=== PATIENT | male | born 1965 | race African-American/Black ===

== ENCOUNTER 2016-02-25 15:33 | Inpatient (IN) | payer OTHER ==
[2016-02-25 15:53] VITALS: BMI 28.0
--- NOTE | 2016-02-25 16:55 | HP ---
CIWA Score - CIWA Score Nausea/Vomitin Muscle Tremors: 3 Anxiety: 3 Agitation: 3 Paroxysmal Sweats: 1-Minimal Palms Moist Orientation: 0-Oriented Tacttile Disturbances: 2-Mild Itch/Numbness/Burn Auditory Disturbances: 2-Mild Harshness/Frighten Visual Disturbances: 2-Mild Sensitivity Headache: 2-Mild CIWA-Ar Total Score: 21 Admission ROS BHS - HPI Chief Complaint: I NEED HELP TO STOP DRINKING AND DRUG COCAINE Allergies/Adverse Reactions: Allergies Allergy/AdvReac Type Severity Reaction Status Date / Time pork derived (porcine) Allergy Mild Rash Verified 01/09/16 17:30 [Pork derived (porcine)] No Known Drug Allergies Allergy Unknown Verified 01/09/16 17:30 History of Present Illness: THIS 50 YEARS OLD MALE WITH ALCOHOL AND COCAINE DEPENDENCE,WITHDRAWAL SYMPTOM, LAST DETOX 01/02 [facility] BIPOLAR DISORDER NICOTINE DEPENDENCE HTN LONGEST SOBRIETY 1 YEAR SEEN IN [facility] Exam Limitations: No Limitations - Ebola screening Have you traveled outside of the country in the last 21 days: No (N) Have you had contact with anyone from an Ebola affected area: No Have you been sick,other than usual withdrawal symptoms: No Do you have a fever: No - Review of Systems Constitutional: Loss of Appetite, Malaise, Night Sweats, Changes in sleep, Weakness EENT: reports: Tearing, Nose Congestion Respiratory: reports: No Symptoms reported Cardiac: reports: No Symptoms Reported GI: reports: Diarrhea, Vomiting, Indigestion, Abdominal cramping : reports: No Symptoms Reported Musculoskeletal: reports: Back Pain, Muscle Pain Integumentary: reports: Dryness Neuro: reports: Headache, Tremors Endocrine: reports: No Symptoms Reported Hematology: reports: No Symptoms Reported Psychiatric: reports: other (BIPOLAR DISORDER) Patient History - Patient Medical History Hx Anemia: No Hx Asthma: No Hx Chronic Obstructive Pulmonary Disease (COPD): No Hx Cancer: No Hx Cardiac Disorders: No Hx Congestive Heart Failure: No Hx Hypertension: Yes (NON COMPLIANCE) Hx Hypercholesterolemia: No Hx Pacemaker: No HX Cerebrovascular Accident: No Hx Seizures: No Hx Dementia: No Hx Diabetes: No Hx Gastrointestinal Disorders: No Hx Liver Disease: No Hx Genitourinary Disorders: No Hx Sexually Transmitted Disorders: No Hx Renal Disease (ESRD): No Hx Thyroid Disease: No Hx Human Immunodeficiency Virus (HIV): No (negative 08/02 LAST) Hx Hepatitis C: No Hx Depression: No Hx Suicide Attempt: Yes (20 years ago) Hx Bipolar Disorder: Yes Hx Schizophrenia: No Other Medical History: NO SUICIDAL,NO HOMMICIDAL - Patient Surgical History Past Surgical History: No Hx Neurologic Surgery: No Hx Cataract Extraction: No Hx Cardiac Surgery: No Hx Lung Surgery: No Hx Breast Surgery: No Hx Breast Biopsy: No Hx Abdominal Surgery: No Hx Appendectomy: No Hx Cholecystectomy: No Hx Genitourinary Surgery: No Hx Section: No Hx Orthopedic Surgery: No Anesthesia Reaction: No - PPD History Documented Results: Negative w/o proof Date: 07/24/14 Results: 0 mm PPD to be Administered?: Yes - Smoking Cessation Smoking history: Current every day smoker Have you smoked in the past 12 months: Yes Aproximately how many cigarettes per day: 10 Cigars Per Day: 0 Hx Chewing Tobacco Use: No Initiated information on smoking cessation: Yes 'Breaking Loose' booklet given: 02/25/16 - Substance & Tx. History Hx Alcohol Use: Yes Hx Substance Use: Yes Substance Use Type: Alcohol, Cocaine Hx Substance Use Treatment: Yes ([facility] 08/02) - Substances Abused Alcohol Route: Oral Frequency: Daily (1PINT OF VODKA) Amount used: 1 PINT OF VODKA/6 PACKS OF 12 OZS OF BEER Age of first use: 17 Date of Last Use: 02/24/16 Cocaine Route: Smoking Frequency: 1-3 times last 30 days Amount used: 200$ Age of first use: 17 Date of Last Use: 03/01/16 Family Disease History - Family Disease History Family History: Denies Admission Physical Exam [facility] - Vital Signs Vital Signs: Vital Signs - 24 hr 02/25/16 15:51 Temperature 96.1 F L Pulse Rate 58 L Respiratory 20 Rate Blood Pressure 135/98 - Physical General Appearance: Yes: Moderate Distress, Irritable, Sweating, Anxious HEENTM: Yes: Within Normal Limits, Nasal Congestion Respiratory: Yes: Lungs Clear Neck: Yes: Within Normal Limits Breast: Yes: Within Normal Limits Cardiology: Yes: Within Normal Limits, Regular Rhythm, Regular Rate, S1, S2 Abdominal: Yes: Within Normal Limits, Normal Bowel Sounds, Non Tender, Flat, Soft Genitourinary: Yes: Within Normal Limits Musculoskeletal: Yes: Back pain, Muscle Pain Extremities: Yes: Tremors Neurological: Yes: hand packager II-XII NML intact, Fully Oriented, Alert, Motor Strength 5/5 Integumentary: Yes: Dry Lymphatic: Yes: Within Normal Limits - Diagnostic (1) Alcohol dependence with uncomplicated withdrawal Current Visit: No Status: Chronic (2) Bipolar disorder Current Visit: No Status: Chronic Qualifiers: Current episode severity: unspecified Comment: . (3) Cocaine dependence Current Visit: No Status: Chronic Qualifiers: Substance use status: uncomplicated Qualified Code(s): F14.20 - Cocaine dependence, uncomplicated Comment: . (4) Hypertension Current Visit: No Status: Chronic Qualifiers: Hypertension type: essential hypertension Qualified Code(s): I10 - Essential (primary) hypertension Comment: . Cleared for Admission S - Detox or Rehab [facility] Level of Care: Medically Managed Detox Regimen/Protocol: Librium [facility] Breath Alcohol Content Breath Alcohol Content: 0 Urine Drug Screen - Results Drug Screen Negative: No Urine Drug Screen Results: BECKI-Cocaine
[2016-02-25] MEDS ORDERED: MENTHOL/PHENOL 1 EACH UD MM PRN (17:36)
[2016-02-25] MEDS ORDERED: chlordiazePOXIDE HCL 25 MG CAPSULE PO ONE (17:36)
[2016-02-25] MEDS ORDERED: MAG HYDROX/AL HYDROX/SIMETH 30 ML UNIT-DOSE CUP PO PRN (17:36)
[2016-02-25] MEDS ORDERED: hydrOXYzine PAMOATE 50 MG CAPSULE (FP) PO PRN (17:36)
[2016-02-25] MEDS ORDERED: guaiFENesin/D-METHORPHAN HB 10 ML UNIT-DOSE CUPS PO PRN (17:36)
[2016-02-25] MEDS ORDERED: diphenhydrAMINE HCL 50 MG CAPSULE PO PRN (17:36)
[2016-02-25] MEDS ORDERED: chlordiazePOXIDE HCL 25 MG CAPSULE PO PRN (17:36)
[2016-02-25] MEDS ORDERED: P-EPHED 60MG/TRIPROLIDI 2.5MG TABLET PO PRN (17:36)
[2016-02-25] MEDS ORDERED: MAGNESIUM HYDROX 2400MG/30ML ORAL SUSPENSION 30 ML CUP PO PRN (17:36)
[2016-02-25] MEDS ORDERED: MAGNESIUM CITRATE 300 ML BOTTLE PO PRN (17:36)
[2016-02-25] MEDS ORDERED: ACETAMINOPHEN 325 MG TABLET (FP) PO PRN (17:36)
[2016-02-25] MEDS ORDERED: IBUPROFEN 400 MG TABLET (FP) PO PRN (17:36)
[2016-02-25] MEDS ORDERED: LOPERAMIDE HCL 2 MG CAPSULE PO PRN (17:36)
[2016-02-25] MEDS ORDERED: NICOTINE POLACRILEX 2 MG GUM BC PRN (17:36)
[2016-02-25] MEDS: THIAMINE HCL 100 MG TABLET (FP) PO SCH (22:43)
[2016-02-25] MEDS: chlordiazePOXIDE HCL 25 MG CAPSULE PO SCH (22:43)
[2016-02-26] MEDS: chlordiazePOXIDE HCL 25 MG CAPSULE PO SCH ×4 (05:25→22:30)
--- NOTE | 2016-02-26 07:53 | CONSULT ---
[facility] Psychiatric Consult - Data Date of interview: 02/26/16 Admission source: [facility] Identifying data: This is 50 years old male with psychiatric hospitalization history iontoxicated with: Alcohol, Cocaine and Nicotine Substance Abuse History: - Smoking Cessation. Smoking history: Current every day smoker. Have you smoked in the past 12 months: Yes. Aproximately how many cigarettes per day: 10. Cigars Per Day: 0. Hx Chewing Tobacco Use: No. Initiated information on smoking cessation: Yes. 'Breaking Loose' booklet given : 02/25/16. - Substance & Tx. History. Hx Alcohol Use: Yes. Hx Substance Use : Yes. Substance Use Type: Alcohol, Cocaine. Hx Substance Use Treatment: Yes ( [facility] 08/02). - Substances Abused. Alcohol. Route: Oral. Frequency : Daily (1PINT OF VODKA). Amount used: 1 PINT OF VODKA/6 PACKS OF 12 OZS OF BEER. Age of first use: 17. Date of Last Use: 02/24/16. Cocaine. Route: Smoking. Frequency: 1-3 times last 30 days. Amount used: 200$. Age of first use: 17. Date of Last Use: 03/01/16 Medical History: UTI Hisotyr, HTN Psychiatric History: Patiyolit reports history of Bipolar disordsr with most recent psychiatric admission on 2015 at [facility], reports currentllllllllllly taking :". Seroquel 300mg po qhs Physical/Sexual Abuse/Trauma History: Denies Additional Comment: Seroquel 300mg po qhs Mental Status Exam - Mental Status Exam Alert and Oriented to: Person Cognitive Function: Fair Patient Appearance: Unkempt Affect: Flat Patient Behavior: Sedated Speech Pattern: Delayed Voice Loudness: Mildly Soft/Quiet Thought Process: Goal Oriented Thought Disorder: Being Controlled Hallucinations: Denies Suicidal Ideation: Denies Homicidal Ideation: Denies Insight/Judgement: Fair Sleep: Difficulty falling asleep Appetite: Weight gain Muscle strength/Tone: Mild Hypotonicity Gait/Station: Shuffling Additional Comments: Seroquel 300mg po qhs Psychiatric Findings - Problem List ([place] 1, 2,3) (1) Bipolar I, most recent episode mixed, severe with psychotic behavior Current Visit: No Status: Acute (2) Cannabis abuse Current Visit: No Status: Acute Comment: . (3) Drug-induced mood disorder Current Visit: No Status: Acute (4) Alcohol dependence Current Visit: No Status: Chronic Qualifiers: Substance use status: uncomplicated Qualified Code(s): F10.20 - Alcohol dependence, uncomplicated Comment: . (5) Alcohol dependence with uncomplicated withdrawal Current Visit: No Status: Chronic (6) Bipolar disorder Current Visit: No Status: Chronic Qualifiers: Current episode severity: unspecified Comment: . (7) Cocaine dependence Current Visit: No Status: Chronic Qualifiers: Substance use status: uncomplicated Qualified Code(s): F14.20 - Cocaine dependence, uncomplicated Comment: . (8) Nicotine dependence Current Visit: No Status: Chronic Qualifiers: Nicotine product type: cigarettes Comment: . - Initial Treatment Plan Initial Treatment Plan: Seroquel 300mg po qhs
[2016-02-26 10:03] LABS: MCHC 34.5 g/dl (32.0-35.9); MEAN CELL VOLUME 95.7 fl (80-96); MEAN PLT VOLUME 8.8 fl (7.5-11.1); PLATELET COUNT 193 K/MM3 (134-434); RDW 12.7 % (11.9-15.9); WHITE BLOOD COUNT 5.2 K/mm3 (4.0-10.0)
[2016-02-26 10:22] LABS: ALBUMIN 3.6 g/dl (3.4-5.0); ALK PHOS 61 U/L (45-117); ANION GAP 6 (8-16); BILIRUBIN,TOTAL 0.4 mg/dL (0.2-1.0); CALCIUM 8.8 mg/dL (8.5-10.1); CO2 31 mmol/L (21-32); CREATININE 1.2 mg/dL (0.7-1.3); GLUCOSE,RANDOM 78 mg/dL (74-106); SGOT/AST 24 U/L (15-37); SGPT/ALT 26 U/L (12-78); TOT PROT 6.4 g/dl (6.4-8.2)
[2016-02-26] MEDS: PRENATAL VITAMINS W/ FOLIC ACID TABLET (FP) PO SCH (10:33)
--- NOTE | 2016-02-26 11:37 | PN ---
S CIWA - CIWA Score Nausea/Vomitin Muscle Tremors: 2 Anxiety: 2 Agitation: 2 Paroxysmal Sweats: 3 Orientation: 0-Oriented Tacttile Disturbances: 1-Very Mild Itch/Numbness Auditory Disturbances: 0-None Visual Disturbances: 0-None Headache: 0-None Present CIWA-Ar Total Score: 12 S Progress Note (SOAP) Subjective: interrupted sleep, sweats Objective: 02/26/16 11:36 Vital Signs Temperature 97.0 F L 02/26/16 10:17 Pulse Rate 57 L 02/26/16 10:17 Respiratory Rate 18 02/26/16 10:17 Blood Pressure 122/66 02/26/16 10:17 O2 Sat by Pulse Oximetry (%) Laboratory Tests 02/26/16 02/26/16 02/26/16 06:30 06:30 06:30 WBC 5.2 D RBC 4.15 Hgb 13.7 Hct 39.7 MCV 95.7 MCHC 34.5 RDW 12.7 Plt Count 193 MPV 8.8 Sodium 140 Potassium 4.2 Chloride 103 Carbon Dioxide 31 Anion Gap 6 L BUN 15 Creatinine 1.2 Creat Clearance w eGFR > 60 Random Glucose 78 Calcium 8.8 Total Bilirubin 0.4 AST 24 ALT 26 Alkaline Phosphatase 61 Total Protein 6.4 Albumin 3.6 RPR Titer Nonreactive pt aox3 in nad ambulating 02/26/16 11:37 Assessment: 02/26/16 11:36 withdrawl sxs;s Plan: cont. detox increase fluids
[2016-02-26] MEDS: QUEtiapine FUMARATE 300 MG TABLET PO SCH (22:29)
[2016-02-26] MEDS: THIAMINE HCL 100 MG TABLET (FP) PO SCH (22:29)
[2016-02-27] MEDS: chlordiazePOXIDE HCL 25 MG CAPSULE PO SCH ×3 (06:49→17:35)
[2016-02-27] MEDS: PRENATAL VITAMINS W/ FOLIC ACID TABLET (FP) PO SCH (10:16)
--- NOTE | 2016-02-27 12:56 | PN ---
S CIWA - CIWA Score Nausea/Vomitin Muscle Tremors: 2 Anxiety: 2 Agitation: 2 Paroxysmal Sweats: 2 Orientation: 0-Oriented Tacttile Disturbances: 1-Very Mild Itch/Numbness Auditory Disturbances: 0-None Visual Disturbances: 0-None Headache: 0-None Present CIWA-Ar Total Score: 11 S Progress Note (SOAP) Subjective: interrupted sleep, but better Objective: 02/27/16 12:55 Vital Signs Temperature 97.3 F L 02/27/16 09:29 Pulse Rate 55 L 02/27/16 09:29 Respiratory Rate 18 02/27/16 09:29 Blood Pressure 135/91 02/27/16 09:29 O2 Sat by Pulse Oximetry (%) Laboratory Tests 02/26/16 02/26/16 02/26/16 06:30 06:30 06:30 WBC 5.2 D RBC 4.15 Hgb 13.7 Hct 39.7 MCV 95.7 MCHC 34.5 RDW 12.7 Plt Count 193 MPV 8.8 Sodium 140 Potassium 4.2 Chloride 103 Carbon Dioxide 31 Anion Gap 6 L BUN 15 Creatinine 1.2 Creat Clearance w eGFR > 60 Random Glucose 78 Calcium 8.8 Total Bilirubin 0.4 AST 24 ALT 26 Alkaline Phosphatase 61 Total Protein 6.4 Albumin 3.6 RPR Titer Nonreactive pt aox3 in nad ambulating Assessment: 02/27/16 12:55 withdrawl sx's Plan: cont. detox increase fluids
[2016-02-27] MEDS: chlordiazePOXIDE 5 MG CAPSULE PO SCH (23:03)
[2016-02-27] MEDS: QUEtiapine FUMARATE 300 MG TABLET PO SCH (23:03)
[2016-02-27] MEDS: THIAMINE HCL 100 MG TABLET (FP) PO SCH (23:04)
[2016-02-28] MEDS: chlordiazePOXIDE 5 MG CAPSULE PO SCH ×3 (05:22→17:55)
--- NOTE | 2016-02-28 10:19 | EKG ---
Test Reason : Blood Pressure : / mmHG Vent. Rate : 058 BPM Atrial Rate : 058 BPM P-R Int : 166 ms QRS Dur : 078 ms QT Int : 462 ms P-R-T Axes : 053 018 055 degrees QTc Int : 453 ms SINUS BRADYCARDIA MINIMAL VOLTAGE CRITERIA FOR LVH, MAY BE NORMAL VARIANT BORDERLINE ECG NO PREVIOUS ECGS AVAILABLE Confirmed by CYNTHIA ZALDIVAR MD ([id number]) on 02/28/2016 10:18:55 AM Referred By: Confirmed By:CYNTHIA ZALDIVAR MD
[2016-02-28] MEDS: PRENATAL VITAMINS W/ FOLIC ACID TABLET (FP) PO SCH (10:49)
--- NOTE | 2016-02-28 11:18 | PN ---
[facility] Progress Note (SOAP) Subjective: interrupted sleep Objective: 02/28/16 11:17 Vital Signs Temperature 97.3 F L 02/28/16 10:03 Pulse Rate 60 02/28/16 10:03 Respiratory Rate 18 02/28/16 10:03 Blood Pressure 138/83 02/28/16 10:03 O2 Sat by Pulse Oximetry (%) awake/alert ambulating no acute distress Assessment: 02/28/16 11:17 withdrawal sx Plan: continue detox d/c in am
[2016-02-28 14:18] LABS: URINE APPEARANCE CLEAR; URINE BILIRUBIN NEGATIVE (NEGATIVE); URINE BLOOD NEGATIVE (NEGATIVE); URINE COLOR LT. YELLOW; URINE GLUCOSE (UA) NEGATIVE (NEGATIVE); URINE KETONE NEGATIVE (NEGATIVE); URINE LEUK ESTERASE NEGATIVE (NEGATIVE); URINE NITRITE NEGATIVE (NEGATIVE); URINE PROTEIN NEGATIVE (NEGATIVE); URINE UROBILINOGEN 0.2 E.U/dl E.U./dl (0.2-1.0)
[2016-02-28] MEDS: QUEtiapine FUMARATE 300 MG TABLET PO SCH (22:42)
[2016-02-28] MEDS: THIAMINE HCL 100 MG TABLET (FP) PO SCH (22:42)
[2016-02-28] MEDS: chlordiazePOXIDE HCL 10 MG CAPSULE PO SCH (22:42)
[2016-02-29] MEDS: chlordiazePOXIDE HCL 10 MG CAPSULE PO SCH ×2 (05:00→11:23)
--- NOTE | 2016-02-29 08:18 | DS ---
[facility] Detox Discharge Summary Admission Date: 02/25/16 - History Present History: Alcohol Dependence - Physical Exam Results Vital Signs: Vital Signs Temperature 98.2 F 02/29/16 05:52 Pulse Rate 88 02/29/16 05:52 Respiratory Rate 18 02/29/16 05:52 Blood Pressure 115/69 02/29/16 05:52 O2 Sat by Pulse Oximetry (%) - Treatment Hospital Course: Detox Protocol Followed, Detoxed Safely, Responded well, Discharged Condition Good - Medication Discharge Medications: Ambulatory Orders Quetiapine Fumarate [Seroquel] 300 mg PO HS 02/25/16 Quetiapine Fumarate [Seroquel -] 300 mg PO HS #30 tab 02/26/16 - Diagnosis (1) Abdominal pain Current Visit: No Status: Acute Qualifiers: Abdominal location: generalized Qualified Code(s): R10.84 - Generalized abdominal pain (2) Alcohol dependence with uncomplicated withdrawal Current Visit: No Status: Chronic (3) Bipolar disorder Current Visit: No Status: Chronic Qualifiers: Current episode severity: unspecified (4) Cocaine dependence Current Visit: No Status: Chronic Qualifiers: Substance use status: uncomplicated Qualified Code(s): F14.20 - Cocaine dependence, uncomplicated (5) Hypertension Current Visit: No Status: Chronic Qualifiers: Hypertension type: essential hypertension Qualified Code(s): I10 - Essential (primary) hypertension (6) Nicotine dependence Current Visit: No Status: Chronic Qualifiers: Nicotine product type: cigarettes - AMA Did Patient Leave Against Medical Advice: No
[2016-02-29 10:30] VITALS: BP 123/75; PULSE 53; TEMP 97.3
[2016-02-29] MEDS: PRENATAL VITAMINS W/ FOLIC ACID TABLET (FP) PO SCH (11:23)
== END 2016-02-29 11:31 | disposition other institution (70) | DRG 774 ==
LOC: YASAS 15:33 → Y6N 17:31
PROVIDERS: ADMIT Internal Medicine; ATTEND Internal Medicine
PROC: HZ2ZZZZ Detoxification Services for Substance Abuse Treatment (ICD-10-PCS; principal; 2016-02-25)
DX: F10.230 Alcohol dependence with withdrawal, uncomplicated (principal); F14.20 Cocaine dependence, uncomplicated; F17.210 Nicotine dependence, cigarettes, uncomplicated; F19.24 Other psychoactive substance dependence with psychoactive substance-induced mood disorder; F31.64 Bipolar disorder, current episode mixed, severe, with psychotic features; R10.84 Generalized abdominal pain; I10 Essential (primary) hypertension; Z91.14 Patient's other noncompliance with medication regimen; Z91.5 Personal history of self-harm
CPT/HCPCS: 36415; 80053; 81003; 85027; 86593; 93005; 93010

== ENCOUNTER 2016-02-29 11:41 | Inpatient (IN) | payer OTHER ==
--- NOTE | 2016-02-29 13:59 | HP ---
Psychiatrist Admission - Data Date of interview: 02/29/16 Admission source: 6N Identifying data: This is one of the several 5N inpatient rehabilitation admission for this 50 year old single black male father of 3, residing in the care home and supported by [facility]. Medical History: History of HTN and UTI. Smokes cigarettes 10a day. Psychiatric History: PAtient reports carries a diagnosis of Biplar disorder, firs psychiaric hospitalization in 1991 at [facility] for 2 weeks to address suicidal thoughts and depressed mood, reports 7 or 8 subseuqnet hospitalizations with most recent 01/31 at [facility], had a depressed episode with racing thoughts. Non-compliant with medications, was on Risperdal, Haldol, most recently was on Seroquel 300 mg po hs, stopped 2 months ago, while in detox. seen by and retarted medications. Physical/Sexual Abuse/Trauma History: Patient denies history of sexual, physical and verbal abuse. Allergies/Adverse Reactions: Allergies Allergy/AdvReac Type Severity Reaction Status Date / Time pork derived (porcine) Allergy Mild Rash Verified 02/29/16 12:07 [Pork derived (porcine)] No Known Drug Allergies Allergy Unknown Verified 02/29/16 12:07 Date of last physical exam: 02/25/16 Concur with the findings of this exam: Yes - Substance Abuse/Tx History Hx Alcohol Use: Yes Substance Use Type: Alcohol (1 pint of vodka, 6 pcks of beer daily), Cocaine ($ 200 every other day.) Mental Status Exam - Mental Status Exam Alert and Oriented to: Time, Place, Person Cognitive Function: Grossly Intact Patient Appearance: Unkempt Mood: Sad Affect: Appropriate, Mood Congruent Patient Behavior: Appropriate, Cooperative Speech Pattern: Clear, Appropriate Voice Loudness: Normal Thought Process: Intact, Goal Oriented Thought Disorder: Not Present Hallucinations: Denies Suicidal Ideation: Denies Homicidal Ideation: Denies Insight/Judgement: Fair Sleep: Fair Appetite: Fair Muscle strength/Tone: Normal Gait/Station: Normal Psychiatric Findings - Problem List ([place] 1, 2,3) (1) Alcohol dependence Current Visit: No Status: Chronic Qualifiers: Substance use status: uncomplicated Qualified Code(s): F10.20 - Alcohol dependence, uncomplicated Comment: . (2) Cocaine dependence Current Visit: No Status: Chronic Qualifiers: Substance use status: uncomplicated Qualified Code(s): F14.20 - Cocaine dependence, uncomplicated Comment: . (3) Bipolar I disorder, most recent episode depressed Current Visit: Yes Status: Acute - Initial Treatment Plan Initial Treatment Plan: will continue Seroquel 300 mg po hs, monitor progress as needed.
[2016-02-29] MEDS ORDERED: MAGNESIUM CITRATE 300 ML BOTTLE PO PRN (14:06)
[2016-02-29] MEDS ORDERED: MENTHOL/PHENOL 1 EACH UD MM PRN (14:06)
[2016-02-29] MEDS ORDERED: MAGNESIUM HYDROX 2400MG/30ML ORAL SUSPENSION 30 ML CUP PO PRN (14:06)
[2016-02-29] MEDS ORDERED: ACETAMINOPHEN 325 MG TABLET (FP) PO PRN (14:06)
[2016-02-29] MEDS ORDERED: NICOTINE POLACRILEX 4 MG GUM BUC PRN (14:06)
[2016-02-29] MEDS ORDERED: MAG HYDROX/AL HYDROX/SIMETH 30 ML UNIT-DOSE CUP PO PRN (14:06)
[2016-02-29] MEDS ORDERED: guaiFENesin/D-METHORPHAN HB 10 ML UNIT-DOSE CUPS PO PRN (14:06)
[2016-02-29] MEDS ORDERED: P-EPHED 60MG/TRIPROLIDI 2.5MG TABLET PO PRN (14:06)
[2016-02-29] MEDS ORDERED: LOPERAMIDE HCL 2 MG CAPSULE PO PRN (14:06)
--- NOTE | 2016-02-29 16:18 | HP ---
[facility] Rehab Assess/Revision - Admission History Admitted to Rehab from: [facility] [address] [place] Date of Admission to Rehab: 02/29/16 - Findings Detox History & Physical reviewed: Yes Concur with findings: Yes Comments/Additional Findings: transferred from detox to rehab admission as per protocol
[2016-02-29] MEDS: QUEtiapine FUMARATE 300 MG TABLET PO SCH (21:39)
[2016-02-29] MEDS: THIAMINE HCL 100 MG TABLET (FP) PO SCH (21:39)
[2016-02-29] MEDS: diphenhydrAMINE HCL 50 MG CAPSULE PO PRN (21:40)
[2016-03-01] MEDS: PRENATAL VITAMINS W/ FOLIC ACID TABLET (FP) PO SCH (10:01)
[2016-03-01] MEDS: THIAMINE HCL 100 MG TABLET (FP) PO SCH (21:50)
[2016-03-01] MEDS: diphenhydrAMINE HCL 50 MG CAPSULE PO PRN (21:50)
[2016-03-01] MEDS: QUEtiapine FUMARATE 300 MG TABLET PO SCH (21:50)
[2016-03-02] MEDS: PRENATAL VITAMINS W/ FOLIC ACID TABLET (FP) PO SCH (10:00)
[2016-03-02] MEDS: THIAMINE HCL 100 MG TABLET (FP) PO SCH (21:29)
[2016-03-02] MEDS: diphenhydrAMINE HCL 50 MG CAPSULE PO PRN (21:29)
[2016-03-02] MEDS: QUEtiapine FUMARATE 300 MG TABLET PO SCH (21:29)
[2016-03-03] MEDS: PRENATAL VITAMINS W/ FOLIC ACID TABLET (FP) PO SCH (10:27)
[2016-03-03] MEDS: QUEtiapine FUMARATE 300 MG TABLET PO SCH (21:49)
[2016-03-03] MEDS: THIAMINE HCL 100 MG TABLET (FP) PO SCH (21:49)
[2016-03-03] MEDS: diphenhydrAMINE HCL 50 MG CAPSULE PO PRN (21:50)
[2016-03-04] MEDS: PRENATAL VITAMINS W/ FOLIC ACID TABLET (FP) PO SCH (10:20)
[2016-03-04] MEDS: diphenhydrAMINE HCL 50 MG CAPSULE PO PRN (22:02)
[2016-03-04] MEDS: QUEtiapine FUMARATE 300 MG TABLET PO SCH (22:02)
[2016-03-04] MEDS: THIAMINE HCL 100 MG TABLET (FP) PO SCH (22:02)
[2016-03-05] MEDS: PRENATAL VITAMINS W/ FOLIC ACID TABLET (FP) PO SCH (10:49)
[2016-03-05] MEDS: THIAMINE HCL 100 MG TABLET (FP) PO SCH (21:12)
[2016-03-05] MEDS: QUEtiapine FUMARATE 300 MG TABLET PO SCH (21:12)
[2016-03-05] MEDS: diphenhydrAMINE HCL 50 MG CAPSULE PO PRN (21:12)
[2016-03-06] MEDS: PRENATAL VITAMINS W/ FOLIC ACID TABLET (FP) PO SCH (10:28)
[2016-03-06] MEDS: QUEtiapine FUMARATE 300 MG TABLET PO SCH (22:07)
[2016-03-06] MEDS: THIAMINE HCL 100 MG TABLET (FP) PO SCH (22:07)
[2016-03-06] MEDS: diphenhydrAMINE HCL 50 MG CAPSULE PO PRN (22:08)
[2016-03-07] MEDS: PRENATAL VITAMINS W/ FOLIC ACID TABLET (FP) PO SCH (10:39)
[2016-03-07] MEDS: THIAMINE HCL 100 MG TABLET (FP) PO SCH (21:33)
[2016-03-07] MEDS: diphenhydrAMINE HCL 50 MG CAPSULE PO PRN (21:34)
[2016-03-07] MEDS: QUEtiapine FUMARATE 300 MG TABLET PO SCH (21:34)
[2016-03-08] MEDS: PRENATAL VITAMINS W/ FOLIC ACID TABLET (FP) PO SCH (09:51)
[2016-03-08] MEDS: diphenhydrAMINE HCL 50 MG CAPSULE PO PRN (21:28)
[2016-03-08] MEDS: QUEtiapine FUMARATE 300 MG TABLET PO SCH (21:28)
[2016-03-08] MEDS: THIAMINE HCL 100 MG TABLET (FP) PO SCH (21:28)
[2016-03-09] MEDS: PRENATAL VITAMINS W/ FOLIC ACID TABLET (FP) PO SCH (09:51)
[2016-03-09] MEDS: diphenhydrAMINE HCL 50 MG CAPSULE PO PRN (21:29)
[2016-03-09] MEDS: QUEtiapine FUMARATE 300 MG TABLET PO SCH (21:29)
[2016-03-09] MEDS: THIAMINE HCL 100 MG TABLET (FP) PO SCH (21:29)
[2016-03-10] MEDS: PRENATAL VITAMINS W/ FOLIC ACID TABLET (FP) PO SCH (09:37)
[2016-03-10] MEDS: THIAMINE HCL 100 MG TABLET (FP) PO SCH (21:20)
[2016-03-10] MEDS: diphenhydrAMINE HCL 50 MG CAPSULE PO PRN (21:20)
[2016-03-10] MEDS: QUEtiapine FUMARATE 300 MG TABLET PO SCH (21:20)
[2016-03-11] MEDS: PRENATAL VITAMINS W/ FOLIC ACID TABLET (FP) PO SCH (10:04)
[2016-03-11] MEDS: diphenhydrAMINE HCL 50 MG CAPSULE PO PRN (21:15)
[2016-03-11] MEDS: THIAMINE HCL 100 MG TABLET (FP) PO SCH (21:15)
[2016-03-11] MEDS: QUEtiapine FUMARATE 300 MG TABLET PO SCH (21:15)
[2016-03-12] MEDS: PRENATAL VITAMINS W/ FOLIC ACID TABLET (FP) PO SCH (10:04)
[2016-03-12] MEDS: THIAMINE HCL 100 MG TABLET (FP) PO SCH (21:14)
[2016-03-12] MEDS: diphenhydrAMINE HCL 50 MG CAPSULE PO PRN (21:14)
[2016-03-12] MEDS: QUEtiapine FUMARATE 300 MG TABLET PO SCH (21:14)
[2016-03-13] MEDS: PRENATAL VITAMINS W/ FOLIC ACID TABLET (FP) PO SCH (10:01)
[2016-03-13] MEDS: QUEtiapine FUMARATE 300 MG TABLET PO SCH (21:18)
[2016-03-13] MEDS: THIAMINE HCL 100 MG TABLET (FP) PO SCH (21:18)
[2016-03-13] MEDS: diphenhydrAMINE HCL 50 MG CAPSULE PO PRN (21:18)
[2016-03-14] MEDS: PRENATAL VITAMINS W/ FOLIC ACID TABLET (FP) PO SCH (09:57)
[2016-03-14] MEDS: THIAMINE HCL 100 MG TABLET (FP) PO SCH (21:08)
[2016-03-14] MEDS: diphenhydrAMINE HCL 50 MG CAPSULE PO PRN (21:08)
[2016-03-14] MEDS: QUEtiapine FUMARATE 300 MG TABLET PO SCH (21:08)
[2016-03-15] MEDS: PRENATAL VITAMINS W/ FOLIC ACID TABLET (FP) PO SCH (10:32)
[2016-03-15] MEDS: THIAMINE HCL 100 MG TABLET (FP) PO SCH (21:17)
[2016-03-15] MEDS: diphenhydrAMINE HCL 50 MG CAPSULE PO PRN (21:17)
[2016-03-15] MEDS: QUEtiapine FUMARATE 300 MG TABLET PO SCH (21:17)
[2016-03-15] MEDS: IBUPROFEN 400 MG TABLET (FP) PO PRN (21:18)
[2016-03-16 07:12] VITALS: BP 143/91; PULSE 58; TEMP 97.1
[2016-03-16] MEDS: PRENATAL VITAMINS W/ FOLIC ACID TABLET (FP) PO SCH (10:19)
[2016-03-16] MEDS: QUEtiapine FUMARATE 300 MG TABLET PO SCH (21:16)
[2016-03-16] MEDS: diphenhydrAMINE HCL 50 MG CAPSULE PO PRN (21:16)
[2016-03-16] MEDS: THIAMINE HCL 100 MG TABLET (FP) PO SCH (21:16)
[2016-03-17] MEDS: IBUPROFEN 400 MG TABLET (FP) PO PRN (02:22)
[2016-03-17] MEDS: diphenhydrAMINE HCL 50 MG CAPSULE PO PRN ×2 (02:23→21:20)
[2016-03-17] MEDS: PRENATAL VITAMINS W/ FOLIC ACID TABLET (FP) PO SCH (10:18)
[2016-03-17] MEDS: THIAMINE HCL 100 MG TABLET (FP) PO SCH (21:20)
[2016-03-17] MEDS: QUEtiapine FUMARATE 300 MG TABLET PO SCH (21:20)
[2016-03-18] MEDS: IBUPROFEN 400 MG TABLET (FP) PO PRN (00:19)
[2016-03-18] MEDS: PRENATAL VITAMINS W/ FOLIC ACID TABLET (FP) PO SCH (09:47)
--- NOTE | 2016-03-18 10:40 | PN ---
Psychiatric Progress Note Vital Signs: Vital Signs Period Temp Pulse Resp BP Sys/Manning Pulse Ox Last 24 Hr 18-18 Date of Session: 03/18/16 Chief Complaint:: discharge visist HPI: Patient has addressed alcohol, cocaine dependence comorbid Bipolar I disorder ROS: HTN and UTI medically managed. Current Medications: Active Medications Generic Name Dose Route Start Last Admin Trade Name Freq PRN Reason Stop Dose Admin Acetaminophen 650 mg 02/29/16 14:06 Tylenol - PO Q4H PRN FEVER OR PAIN Al Hydroxide/Mg Hydroxide 30 ml 02/29/16 14:06 Mylanta Oral Suspension - PO Q6H PRN DYSPEPSIA Diphenhydramine HCl 50 mg 02/29/16 14:06 03/17/16 21:20 Benadryl - PO 50 mg HSMR1 PRN Administration FOR ITCHING Eucalyptus/Menthol/Phenol/Sorbitol 1 each 02/29/16 14:06 Cepastat Lozenge - MM Q4H PRN SORE THROAT Guaifenesin 10 ml 02/29/16 14:06 Robitussin Dm - PO Q6H PRN COUGH Ibuprofen 400 mg 02/29/16 14:06 03/18/16 00:19 Motrin - PO 400 mg Q6H PRN Administration PAIN Loperamide HCl 4 mg 02/29/16 14:06 Imodium - PO Q6H PRN DIARRHEA Magnesium Hydroxide 30 ml 02/29/16 14:06 Milk Of Magnesia - PO DAILY PRN CONSTIPATION Nicotine Polacrilex 2 mg 02/29/16 14:06 Nicorette Gum - BUC Q2H PRN NICOTINE REPLACEMENT RX Multivit/Folic Acid/Iron 1 tab 03/01/16 10:00 03/17/16 10:18 Vitamins (Sjr) - PO 1 tab DAILY HARMONY Administration Pseudoephedrine/Triprolidine 1 combo 02/29/16 14:06 Actifed - PO TID PRN NASAL CONGESTION Quetiapine Fumarate 300 mg 02/29/16 22:00 03/17/16 21:20 Seroquel - PO 300 mg HS HARMONY Administration Thiamine HCl 100 mg 02/29/16 22:00 03/17/16 21:20 Vitamin B1 - PO 100 mg HS HARMONY Administration Current Side Effect: No Lab tests ordered: No Lab tests reviewed: Yes Provider note:: Patient has completed today his treatment and met his identified goal, will continue to address his issues at [facility] inpatient rehaiblitation treatment program. Patient focused on insights he gained in this treatment and verbalized his resolution to stay abstienent and adherent to every aspects of his aftercare plans.Seroquel well tolerated, patient reports he feels well, scrips provided for 30 days, patient is stable for discharge.. Total face to face time:: 35 Mental Status Exam - Mental Status Exam Alert and Oriented to: Time, Place, Person Cognitive Function: Good Patient Appearance: Well Groomed Mood: Hopeful Affect: Appropriate, Mood Congruent Patient Behavior: Appropriate, Cooperative Speech Pattern: Clear, Appropriate Voice Loudness: Normal Thought Process: Intact, Goal Oriented Thought Disorder: Not Present Hallucinations: Denies Suicidal Ideation: Denies Homicidal Ideation: Denies Insight/Judgement: Fair Sleep: Fair Appetite: Good Muscle strength/Tone: Normal Gait/Station: Normal Psychiatric Treatment Plan - Problem List (1) Alcohol dependence Current Visit: No Qualifiers: Substance use status: uncomplicated Qualified Code(s): F10.20 - Alcohol dependence, uncomplicated Comment: . (2) Cocaine dependence Current Visit: No Qualifiers: Substance use status: uncomplicated Qualified Code(s): F14.20 - Cocaine dependence, uncomplicated Comment: . (3) Bipolar I disorder, most recent episode depressed Current Visit: Yes
== END 2016-03-18 11:10 | disposition home or self-care (01) | DRG 772 ==
LOC: YASAS 11:41 → Y5N 11:43
PROVIDERS: ADMIT Psychiatry & Neurology Psychiatry; ATTEND Psychiatry & Neurology Psychiatry
PROC: HZ42ZZZ Group Counseling for Substance Abuse Treatment, Cognitive-Behavioral (ICD-10-PCS; principal; 2016-03-18)
DX: F10.20 Alcohol dependence, uncomplicated (principal); F14.20 Cocaine dependence, uncomplicated; F31.9 Bipolar disorder, unspecified

== ENCOUNTER 2016-06-20 10:46 | Inpatient (IN) | payer OTHER ==
[2016-06-20 11:47] VITALS: BMI 27.1
--- NOTE | 2016-06-20 13:57 | HP ---
CIWA Score - CIWA Score Nausea/Vomitin-No Nausea/No Vomiting Muscle Tremors: 3 Anxiety: 4-Mod. Anxious/Guarded Agitation: 3 Paroxysmal Sweats: 2 Orientation: 0-Oriented Tacttile Disturbances: 3-Moderate Itch/Numb/Burn Auditory Disturbances: 0-None Visual Disturbances: 0-None Headache: 0-None Present CIWA-Ar Total Score: 15 Admission ROS BHS - HPI Chief Complaint: DETOX TX FOR ALCOHOL DEPENDENCE Allergies/Adverse Reactions: Allergies Allergy/AdvReac Type Severity Reaction Status Date / Time pork derived (porcine) Allergy Mild Rash Verified 06/20/16 12:07 [Pork derived (porcine)] No Known Drug Allergies Allergy Unknown Verified 06/20/16 12:07 History of Present Illness: 50 Y/O AA/MALE WITH A HX OF ALCOHOL AND COCAINE DEPENDENCE SEEKING DETOX [place] Exam Limitations: No Limitations - Ebola screening Have you traveled outside of the country in the last 21 days: No Have you had contact with anyone from an Ebola affected area: No Have you been sick,other than usual withdrawal symptoms: No Do you have a fever: No - Review of Systems Constitutional: Chills, Loss of Appetite, Night Sweats, Changes in sleep EENT: reports: Nose Congestion, Dental Problems (MISSING TEETH) Respiratory: reports: No Symptoms reported Cardiac: reports: Lightheadedness GI: reports: Constipated, Diarrhea, Nausea, Poor Appetite, Poor Fluid Intake, Vomiting : reports: Frequency Musculoskeletal: reports: Back Pain, Joint Pain, Muscle Pain Integumentary: reports: No Symptoms Reported Neuro: reports: Headache, Tremors, Dizziness Endocrine: reports: No Symptoms Reported Hematology: reports: No Symptoms Reported Psychiatric: reports: Orientated x3, Anxious Other Systems: Reviewed and Negative Patient History - Patient Medical History Hx Anemia: No Hx Asthma: No Hx Chronic Obstructive Pulmonary Disease (COPD): No Hx Cancer: No Hx Cardiac Disorders: No Hx Congestive Heart Failure: No Hx Hypertension: Yes (NOT COMPLIANT) Hx Hypercholesterolemia: No Hx Pacemaker: No HX Cerebrovascular Accident: No Hx Seizures: No Hx Dementia: No Hx Diabetes: No Hx Gastrointestinal Disorders: No Hx Liver Disease: No Hx Genitourinary Disorders: No Hx Sexually Transmitted Disorders: No Hx Renal Disease (ESRD): No Hx Thyroid Disease: No Hx Human Immunodeficiency Virus (HIV): No (NEGATIVE HX) Hx Hepatitis C: No Hx Depression: Yes (NO CURRENT MEDS-"I SUPPOSED TO BE") Hx Suicide Attempt: Yes (Tried to cut himself in 1990) Hx Bipolar Disorder: Yes Hx Schizophrenia: No - Patient Surgical History Past Surgical History: No Hx Neurologic Surgery: No Hx Cataract Extraction: No Hx Cardiac Surgery: No Hx Lung Surgery: No Hx Breast Surgery: No Hx Breast Biopsy: No Hx Abdominal Surgery: No Hx Appendectomy: No Hx Cholecystectomy: No Hx Genitourinary Surgery: No Hx Section: No Hx Orthopedic Surgery: No Anesthesia Reaction: No - PPD History Previous Implant?: Yes Documented Results: Negative w/proof Implanted On Prior [facility] Admission?: Yes Date: 02/27/16 Results: 0 mm PPD to be Administered?: No - Reproductive History Patient is a Female of Child Bearing Age (11 -55 yrs old): No (MALE) - Smoking Cessation Smoking history: Current every day smoker Have you smoked in the past 12 months: Yes Aproximately how many cigarettes per day: 10 Cigars Per Day: 0 Hx Chewing Tobacco Use: No Initiated information on smoking cessation: Yes 'Breaking Loose' booklet given: 06/20/16 - Substance & Tx. History Hx Alcohol Use: Yes (VODKA) Hx Substance Use: Yes (CRACK) Substance Use Type: Alcohol, Cocaine Hx Substance Use Treatment: Yes ([facility]-DETOX) - Substances Abused Alcohol Route: Oral Frequency: Daily Amount used: 2 pints Age of first use: 17 Date of Last Use: 06/20/16 Crack Route: Smoking Frequency: Daily Amount used: $100 Age of first use: 17 Date of Last Use: 06/19/16 Family Disease History - Family Disease History Family History: Denies Admission Physical Exam [facility] - Vital Signs Vital Signs: Vital Signs - 24 hr 06/20/16 11:45 Temperature 97.4 F L Pulse Rate 53 L Respiratory 20 Rate Blood Pressure 132/87 - Physical General Appearance: Yes: Moderate Distress, Anxious HEENTM: Yes: EOMI, Normocephalic, SUE, Pharynx Normal, Nasal Congestion Respiratory: Yes: Chest Non-Tender, Lungs Clear, Normal Breath Sounds Neck: Yes: Supple, Trachea in good position Breast: Yes: Breast Exam Deferred Cardiology: Yes: Regular Rhythm, S1, S2, Bradycardia Abdominal: Yes: Normal Bowel Sounds, Non Tender, Soft Genitourinary: Yes: Other (N/C) Back: Yes: Within Normal Limits Musculoskeletal: Yes: full range of Motion, Gait Steady Extremities: Yes: Normal Range of Motion, Non-Tender Neurological: Yes: investment underwriter II-XII NML intact, Fully Oriented, Alert Integumentary: Yes: Dry, Warm Lymphatic: Yes: Within Normal Limits - Addiitonal Findings: EKG NOTED - Diagnostic (1) Cannabis abuse Current Visit: No Status: Inactive Comment: . (2) Alcohol dependence with uncomplicated withdrawal Current Visit: Yes Status: Acute (3) Hypertension Current Visit: Yes Status: Chronic Qualifiers: Qualified Code(s): I10 - Essential (primary) hypertension Comment: . (4) Nicotine dependence Current Visit: Yes Status: Acute Qualifiers: Qualified Code(s): F17.213 - Nicotine dependence, cigarettes, with withdrawal Comment: . (5) Cocaine dependence, uncomplicated Current Visit: Yes Status: Acute Cleared for Admission S - Detox or Rehab [facility] Level of Care: Medically Managed Detox Regimen/Protocol: Librium S Breath Alcohol Content Breath Alcohol Content: 0 Urine Drug Screen - Results Drug Screen Negative: No Urine Drug Screen Results: BECKI-Cocaine
[2016-06-20] MEDS ORDERED: ACETAMINOPHEN 325 MG TABLET (FP) PO PRN (14:08)
[2016-06-20] MEDS ORDERED: MAGNESIUM CITRATE 300 ML BOTTLE PO PRN (14:08)
[2016-06-20] MEDS ORDERED: diphenhydrAMINE HCL 50 MG CAPSULE PO PRN (14:08)
[2016-06-20] MEDS ORDERED: guaiFENesin/D-METHORPHAN HB 10 ML UNIT-DOSE CUPS PO PRN (14:08)
[2016-06-20] MEDS ORDERED: hydrOXYzine PAMOATE 25 MG CAPSULE (FP) PO PRN (14:08)
[2016-06-20] MEDS ORDERED: chlordiazePOXIDE HCL 25 MG CAPSULE PO PRN (14:08)
[2016-06-20] MEDS ORDERED: IBUPROFEN 400 MG TABLET (FP) PO PRN (14:08)
[2016-06-20] MEDS ORDERED: LOPERAMIDE HCL 2 MG CAPSULE PO PRN (14:08)
[2016-06-20] MEDS ORDERED: P-EPHED 60MG/TRIPROLIDI 2.5MG TABLET PO PRN (14:08)
[2016-06-20] MEDS ORDERED: MAG HYDROX/AL HYDROX/SIMETH 30 ML UNIT-DOSE CUP PO PRN (14:08)
[2016-06-20] MEDS ORDERED: NICOTINE POLACRILEX 2 MG GUM BUC PRN (14:08)
[2016-06-20] MEDS ORDERED: MAGNESIUM HYDROX 2400MG/30ML ORAL SUSPENSION 30 ML CUP PO PRN (14:08)
[2016-06-20] MEDS ORDERED: MENTHOL/PHENOL 1 EACH UD MM PRN (14:08)
[2016-06-20] MEDS ORDERED: chlordiazePOXIDE HCL 25 MG CAPSULE PO ONE (14:14)
--- NOTE | 2016-06-20 14:40 | CONSULT ---
[facility] Psychiatric Consult - Data Date of interview: 06/20/16 Admission source: [facility] Identifying data: This is 50 years old male with history of Bipolar Disorder intoxicated with: Cannabis, Crack, Alcohol and Nicotine Substance Abuse History: - Smoking Cessation. Smoking history: Current every day smoker. Have you smoked in the past 12 months: Yes. Aproximately how many cigarettes per day: 10. Cigars Per Day: 0. Hx Chewing Tobacco Use: No. Initiated information on smoking cessation: Yes. 'Breaking Loose' booklet given : 06/20/16. - Substance & Tx. History. Hx Alcohol Use: Yes (VODKA). Hx Substance Use: Yes (CRACK). Substance Use Type: Alcohol, Cocaine. Hx Substance Use Treatment: Yes ([facility] - Substances Abused. Alcohol. Route: Oral. Frequency: Daily. Amount used: 2 pints. Age of first use: 17. Date of Last Use: 06/20/16. Crack. Route: Smoking. Frequency: Daily. Amount used: $100. Age of first use: 17. Date of Last Use: 06/19/16 Medical History: HTN, Abdominal pain history Psychiatric History: Patient reports history of Bipolar Dicorder with only psychiatric admission on 8 months ago at [facility] for safety, reports currently taking Seroquel 300mg po qhs prior to admission Physical/Sexual Abuse/Trauma History: Denies Additional Comment: Seroquel 100mg po qhs Mental Status Exam - Mental Status Exam Alert and Oriented to: Person Cognitive Function: Fair Patient Appearance: Unkempt Mood: Suspicious, Anxious Affect: Constricted Patient Behavior: Cooperative Speech Pattern: Appropriate Voice Loudness: Normal Thought Process: Goal Oriented Thought Disorder: Being Controlled Hallucinations: Denies Suicidal Ideation: Denies Homicidal Ideation: Denies Insight/Judgement: Fair Sleep: Difficulty falling asleep Appetite: Fair Muscle strength/Tone: Normal Gait/Station: Normal Additional Comments: Seroquel 100mg po qhs Psychiatric Findings - Problem List ([place] 1, 2,3) (1) Alcohol dependence with uncomplicated withdrawal Current Visit: Yes Status: Acute (2) Cocaine dependence, uncomplicated Current Visit: Yes Status: Acute (3) Nicotine dependence Current Visit: Yes Status: Acute Qualifiers: Nicotine product type: cigarettes Substance use status: in withdrawal Qualified Code(s): F17.213 - Nicotine dependence, cigarettes, with withdrawal Comment: . (4) Bipolar I disorder, most recent episode depressed Current Visit: No Status: Acute (5) Bipolar I, most recent episode mixed, severe with psychotic behavior Current Visit: No Status: Acute - Initial Treatment Plan Initial Treatment Plan: Seroquel 100mg po qhs
[2016-06-20] MEDS: NICOTINE 14 MG/24 HOURS TOPICAL PATCH TD SCH (14:56)
[2016-06-20] MEDS: chlordiazePOXIDE HCL 25 MG CAPSULE PO SCH ×2 (17:16→22:15)
[2016-06-20 21:09] LABS: URINE APPEARANCE CLEAR; URINE BILIRUBIN NEGATIVE (NEGATIVE); URINE BLOOD NEGATIVE (NEGATIVE); URINE COLOR LTYELLOW; URINE GLUCOSE (UA) NEGATIVE (NEGATIVE); URINE KETONE NEGATIVE (NEGATIVE); URINE LEUK ESTERASE 2+ (NEGATIVE); URINE NITRITE NEGATIVE (NEGATIVE); URINE PROTEIN NEGATIVE (NEGATIVE); URINE UROBILINOGEN NEGATIVE E.U./dl (0.2-1.0)
[2016-06-20 21:16] LABS: URINE MUCUS RARE; URINE WBC 5 /hpf (3-5)
[2016-06-20] MEDS: THIAMINE HCL 100 MG TABLET (FP) PO SCH (22:14)
[2016-06-20] MEDS: QUEtiapine FUMARATE 100 MG TABLET (FP) PO SCH (22:15)
[2016-06-21] MEDS: chlordiazePOXIDE HCL 25 MG CAPSULE PO SCH ×4 (06:16→22:50)
[2016-06-21] MEDS: PRENATAL VITAMINS W/ FOLIC ACID TABLET (FP) PO SCH (10:14)
[2016-06-21] MEDS: NICOTINE 14 MG/24 HOURS TOPICAL PATCH TD SCH (10:15)
--- NOTE | 2016-06-21 11:45 | EKG ---
Test Reason : Blood Pressure : / mmHG Vent. Rate : 047 BPM Atrial Rate : 047 BPM P-R Int : 158 ms QRS Dur : 092 ms QT Int : 450 ms P-R-T Axes : 058 013 019 degrees QTc Int : 398 ms SINUS BRADYCARDIA MINIMAL VOLTAGE CRITERIA FOR LVH, MAY BE NORMAL VARIANT NONSPECIFIC ST AND T WAVE ABNORMALITY ABNORMAL ECG Confirmed by MART EDDY MD ([id number]) on 06/21/2016 11:45:33 AM Referred By: Confirmed By:MART EDDY MD
--- NOTE | 2016-06-21 12:55 | PN ---
S CIWA - CIWA Score Nausea/Vomitin-No Nausea/No Vomiting Muscle Tremors: 4-Moderate,w/Arms Extend Anxiety: 4-Mod. Anxious/Guarded Agitation: 3 Paroxysmal Sweats: 3 Orientation: 0-Oriented Tacttile Disturbances: 0-None Auditory Disturbances: 0-None Visual Disturbances: 0-None Headache: 0-None Present CIWA-Ar Total Score: 14 BHS Progress Note (SOAP) Subjective: Anxiety,tremors,sweating,interrupted sleep,restless. Objective: 06/21/16 12:54 Vital Signs - 8 hr 06/21/16 10:38 Temperature 97.0 F L Pulse Rate 76 Respiratory 18 Rate Blood Pressure 111/76 Laboratory Tests 06/20/16 15:00 Urine Color Ltyellow Urine Appearance Clear Urine pH 6.0 Urine Protein Negative Urine Glucose (UA) Negative Urine Ketones Negative Urine Blood Negative Urine Nitrite Negative Urine Bilirubin Negative Urine Urobilinogen Negative Ur Leukocyte Esterase 2+ H Urine RBC None Urine WBC 5 Ur Epithelial Cells Rare Urine Mucus Rare U/A noted Assessment: 06/21/16 12:54 Withdrawal sx. Plan: Continue detox
[2016-06-21] MEDS: THIAMINE HCL 100 MG TABLET (FP) PO SCH (22:50)
[2016-06-21] MEDS: QUEtiapine FUMARATE 100 MG TABLET (FP) PO SCH (22:50)
[2016-06-22] MEDS: chlordiazePOXIDE HCL 25 MG CAPSULE PO SCH ×2 (05:32→10:07)
[2016-06-22] MEDS: PRENATAL VITAMINS W/ FOLIC ACID TABLET (FP) PO SCH (10:07)
[2016-06-22] MEDS: NICOTINE 14 MG/24 HOURS TOPICAL PATCH TD SCH (10:07)
[2016-06-22] MEDS: chlordiazePOXIDE 5 MG CAPSULE PO SCH ×2 (17:05→22:12)
--- NOTE | 2016-06-22 17:28 | PN ---
[facility] CIWA - CIWA Score Nausea/Vomitin-No Nausea/No Vomiting Muscle Tremors: 4-Moderate,w/Arms Extend Anxiety: 3 Agitation: 1-Slight > Activity Paroxysmal Sweats: 3 Orientation: 0-Oriented Tacttile Disturbances: 0-None Auditory Disturbances: 2-Mild Harshness/Frighten Visual Disturbances: 2-Mild Sensitivity Headache: 0-None Present CIWA-Ar Total Score: 15 S Progress Note (SOAP) Subjective: Interrupted sleep, Tremors, Fatigue. Objective: PT. A & O X 3. PT. DENIES CHEST PAIN. 06/22/16 17:26 Vital Signs Temperature 96.4 F L 06/22/16 15:30 Pulse Rate 53 L 06/22/16 15:30 Respiratory Rate 18 06/22/16 15:30 Blood Pressure 133/83 06/22/16 15:30 O2 Sat by Pulse Oximetry (%) Laboratory Last Values Urine Color Ltyellow 06/20/16 15:00 Urine Appearance Clear 06/20/16 15:00 Urine pH 6.0 (5.0-8.0) 06/20/16 15:00 Ur Specific [place] 1.015 (1.005-1.025) 06/20/16 15:00 Urine Protein Negative (NEGATIVE) 06/20/16 15:00 Urine Glucose (UA) Negative (NEGATIVE) 06/20/16 15:00 Urine Ketones Negative (NEGATIVE) 06/20/16 15:00 Urine Blood Negative (NEGATIVE) 06/20/16 15:00 Urine Nitrite Negative (NEGATIVE) 06/20/16 15:00 Urine Bilirubin Negative (NEGATIVE) 06/20/16 15:00 Urine Urobilinogen Negative E.U./dl (0.2-1.0) 06/20/16 15:00 Ur Leukocyte Esterase 2+ (NEGATIVE) H 06/20/16 15:00 Urine RBC None /hpf (0-3) 06/20/16 15:00 Urine WBC 5 /hpf (3-5) 06/20/16 15:00 Ur Epithelial Cells Rare /hpf (FEW) 06/20/16 15:00 Urine Mucus Rare 06/20/16 15:00 LABS NOTED. OTHER LABS PENDING. 06/22/16 17:27 Assessment: 06/22/16 17:27 WITHDRAWAL SYMPTOMS. Plan: CONTINUE DETOX. ADVISED PATIENT TO FOLLOW-UP WITH ACCOUNT SERVICES SPECIALIST / REHAB MEDICAL PROVIDER AFTER DISCHARGE FROM DETOX FOR GENERAL MEDICAL ASSESSMENT AND FOR ABNORMAL ADMISSION LAB VALUES.
[2016-06-22] MEDS: THIAMINE HCL 100 MG TABLET (FP) PO SCH (22:12)
[2016-06-22] MEDS: QUEtiapine FUMARATE 100 MG TABLET (FP) PO SCH (22:12)
[2016-06-23] MEDS: chlordiazePOXIDE 5 MG CAPSULE PO SCH ×2 (05:25→11:27)
[2016-06-23] MEDS: PRENATAL VITAMINS W/ FOLIC ACID TABLET (FP) PO SCH (10:00)
[2016-06-23] MEDS: NICOTINE 14 MG/24 HOURS TOPICAL PATCH TD SCH (10:00)
--- NOTE | 2016-06-23 14:58 | PN ---
BHS Progress Note (SOAP) Subjective: Nausea, tremor, sweating, interrupted sleep, (benadryl ineffective) Objective: 06/23/16 14:57 Last Vital Signs Temp Pulse Resp BP Pulse Ox 97.6 F 77 16 113/78 06/23/16 09:31 06/23/16 09:31 06/23/16 09:31 06/23/16 09:31 Laboratory Tests 06/20/16 15:00 Urine Color Ltyellow Urine Appearance Clear Urine pH 6.0 Ur Specific [place] 1.015 Urine Protein Negative Urine Glucose (UA) Negative Urine Ketones Negative Urine Blood Negative Urine Nitrite Negative Urine Bilirubin Negative Urine Urobilinogen Negative Ur Leukocyte Esterase 2+ H Urine RBC None Urine WBC 5 Ur Epithelial Cells Rare Urine Mucus Rare Labs noted: admission Hematology/chemistry/serology: pending results as per chart Assessment: 06/23/16 14:58 Withdrawal symptoms Plan: Continue detox, follow up on admission blood work results
[2016-06-23] MEDS: chlordiazePOXIDE HCL 10 MG CAPSULE PO SCH ×2 (17:24→22:13)
[2016-06-23] MEDS ORDERED: ZOLPIDEM TARTRATE 5 MG TABLET PO PRN (22:00)
[2016-06-23] MEDS: THIAMINE HCL 100 MG TABLET (FP) PO SCH (22:11)
[2016-06-23] MEDS: QUEtiapine FUMARATE 100 MG TABLET (FP) PO SCH (22:11)
[2016-06-24] MEDS: chlordiazePOXIDE HCL 10 MG CAPSULE PO SCH (05:28)
[2016-06-24 06:35] VITALS: BP 130/87; PULSE 53; TEMP 96.3
--- NOTE | 2016-06-24 16:12 | DS ---
[facility] Detox Discharge Summary Admission Date: 06/20/16 Discharge Date: 06/24/16 - History Present History: Alcohol Dependence Pertinent Past History: Tinea pedis - Physical Exam Results Vital Signs: Vital Signs Temperature 96.3 F L 06/24/16 06:35 Pulse Rate 53 L 06/24/16 06:35 Respiratory Rate 18 06/24/16 06:35 Blood Pressure 130/87 06/24/16 06:35 O2 Sat by Pulse Oximetry (%) Pertinent Admission Physical Exam Findings: Withdrawal sx. Laboratory Last Values WBC Cancelled 06/21/16 06:00 Corrected WBC (auto) Cancelled 06/21/16 06:00 RBC Cancelled 06/21/16 06:00 Hgb Cancelled 06/21/16 06:00 Hct Cancelled 06/21/16 06:00 MCV Cancelled 06/21/16 06:00 MCHC Cancelled 06/21/16 06:00 RDW Cancelled 06/21/16 06:00 Plt Count Cancelled 06/21/16 06:00 MPV Cancelled 06/21/16 06:00 Differential Comment Cancelled 06/21/16 06:00 Platelet Estimate Cancelled 06/21/16 06:00 Platelet Comment Cancelled 06/21/16 06:00 Platelet Comment Cancelled 06/21/16 06:00 RBC Morphology Cancelled 06/21/16 06:00 Sodium Cancelled 06/21/16 06:00 Potassium Cancelled 06/21/16 06:00 Chloride Cancelled 06/21/16 06:00 Carbon Dioxide Cancelled 06/21/16 06:00 Anion Gap Cancelled 06/21/16 06:00 BUN Cancelled 06/21/16 06:00 Creatinine Cancelled 06/21/16 06:00 Creat Clearance w eGFR Cancelled 06/21/16 06:00 Random Glucose Cancelled 06/21/16 06:00 Calcium Cancelled 06/21/16 06:00 Total Bilirubin Cancelled 06/21/16 06:00 AST Cancelled 06/21/16 06:00 ALT Cancelled 06/21/16 06:00 Alkaline Phosphatase Cancelled 06/21/16 06:00 Total Protein Cancelled 06/21/16 06:00 Albumin Cancelled 06/21/16 06:00 Urine Color Ltyellow 06/20/16 15:00 Urine Appearance Clear 06/20/16 15:00 Urine pH 6.0 (5.0-8.0) 06/20/16 15:00 Ur Specific [place] 1.015 (1.005-1.025) 06/20/16 15:00 Urine Protein Negative (NEGATIVE) 06/20/16 15:00 Urine Glucose (UA) Negative (NEGATIVE) 06/20/16 15:00 Urine Ketones Negative (NEGATIVE) 06/20/16 15:00 Urine Blood Negative (NEGATIVE) 06/20/16 15:00 Urine Nitrite Negative (NEGATIVE) 06/20/16 15:00 Urine Bilirubin Negative (NEGATIVE) 06/20/16 15:00 Urine Urobilinogen Negative E.U./dl (0.2-1.0) 06/20/16 15:00 Ur Leukocyte Esterase 2+ (NEGATIVE) H 06/20/16 15:00 Urine RBC None /hpf (0-3) 06/20/16 15:00 Urine WBC 5 /hpf (3-5) 06/20/16 15:00 Ur Epithelial Cells Rare /hpf (FEW) 06/20/16 15:00 Urine Mucus Rare 06/20/16 15:00 RPR Titer Cancelled 06/21/16 06:00 labs noted - Treatment Hospital Course: Detox Protocol Followed, Detoxed Safely, Responded well, Discharged Condition Good, Rehab Referral Accepted Patient has Accepted a Rehab Referral to: [facility] - Medication Discharge Medications: Ambulatory Orders Quetiapine Fumarate [Seroquel -] 300 mg PO HS #30 tablet 03/15/16 Quetiapine Fumarate [Seroquel -] 25 mg PO HS #30 tab 06/20/16 - Diagnosis (1) Alcohol dependence with uncomplicated withdrawal Status: Acute (2) Bipolar I disorder, most recent episode depressed Status: Acute (3) Bipolar I, most recent episode mixed, severe with psychotic behavior Status: Acute (4) Cocaine dependence, uncomplicated Status: Acute (5) Drug-induced mood disorder Status: Acute (6) Nicotine dependence Status: Acute Qualifiers: Nicotine product type: cigarettes Substance use status: in withdrawal Qualified Code(s): F17.213 - Nicotine dependence, cigarettes, with withdrawal - AMA Did Patient Leave Against Medical Advice: No
== END 2016-06-24 10:05 | disposition home or self-care (01) | DRG 774 ==
LOC: YASAS 10:46 → Y3N 13:28
PROVIDERS: ADMIT Internal Medicine; ATTEND Internal Medicine
PROC: HZ2ZZZZ Detoxification Services for Substance Abuse Treatment (ICD-10-PCS; principal; 2016-06-24)
DX: F10.230 Alcohol dependence with withdrawal, uncomplicated (principal); F14.20 Cocaine dependence, uncomplicated; F12.20 Cannabis dependence, uncomplicated; F19.24 Other psychoactive substance dependence with psychoactive substance-induced mood disorder; F31.89 Other bipolar disorder; I10 Essential (primary) hypertension
CPT/HCPCS: 36415; 80053; 81003; 81015; 86593; 93005; 93010

== ENCOUNTER 2016-10-02 10:59 | Inpatient (IN) | payer OTHER ==
[2016-10-02 12:32] VITALS: BMI 29.5
--- NOTE | 2016-10-02 13:03 | HP ---
CIWA Score - CIWA Score Nausea/Vomitin Muscle Tremors: 3 Anxiety: 3 Agitation: 2 Paroxysmal Sweats: 1-Minimal Palms Moist Orientation: 0-Oriented Tacttile Disturbances: 2-Mild Itch/Numbness/Burn Auditory Disturbances: 2-Mild Harshness/Frighten Visual Disturbances: 2-Mild Sensitivity Headache: 2-Mild CIWA-Ar Total Score: 20 Admission ROS BHS - HPI Chief Complaint: i need help to stop drinking alcohol and cocaine Allergies/Adverse Reactions: Allergies Allergy/AdvReac Type Severity Reaction Status Date / Time pork derived (porcine) Allergy Mild Rash Verified 10/02/16 12:45 [Pork derived (porcine)] No Known Drug Allergies Allergy Unknown Verified 10/02/16 12:45 History of Present Illness: this 50 years old male with alcohol and cocaine dependence,seeking detox,last treatment [facility] in 08/03 nicotine dependence,htn,bipolar disorder multiple admissions in the past,last treatment 08/03 [facility] longest period of sobriety 1 year Exam Limitations: No Limitations - Ebola screening Have you traveled outside of the country in the last 21 days: No Have you had contact with anyone from an Ebola affected area: No Have you been sick,other than usual withdrawal symptoms: No Do you have a fever: No - Review of Systems Constitutional: Loss of Appetite, Malaise, Night Sweats, Changes in sleep, Weakness EENT: reports: Nose Congestion Respiratory: reports: No Symptoms reported Cardiac: reports: No Symptoms Reported GI: reports: Diarrhea, Nausea, Vomiting : reports: No Symptoms Reported Musculoskeletal: reports: Back Pain, Muscle Pain Integumentary: reports: Dryness Neuro: reports: Headache, Tremors Endocrine: reports: No Symptoms Reported Hematology: reports: No Symptoms Reported Psychiatric: reports: No Sypmtoms Reported, Judgement Intact, Mood/Affect Appropiate, Orientated x3, other (bipolar disorder) Patient History - Patient Medical History Hx Anemia: No Hx Asthma: No Hx Chronic Obstructive Pulmonary Disease (COPD): No Hx Cancer: No Hx Cardiac Disorders: No Hx Congestive Heart Failure: No Hx Hypertension: Yes (not on meds.) Hx Hypercholesterolemia: No Hx Pacemaker: No HX Cerebrovascular Accident: No Hx Seizures: No Hx Dementia: No Hx Diabetes: No Hx Gastrointestinal Disorders: No Hx Liver Disease: No Hx Genitourinary Disorders: No Hx Sexually Transmitted Disorders: No Hx Renal Disease (ESRD): No Hx Thyroid Disease: No Hx Human Immunodeficiency Virus (HIV): No (NEGATIVE HX last 2015) Hx Hepatitis C: No Hx Depression: Yes Hx Suicide Attempt: Yes (Pt tried to cut himself over 10 yrs ago.) Hx Bipolar Disorder: Yes Hx Schizophrenia: No Other Medical History: no suicidal,no homicidal - Patient Surgical History Past Surgical History: No Hx Neurologic Surgery: No Hx Cataract Extraction: No Hx Cardiac Surgery: No Hx Lung Surgery: No Hx Breast Surgery: No Hx Breast Biopsy: No Hx Abdominal Surgery: No Hx Appendectomy: No Hx Cholecystectomy: No Hx Genitourinary Surgery: No Hx Section: No Hx Orthopedic Surgery: No Anesthesia Reaction: No - PPD History Previous Implant?: Yes Documented Results: Negative w/proof Implanted On Prior [facility] Admission?: Yes Date: 02/27/16 Results: 0 mm PPD to be Administered?: No - Smoking Cessation Smoking history: Current every day smoker Have you smoked in the past 12 months: Yes Aproximately how many cigarettes per day: 10 Cigars Per Day: 0 Hx Chewing Tobacco Use: No Initiated information on smoking cessation: Yes 'Breaking Loose' booklet given: 10/02/16 - Substance & Tx. History Hx Alcohol Use: Yes Hx Substance Use: Yes Substance Use Type: Alcohol, Cocaine Hx Substance Use Treatment: Yes ([facility] in 08/03 last treatment) - Substances Abused Alcohol Route: Oral Frequency: Daily Amount used: 2 pints vodka Age of first use: 17 Date of Last Use: 10/01/16 Cocaine Route: Smoking Frequency: Daily Amount used: $50 Age of first use: 17 Date of Last Use: 10/01/16 Family Disease History - Family Disease History Family History: Denies Admission Physical Exam S - Vital Signs Vital Signs: Vital Signs - 24 hr 10/02/16 12:29 Temperature 96.2 F L Pulse Rate 59 L Respiratory 20 Rate Blood Pressure 150/99 - Physical General Appearance: Yes: Moderate Distress, Tremorous, Irritable, Sweating, Anxious HEENTM: Yes: Hearing grossly Normal, Normal ENT Inspection, SUE, Pharynx Normal Respiratory: Yes: Lungs Clear, Normal Breath Sounds, No Respiratory Distress Neck: Yes: Within Normal Limits, Supple, Trachea in good position Breast: Yes: Within Normal Limits Cardiology: Yes: Within Normal Limits, Regular Rhythm, Regular Rate, S1, S2 Abdominal: Yes: Within Normal Limits, Normal Bowel Sounds, Non Tender, Flat Genitourinary: Yes: Within Normal Limits Back: Yes: Muscle Spasm Musculoskeletal: Yes: Back pain, Muscle Pain Extremities: Yes: Within Normal Limits, Normal Range of Motion, Tremors Neurological: Yes: critical care rn II-XII NML intact, Fully Oriented, Alert, Motor Strength 5/5 Integumentary: Yes: Dry, Other (tinea pedis) Lymphatic: Yes: Within Normal Limits - Diagnostic (1) Alcohol dependence with uncomplicated withdrawal Status: Acute (2) Cocaine dependence, uncomplicated Status: Chronic (3) Nicotine dependence Status: Chronic Qualifiers: Nicotine product type: cigarettes Substance use status: in withdrawal Qualified Code(s): F17.213 - Nicotine dependence, cigarettes, with withdrawal Comment: . (4) Tinea pedis Status: Chronic Comment: . (5) Bipolar disorder Status: Chronic Qualifiers: Current episode severity: unspecified Comment: . (6) Hypertension Status: Chronic Qualifiers: Hypertension type: essential hypertension Qualified Code(s): I10 - Essential (primary) hypertension Comment: . Cleared for Admission [facility] - Detox or Rehab [facility] Level of Care: Medically Managed Detox Regimen/Protocol: Librium [facility] Breath Alcohol Content Breath Alcohol Content: 0 Urine Drug Screen - Results Drug Screen Negative: No Urine Drug Screen Results: BECKI-Cocaine, BZO-Benzodiazepines
[2016-10-02] MEDS ORDERED: IBUPROFEN 400 MG TABLET (FP) PO PRN (13:09)
[2016-10-02] MEDS ORDERED: guaiFENesin/D-METHORPHAN HB 10 ML UNIT-DOSE CUPS PO PRN (13:09)
[2016-10-02] MEDS ORDERED: NICOTINE POLACRILEX 2 MG GUM BC PRN (13:09)
[2016-10-02] MEDS ORDERED: LOPERAMIDE HCL 2 MG CAPSULE PO PRN (13:09)
[2016-10-02] MEDS ORDERED: MAG HYDROX/AL HYDROX/SIMETH 30 ML UNIT-DOSE CUP PO PRN (13:09)
[2016-10-02] MEDS ORDERED: P-EPHED 60MG/TRIPROLIDI 2.5MG TABLET PO PRN (13:09)
[2016-10-02] MEDS ORDERED: hydrOXYzine PAMOATE 50 MG CAPSULE (FP) PO PRN (13:09)
[2016-10-02] MEDS ORDERED: MAGNESIUM HYDROX 2400MG/30ML ORAL SUSPENSION 30 ML CUP PO PRN (13:09)
[2016-10-02] MEDS ORDERED: chlordiazePOXIDE HCL 25 MG CAPSULE PO PRN (13:09)
[2016-10-02] MEDS ORDERED: MENTHOL/PHENOL 1 EACH UD MM PRN (13:09)
[2016-10-02] MEDS ORDERED: ACETAMINOPHEN 325 MG TABLET (FP) PO PRN (13:09)
[2016-10-02] MEDS ORDERED: MAGNESIUM CITRATE 300 ML BOTTLE PO PRN (13:09)
[2016-10-02] MEDS ORDERED: chlordiazePOXIDE HCL 25 MG CAPSULE PO ONE (14:00)
[2016-10-02] MEDS: NICOTINE 21 MG/24 HOURS TOPICAL PATCH TD SCH (15:20)
--- NOTE | 2016-10-02 16:50 | EKG ---
Test Reason : Blood Pressure : / mmHG Vent. Rate : 068 BPM Atrial Rate : 068 BPM P-R Int : 156 ms QRS Dur : 088 ms QT Int : 440 ms P-R-T Axes : 063 -04 043 degrees QTc Int : 467 ms NORMAL SINUS RHYTHM MODERATE VOLTAGE CRITERIA FOR LVH, MAY BE NORMAL VARIANT BORDERLINE ECG WHEN COMPARED WITH ECG OF 20-JUN-2016 14:07, QT HAS LENGTHENED Confirmed by KATRIN SALDIVAR MD ([id number] on 10/02/2016 4:50:31 PM Referred By: Confirmed By:KATRIN SALDIVAR MD
--- NOTE | 2016-10-02 16:57 | CONSULT ---
[facility] Psychiatric Consult - Data Date of interview: 10/02/16 Admission source: [facility] Identifying data: This is one of multiple admissions to [facility] for this 50 y/ o AA male seeking detox treatment on for alcohol and cocaine (crack) dependence.Patient is single,a father of three,homeless,unemployed and supported on SSI benefits. Substance Abuse History: Fully discussed with patient in this session.Mr Marrero affirms that this [facility] report is an accurate account of his addictions. Smoking Cessation. Smoking history: Current every day smoker. Have you smoked in the past 12 months: Yes. Aproximately how many cigarettes per day: 10. Cigars Per Day: 0. Hx Chewing Tobacco Use: No. Initiated information on smoking cessation : Yes. 'Breaking Loose' booklet given: 10/02/16. - Substance & Tx. History. Hx Alcohol Use: Yes. Hx Substance Use: Yes. Substance Use Type: Alcohol, Cocaine. Hx Substance Use Treatment: Yes (aci in 08/03 last treatment). - Substances Abused. Alcohol. Route: Oral. Frequency: Daily. Amount used: 2 pints vodka. Age of first use: 17. Date of Last Use: 10/01/16. Cocaine. Route: Smoking. Frequency: Daily. Amount used: $50. Age of first use: 17. Date of Last Use: 10/01/16 Medical History: Hypertension. Psychiatric History: Onset of psychiatric disturbances is reported to be around 1990 - 1991.Diagnosed with Bipolar Disorder.Mr Marrero presents with a history of multiple psychiatric hospitalizations.Known to [facility] and [facility].Medicated over the years with various drugs including haloperidol and seroquel.Patient admits to chronic non-adherence to psychiatric aftercare.He reports severe side effects (oversedation,syncopal episodes) on 300 mg of seroquel but positive results (mood stabilization,adequate sleep,control of hallucinations) at lesser doses (-150 mg/hs).No OPD care providers at this time.Mr Marrero gets exposure to seroquel only in the context of psychiatric hospitalizations.Admits to a remote history of suicide attempt (more than 10 years ago) via self-mutilation. Physical/Sexual Abuse/Trauma History: Patient denies. Additional Comment: Urine Drug Screen Results: BECKI-Cocaine, BZO- Benzodiazepines.Noted. Mental Status Exam - Mental Status Exam Alert and Oriented to: Time, Place, Person Cognitive Function: Good Patient Appearance: Well Groomed Mood: Withdrawn, Anxious, Apprehensive Affect: Mood Congruent Patient Behavior: Fatigued, Appropriate, Cooperative Speech Pattern: Clear Voice Loudness: Normal Thought Process: Intact, Goal Oriented Thought Disorder: Not Present Hallucinations: Denies Suicidal Ideation: Denies Homicidal Ideation: Denies Insight/Judgement: Poor Sleep: Poorly, Difficulty falling asleep Appetite: Good Muscle strength/Tone: Normal Gait/Station: Normal Psychiatric Findings - Problem List ([place] 1, 2,3) (1) Alcohol dependence with uncomplicated withdrawal Current Visit: Yes Status: Acute (2) Cocaine dependence, uncomplicated Current Visit: Yes Status: Acute (3) Nicotine dependence Current Visit: Yes Status: Acute Qualifiers: Nicotine product type: cigarettes Substance use status: in withdrawal Qualified Code(s): F17.213 - Nicotine dependence, cigarettes, with withdrawal Comment: . (4) Drug-induced mood disorder Current Visit: Yes Status: Acute (5) Bipolar disorder Current Visit: Yes Status: Chronic Qualifiers: Current episode severity: unspecified Comment: . (6) Tinea pedis Current Visit: Yes Status: Chronic Comment: . (7) Hypertension Current Visit: Yes Status: Chronic Qualifiers: Hypertension type: essential hypertension Qualified Code(s): I10 - Essential (primary) hypertension Comment: . (8) Insomnia Current Visit: Yes Status: Acute - Initial Treatment Plan Initial Treatment Plan: Psychoeducation.Detoxification.Seroquel 50 mg po hs.Side effects/benefits discussed with patient.Made aware of potential for oversedation/falls,abnormal involuntary movements,metabolic syndrome and cardiovascular adverse events.Mr Marrero gave his consent (verbal) to this keno writer / runner for the implementation of this plan of care.Observation.
[2016-10-02] MEDS: chlordiazePOXIDE HCL 25 MG CAPSULE PO SCH ×2 (17:22→22:45)
[2016-10-02] MEDS ORDERED: QUEtiapine FUMARATE 50 MG TABLET PO SCH (22:00)
[2016-10-02] MEDS: diphenhydrAMINE HCL 50 MG CAPSULE PO PRN (22:45)
[2016-10-02] MEDS: THIAMINE HCL 100 MG TABLET (FP) PO SCH (22:45)
[2016-10-02] MEDS: QUEtiapine FUMARATE 50 MG TABLET PO SCH (22:46)
[2016-10-02 23:37] LABS: URINE APPEARANCE CLEAR; URINE BILIRUBIN NEGATIVE (NEGATIVE); URINE BLOOD NEGATIVE (NEGATIVE); URINE COLOR YELLOW; URINE GLUCOSE (UA) NEGATIVE (NEGATIVE); URINE KETONE NEGATIVE (NEGATIVE); URINE NITRITE NEGATIVE (NEGATIVE); URINE PROTEIN TRACE (NEGATIVE); URINE UROBILINOGEN 0.2 mg/dL (0.2-1.0)
[2016-10-02 23:55] LABS: URINE LEUK ESTERASE TRACE (NEGATIVE)
[2016-10-03 01:23] LABS: URINE BACTERIA MODERATE /hpf (NONE SEEN); URINE MUCUS RARE; URINE RBC 3 /hpf (0-3); URINE WBC 18 /hpf (3-5)
[2016-10-03] MEDS: chlordiazePOXIDE HCL 25 MG CAPSULE PO SCH ×4 (05:51→22:55)
[2016-10-03 10:06] LABS: MCH 32.9 pg (25.7-33.7); MCHC 35.2 g/dl (32.0-35.9); MEAN CELL VOLUME 93.4 fl (80-96); MEAN PLT VOLUME 9.6 fl (7.5-11.1); PLATELET COUNT 246 K/MM3 (134-434); RDW 13.6 % (11.9-15.9); WHITE BLOOD COUNT 4.9 K/mm3 (4.0-10.0)
[2016-10-03 10:13] LABS: HIV 1 & 2 AB NEGATIVE; HIV 1 AGp24 NEGATIVE
[2016-10-03 10:46] LABS: ALBUMIN 4.4 g/dl (3.4-5.0); ALK PHOS 89 U/L (45-117); ANION GAP 10 (8-16); BILIRUBIN,TOTAL 0.7 mg/dL (0.2-1.0); CALCIUM 9.9 mg/dL (8.5-10.1); CO2 27 mmol/L (21-32); CREATININE 1.4 mg/dL (0.7-1.3); GLUCOSE,RANDOM 94 mg/dL (74-106); SGOT/AST 31 U/L (15-37); SGPT/ALT 22 U/L (12-78)
[2016-10-03] MEDS: NICOTINE 21 MG/24 HOURS TOPICAL PATCH TD SCH (11:13)
[2016-10-03] MEDS: PRENATAL VITAMINS W/ FOLIC ACID TABLET (FP) PO SCH (11:13)
--- NOTE | 2016-10-03 12:31 | PN ---
[facility] CIWA - CIWA Score Nausea/Vomitin-No Nausea/No Vomiting Muscle Tremors: 4-Moderate,w/Arms Extend Anxiety: 4-Mod. Anxious/Guarded Agitation: 4-Moderately Restless Paroxysmal Sweats: 1-Minimal Palms Moist Orientation: 0-Oriented Tacttile Disturbances: 3-Moderate Itch/Numb/Burn Auditory Disturbances: 0-None Visual Disturbances: 0-None Headache: 0-None Present CIWA-Ar Total Score: 16 S Progress Note (SOAP) Subjective: ANXIETY, SWEATS, TREMORS,IRRITABILITY, INTERMITTENT SLEEP. Objective: 10/03/16 12:28 Vital Signs Temperature 96.7 F L 10/03/16 09:59 Pulse Rate 57 L 10/03/16 09:59 Respiratory Rate 18 10/03/16 06:38 Blood Pressure 142/96 10/03/16 09:59 O2 Sat by Pulse Oximetry (%) Laboratory Last Values WBC 4.9 K/mm3 (4.0-10.0) 10/03/16 06:00 RBC 4.49 M/mm3 (4.00-5.60) 10/03/16 06:00 Hgb 14.8 GM/dL (11.7-16.9) 10/03/16 06:00 Hct 42.0 % (35.4-49) 10/03/16 06:00 MCV 93.4 fl (80-96) 10/03/16 06:00 MCH 32.9 pg (25.7-33.7) 10/03/16 06:00 MCHC 35.2 g/dl (32.0-35.9) 10/03/16 06:00 RDW 13.6 % (11.9-15.9) 10/03/16 06:00 Plt Count 246 K/MM3 (134-434) D 10/03/16 06:00 MPV 9.6 fl (7.5-11.1) 10/03/16 06:00 Sodium 140 mmol/L (136-145) 10/03/16 06:00 Potassium 4.1 mmol/L (3.5-5.1) 10/03/16 06:00 Chloride 103 mmol/L (98-107) 10/03/16 06:00 Carbon Dioxide 27 mmol/L (21-32) 10/03/16 06:00 Anion Gap 10 (8-16) 10/03/16 06:00 BUN 18 mg/dL (7-18) 10/03/16 06:00 Creatinine 1.4 mg/dL (0.7-1.3) H 10/03/16 06:00 Creat Clearance w eGFR 53.86 (>60) 10/03/16 06:00 Random Glucose 94 mg/dL (74-106) D 10/03/16 06:00 Calcium 9.9 mg/dL (8.5-10.1) 10/03/16 06:00 Total Bilirubin 0.7 mg/dL (0.2-1.0) D 10/03/16 06:00 AST 31 U/L (15-37) D 10/03/16 06:00 ALT 22 U/L (12-78) 10/03/16 06:00 Alkaline Phosphatase 89 U/L (45-117) D 10/03/16 06:00 Total Protein 8.0 g/dl (6.4-8.2) D 10/03/16 06:00 Albumin 4.4 g/dl (3.4-5.0) D 10/03/16 06:00 Urine Color Yellow 10/02/16 20:56 Urine Appearance Clear 10/02/16 20:56 Urine pH 6.0 (5.0-8.0) 10/02/16 20:56 Ur Specific [place] 1.010 (1.005-1.025) 10/02/16 20:56 Urine Protein Trace (NEGATIVE) H 10/02/16 20:56 Urine Glucose (UA) Negative (NEGATIVE) 10/02/16 20:56 Urine Ketones Negative (NEGATIVE) 10/02/16 20:56 Urine Blood Negative (NEGATIVE) 10/02/16 20:56 Urine Nitrite Negative (NEGATIVE) 10/02/16 20:56 Urine Bilirubin Negative (NEGATIVE) 10/02/16 20:56 Urine Urobilinogen 0.2 mg/dL (0.2-1.0) 10/02/16 20:56 Ur Leukocyte Esterase Trace (NEGATIVE) 10/02/16 20:56 Urine RBC 3 /hpf (0-3) 10/02/16 20:56 Urine WBC 18 /hpf (3-5) 10/02/16 20:56 Ur Epithelial Cells Moderate /hpf (FEW) 10/02/16 20:56 Urine Bacteria Moderate /hpf (NONE SEEN) 10/02/16 20:56 Urine Mucus Rare 10/02/16 20:56 RPR Titer Nonreactive (NONREACTIVE) 10/03/16 06:00 HIV 1&2 Antibody Screen Negative 10/02/16 14:00 HIV P24 Antigen Negative 10/02/16 14:00 LABS/UA NOTED Assessment: 10/03/16 12:29 WITHDRAWAL SX Plan: CONTINUE DETOX REPEAT UA/UC TODAY R/O UTI
[2016-10-03] MEDS: BACITRACIN 0.9 GM PACKET TP SCH ×2 (14:24→22:55)
[2016-10-03 17:30] LABS: PH,URINE 5.5 (5.0-8.0); URINE APPEARANCE CLEAR; URINE BILIRUBIN NEGATIVE (NEGATIVE); URINE BLOOD NEGATIVE (NEGATIVE); URINE COLOR YELLOW; URINE GLUCOSE (UA) NEGATIVE (NEGATIVE); URINE KETONE TRACE (NEGATIVE); URINE LEUK ESTERASE NEGATIVE (NEGATIVE); URINE NITRITE NEGATIVE (NEGATIVE); URINE PROTEIN NEGATIVE (NEGATIVE); URINE UROBILINOGEN 0.2 mg/dL (0.2-1.0)
[2016-10-03] MEDS: THIAMINE HCL 100 MG TABLET (FP) PO SCH (22:55)
[2016-10-03] MEDS: QUEtiapine FUMARATE 50 MG TABLET PO SCH (22:55)
[2016-10-04] MEDS: chlordiazePOXIDE HCL 25 MG CAPSULE PO SCH ×2 (06:07→11:17)
[2016-10-04] MEDS: PRENATAL VITAMINS W/ FOLIC ACID TABLET (FP) PO SCH (11:17)
[2016-10-04] MEDS: BACITRACIN 0.9 GM PACKET TP SCH ×2 (11:17→22:16)
[2016-10-04] MEDS: NICOTINE 21 MG/24 HOURS TOPICAL PATCH TD SCH (11:18)
--- NOTE | 2016-10-04 12:39 | PN ---
[facility] CIWA - CIWA Score Nausea/Vomitin-No Nausea/No Vomiting Muscle Tremors: 3 Anxiety: 4-Mod. Anxious/Guarded Agitation: 3 Paroxysmal Sweats: 1-Minimal Palms Moist Orientation: 0-Oriented Tacttile Disturbances: 2-Mild Itch/Numbness/Burn Auditory Disturbances: 0-None Visual Disturbances: 0-None Headache: 0-None Present CIWA-Ar Total Score: 13 [facility] Progress Note (SOAP) Subjective: ANXIETY,SWEATS,SLIGHT TREMORS,FATIGUE. Objective: 10/04/16 12:38 Vital Signs Temperature 97.3 F L 10/04/16 09:42 Pulse Rate 18 L 10/04/16 09:42 Respiratory Rate 57 H 10/04/16 09:42 Blood Pressure 136/83 10/04/16 09:42 O2 Sat by Pulse Oximetry (%) Laboratory Last Values WBC 4.9 K/mm3 (4.0-10.0) 10/03/16 06:00 RBC 4.49 M/mm3 (4.00-5.60) 10/03/16 06:00 Hgb 14.8 GM/dL (11.7-16.9) 10/03/16 06:00 Hct 42.0 % (35.4-49) 10/03/16 06:00 MCV 93.4 fl (80-96) 10/03/16 06:00 MCH 32.9 pg (25.7-33.7) 10/03/16 06:00 MCHC 35.2 g/dl (32.0-35.9) 10/03/16 06:00 RDW 13.6 % (11.9-15.9) 10/03/16 06:00 Plt Count 246 K/MM3 (134-434) D 10/03/16 06:00 MPV 9.6 fl (7.5-11.1) 10/03/16 06:00 Sodium 140 mmol/L (136-145) 10/03/16 06:00 Potassium 4.1 mmol/L (3.5-5.1) 10/03/16 06:00 Chloride 103 mmol/L (98-107) 10/03/16 06:00 Carbon Dioxide 27 mmol/L (21-32) 10/03/16 06:00 Anion Gap 10 (8-16) 10/03/16 06:00 BUN 18 mg/dL (7-18) 10/03/16 06:00 Creatinine 1.4 mg/dL (0.7-1.3) H 10/03/16 06:00 Creat Clearance w eGFR 53.86 (>60) 10/03/16 06:00 Random Glucose 94 mg/dL (74-106) D 10/03/16 06:00 Calcium 9.9 mg/dL (8.5-10.1) 10/03/16 06:00 Total Bilirubin 0.7 mg/dL (0.2-1.0) D 10/03/16 06:00 AST 31 U/L (15-37) D 10/03/16 06:00 ALT 22 U/L (12-78) 10/03/16 06:00 Alkaline Phosphatase 89 U/L (45-117) D 10/03/16 06:00 Total Protein 8.0 g/dl (6.4-8.2) D 10/03/16 06:00 Albumin 4.4 g/dl (3.4-5.0) D 10/03/16 06:00 Urine Color Yellow 10/03/16 14:15 Urine Appearance Clear 10/03/16 14:15 Urine pH 5.5 (5.0-8.0) 10/03/16 14:15 Ur Specific [place] 1.025 (1.005-1.025) 10/03/16 14:15 Urine Protein Negative (NEGATIVE) 10/03/16 14:15 Urine Glucose (UA) Negative (NEGATIVE) 10/03/16 14:15 Urine Ketones Trace (NEGATIVE) H 10/03/16 14:15 Urine Blood Negative (NEGATIVE) 10/03/16 14:15 Urine Nitrite Negative (NEGATIVE) 10/03/16 14:15 Urine Bilirubin Negative (NEGATIVE) 10/03/16 14:15 Urine Urobilinogen 0.2 mg/dL (0.2-1.0) 10/03/16 14:15 Ur Leukocyte Esterase Negative (NEGATIVE) 10/03/16 14:15 Urine RBC 3 /hpf (0-3) 10/02/16 20:56 Urine WBC 18 /hpf (3-5) 10/02/16 20:56 Ur Epithelial Cells Moderate /hpf (FEW) 10/02/16 20:56 Urine Bacteria Moderate /hpf (NONE SEEN) 10/02/16 20:56 Urine Mucus Rare 10/02/16 20:56 RPR Titer Nonreactive (NONREACTIVE) 10/03/16 06:00 HIV 1&2 Antibody Screen Negative 10/02/16 14:00 HIV P24 Antigen Negative 10/02/16 14:00 Assessment: 10/04/16 12:39 WITHDRAWAL SX Plan: CONTINUE DETOX
[2016-10-04] MEDS: chlordiazePOXIDE 5 MG CAPSULE PO SCH ×2 (18:59→22:16)
[2016-10-04] MEDS: diphenhydrAMINE HCL 50 MG CAPSULE PO PRN (22:14)
[2016-10-04] MEDS: THIAMINE HCL 100 MG TABLET (FP) PO SCH (22:15)
[2016-10-04] MEDS: QUEtiapine FUMARATE 50 MG TABLET PO SCH (22:16)
[2016-10-05] MEDS: chlordiazePOXIDE 5 MG CAPSULE PO SCH ×2 (08:07→11:11)
[2016-10-05] MEDS: BACITRACIN 0.9 GM PACKET TP SCH ×2 (11:11→22:51)
[2016-10-05] MEDS: NICOTINE 21 MG/24 HOURS TOPICAL PATCH TD SCH (11:11)
[2016-10-05] MEDS: PRENATAL VITAMINS W/ FOLIC ACID TABLET (FP) PO SCH (11:11)
[2016-10-05] MEDS ORDERED: cloNIDine HCL 0.1 MG TABLET PO ONE (14:27)
--- NOTE | 2016-10-05 14:31 | PN ---
[facility] Progress Note (SOAP) Subjective: Fatigue, Anxious. Objective: PT. A & O X 3. NO ACUTE DISTRESS. 10/05/16 14:29 Vital Signs Temperature 97.5 F L 10/05/16 14:20 Pulse Rate 68 10/05/16 14:20 Respiratory Rate 18 10/05/16 14:20 Blood Pressure 122/96 10/05/16 14:20 O2 Sat by Pulse Oximetry (%) Laboratory Tests 10/02/16 10/02/16 10/03/16 14:00 20:56 06:00 WBC 4.9 RBC 4.49 Hgb 14.8 Hct 42.0 MCV 93.4 MCH 32.9 MCHC 35.2 RDW 13.6 Plt Count 246 D MPV 9.6 Sodium Potassium Chloride Carbon Dioxide Anion Gap BUN Creatinine Creat Clearance w eGFR Random Glucose Calcium Total Bilirubin AST ALT Alkaline Phosphatase Total Protein Albumin Urine Color Yellow Urine Appearance Clear Urine pH 6.0 Ur Specific [place] 1.010 Urine Protein Trace H Urine Glucose (UA) Negative Urine Ketones Negative Urine Blood Negative Urine Nitrite Negative Urine Bilirubin Negative Urine Urobilinogen 0.2 Ur Leukocyte Esterase Trace Urine RBC 3 Urine WBC 18 Ur Epithelial Cells Moderate Urine Bacteria Moderate Urine Mucus Rare RPR Titer HIV 1&2 Antibody Screen Negative HIV P24 Antigen Negative 10/03/16 10/03/16 10/03/16 06:00 06:00 14:15 WBC RBC Hgb Hct MCV MCH MCHC RDW Plt Count MPV Sodium 140 Potassium 4.1 Chloride 103 Carbon Dioxide 27 Anion Gap 10 BUN 18 Creatinine 1.4 H Creat Clearance w eGFR 53.86 Random Glucose 94 D Calcium 9.9 Total Bilirubin 0.7 D AST 31 D ALT 22 Alkaline Phosphatase 89 D Total Protein 8.0 D Albumin 4.4 D Urine Color Yellow Urine Appearance Clear Urine pH 5.5 Ur Specific [place] 1.025 Urine Protein Negative Urine Glucose (UA) Negative Urine Ketones Trace H Urine Blood Negative Urine Nitrite Negative Urine Bilirubin Negative Urine Urobilinogen 0.2 Ur Leukocyte Esterase Negative Urine RBC Urine WBC Ur Epithelial Cells Urine Bacteria Urine Mucus RPR Titer Nonreactive HIV 1&2 Antibody Screen HIV P24 Antigen LABS NOTED. 10/05/16 14:30 Assessment: 10/05/16 14:29 WITHDRAWAL SYMPTOMS. Plan: CONTINUE DETOX. URINE C & S DONE 10/03/2016 REPORTED TO BE CONTAMINATED BY LAB WILL REPEAT. RESULTS OF REPEAT UA NOTED.
[2016-10-05] MEDS: chlordiazePOXIDE HCL 10 MG CAPSULE PO SCH (18:07)
[2016-10-05] MEDS: QUEtiapine FUMARATE 50 MG TABLET PO SCH (22:51)
[2016-10-05] MEDS: THIAMINE HCL 100 MG TABLET (FP) PO SCH (22:52)
[2016-10-06] MEDS: chlordiazePOXIDE HCL 10 MG CAPSULE PO SCH ×3 (00:18→11:20)
[2016-10-06 10:05] VITALS: BP 150/91; PULSE 52; TEMP 97
[2016-10-06] MEDS: BACITRACIN 0.9 GM PACKET TP SCH (10:41)
[2016-10-06] MEDS: PRENATAL VITAMINS W/ FOLIC ACID TABLET (FP) PO SCH (10:41)
[2016-10-06] MEDS: NICOTINE 21 MG/24 HOURS TOPICAL PATCH TD SCH (10:42)
--- NOTE | 2016-10-06 13:54 | DS ---
[facility] Detox Discharge Summary Admission Date: 10/02/16 Discharge Date: 10/06/16 - History Present History: Alcohol Dependence, Cocaine Dependence Pertinent Past History: HTN - Physical Exam Results Vital Signs: Vital Signs Temperature 97.0 F L 10/06/16 10:04 Pulse Rate 52 L 10/06/16 10:04 Respiratory Rate 20 10/06/16 10:04 Blood Pressure 150/91 10/06/16 10:04 O2 Sat by Pulse Oximetry (%) Pertinent Admission Physical Exam Findings: Withdrawal symptoms Laboratory Tests 10/02/16 10/02/16 10/03/16 14:00 20:56 06:00 WBC 4.9 RBC 4.49 Hgb 14.8 Hct 42.0 MCV 93.4 MCH 32.9 MCHC 35.2 RDW 13.6 Plt Count 246 D MPV 9.6 Sodium Potassium Chloride Carbon Dioxide Anion Gap BUN Creatinine Creat Clearance w eGFR Random Glucose Calcium Total Bilirubin AST ALT Alkaline Phosphatase Total Protein Albumin Urine Color Yellow Urine Appearance Clear Urine pH 6.0 Ur Specific [place] 1.010 Urine Protein Trace H Urine Glucose (UA) Negative Urine Ketones Negative Urine Blood Negative Urine Nitrite Negative Urine Bilirubin Negative Urine Urobilinogen 0.2 Ur Leukocyte Esterase Trace Urine RBC 3 Urine WBC 18 Ur Epithelial Cells Moderate Urine Bacteria Moderate Urine Mucus Rare RPR Titer HIV 1&2 Antibody Screen Negative HIV P24 Antigen Negative 10/03/16 10/03/16 10/03/16 06:00 06:00 14:15 WBC RBC Hgb Hct MCV MCH MCHC RDW Plt Count MPV Sodium 140 Potassium 4.1 Chloride 103 Carbon Dioxide 27 Anion Gap 10 BUN 18 Creatinine 1.4 H Creat Clearance w eGFR 53.86 Random Glucose 94 D Calcium 9.9 Total Bilirubin 0.7 D AST 31 D ALT 22 Alkaline Phosphatase 89 D Total Protein 8.0 D Albumin 4.4 D Urine Color Yellow Urine Appearance Clear Urine pH 5.5 Ur Specific [place] 1.025 Urine Protein Negative Urine Glucose (UA) Negative Urine Ketones Trace H Urine Blood Negative Urine Nitrite Negative Urine Bilirubin Negative Urine Urobilinogen 0.2 Ur Leukocyte Esterase Negative Urine RBC Urine WBC Ur Epithelial Cells Urine Bacteria Urine Mucus RPR Titer Nonreactive HIV 1&2 Antibody Screen HIV P24 Antigen Labs noted: prerenal azotemia noted: encouraged to drink lots of water, monitor - Treatment Hospital Course: Detox Protocol Followed, Detoxed Safely, Responded well, Discharged Condition Good, Rehab Referral Accepted - Medication Discharge Medications: Ambulatory Orders Quetiapine Fumarate [Seroquel -] 200 mg PO HS 10/02/16 Quetiapine Fumarate [Seroquel] 100 mg PO HS #30 tablet 10/05/16 - Diagnosis (1) Alcohol dependence with uncomplicated withdrawal Status: Acute (2) Cocaine dependence, uncomplicated Status: Chronic (3) Nicotine dependence Status: Chronic Qualifiers: Nicotine product type: cigarettes Substance use status: in withdrawal Qualified Code(s): F17.213 - Nicotine dependence, cigarettes, with withdrawal (4) Bipolar disorder Status: Chronic Qualifiers: Current episode severity: unspecified (5) Hypertension Status: Chronic Qualifiers: Hypertension type: essential hypertension Qualified Code(s): I10 - Essential (primary) hypertension (6) Depression Status: Chronic - AMA Did Patient Leave Against Medical Advice: No
== END 2016-10-06 11:37 | disposition other institution (70) | DRG 774 ==
LOC: YASAS 10:59 → Y3N 13:00
PROVIDERS: ADMIT Internal Medicine; ATTEND Internal Medicine
PROC: HZ2ZZZZ Detoxification Services for Substance Abuse Treatment (ICD-10-PCS; principal; 2016-10-02)
DX: F10.230 Alcohol dependence with withdrawal, uncomplicated (principal); F14.20 Cocaine dependence, uncomplicated; F17.213 Nicotine dependence, cigarettes, with withdrawal; F31.9 Bipolar disorder, unspecified; F19.24 Other psychoactive substance dependence with psychoactive substance-induced mood disorder; I10 Essential (primary) hypertension; B35.3 Tinea pedis; G47.00 Insomnia, unspecified; Z91.018 Allergy to other foods; Z91.5 Personal history of self-harm
CPT/HCPCS: 36415; 80053; 81003; 81015; 85027; 86593; 87086; 87389; 93005; 93010

== ENCOUNTER 2016-10-06 12:04 | Inpatient (IN) | payer OTHER ==
--- NOTE | 2016-10-06 16:15 | HP ---
[facility] Rehab Assess/Revision - Admission History Admitted to Rehab from: [facility] Date of Admission to Rehab: 10/06/16 - Vital signs Vital Signs: Vital Signs Period Temp Pulse Resp BP Sys/[place] Pulse Ox Last 24 Hr 97.8 F 59 143/93 - Findings Detox History & Physical reviewed: Yes Concur with findings: Yes Comments/Additional Findings: for rehab as protocol
[2016-10-06] MEDS ORDERED: MAGNESIUM HYDROX 2400MG/30ML ORAL SUSPENSION 30 ML CUP PO PRN (16:16)
[2016-10-06] MEDS ORDERED: P-EPHED 60MG/TRIPROLIDI 2.5MG TABLET PO PRN (16:16)
[2016-10-06] MEDS ORDERED: guaiFENesin/D-METHORPHAN HB 10 ML UNIT-DOSE CUPS PO PRN (16:16)
[2016-10-06] MEDS ORDERED: MENTHOL/PHENOL 1 EACH UD MM PRN (16:16)
[2016-10-06] MEDS ORDERED: NICOTINE POLACRILEX 2 MG GUM BUC PRN (16:16)
[2016-10-06] MEDS ORDERED: LOPERAMIDE HCL 2 MG CAPSULE PO PRN (16:16)
[2016-10-06] MEDS ORDERED: ACETAMINOPHEN 325 MG TABLET (FP) PO PRN (16:16)
[2016-10-06] MEDS ORDERED: MAG HYDROX/AL HYDROX/SIMETH 30 ML UNIT-DOSE CUP PO PRN (16:16)
[2016-10-06] MEDS ORDERED: hydrOXYzine PAMOATE 50 MG CAPSULE (FP) PO PRN (16:16)
[2016-10-06] MEDS ORDERED: MAGNESIUM CITRATE 300 ML BOTTLE PO PRN (16:16)
[2016-10-06] MEDS: QUEtiapine FUMARATE 100 MG TABLET (FP) PO SCH (21:41)
[2016-10-06] MEDS: THIAMINE HCL 100 MG TABLET (FP) PO SCH (21:41)
--- NOTE | 2016-10-07 09:46 | HP ---
Psychiatrist Admission - Data Date of interview: 10/07/16 Admission source: [address] [place] [address] Identifying data: This is of the multiple admissions to inpatient rehabilitation for this 50 years old AA male single father of 3 (kids reside with thier mother).Patient resides alone,supported by [facility]. Medical History: Significant for HTN. Psychiatric History: First contacrt with psychiatrist was in 1990 when he was admitted to [facility] after cutting his wrist.Patient was dx with Bipolar disorder.Reports more than10 psychiatric hospitalizations.Most recent admission was about 2 months ago to [facility] due to severe depression ,drug abuse.No psychiatric follow up since that admission.Patient restarted Seroquel 50 mg po hs while in detox prescribed by .He is willing to continue same medications. Physical/Sexual Abuse/Trauma History: denies Vital Signs: Vital Signs - 24 hr 10/06/16 10/07/16 10/07/16 12:49 00:30 06:00 Temperature 97.8 F 98.3 F Pulse Rate 59 L 52 L Respiratory 18 18 Rate Blood Pressure 143/93 128/87 Allergies/Adverse Reactions: Allergies Allergy/AdvReac Type Severity Reaction Status Date / Time pork derived (porcine) Allergy Mild Rash Verified 10/02/16 12:45 [Pork derived (porcine)] No Known Drug Allergies Allergy Unknown Verified 10/02/16 12:45 Date of last physical exam: 10/02/16 Concur with the findings of this exam: Yes - Substance Abuse/Tx History Hx Alcohol Use: Yes (drinking since 17 yo,hard liquors-vodka quatr daily) Hx Substance Use: Yes (cocaine since 17 yo,$100 daily) Substance Use Type: Alcohol, Cocaine Hx Substance Use 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) - Admission Criteria Previous failed treatment: Yes Poor recovery environment: Yes Comorbidities: Yes Lacks judgement: Yes Mental Status Exam - Mental Status Exam Alert and Oriented to: Time, Place, Person Cognitive Function: Grossly Intact Patient Appearance: Unkempt Mood: Euthymic Affect: Mood Congruent Patient Behavior: Cooperative Speech Pattern: Clear Voice Loudness: Normal Thought Process: Goal Oriented Thought Disorder: Being Controlled Hallucinations: Denies Suicidal Ideation: Denies Homicidal Ideation: Denies Insight/Judgement: Fair Sleep: Fair Appetite: Good Muscle strength/Tone: Normal Gait/Station: Normal Psychiatric Findings - Problem List ([place] 1, 2,3) (1) Bipolar I disorder, most recent episode depressed Current Visit: Yes Status: Chronic (2) UTI (urinary tract infection) Current Visit: Yes Status: Chronic Qualifiers: Urinary tract infection type: site unspecified Hematuria presence: without hematuria Qualified Code(s): N39.0 - Urinary tract infection, site not specified; R31.9 - Hematuria, unspecified (3) Cocaine dependence, uncomplicated Current Visit: Yes Status: Chronic (4) Hypertension Current Visit: Yes Status: Chronic Qualifiers: Hypertension type: essential hypertension Qualified Code(s): I10 - Essential (primary) hypertension Comment: . (5) Alcohol dependence Current Visit: Yes Status: Chronic - Initial Treatment Plan Initial Treatment Plan: Will continue monitor progress.
[2016-10-07] MEDS: PRENATAL VITAMINS W/ FOLIC ACID TABLET (FP) PO SCH (09:53)
[2016-10-07] MEDS: NICOTINE 21 MG/24 HOURS TOPICAL PATCH TD SCH (09:54)
[2016-10-07] MEDS: QUEtiapine FUMARATE 100 MG TABLET (FP) PO SCH (21:52)
[2016-10-07] MEDS: THIAMINE HCL 100 MG TABLET (FP) PO SCH (21:53)
[2016-10-08] MEDS: PRENATAL VITAMINS W/ FOLIC ACID TABLET (FP) PO SCH (09:35)
[2016-10-08] MEDS: NICOTINE 21 MG/24 HOURS TOPICAL PATCH TD SCH (09:36)
[2016-10-08] MEDS: THIAMINE HCL 100 MG TABLET (FP) PO SCH (22:01)
[2016-10-08] MEDS: QUEtiapine FUMARATE 100 MG TABLET (FP) PO SCH (22:01)
[2016-10-09] MEDS: NICOTINE 21 MG/24 HOURS TOPICAL PATCH TD SCH (09:41)
[2016-10-09] MEDS: PRENATAL VITAMINS W/ FOLIC ACID TABLET (FP) PO SCH (09:41)
[2016-10-09] MEDS: QUEtiapine FUMARATE 100 MG TABLET (FP) PO SCH ×2 (21:23→21:52)
[2016-10-09] MEDS: THIAMINE HCL 100 MG TABLET (FP) PO SCH ×2 (21:23→21:53)
[2016-10-10] MEDS: NICOTINE 21 MG/24 HOURS TOPICAL PATCH TD SCH (09:46)
[2016-10-10] MEDS: PRENATAL VITAMINS W/ FOLIC ACID TABLET (FP) PO SCH (09:46)
[2016-10-10] MEDS: QUEtiapine FUMARATE 100 MG TABLET (FP) PO SCH (21:50)
[2016-10-10] MEDS: THIAMINE HCL 100 MG TABLET (FP) PO SCH (21:50)
[2016-10-11] MEDS: PRENATAL VITAMINS W/ FOLIC ACID TABLET (FP) PO SCH (09:43)
[2016-10-11] MEDS: NICOTINE 21 MG/24 HOURS TOPICAL PATCH TD SCH (09:43)
[2016-10-11] MEDS: THIAMINE HCL 100 MG TABLET (FP) PO SCH (21:57)
[2016-10-11] MEDS: QUEtiapine FUMARATE 100 MG TABLET (FP) PO SCH (21:57)
[2016-10-12] MEDS: NICOTINE 21 MG/24 HOURS TOPICAL PATCH TD SCH (09:25)
[2016-10-12] MEDS: PRENATAL VITAMINS W/ FOLIC ACID TABLET (FP) PO SCH (09:25)
[2016-10-12] MEDS: QUEtiapine FUMARATE 100 MG TABLET (FP) PO SCH (21:36)
[2016-10-12] MEDS: THIAMINE HCL 100 MG TABLET (FP) PO SCH (21:36)
[2016-10-13] MEDS: PRENATAL VITAMINS W/ FOLIC ACID TABLET (FP) PO SCH (09:29)
[2016-10-13] MEDS: NICOTINE 21 MG/24 HOURS TOPICAL PATCH TD SCH (09:29)
[2016-10-13] MEDS: THIAMINE HCL 100 MG TABLET (FP) PO SCH (21:46)
[2016-10-13] MEDS: QUEtiapine FUMARATE 100 MG TABLET (FP) PO SCH (21:46)
[2016-10-13] MEDS: diphenhydrAMINE HCL 50 MG CAPSULE PO PRN (21:46)
[2016-10-14] MEDS: NICOTINE 21 MG/24 HOURS TOPICAL PATCH TD SCH (09:47)
[2016-10-14] MEDS: PRENATAL VITAMINS W/ FOLIC ACID TABLET (FP) PO SCH (09:47)
[2016-10-14] MEDS: HYDROCHLOROTHIAZIDE 25 MG TABLET (FP) PO SCH (17:02)
[2016-10-14] MEDS: QUEtiapine FUMARATE 100 MG TABLET (FP) PO SCH (21:37)
[2016-10-14] MEDS: diphenhydrAMINE HCL 50 MG CAPSULE PO PRN (21:37)
[2016-10-14] MEDS: THIAMINE HCL 100 MG TABLET (FP) PO SCH (21:37)
[2016-10-15] MEDS: HYDROCHLOROTHIAZIDE 25 MG TABLET (FP) PO SCH (09:49)
[2016-10-15] MEDS: PRENATAL VITAMINS W/ FOLIC ACID TABLET (FP) PO SCH (09:49)
[2016-10-15] MEDS: NICOTINE 21 MG/24 HOURS TOPICAL PATCH TD SCH (09:50)
[2016-10-15] MEDS: diphenhydrAMINE HCL 50 MG CAPSULE PO PRN (21:43)
[2016-10-15] MEDS: QUEtiapine FUMARATE 100 MG TABLET (FP) PO SCH (21:43)
[2016-10-15] MEDS: THIAMINE HCL 100 MG TABLET (FP) PO SCH (21:43)
[2016-10-16] MEDS ORDERED: HYDROCHLOROTHIAZIDE 25 MG TABLET (FP) PO ONE (07:30)
[2016-10-16] MEDS: PRENATAL VITAMINS W/ FOLIC ACID TABLET (FP) PO SCH (09:47)
[2016-10-16] MEDS: NICOTINE 21 MG/24 HOURS TOPICAL PATCH TD SCH (09:47)
[2016-10-16] MEDS: IBUPROFEN 400 MG TABLET (FP) PO PRN (13:36)
[2016-10-16] MEDS: THIAMINE HCL 100 MG TABLET (FP) PO SCH (21:25)
[2016-10-16] MEDS: QUEtiapine FUMARATE 100 MG TABLET (FP) PO SCH (21:25)
[2016-10-16] MEDS: diphenhydrAMINE HCL 50 MG CAPSULE PO PRN (21:25)
[2016-10-17] MEDS: IBUPROFEN 400 MG TABLET (FP) PO PRN ×3 (06:39→21:58)
[2016-10-17] MEDS: HYDROCHLOROTHIAZIDE 25 MG TABLET (FP) PO SCH (06:39)
[2016-10-17] MEDS: PRENATAL VITAMINS W/ FOLIC ACID TABLET (FP) PO SCH (09:53)
[2016-10-17] MEDS: NICOTINE 21 MG/24 HOURS TOPICAL PATCH TD SCH (09:54)
--- NOTE | 2016-10-17 14:16 | PN ---
Psychiatric Progress Note Vital Signs: Vital Signs Period Temp Pulse Resp BP Sys/[place] Pulse Ox Last 24 Hr 98.1 F 64 18-18 150/88 Date of Session: 10/17/16 Chief Complaint:: discharge visit HPI: Patient addressing alcohol, cocaine dependence comorbid Bipolar disorder. ROS: HTN medically managed. Current Medications: Active Medications Generic Name Dose Route Start Last Admin Trade Name Freq PRN Reason Stop Dose Admin Acetaminophen 650 mg 10/06/16 16:16 Tylenol - PO Q4H PRN FEVER OR PAIN Al Hydroxide/Mg Hydroxide 30 ml 10/06/16 16:16 Mylanta Oral Suspension - PO Q6H PRN DYSPEPSIA Diphenhydramine HCl 50 mg 10/06/16 16:16 10/16/16 21:25 Benadryl - PO 50 mg HSMR1 PRN Administration FOR ITCHING Eucalyptus/Menthol/Phenol/Sorbitol 1 each 10/06/16 16:16 Cepastat Lozenge - MM Q4H PRN SORE THROAT Guaifenesin 10 ml 10/06/16 16:16 Robitussin Dm - PO Q6H PRN COUGH Hydrochlorothiazide 25 mg 10/17/16 06:00 10/17/16 06:39 Hctz - PO 25 mg DAILY@0600 HARMONY Administration Hydroxyzine Pamoate 50 mg 10/06/16 16:16 Vistaril - PO Q4H PRN AGITATION Ibuprofen 400 mg 10/06/16 16:16 10/17/16 12:56 Motrin - PO 400 mg Q6H PRN Administration PAIN Loperamide HCl 4 mg 10/06/16 16:16 Imodium - PO Q6H PRN DIARRHEA Magnesium Hydroxide 30 ml 10/06/16 16:16 Milk Of Magnesia - PO DAILY PRN CONSTIPATION Nicotine 21 mg 10/07/16 10:00 10/17/16 09:54 Nicoderm Patch - TD 21 mg DAILY HARMONY Administration Nicotine Polacrilex 2 mg 10/06/16 16:16 Nicorette Gum - BUC Q2H PRN NICOTINE REPLACEMENT RX Multivit/Folic Acid/Iron 1 tab 10/07/16 10:00 10/17/16 09:53 Vitamins (Sjr) - PO 1 tab DAILY HARMONY Administration Pseudoephedrine/Triprolidine 1 combo 10/06/16 16:16 Actifed - PO TID PRN NASAL CONGESTION Quetiapine Fumarate 100 mg 10/06/16 22:00 10/16/16 21:25 Seroquel - PO 100 mg HS HARMONY Administration Thiamine HCl 100 mg 10/06/16 22:00 10/16/16 21:25 Vitamin B1 - PO 100 mg HS HARMONY Administration Current Side Effect: No Lab tests ordered: No Lab tests reviewed: Yes Provider note:: Patient will complete his treatment and meet his goals on , will continue to address his issues at [facility]. Patient reports finding Seroquel 100 mg po hs helps to cope with mood instability and insomnia( scripts provideded for 30 days ). Patient identifies areas of difficulties and behaviors which contributes to relapses. Focused on coping skills, support system he can utilze to maintain recovery . Supportive therapy privided, , patient is stable for discharge tomorrow. Total face to face time:: 30 Mental Status Exam - Mental Status Exam Alert and Oriented to: Time, Place, Person Cognitive Function: Good Patient Appearance: Well Groomed Mood: Hopeful Affect: Appropriate, Mood Congruent, Normal Range Patient Behavior: Appropriate, Cooperative Speech Pattern: Clear, Appropriate Thought Process: Intact Hallucinations: Denies Suicidal Ideation: Denies Homicidal Ideation: Denies Insight/Judgement: Fair Sleep: Fair Appetite: Fair Muscle strength/Tone: Normal Gait/Station: Normal Psychiatric Treatment Plan - Problem List (1) Alcohol dependence Current Visit: Yes (2) Cocaine dependence, uncomplicated Current Visit: Yes (3) Bipolar disorder Current Visit: No Qualifiers: Current episode severity: unspecified Comment: . (4) Nicotine dependence Current Visit: No Qualifiers: Nicotine product type: cigarettes Substance use status: in withdrawal Qualified Code(s): F17.213 - Nicotine dependence, cigarettes, with withdrawal Comment: .
[2016-10-17] MEDS: diphenhydrAMINE HCL 50 MG CAPSULE PO PRN (21:56)
[2016-10-17] MEDS: THIAMINE HCL 100 MG TABLET (FP) PO SCH (21:56)
[2016-10-17] MEDS: QUEtiapine FUMARATE 100 MG TABLET (FP) PO SCH (21:56)
[2016-10-18] MEDS: HYDROCHLOROTHIAZIDE 25 MG TABLET (FP) PO SCH (06:43)
[2016-10-18 07:00] VITALS: BP 157/100; PULSE 57; TEMP 98.7
[2016-10-18] MEDS: PRENATAL VITAMINS W/ FOLIC ACID TABLET (FP) PO SCH (09:37)
[2016-10-18] MEDS: IBUPROFEN 400 MG TABLET (FP) PO PRN (09:38)
[2016-10-18] MEDS: NICOTINE 21 MG/24 HOURS TOPICAL PATCH TD SCH (10:12)
== END 2016-10-18 09:50 | disposition home or self-care (01) | DRG 772 ==
LOC: YASAS 12:04 → Y3W 12:06
PROVIDERS: ADMIT Psychiatry & Neurology Psychiatry; ATTEND Psychiatry & Neurology Psychiatry
PROC: HZ42ZZZ Group Counseling for Substance Abuse Treatment, Cognitive-Behavioral (ICD-10-PCS; principal; 2016-10-18)
DX: F10.20 Alcohol dependence, uncomplicated (principal); F14.20 Cocaine dependence, uncomplicated; F31.9 Bipolar disorder, unspecified; N39.0 Urinary tract infection, site not specified

== ENCOUNTER 2017-05-07 09:58 | Inpatient (IN) | payer OTHER ==
[2017-05-07 11:25] VITALS: BMI 29.5
--- NOTE | 2017-05-07 13:41 | HP ---
CIWA Score - CIWA Score Nausea/Vomitin Muscle Tremors: 3 Anxiety: 3 Agitation: 3 Paroxysmal Sweats: 2 Orientation: 0-Oriented Tacttile Disturbances: 2-Mild Itch/Numbness/Burn Auditory Disturbances: 2-Mild Harshness/Frighten Visual Disturbances: 1-Very Mild Sensitivity Headache: 2-Mild CIWA-Ar Total Score: 21 Admission ROS BHS - HPI Chief Complaint: i need help to stop drinking alcohol,and cocaine Allergies/Adverse Reactions: Allergies Allergy/AdvReac Type Severity Reaction Status Date / Time pork derived (porcine) Allergy Mild Rash Verified 05/07/17 12:52 [Pork derived (porcine)] No Known Drug Allergies Allergy Unknown Verified 05/07/17 12:52 History of Present Illness: THIS 51 YEARS OLD MALE WITH ALCOHOL AND COCAINE DEPENDENCE,SEEKING DETOX, WITHDRAWAL SYMPTOM,LAST DETOX [facility] 10/02/16 TO 10/06/16 THEN REHAB HTN NON COMPLIANCE BIPOLAR DISORDER NICOTINE DEPENDENCE LONGEST PERIOD OF SOBRIETY 1 YEAR Exam Limitations: No Limitations - Ebola screening Have you traveled outside of the country in the last 21 days: No Have you had contact with anyone from an Ebola affected area: No Have you been sick,other than usual withdrawal symptoms: No Do you have a fever: No - Review of Systems Constitutional: Loss of Appetite, Malaise, Night Sweats, Changes in sleep, Weakness, Unintentional Wgt. Loss EENT: reports: Nose Congestion Respiratory: reports: No Symptoms reported Cardiac: reports: No Symptoms Reported GI: reports: Diarrhea, Nausea, Vomiting, Abdominal cramping : reports: No Symptoms Reported Musculoskeletal: reports: Back Pain, Muscle Pain Integumentary: reports: Dryness Neuro: reports: Headache, Tremors Endocrine: reports: No Symptoms Reported Hematology: reports: No Symptoms Reported Psychiatric: reports: No Sypmtoms Reported, Judgement Intact, Mood/Affect Appropiate, Orientated x3, other (BIPOLAR DISORDER) Patient History - Patient Medical History Hx Anemia: No Hx Asthma: No Hx Chronic Obstructive Pulmonary Disease (COPD): No Hx Cancer: No Hx Cardiac Disorders: No Hx Congestive Heart Failure: No Hx Hypertension: Yes (not meds) Hx Hypercholesterolemia: No Hx Pacemaker: No HX Cerebrovascular Accident: No Hx Seizures: No Hx Dementia: No Hx Diabetes: No Hx Gastrointestinal Disorders: No Hx Liver Disease: No Hx Genitourinary Disorders: No Hx Sexually Transmitted Disorders: No Hx Renal Disease (ESRD): No Hx Thyroid Disease: No Hx Human Immunodeficiency Virus (HIV): No (NEGATIVE HX last 2015) Hx Hepatitis C: No Hx Depression: Yes Hx Suicide Attempt: No Hx Bipolar Disorder: Yes Hx Schizophrenia: No Other Medical History: NO SUICICDAL,NO HOMICIDAL - Patient Surgical History Past Surgical History: No Hx Neurologic Surgery: No Hx Cataract Extraction: No Hx Cardiac Surgery: No Hx Lung Surgery: No Hx Breast Surgery: No Hx Breast Biopsy: No Hx Abdominal Surgery: No Hx Appendectomy: No Hx Cholecystectomy: No Hx Genitourinary Surgery: No Hx Section: No Hx Orthopedic Surgery: No Anesthesia Reaction: No - PPD History Previous Implant?: Yes Documented Results: Negative w/o proof Implanted On Prior [facility] Admission?: Yes Date: 02/27/16 Results: 0 mm PPD to be Administered?: Yes - Smoking Cessation Smoking history: Current every day smoker Have you smoked in the past 12 months: Yes Aproximately how many cigarettes per day: 10 Cigars Per Day: 0 Hx Chewing Tobacco Use: No Initiated information on smoking cessation: Yes 'Breaking Loose' booklet given: 05/07/17 - Substance & Tx. History Hx Alcohol Use: Yes Hx Substance Use: Yes Substance Use Type: Alcohol, Cocaine Hx Substance Use Treatment: Yes ([facility] 10/02/16 TO 10/06/16) - Substances Abused Alcohol Route: Oral Frequency: Daily Amount used: 5 6pk beer, 2 pints of liqour Age of first use: 17 Date of Last Use: 05/07/17 Crack Route: Smoking Frequency: Daily Amount used: $50 Age of first use: 17 Date of Last Use: 05/06/17 Family Disease History - Family Disease History Family Disease History: Diabetes: Grandparent (ALCOHOL,) Admission Physical Exam S - Vital Signs Vital Signs: Vital Signs - 24 hr 05/07/17 11:22 Temperature 97.4 F L Pulse Rate 57 L Respiratory 20 Rate Blood Pressure 146/82 - Physical General Appearance: Yes: Moderate Distress, Tremorous, Irritable, Sweating, Anxious HEENTM: Yes: Normocephalic, SUE, Pharynx Normal Respiratory: Yes: Lungs Clear, Normal Breath Sounds, No Respiratory Distress Neck: Yes: Within Normal Limits, Supple, Trachea in good position Breast: Yes: Within Normal Limits Cardiology: Yes: Within Normal Limits, Regular Rhythm, Regular Rate, S1, S2 Abdominal: Yes: Within Normal Limits, Normal Bowel Sounds, Non Tender, Flat, Soft Genitourinary: Yes: Within Normal Limits Back: Yes: Muscle Spasm Extremities: Yes: Within Normal Limits, Normal Range of Motion, Tremors Neurological: Yes: stator plate washer II-XII NML intact, Fully Oriented, Alert, Motor Strength 5/5 Integumentary: Yes: Dry Lymphatic: Yes: Within Normal Limits - Diagnostic (1) Alcohol dependence with uncomplicated withdrawal Current Visit: Yes Status: Acute (2) Cocaine dependence, uncomplicated Current Visit: Yes Status: Acute (3) Hypertension Current Visit: No Status: Chronic Qualifiers: Hypertension type: essential hypertension Qualified Code(s): I10 - Essential (primary) hypertension Comment: . (4) Nicotine dependence Current Visit: Yes Status: Acute Qualifiers: Nicotine product type: cigarettes Substance use status: in withdrawal Qualified Code(s): F17.213 - Nicotine dependence, cigarettes, with withdrawal Comment: . (5) Weight loss Current Visit: Yes Status: Acute (6) Bipolar disorder Current Visit: No Status: Chronic Qualifiers: Current episode severity: unspecified Comment: . Cleared for Admission S - Detox or Rehab [facility] Level of Care: Medically Managed Detox Regimen/Protocol: Librium S Breath Alcohol Content Breath Alcohol Content: 0 Urine Drug Screen - Results Drug Screen Negative: No Urine Drug Screen Results: BECKI-Cocaine
[2017-05-07] MEDS ORDERED: MAGNESIUM HYDROX 2400MG/30ML ORAL SUSPENSION 30 ML CUP PO PRN (13:49)
[2017-05-07] MEDS ORDERED: P-EPHED 60MG/TRIPROLIDI 2.5MG TABLET PO PRN (13:49)
[2017-05-07] MEDS ORDERED: MAGNESIUM CITRATE 300 ML BOTTLE PO PRN (13:49)
[2017-05-07] MEDS ORDERED: IBUPROFEN 400 MG TABLET (FP) PO PRN (13:49)
[2017-05-07] MEDS ORDERED: chlordiazePOXIDE HCL 25 MG CAPSULE PO PRN (13:49)
[2017-05-07] MEDS ORDERED: MENTHOL/PHENOL 1 EACH UD MM PRN (13:49)
[2017-05-07] MEDS ORDERED: MAG HYDROX/AL HYDROX/SIMETH 30 ML UNIT-DOSE CUP PO PRN (13:49)
[2017-05-07] MEDS ORDERED: NICOTINE POLACRILEX 2 MG GUM BUC PRN (13:49)
[2017-05-07] MEDS ORDERED: LOPERAMIDE HCL 2 MG CAPSULE PO PRN (13:49)
[2017-05-07] MEDS ORDERED: ACETAMINOPHEN 325 MG TABLET (FP) PO PRN (13:49)
[2017-05-07] MEDS ORDERED: guaiFENesin/D-METHORPHAN HB 10 ML UNIT-DOSE CUPS PO PRN (13:49)
[2017-05-07] MEDS ORDERED: hydrOXYzine PAMOATE 50 MG CAPSULE (FP) PO PRN (13:49)
[2017-05-07] MEDS ORDERED: chlordiazePOXIDE HCL 25 MG CAPSULE PO ONE (14:45)
[2017-05-07] MEDS: HYDROCHLOROTHIAZIDE 25 MG TABLET (FP) PO SCH (15:18)
--- NOTE | 2017-05-07 15:19 | CONSULT ---
[facility] Psychiatric Consult - Data Date of interview: 05/07/17 Admission source: [facility] Identifying data: Readmission to [facility] for this 51 y/o AA male seeking detox treatment on for alcohol and cocaine (crack) dependence.Patient is single,a father of one (variable number of dependent at each encounter), homeless,unemployed and supported on SSI benefits. Substance Abuse History: Discussed with patient.Mr Marrero endorses a 30+ history of alcohol and crack dependence (consumes 1-2 pints of Jennifer daily + one 6-pack of beer and spends up to 50 dollars a day on crack). More details in current [facility] report : Smoking history: Current every day smoker. Have you smoked in the past 12 months: Yes. Aproximately how many cigarettes per day: 10. Cigars Per Day: 0. Hx Chewing Tobacco Use: No. Initiated information on smoking cessation: Yes. 'Breaking Loose' booklet given: 05/07/17. - Substance & Tx. History. Hx Alcohol Use: Yes. Hx Substance Use: Yes. Substance Use Type : Alcohol, Cocaine. Hx Substance Use Treatment: Yes ([facility] 10/02/16 TO 10/06/16) . - Substances Abused. Alcohol. Route: Oral. Frequency: Daily. Amount used: 5 6pk beer, 2 pints of liqour. Age of first use: 17. Date of Last Use: 05/07/17. Crack. Route: Smoking. Frequency: Daily. Amount used: $50. Age of first use: 17. Date of Last Use: 05/06/17 Medical History: Hypertension. Psychiatric History: Onset of psychiatric disturbances ([id number]).Diagnosed with Bipolar Disorder.Mr Marrero presents with a history of multiple psychiatric hospitalizations ([facility] and [facility]).Last hospitalized 20 years ago.Chronically non- adherent to psychiatric OPD care.Used to be prescribed risperdal,abilify,haldol and seroquel.Patient admits to a remote history of suicide attempt (more than 10 years ago) via self-mutilation (wrist-cutting) Physical/Sexual Abuse/Trauma History: Patient denies. Additional Comment: Urine Drug Screen Results: BECKI-Cocaine.Noted. Mental Status Exam - Mental Status Exam Alert and Oriented to: Time, Place, Person Cognitive Function: Good Patient Appearance: Well Groomed Mood: Withdrawn, Hopeful Affect: Appropriate, Normal Range Patient Behavior: Fatigued, Appropriate, Cooperative Speech Pattern: Clear, Appropriate Voice Loudness: Normal Thought Process: Goal Oriented Thought Disorder: Not Present Hallucinations: Denies Suicidal Ideation: Denies Homicidal Ideation: Denies Insight/Judgement: Poor Sleep: Poorly, Difficulty falling asleep Appetite: Good Muscle strength/Tone: Normal Gait/Station: Normal Psychiatric Findings - Problem List ([place] 1, 2,3) (1) Alcohol dependence with uncomplicated withdrawal Current Visit: Yes Status: Acute (2) Cocaine dependence, uncomplicated Current Visit: No Status: Chronic (3) Nicotine dependence Current Visit: Yes Status: Acute Qualifiers: Nicotine product type: cigarettes Substance use status: in withdrawal Qualified Code(s): F17.213 - Nicotine dependence, cigarettes, with withdrawal Comment: . (4) Substance induced mood disorder Current Visit: Yes Status: Acute (5) Insomnia Current Visit: Yes Status: Acute - Initial Treatment Plan Initial Treatment Plan: Psychoeducation.Sleep hygiene.Detoxification in progress.Seroquel 50 mg po hs.Ordered at patient's request.Side effects/ benefits discussed with patient.Mr Marrero is in agreement with this careplan.Observation.
[2017-05-07] MEDS: NICOTINE 21 MG/24 HOURS TOPICAL PATCH TD SCH (15:22)
[2017-05-07] MEDS: chlordiazePOXIDE HCL 25 MG CAPSULE PO SCH ×2 (18:09→22:09)
[2017-05-07 21:18] LABS: URINE APPEARANCE SLCLOUDY; URINE BILIRUBIN NEGATIVE (NEGATIVE); URINE BLOOD NEGATIVE (NEGATIVE); URINE COLOR YELLOW; URINE GLUCOSE (UA) NEGATIVE (NEGATIVE); URINE KETONE NEGATIVE (NEGATIVE); URINE NITRITE POSITIVE (NEGATIVE); URINE PROTEIN NEGATIVE (NEGATIVE); URINE UROBILINOGEN NEGATIVE mg/dL (0.2-1.0)
[2017-05-07 21:19] LABS: URINE LEUK ESTERASE 1+ (NEGATIVE)
[2017-05-07 21:50] LABS: EPI CELLS RARE /HPF (FEW); URINE BACTERIA RARE /hpf (NONE SEEN); URINE MUCUS RARE
[2017-05-07] MEDS: MELATONIN 5 MG TABLETS PO SCH (22:09)
[2017-05-07] MEDS: THIAMINE HCL 100 MG TABLET (FP) PO SCH (22:09)
[2017-05-08] MEDS: chlordiazePOXIDE HCL 25 MG CAPSULE PO SCH ×4 (05:04→22:06)
--- NOTE | 2017-05-08 08:22 | EKG ---
Test Reason : Blood Pressure : / mmHG Vent. Rate : 051 BPM Atrial Rate : 051 BPM P-R Int : 138 ms QRS Dur : 098 ms QT Int : 462 ms P-R-T Axes : 061 004 031 degrees QTc Int : 425 ms SINUS BRADYCARDIA MODERATE VOLTAGE CRITERIA FOR LVH, MAY BE NORMAL VARIANT BORDERLINE ECG WHEN COMPARED WITH ECG OF 02-OCT-2016 13:57, NO SIGNIFICANT CHANGE WAS FOUND Confirmed by ZEN CHURCH, CYNTHIA ([id number]) on 05/08/2017 8:22:05 AM Referred By: Confirmed By:CYNTHIA ZALDIVAR MD
[2017-05-08 10:09] LABS: HEMATOCRIT 38.9 % (35.4-49); HEMOGLOBIN 13.5 GM/dL (11.7-16.9); MCH 33.3 pg (25.7-33.7); MCHC 34.6 g/dl (32.0-35.9); MEAN CELL VOLUME 96.2 fl (80-96); MEAN PLT VOLUME 9.1 fl (7.5-11.1); PLATELET COUNT 315 K/MM3 (134-434); RBC 4.04 M/mm3 (4.00-5.60); WHITE BLOOD COUNT 3.7 K/mm3 (4.0-10.0)
[2017-05-08 10:31] LABS: CHLORIDE 107 mmol/L (98-107); POTASSIUM 4.1 mmol/L (3.5-5.1); SODIUM 143 mmol/L (136-145)
--- NOTE | 2017-05-08 10:36 | PN ---
[facility] CIWA - CIWA Score Nausea/Vomitin-No Nausea/No Vomiting Muscle Tremors: 4-Moderate,w/Arms Extend Anxiety: 4-Mod. Anxious/Guarded Agitation: 4-Moderately Restless Paroxysmal Sweats: 1-Minimal Palms Moist Orientation: 0-Oriented Tacttile Disturbances: 0-None Auditory Disturbances: 0-None Visual Disturbances: 0-None Headache: 0-None Present CIWA-Ar Total Score: 13 S Progress Note (SOAP) Subjective: ANXIETY,IRRITABILITY,FATIGUE. OOB AMBULATING WITH STEADY GAIT BUT SLIGHTLY SLUGGISH. Objective: 05/08/17 10:35 Vital Signs Temperature 97.7 F 05/08/17 06:22 Pulse Rate 42 L 05/08/17 06:22 Respiratory Rate 18 05/08/17 06:38 Blood Pressure 128/82 05/08/17 06:22 O2 Sat by Pulse Oximetry (%) Laboratory Last Values WBC 3.7 K/mm3 (4.0-10.0) L 05/08/17 06:20 RBC 4.04 M/mm3 (4.00-5.60) 05/08/17 06:20 Hgb 13.5 GM/dL (11.7-16.9) 05/08/17 06:20 Hct 38.9 % (35.4-49) 05/08/17 06:20 MCV 96.2 fl (80-96) H 05/08/17 06:20 MCH 33.3 pg (25.7-33.7) 05/08/17 06:20 MCHC 34.6 g/dl (32.0-35.9) 05/08/17 06:20 RDW 13.0 % (11.9-15.9) 05/08/17 06:20 Plt Count 315 K/MM3 (134-434) D 05/08/17 06:20 MPV 9.1 fl (7.5-11.1) 05/08/17 06:20 Urine Color Yellow 05/07/17 20:00 Urine Appearance Slcloudy 05/07/17 20:00 Urine pH 7.0 (5.0-8.0) D 05/07/17 20:00 Ur Specific [place] 1.021 (1.001-1.035) 05/07/17 20:00 Urine Protein Negative (NEGATIVE) 05/07/17 20:00 Urine Glucose (UA) Negative (NEGATIVE) 05/07/17 20:00 Urine Ketones Negative (NEGATIVE) 05/07/17 20:00 Urine Blood Negative (NEGATIVE) 05/07/17 20:00 Urine Nitrite Positive (NEGATIVE) 05/07/17 20:00 Urine Bilirubin Negative (NEGATIVE) 05/07/17 20:00 Urine Urobilinogen Negative mg/dL (0.2-1.0) 05/07/17 20:00 Ur Leukocyte Esterase 1+ (NEGATIVE) H 05/07/17 20:00 Urine WBC (Auto) 14 /hpf (3-5) 05/07/17 20:00 Urine RBC (Auto) 4 /hpf (0-3) 05/07/17 20:00 Ur Epithelial Cells Rare /HPF (FEW) 05/07/17 20:00 Urine Bacteria Rare /hpf (NONE SEEN) 05/07/17 20:00 Urine Mucus Rare 05/07/17 20:00 LABS NOTED. Assessment: 05/08/17 10:35 WITHDRAWAL SX Plan: CONTINUE DETOX REPEAT ua
[2017-05-08 10:45] LABS: ALBUMIN 3.7 g/dl (3.4-5.0); ALK PHOS 72 U/L (45-117); ANION GAP 9 (8-16); BILIRUBIN,TOTAL 0.6 mg/dL (0.2-1.0); BLOOD UREA NITROGEN 20 mg/dL (7-18); CALCIUM 8.8 mg/dL (8.5-10.1); CO2 27 mmol/L (21-32); CREATININE 1.2 mg/dL (0.7-1.3); GLUCOSE,RANDOM 89 mg/dL (74-106); SGOT/AST 62 U/L (15-37); SGPT/ALT 65 U/L (12-78); TOT PROT 6.9 g/dl (6.4-8.2)
[2017-05-08] MEDS: PRENATAL VITAMINS W/ FOLIC ACID TABLET (FP) PO SCH (12:01)
[2017-05-08] MEDS: HYDROCHLOROTHIAZIDE 25 MG TABLET (FP) PO SCH (12:01)
[2017-05-08] MEDS: NICOTINE 21 MG/24 HOURS TOPICAL PATCH TD SCH (12:02)
[2017-05-08] MEDS ORDERED: COLLOIDAL OATMEAL 1 BAR EACH TP PRN (12:25)
[2017-05-08] MEDS: THIAMINE HCL 100 MG TABLET (FP) PO SCH (22:06)
[2017-05-08] MEDS: MELATONIN 5 MG TABLETS PO SCH (22:06)
[2017-05-09] MEDS: chlordiazePOXIDE HCL 25 MG CAPSULE PO SCH ×2 (05:05→10:29)
[2017-05-09] MEDS: PRENATAL VITAMINS W/ FOLIC ACID TABLET (FP) PO SCH (10:29)
[2017-05-09] MEDS: HYDROCHLOROTHIAZIDE 25 MG TABLET (FP) PO SCH (10:29)
[2017-05-09] MEDS: NICOTINE 21 MG/24 HOURS TOPICAL PATCH TD SCH (10:29)
--- NOTE | 2017-05-09 10:59 | PN ---
[facility] CIWA - CIWA Score Nausea/Vomitin-No Nausea/No Vomiting Muscle Tremors: 3 Anxiety: 4-Mod. Anxious/Guarded Agitation: 3 Paroxysmal Sweats: 1-Minimal Palms Moist Orientation: 0-Oriented Tacttile Disturbances: 3-Moderate Itch/Numb/Burn Auditory Disturbances: 0-None Visual Disturbances: 0-None Headache: 0-None Present CIWA-Ar Total Score: 14 S Progress Note (SOAP) Subjective: ANXIETY,FATIGUE, IRRITABILITY,INTERMITTENT SLEEP. Objective: 05/09/17 11:02 Vital Signs Temperature 98.1 F 05/09/17 06:17 Pulse Rate 45 L 05/09/17 06:17 Respiratory Rate 18 05/09/17 06:17 Blood Pressure 111/72 05/09/17 06:17 O2 Sat by Pulse Oximetry (%) Laboratory Last Values WBC 3.7 K/mm3 (4.0-10.0) L 05/08/17 06:20 RBC 4.04 M/mm3 (4.00-5.60) 05/08/17 06:20 Hgb 13.5 GM/dL (11.7-16.9) 05/08/17 06:20 Hct 38.9 % (35.4-49) 05/08/17 06:20 MCV 96.2 fl (80-96) H 05/08/17 06:20 MCH 33.3 pg (25.7-33.7) 05/08/17 06:20 MCHC 34.6 g/dl (32.0-35.9) 05/08/17 06:20 RDW 13.0 % (11.9-15.9) 05/08/17 06:20 Plt Count 315 K/MM3 (134-434) D 05/08/17 06:20 MPV 9.1 fl (7.5-11.1) 05/08/17 06:20 Sodium 143 mmol/L (136-145) 05/08/17 06:20 Potassium 4.1 mmol/L (3.5-5.1) 05/08/17 06:20 Chloride 107 mmol/L (98-107) 05/08/17 06:20 Carbon Dioxide 27 mmol/L (21-32) 05/08/17 06:20 Anion Gap 9 (8-16) 05/08/17 06:20 BUN 20 mg/dL (7-18) H 05/08/17 06:20 Creatinine 1.2 mg/dL (0.7-1.3) 05/08/17 06:20 Creat Clearance w eGFR > 60 (>60) 05/08/17 06:20 Random Glucose 89 mg/dL (74-106) 05/08/17 06:20 Calcium 8.8 mg/dL (8.5-10.1) 05/08/17 06:20 Total Bilirubin 0.6 mg/dL (0.2-1.0) 05/08/17 06:20 AST 62 U/L (15-37) H D 05/08/17 06:20 ALT 65 U/L (12-78) D 05/08/17 06:20 Alkaline Phosphatase 72 U/L (45-117) 05/08/17 06:20 Total Protein 6.9 g/dl (6.4-8.2) 05/08/17 06:20 Albumin 3.7 g/dl (3.4-5.0) 05/08/17 06:20 Urine Color Yellow 05/07/17 20:00 Urine Appearance Slcloudy 05/07/17 20:00 Urine pH 7.0 (5.0-8.0) D 05/07/17 20:00 Ur Specific [place] 1.021 (1.001-1.035) 05/07/17 20:00 Urine Protein Negative (NEGATIVE) 05/07/17 20:00 Urine Glucose (UA) Negative (NEGATIVE) 05/07/17 20:00 Urine Ketones Negative (NEGATIVE) 05/07/17 20:00 Urine Blood Negative (NEGATIVE) 05/07/17 20:00 Urine Nitrite Positive (NEGATIVE) 05/07/17 20:00 Urine Bilirubin Negative (NEGATIVE) 05/07/17 20:00 Urine Urobilinogen Negative mg/dL (0.2-1.0) 05/07/17 20:00 Ur Leukocyte Esterase 1+ (NEGATIVE) H 05/07/17 20:00 Urine WBC (Auto) 14 /hpf (3-5) 05/07/17 20:00 Urine RBC (Auto) 4 /hpf (0-3) 05/07/17 20:00 Ur Epithelial Cells Rare /HPF (FEW) 05/07/17 20:00 Urine Bacteria Rare /hpf (NONE SEEN) 05/07/17 20:00 Urine Mucus Rare 05/07/17 20:00 RPR Titer Nonreactive (NONREACTIVE) 05/08/17 06:20 HIV 1&2 Antibody Screen Negative 05/08/17 06:20 HIV P24 Antigen Negative 05/08/17 06:20 UA NOTED REPEAT UA RESULT PENDING Assessment: 05/09/17 11:02 WITHDRAWAL SX R/O UTI Plan: CONTINUE DETOX UC TODAY R/O UTI
[2017-05-09] MEDS: chlordiazePOXIDE 5 MG CAPSULE PO SCH ×2 (17:48→22:51)
[2017-05-09] MEDS: MELATONIN 5 MG TABLETS PO SCH (22:51)
[2017-05-09] MEDS: THIAMINE HCL 100 MG TABLET (FP) PO SCH (22:52)
[2017-05-10] MEDS: chlordiazePOXIDE 5 MG CAPSULE PO SCH (05:48)
[2017-05-10 09:18] VITALS: BP 124/72; PULSE 45; TEMP 96.9
--- NOTE | 2017-05-10 14:42 | DS ---
[facility] Detox Discharge Summary Admission Date: 05/07/17 Discharge Date: 05/10/17 - History Present History: Alcohol Dependence Additional Comments: PATIENT DOES NOT WISH TO STAY TO COMPLETE DETOX REGIMEN. RISKS OF LEAVING DETOX UNIT AGAINST MEDICAL ADVICE AND PRIOR TO COMPLETION OF DETOX REGIMEN EXPLAINED TO PATIENT. PATIENT ADVISED TO GO IMMEDIATELY TO NEAREST ER SHOULD ANY INTOLERABLE DETOX SYMPTOMS DEVELOP AT ANY TIME. PATIENT LEFT DETOX UNIT IN STABLE MEDICAL CONDITION. Pertinent Past History: HTN, Depression, Bipolar Disorder, Nicotine Dependence, Insomnia. - Physical Exam Results Vital Signs: Vital Signs Temperature 96.9 F L 05/10/17 09:17 Pulse Rate 45 L 05/10/17 09:17 Respiratory Rate 18 05/10/17 09:17 Blood Pressure 124/72 05/10/17 09:17 O2 Sat by Pulse Oximetry (%) Pertinent Admission Physical Exam Findings: WITHDRAWAL SYMPTOMS. Laboratory Tests 05/07/17 05/08/17 05/08/17 20:00 06:20 06:20 WBC 3.7 L RBC 4.04 Hgb 13.5 Hct 38.9 MCV 96.2 H MCH 33.3 MCHC 34.6 RDW 13.0 Plt Count 315 D MPV 9.1 Sodium Potassium Chloride Carbon Dioxide Anion Gap BUN Creatinine Creat Clearance w eGFR Random Glucose Calcium Total Bilirubin AST ALT Alkaline Phosphatase Total Protein Albumin Urine Color Yellow Urine Appearance Slcloudy Urine pH 7.[address] [place] 1.021 Urine Protein Negative Urine Glucose (UA) Negative Urine Ketones Negative Urine Blood Negative Urine Nitrite Positive Urine Bilirubin Negative Urine Urobilinogen Negative Ur Leukocyte Esterase 1+ H Urine WBC (Auto) 14 Urine RBC (Auto) 4 Ur Epithelial Cells Rare Urine Bacteria Rare Urine Mucus Rare RPR Titer HIV 1&2 Antibody Screen Negative HIV P24 Antigen Negative 05/08/17 05/08/17 06:20 06:20 WBC RBC Hgb Hct MCV MCH MCHC RDW Plt Count MPV Sodium 143 Potassium 4.1 Chloride 107 Carbon Dioxide 27 Anion Gap 9 BUN 20 H Creatinine 1.2 Creat Clearance w eGFR > 60 Random Glucose 89 Calcium 8.8 Total Bilirubin 0.6 AST 62 H D ALT 65 D Alkaline Phosphatase 72 Total Protein 6.9 Albumin 3.7 Urine Color Urine Appearance Urine pH Ur Specific [address] [place] Urine Protein Urine Glucose (UA) Urine Ketones Urine Blood Urine Nitrite Urine Bilirubin Urine Urobilinogen Ur Leukocyte Esterase Urine WBC (Auto) Urine RBC (Auto) Ur Epithelial Cells Urine Bacteria Urine Mucus RPR Titer Nonreactive HIV 1&2 Antibody Screen HIV P24 Antigen LABS NOTED. - Treatment Hospital Course: Detoxed Safely - Medication Discharge Medications: Ambulatory Orders NK [No Known Home Medication] 05/07/17 - Diagnosis (1) Alcohol dependence with uncomplicated withdrawal Status: Acute (2) Cocaine dependence, uncomplicated Status: Acute (3) Insomnia Status: Acute Qualifiers: Insomnia type: unspecified Qualified Code(s): G47.00 - Insomnia, unspecified (4) Nicotine dependence Status: Acute Qualifiers: Nicotine product type: cigarettes Substance use status: in withdrawal Qualified Code(s): F17.213 - Nicotine dependence, cigarettes, with withdrawal (5) Substance induced mood disorder Status: Acute (6) Weight loss Status: Acute (7) Bipolar disorder Status: Chronic Qualifiers: Active/Remission status: remission status unspecified Qualified Code(s): F31.9 - Bipolar disorder, unspecified - AMA Did Patient Leave Against Medical Advice: Yes (PATIENT DID NOT WISH TO STAY TO COMPLETE DETOX REGIMEN.)
[2017-05-10] MEDS ORDERED: chlordiazePOXIDE HCL 10 MG CAPSULE PO SCH (17:00)
== END 2017-05-10 10:58 | disposition left against medical advice (07) | DRG 770 ==
LOC: YASAS 09:58 → Y3N 14:03
PROVIDERS: ADMIT Internal Medicine; ATTEND Internal Medicine
PROC: HZ2ZZZZ Detoxification Services for Substance Abuse Treatment (ICD-10-PCS; principal; 2017-05-07)
DX: F10.230 Alcohol dependence with withdrawal, uncomplicated (principal); F14.20 Cocaine dependence, uncomplicated; F17.210 Nicotine dependence, cigarettes, uncomplicated; F19.24 Other psychoactive substance dependence with psychoactive substance-induced mood disorder; F31.9 Bipolar disorder, unspecified; G47.00 Insomnia, unspecified; I10 Essential (primary) hypertension; R63.4 Abnormal weight loss; Z68.29 Body mass index [BMI] 29.0-29.9, adult
CPT/HCPCS: 36415; 80053; 81003; 81015; 85027; 86593; 87389; 93005; 93010

== ENCOUNTER 2018-01-21 13:47 | Inpatient (IN) | payer OTHER ==
[2018-01-21 15:15] VITALS: BMI 28.3
--- NOTE | 2018-01-21 16:52 | HP ---
CIWA Score Nausea/Vomitin-Mild Nausea/No Vomiting Muscle Tremors: 2 Anxiety: 5 Agitation: 4-Moderately Restless Paroxysmal Sweats: No Perspiration Orientation: 0-Oriented Tacttile Disturbances: 0-None Auditory Disturbances: 0-None Visual Disturbances: 0-None Headache: 0-None Present CIWA-Ar Total Score: 12 - Admission Criteria [facility]ASAS Guidelines: Admission for Medically Managed Detox: Requires at least one of the followin. CIWA greater than 12 2. Seizures within the past 24 hours 3. Delirium tremens within the past 24 hours 4. Hallucinations within the past 24 hours 5. Acute intervention needed for co occurring medical disorder 6. Acute intervention needed for co occurring psychiatric disorder 7. Severe withdrawal that cannot be handled at a lower level of care (continued vomiting, continued diarrhea, abnormal vital signs) requiring intravenous medication and/or fluids 8. Admission ROS [facility] - [facility] Chief Complaint: ETOH WITHDRAWAL SX AND COCAINE DEPENDENCE Allergies/Adverse Reactions: Allergies Allergy/AdvReac Type Severity Reaction Status Date / Time pork derived (porcine) Allergy Mild Rash Verified 05/07/17 12:52 [Pork derived (porcine)] No Known Drug Allergies Allergy Unknown Verified 05/07/17 12:52 History of Present Illness: PATIENT PRESENTS FOR ETOH WITHDRAWAL SX AND COCAINE DEPENDENCE. PATIENT STARTED DRINKING AT AGE 17 AND DRINKS 2 PINTS OF LIQUOR AND 20 BEERS DAILY. LAST DRINK WAS THIS AFTERNOON. PATIENT ALSO SMOKES CRACK/COCAINE, 100 DOLL DAILY. LAST TIME USED WAS YESTERDAY. CRACK USE SINCE 17. DENIES HX OF SEIZURES, FALLS, BLACK OUTS. + BINGE DRINKING AND DRINKS UPON AWAKENING. PATIENT ADMITTED 04/2017 FOR DETOX HERE AT [facility] AND RELAPSE WITHIN ONE WEEK OF D/C. PATIENT PMH INCLUDES HTN (UNTREATED) AND BIPOLAR DISORDER. DENIES SI/HI AND SUICIDE ATTEMPTS. Exam Limitations: No Limitations - Ebola screening Have you traveled outside of the country in the last 21 days: No (N) Have you had contact with anyone from an Ebola affected area: No Have you been sick,other than usual withdrawal symptoms: No Do you have a fever: No - Review of Systems Constitutional: Chills, Night Sweats, Changes in sleep EENT: reports: No Symptoms Reported Respiratory: reports: No Symptoms reported Cardiac: reports: No Symptoms Reported GI: reports: Nausea, Poor Fluid Intake, Abdominal cramping : reports: No Symptoms Reported Musculoskeletal: reports: No Symptoms Reported Integumentary: reports: No Symptoms Reported Neuro: reports: Tremors Endocrine: reports: No Symptoms Reported Hematology: reports: No Symptoms Reported Psychiatric: reports: Orientated x3, Anxious, Depressed Patient History - Patient Medical History Hx Anemia: No Hx Asthma: No Hx Chronic Obstructive Pulmonary Disease (COPD): No Hx Cancer: No Hx Cardiac Disorders: No Hx Congestive Heart Failure: No Hx Hypertension: Yes (not meds) Hx Hypercholesterolemia: No Hx Pacemaker: No HX Cerebrovascular Accident: No Hx Seizures: No Hx Dementia: No Hx Diabetes: No Hx Gastrointestinal Disorders: No Hx Liver Disease: No Hx Genitourinary Disorders: No Hx Sexually Transmitted Disorders: No Hx Renal Disease (ESRD): No Hx Thyroid Disease: No Hx Human Immunodeficiency Virus (HIV): No (NEGATIVE HX last 2015) Hx Hepatitis C: No Hx Depression: Yes Hx Suicide Attempt: No Hx Bipolar Disorder: Yes Hx Schizophrenia: No - Patient Surgical History Past Surgical History: No Hx Neurologic Surgery: No Hx Cataract Extraction: No Hx Cardiac Surgery: No Hx Lung Surgery: No Hx Breast Surgery: No Hx Breast Biopsy: No Hx Abdominal Surgery: No Hx Appendectomy: No Hx Cholecystectomy: No Hx Genitourinary Surgery: No Hx Orthopedic Surgery: No Anesthesia Reaction: No - PPD History Previous Implant?: Yes Documented Results: Negative w/proof Date: 05/09/17 Results: 0 mm PPD to be Administered?: No - Smoking Cessation Smoking history: Current every day smoker Have you smoked in the past 12 months: Yes Aproximately how many cigarettes per day: 10 Cigars Per Day: 0 Hx Chewing Tobacco Use: No Initiated information on smoking cessation: Yes 'Breaking Loose' booklet given: 01/21/18 - Substance & Tx. History Hx Alcohol Use: Yes Hx Substance Use: Yes Substance Use Type: Alcohol, Cocaine Hx Substance Use Treatment: Yes - Substances Abused Alcohol Route: Oral Frequency: Daily Amount used: 2 PINTS, 20 BEERS Age of first use: 17 Date of Last Use: 01/21/18 Cocaine Route: Smoking Frequency: Daily Amount used: 100 DOLLARS DAILY Age of first use: 17 Date of Last Use: 01/20/18 Family Disease History - Family Disease History Family Disease History: Diabetes: Grandparent (ALCOHOL,) Admission Physical Exam [facility] - Vital Signs Vital Signs: Vital Signs - 24 hr 01/21/18 15:13 Temperature 97.4 F L Pulse Rate 63 Respiratory 18 Rate Blood Pressure 152/85 - Physical General Appearance: Yes: No Apparent Distress, Appropriately Dressed, Tremorous , Anxious HEENTM: Yes: EOMI, Hearing grossly Normal, Normal ENT Inspection, Normal Voice, SUE, Pharynx Normal Respiratory: Yes: Chest Non-Tender, Lungs Clear, Normal Breath Sounds, No Respiratory Distress, No Accessory Muscle Use Neck: Yes: No masses,lesions,Nodules, Supple Breast: Yes: Breast Exam Deferred Cardiology: Yes: Regular Rhythm, Regular Rate, S1, S2 Abdominal: Yes: Normal Bowel Sounds, Non Tender, Soft Genitourinary: Yes: Within Normal Limits Back: Yes: Normal Inspection Musculoskeletal: Yes: full range of Motion, Gait Steady Extremities: Yes: Normal Inspection, Normal Range of Motion, Non-Tender, Tremors Neurological: Yes: 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 (4) Bipolar disorder Current Visit: Yes Status: Chronic Qualifiers: Active/Remission status: remission status unspecified Qualified Code(s): F31.9 - Bipolar disorder, unspecified Comment: . Cleared for Admission [facility] - Detox or Rehab [facility] Level of Care: Medically Managed Detox Regimen/Protocol: Librium [facility] Breath Alcohol Content Breath Alcohol Content: 0 Vital Signs - Vital Signs Vital Signs Refused: No Temperature: 97.4 F Temperature Source: Oral Pulse Rate: 63 Respiratory Rate: 18 Blood Pressure: 152/85 BP Location: Left Arm Blood Pressure Position: Sitting - Height Height: 5 ft 9 in - Weight Weight: 192 lb Weight Measurement Method: Standing Scale Body Mass Index (BMI): 28.3 - Bowel Function Bowel Movement: Yes Urine Drug Screen - Results Drug Screen Negative: No Urine Drug Screen Results: BECKI-Cocaine
[2018-01-21] MEDS ORDERED: MENTHOL/PHENOL 1 EACH UD MM PRN (17:04)
[2018-01-21] MEDS ORDERED: IBUPROFEN 400 MG TABLET (FP) PO PRN (17:04)
[2018-01-21] MEDS ORDERED: MAGNESIUM CITRATE 300 ML BOTTLE PO PRN (17:04)
[2018-01-21] MEDS ORDERED: guaiFENesin/D-METHORPHAN HB 10 ML UNIT-DOSE CUPS PO PRN (17:04)
[2018-01-21] MEDS ORDERED: ACETAMINOPHEN 325 MG TABLET (FP) PO PRN (17:04)
[2018-01-21] MEDS ORDERED: LOPERAMIDE HCL 2 MG CAPSULE PO PRN (17:04)
[2018-01-21] MEDS ORDERED: P-EPHED 60MG/TRIPROLIDI 2.5MG TABLET PO PRN (17:04)
[2018-01-21] MEDS ORDERED: MAGNESIUM HYDROX 2400MG/30ML ORAL SUSPENSION 30 ML CUP PO PRN (17:04)
[2018-01-21] MEDS ORDERED: hydrOXYzine PAMOATE 50 MG CAPSULE (FP) PO PRN (17:04)
[2018-01-21] MEDS ORDERED: NICOTINE POLACRILEX 2 MG GUM BC PRN (17:04)
[2018-01-21] MEDS ORDERED: MAG HYDROX/AL HYDROX/SIMETH 30 ML UNIT-DOSE CUP PO PRN (17:04)
[2018-01-21] MEDS ORDERED: chlordiazePOXIDE HCL 25 MG CAPSULE PO PRN (17:06)
[2018-01-21] MEDS ORDERED: MELATONIN 5 MG TABLETS PO PRN (22:00)
[2018-01-21] MEDS: THIAMINE HCL 100 MG TABLET (FP) PO SCH (22:26)
[2018-01-21] MEDS: chlordiazePOXIDE HCL 25 MG CAPSULE PO SCH (22:26)
[2018-01-22 00:03] LABS: URINE APPEARANCE CLOUDY; URINE BILIRUBIN NEGATIVE (<2.0 mg/dL); URINE COLOR YELLOW; URINE GLUCOSE (UA) NEGATIVE (NEGATIVE); URINE KETONE NEGATIVE (NEGATIVE); URINE LEUK ESTERASE TRACE (NEGATIVE); URINE NITRITE NEGATIVE (NEGATIVE); URINE PROTEIN NEGATIVE (NEGATIVE); URINE UROBILINOGEN NEGATIVE mg/dL (0.2-1.0)
[2018-01-22 00:08] LABS: EPI CELLS MODERATE /HPF (FEW); URINE MUCUS RARE
[2018-01-22] MEDS: chlordiazePOXIDE HCL 25 MG CAPSULE PO SCH ×4 (05:42→22:01)
--- NOTE | 2018-01-22 07:39 | CONSULT ---
[facility] Psychiatric Consult - Data Date of interview: 01/22/18 Admission source: [facility] Identifying data: This is a 52 years old male, single father of three, unemployed, living with friend, on SSI support, with psychiatric hospitalization history, Bipoolar Disorder history, with history of Alcohol, Nicotine dependence, reporting withdrawal symptoms and seeking detox. Substance Abuse History: Smoking Cessation. Smoking history: Current every day smoker. Have you smoked in the past 12 months: Yes. Aproximately how many cigarettes per day: 10. Cigars Per Day: 0. Hx Chewing Tobacco Use: No. Initiated information on smoking cessation: Yes. 'Breaking Loose' booklet given : 01/21/18. - Substance & Tx. History. Hx Alcohol Use: Yes. Hx Substance Use : Yes. Substance Use Type: Alcohol, Cocaine. Hx Substance Use Treatment: Yes. - Substances Abused. Alcohol. Route: Oral. Frequency: Daily. Amount used: 2 PINTS, 20 BEERS. Age of first use: 17. Date of Last Use: 01/21/18. * * Cocaine. Route: Smoking. Frequency: Daily. Amount used: 100 DOLLARS DAILY. Age of first use: 17. Date of Last Use: 01/20/18 Medical History: HTN, Weight loss history, UTI history Psychiatric History: Patient reports to [facility]esh Bipolar Disorder, reports only psychiatric admissiojn on [facility] at [facility] agter suicdal attempt- cutting his left upper forearmes, stitches applyed,m denies suicidal, lashaun, icidal history sine then, reports taking prior to admission: 'Seroquel 100mg po qhs Physical/Sexual Abuse/Trauma History: Denies Additional Comment: Seroquel 100mg po qhs Mental Status Exam - Mental Status Exam Alert and Oriented to: Place, Person Cognitive Function: Fair Patient Appearance: Unkempt Mood: Sad Affect: Flat Patient Behavior: Sedated Speech Pattern: Delayed Voice Loudness: Mildly Soft/Quiet Thought Process: Circumstantial, Goal Oriented Thought Disorder: Being Controlled Hallucinations: Denies Suicidal Ideation: Denies Homicidal Ideation: Denies Insight/Judgement: Fair Sleep: Difficulty falling asleep Appetite: Weight loss Muscle strength/Tone: Mild Hypotonicity Gait/Station: Shuffling Additional Comments: 'Seroquel 100mg po qhs Psychiatric Findings - Problem List ([place] 1, 2,3) (1) Alcohol dependence with uncomplicated withdrawal Current Visit: Yes Status: Acute (2) Bipolar disorder Current Visit: Yes Status: Chronic Qualifiers: Active/Remission status: remission status unspecified Qualified Code(s): F31.9 - Bipolar disorder, unspecified Comment: . (3) Cocaine dependence, uncomplicated Current Visit: Yes Status: Chronic (4) Nicotine dependence Current Visit: Yes Status: Chronic Qualifiers: Nicotine product type: cigarettes Substance use status: in withdrawal Qualified Code(s): F17.213 - Nicotine dependence, cigarettes, with withdrawal Comment: . (5) Bipolar I, most recent episode mixed, severe with psychotic behavior Current Visit: No Status: Acute (6) Substance induced mood disorder Current Visit: No Status: Acute (7) Weight loss Current Visit: No Status: Acute (8) Hypertension Current Visit: No Status: Chronic Qualifiers: Hypertension type: essential hypertension Qualified Code(s): I10 - Essential (primary) hypertension Comment: . (9) UTI (urinary tract infection) Current Visit: No Status: Chronic Qualifiers: Urinary tract infection type: site unspecified Hematuria presence: without hematuria Qualified Code(s): N39.0 - Urinary tract infection, site not specified - Initial Treatment Plan Initial Treatment Plan: Serouqle 100mg po qhs
[2018-01-22 10:08] LABS: HEMATOCRIT 39.1 % (35.4-49); HEMOGLOBIN 13.3 GM/dL (11.7-16.9); MCH 32.4 pg (25.7-33.7); MEAN CELL VOLUME 95.4 fl (80-96); MEAN PLT VOLUME 8.4 fl (7.5-11.1); PLATELET COUNT 214 K/MM3 (134-434); RDW 12.4 % (11.9-15.9); WHITE BLOOD COUNT 2.8 K/mm3 (4.0-10.0)
[2018-01-22] MEDS: PRENATAL VITAMINS W/ FOLIC ACID TABLET (FP) PO SCH (10:12)
[2018-01-22] MEDS: NICOTINE 21 MG/24 HOURS TOPICAL PATCH TD SCH (10:12)
--- NOTE | 2018-01-22 10:33 | PN ---
[facility] CIWA - CIWA Score Nausea/Vomitin-No Nausea/No Vomiting Muscle Tremors: 3 Anxiety: 3 Agitation: 3 Paroxysmal Sweats: 3 Orientation: 0-Oriented Tacttile Disturbances: 0-None Auditory Disturbances: 0-None Visual Disturbances: 0-None Headache: 0-None Present CIWA-Ar Total Score: 12 S Progress Note (SOAP) Subjective: agitation sweats interrupted sleep body aches irritable Objective: 01/22/18 10:32 Vital Signs Temperature 96.1 F L 01/22/18 09:02 Pulse Rate 65 01/22/18 09:02 Respiratory Rate 18 01/22/18 09:02 Blood Pressure 150/89 01/22/18 09:02 O2 Sat by Pulse Oximetry (%) Laboratory Tests 01/21/18 01/22/18 23:15 07:00 WBC 2.8 L RBC 4.10 Hgb 13.3 Hct 39.1 MCV 95.4 MCH 32.4 MCHC 34.0 RDW 12.4 Plt Count 214 D MPV 8.4 Urine Color Yellow Urine Appearance Cloudy Urine pH 6.0 Ur Specific [place] 1.024 Urine Protein Negative Urine Glucose (UA) Negative Urine Ketones Negative Urine Blood Negative Urine Nitrite Negative Urine Bilirubin Negative Urine Urobilinogen Negative Ur Leukocyte Esterase Trace Urine WBC (Auto) 8 Urine RBC (Auto) 7 Ur Epithelial Cells Moderate Urine Mucus Rare aaox3 ambulating no acute distress Assessment: 01/22/18 10:32 withdrawal sx Plan: continue detox increase fluids
[2018-01-22 11:13] LABS: ALBUMIN 3.2 g/dl (3.4-5.0); ALK PHOS 78 U/L (45-117); ANION GAP 6 MMOL/L (8-16); BILIRUBIN,TOTAL 0.3 mg/dL (0.2-1); BLOOD UREA NITROGEN 15 mg/dL (7-18); CALCIUM 8.1 mg/dL (8.5-10.1); CHLORIDE 103 mmol/L (98-107); CO2 30 mmol/L (21-32); GLUCOSE,RANDOM 89 mg/dL (74-106); POTASSIUM 3.6 mmol/L (3.5-5.1); SGOT/AST 80 U/L (15-37); SGPT/ALT 69 U/L (13-61); SODIUM 140 mmol/L (136-145); TOT PROT 6.5 g/dl (6.4-8.2)
[2018-01-22] MEDS: THIAMINE HCL 100 MG TABLET (FP) PO SCH (22:00)
[2018-01-22] MEDS: QUEtiapine FUMARATE 100 MG TABLET (FP) PO SCH (22:01)
[2018-01-23] MEDS: chlordiazePOXIDE HCL 25 MG CAPSULE PO SCH ×3 (05:34→18:05)
[2018-01-23] MEDS ORDERED: COLLOIDAL OATMEAL 1 BAR EACH TP PRN (10:31)
--- NOTE | 2018-01-23 10:38 | PN ---
[facility] CIWA - CIWA Score Nausea/Vomitin-No Nausea/No Vomiting Muscle Tremors: 3 Anxiety: 3 Agitation: 3 Paroxysmal Sweats: 3 Orientation: 0-Oriented Tacttile Disturbances: 0-None Auditory Disturbances: 0-None Visual Disturbances: 0-None Headache: 0-None Present CIWA-Ar Total Score: 12 BHS Progress Note (SOAP) Subjective: dry skin interrupted sleep sweat body aches Objective: 01/23/18 10:36 Vital Signs Temperature 97.7 F 01/23/18 06:00 Pulse Rate 49 L 01/23/18 07:00 Respiratory Rate 18 01/23/18 07:00 Blood Pressure 135/81 01/23/18 07:00 O2 Sat by Pulse Oximetry (%) Laboratory Tests 01/21/18 01/22/18 01/22/18 23:15 07:00 07:00 WBC 2.8 L RBC 4.10 Hgb 13.3 Hct 39.1 MCV 95.4 MCH 32.4 MCHC 34.0 RDW 12.4 Plt Count 214 D MPV 8.4 Sodium 140 Potassium 3.6 Chloride 103 Carbon Dioxide 30 Anion Gap 6 L BUN 15 Creatinine 1.0 Creat Clearance w eGFR > 60 Random Glucose 89 Calcium 8.1 L Total Bilirubin 0.3 AST 80 H ALT 69 H Alkaline Phosphatase 78 Total Protein 6.5 Albumin 3.2 L Urine Color Yellow Urine Appearance Cloudy Urine pH 6.0 Ur Specific [place] 1.024 Urine Protein Negative Urine Glucose (UA) Negative Urine Ketones Negative Urine Blood Negative Urine Nitrite Negative Urine Bilirubin Negative Urine Urobilinogen Negative Ur Leukocyte Esterase Trace Urine WBC (Auto) 8 Urine RBC (Auto) 7 Ur Epithelial Cells Moderate Urine Mucus Rare aaox3 ambulating no acute distress Assessment: 01/23/18 10:36 withdrawal sx Plan: continue detox increase fluids aveeno soap
[2018-01-23] MEDS: NICOTINE 21 MG/24 HOURS TOPICAL PATCH TD SCH (10:50)
[2018-01-23] MEDS: PRENATAL VITAMINS W/ FOLIC ACID TABLET (FP) PO SCH (10:50)
[2018-01-23] MEDS: QUEtiapine FUMARATE 100 MG TABLET (FP) PO SCH (22:29)
[2018-01-23] MEDS: chlordiazePOXIDE 5 MG CAPSULE PO SCH (22:30)
[2018-01-23] MEDS: THIAMINE HCL 100 MG TABLET (FP) PO SCH (22:30)
[2018-01-24] MEDS: chlordiazePOXIDE 5 MG CAPSULE PO SCH ×3 (05:38→17:58)
[2018-01-24] MEDS: NICOTINE 21 MG/24 HOURS TOPICAL PATCH TD SCH (10:08)
[2018-01-24] MEDS: PRENATAL VITAMINS W/ FOLIC ACID TABLET (FP) PO SCH (10:08)
--- NOTE | 2018-01-24 13:03 | PN ---
[facility] Progress Note (SOAP) Subjective: Interrupted sleep, otherwise doing well Objective: 01/24/18 13:02 Vital Signs 01/24/18 01/24/18 01/24/18 06:54 09:22 09:24 Temperature 97.3 F L 97.0 F L 97.0 F L Pulse Rate 64 68 68 Respiratory 18 18 18 Rate Blood Pressure 144/86 152/95 152/95 Laboratory Last Values WBC 2.8 K/mm3 (4.0-10.0) L 01/22/18 07:00 RBC 4.10 M/mm3 (4.00-5.60) 01/22/18 07:00 Hgb 13.3 GM/dL (11.7-16.9) 01/22/18 07:00 Hct 39.1 % (35.4-49) 01/22/18 07:00 MCV 95.4 fl (80-96) 01/22/18 07:00 MCH 32.4 pg (25.7-33.7) 01/22/18 07:00 MCHC 34.0 g/dl (32.0-35.9) 01/22/18 07:00 RDW 12.4 % (11.9-15.9) 01/22/18 07:00 Plt Count 214 K/MM3 (134-434) D 01/22/18 07:00 MPV 8.4 fl (7.5-11.1) 01/22/18 07:00 Sodium 140 mmol/L (136-145) 01/22/18 07:00 Potassium 3.6 mmol/L (3.5-5.1) 01/22/18 07:00 Chloride 103 mmol/L (98-107) 01/22/18 07:00 Carbon Dioxide 30 mmol/L (21-32) 01/22/18 07:00 Anion Gap 6 MMOL/L (8-16) L 01/22/18 07:00 BUN 15 mg/dL (7-18) 01/22/18 07:00 Creatinine 1.0 mg/dL (0.55-1.3) 01/22/18 07:00 Creat Clearance w eGFR > 60 (>60) 01/22/18 07:00 Random Glucose 89 mg/dL (74-106) 01/22/18 07:00 Calcium 8.1 mg/dL (8.5-10.1) L 01/22/18 07:00 Total Bilirubin 0.3 mg/dL (0.2-1) 01/22/18 07:00 AST 80 U/L (15-37) H 01/22/18 07:00 ALT 69 U/L (13-61) H 01/22/18 07:00 Alkaline Phosphatase 78 U/L (45-117) 01/22/18 07:00 Total Protein 6.5 g/dl (6.4-8.2) 01/22/18 07:00 Albumin 3.2 g/dl (3.4-5.0) L 01/22/18 07:00 Urine Color Yellow 01/21/18 23:15 Urine Appearance Cloudy 01/21/18 23:15 Urine pH 6.0 (5.0-8.0) 01/21/18 23:15 Ur Specific [place] 1.024 (1.010-1.035) 01/21/18 23:15 Urine Protein Negative (NEGATIVE) 01/21/18 23:15 Urine Glucose (UA) Negative (NEGATIVE) 01/21/18 23:15 Urine Ketones Negative (NEGATIVE) 01/21/18 23:15 Urine Blood Negative (NEGATIVE) 01/21/18 23:15 Urine Nitrite Negative (NEGATIVE) 01/21/18 23:15 Urine Bilirubin Negative (<2.0 mg/dL) 01/21/18 23:15 Urine Urobilinogen Negative mg/dL (0.2-1.0) 01/21/18 23:15 Ur Leukocyte Esterase Trace (NEGATIVE) 01/21/18 23:15 Urine WBC (Auto) 8 /hpf (3-5) 01/21/18 23:15 Urine RBC (Auto) 7 /hpf (0-3) 01/21/18 23:15 Ur Epithelial Cells Moderate /HPF (FEW) 01/21/18 23:15 Urine Mucus Rare 01/21/18 23:15 RPR Titer Nonreactive (NONREACTIVE) 01/22/18 07:00 Labs noted Assessment: 01/24/18 13:03 Withdrawal sx, improving Plan: Continue detox
[2018-01-24] MEDS: chlordiazePOXIDE HCL 10 MG CAPSULE PO SCH (22:56)
[2018-01-24] MEDS: THIAMINE HCL 100 MG TABLET (FP) PO SCH (22:57)
[2018-01-24] MEDS: QUEtiapine FUMARATE 100 MG TABLET (FP) PO SCH (22:57)
[2018-01-25] MEDS: chlordiazePOXIDE HCL 10 MG CAPSULE PO SCH (05:26)
[2018-01-25 06:55] VITALS: BP 132/89; PULSE 58; TEMP 97.5
--- NOTE | 2018-01-25 15:43 | DS ---
[facility] Detox Discharge Summary Admission Date: 01/21/18 Discharge Date: 01/25/18 - History Present History: Alcohol Dependence Additional Comments: 52 years old male admitted on 01/21/18 for alcohol withdrawal sx completed detox regiment tolerated well alert no acute distress aftercare [place] - Physical Exam Results Vital Signs: Vital Signs Temperature 97.5 F L 01/25/18 06:54 Pulse Rate 58 L 01/25/18 06:54 Respiratory Rate 20 01/25/18 06:54 Blood Pressure 132/89 01/25/18 06:54 O2 Sat by Pulse Oximetry (%) Pertinent Admission Physical Exam Findings: alcohol withdrawal sx Vital Signs Temperature 97.5 F L 01/25/18 06:54 Pulse Rate 58 L 01/25/18 06:54 Respiratory Rate 20 01/25/18 06:54 Blood Pressure 132/89 01/25/18 06:54 O2 Sat by Pulse Oximetry (%) Laboratory Last Values WBC 2.8 K/mm3 (4.0-10.0) L 01/22/18 07:00 RBC 4.10 M/mm3 (4.00-5.60) 01/22/18 07:00 Hgb 13.3 GM/dL (11.7-16.9) 01/22/18 07:00 Hct 39.1 % (35.4-49) 01/22/18 07:00 MCV 95.4 fl (80-96) 01/22/18 07:00 MCH 32.4 pg (25.7-33.7) 01/22/18 07:00 MCHC 34.0 g/dl (32.0-35.9) 01/22/18 07:00 RDW 12.4 % (11.9-15.9) 01/22/18 07:00 Plt Count 214 K/MM3 (134-434) D 01/22/18 07:00 MPV 8.4 fl (7.5-11.1) 01/22/18 07:00 Sodium 140 mmol/L (136-145) 01/22/18 07:00 Potassium 3.6 mmol/L (3.5-5.1) 01/22/18 07:00 Chloride 103 mmol/L (98-107) 01/22/18 07:00 Carbon Dioxide 30 mmol/L (21-32) 01/22/18 07:00 Anion Gap 6 MMOL/L (8-16) L 01/22/18 07:00 BUN 15 mg/dL (7-18) 01/22/18 07:00 Creatinine 1.0 mg/dL (0.55-1.3) 01/22/18 07:00 Creat Clearance w eGFR > 60 (>60) 01/22/18 07:00 Random Glucose 89 mg/dL (74-106) 01/22/18 07:00 Calcium 8.1 mg/dL (8.5-10.1) L 01/22/18 07:00 Total Bilirubin 0.3 mg/dL (0.2-1) 01/22/18 07:00 AST 80 U/L (15-37) H 01/22/18 07:00 ALT 69 U/L (13-61) H 01/22/18 07:00 Alkaline Phosphatase 78 U/L (45-117) 01/22/18 07:00 Total Protein 6.5 g/dl (6.4-8.2) 01/22/18 07:00 Albumin 3.2 g/dl (3.4-5.0) L 01/22/18 07:00 Urine Color Yellow 01/21/18 23:15 Urine Appearance Cloudy 01/21/18 23:15 Urine pH 6.0 (5.0-8.0) 01/21/18 23:15 Ur Specific [place] 1.024 (1.010-1.035) 01/21/18 23:15 Urine Protein Negative (NEGATIVE) 01/21/18 23:15 Urine Glucose (UA) Negative (NEGATIVE) 01/21/18 23:15 Urine Ketones Negative (NEGATIVE) 01/21/18 23:15 Urine Blood Negative (NEGATIVE) 01/21/18 23:15 Urine Nitrite Negative (NEGATIVE) 01/21/18 23:15 Urine Bilirubin Negative (<2.0 mg/dL) 01/21/18 23:15 Urine Urobilinogen Negative mg/dL (0.2-1.0) 01/21/18 23:15 Ur Leukocyte Esterase Trace (NEGATIVE) 01/21/18 23:15 Urine WBC (Auto) 8 /hpf (3-5) 01/21/18 23:15 Urine RBC (Auto) 7 /hpf (0-3) 01/21/18 23:15 Ur Epithelial Cells Moderate /HPF (FEW) 01/21/18 23:15 Urine Mucus Rare 01/21/18 23:15 RPR Titer Nonreactive (NONREACTIVE) 01/22/18 07:00 lab noted copy of lab report provided to the patient strong recommend the patient to follow up medical provider in the community for fluctuation of wbc utilizes emergency services if necessary - Treatment Hospital Course: Detox Protocol Followed, Detoxed Safely, Responded well, Discharged Condition Good, Rehab Referral Accepted Patient has Accepted a Rehab Referral to: [facility] - Medication Discharge Medications: Ambulatory Orders Quetiapine Fumarate [Seroquel] 100 mg PO HS #30 tablet 01/22/18 - Diagnosis (1) Alcohol dependence with uncomplicated withdrawal Status: Acute (2) Hypertension Status: Chronic Qualifiers: Hypertension type: essential hypertension Qualified Code(s): I10 - Essential (primary) hypertension (3) Nicotine dependence Status: Acute Qualifiers: Nicotine product type: cigarettes Substance use status: in withdrawal Qualified Code(s): F17.213 - Nicotine dependence, cigarettes, with withdrawal - AMA Did Patient Leave Against Medical Advice: No
== END 2018-01-25 09:10 | disposition home or self-care (01) | DRG 774 ==
LOC: YASAS 13:47 → Y6N 17:53
PROC: HZ2ZZZZ Detoxification Services for Substance Abuse Treatment (ICD-10-PCS; principal; 2018-01-21)
DX: F10.230 Alcohol dependence with withdrawal, uncomplicated (principal); F14.20 Cocaine dependence, uncomplicated; F17.213 Nicotine dependence, cigarettes, with withdrawal; F31.30 Bipolar disorder, current episode depressed, mild or moderate severity, unspecified; F31.64 Bipolar disorder, current episode mixed, severe, with psychotic features; F19.24 Other psychoactive substance dependence with psychoactive substance-induced mood disorder; F91.8 Other conduct disorders; I10 Essential (primary) hypertension; G47.00 Insomnia, unspecified; R10.84 Generalized abdominal pain; N39.0 Urinary tract infection, site not specified; R45.89 Other symptoms and signs involving emotional state
CPT/HCPCS: 36415; 80053; 81003; 81015; 85027; 86593

== ENCOUNTER 2018-06-12 12:44 | Inpatient (IN) | payer OTHER ==
[2018-06-12 15:31] VITALS: BMI 28.5
--- NOTE | 2018-06-12 17:52 | HP ---
CIWA Score Nausea/Vomitin-No Nausea/No Vomiting Muscle Tremors: 3 Anxiety: 3 Agitation: 0-Normal Activity Paroxysmal Sweats: 4-Forehead w/Sweat Beads Orientation: 0-Oriented Tacttile Disturbances: 0-None Auditory Disturbances: 0-None Visual Disturbances: 0-None Headache: 2-Mild CIWA-Ar Total Score: 12 - Admission Criteria OASAS Guidelines: Admission for Medically Managed Detox: Requires at least one of the followin. CIWA greater than 12 2. Seizures within the past 24 hours 3. Delirium tremens within the past 24 hours 4. Hallucinations within the past 24 hours 5. Acute intervention needed for co occurring medical disorder 6. Acute intervention needed for co occurring psychiatric disorder 7. Severe withdrawal that cannot be handled at a lower level of care (continued vomiting, continued diarrhea, abnormal vital signs) requiring intravenous medication and/or fluids 8. Admission ROS [facility] - [facility] Chief Complaint: I came here for alcohol detox Allergies/Adverse Reactions: Allergies Allergy/AdvReac Type Severity Reaction Status Date / Time pork derived (porcine) Allergy Mild Rash Verified 06/12/18 15:20 [Pork derived (porcine)] No Known Drug Allergies Allergy Unknown Verified 06/12/18 15:20 History of Present Illness: A 52year old male with history of HTN, alcohol and cocaine dependence who came in today requesting for alcohol withdrawal detox. Pt's last detox was 01/21/18. Exam Limitations: No Limitations - Ebola screening Have you traveled outside of the country in the last 21 days: No Have you had contact with anyone from an Ebola affected area: No Do you have a fever: No - Review of Systems Constitutional: Night Sweats EENT: reports: No Symptoms Reported Respiratory: reports: No Symptoms reported Cardiac: reports: No Symptoms Reported GI: reports: Poor Fluid Intake : reports: No Symptoms Reported Musculoskeletal: reports: No Symptoms Reported Integumentary: reports: Dryness Neuro: reports: Headache Endocrine: reports: Unexplained Weight Gain Hematology: reports: No Symptoms Reported Psychiatric: reports: Orientated x3, other (history of bipolar) Patient History - Patient Medical History Hx Anemia: No Hx Asthma: No Hx Chronic Obstructive Pulmonary Disease (COPD): No Hx Cancer: No Hx Cardiac Disorders: No Hx Congestive Heart Failure: No Hx Hypertension: Yes (not meds) Hx Hypercholesterolemia: No Hx Pacemaker: No HX Cerebrovascular Accident: No Hx Seizures: No Hx Dementia: No Hx Diabetes: No Hx Gastrointestinal Disorders: No Hx Liver Disease: No Hx Genitourinary Disorders: No Hx Sexually Transmitted Disorders: No Hx Renal Disease (ESRD): No Hx Thyroid Disease: No Hx Human Immunodeficiency Virus (HIV): No (NEGATIVE HX last 2015) Hx Hepatitis C: No Hx Depression: Yes Hx Suicide Attempt: No Hx Bipolar Disorder: Yes Hx Schizophrenia: No - Patient Surgical History Past Surgical History: No Hx Neurologic Surgery: No Hx Cataract Extraction: No Hx Cardiac Surgery: No Hx Lung Surgery: No Hx Breast Surgery: No Hx Breast Biopsy: No Hx Abdominal Surgery: No Hx Appendectomy: No Hx Cholecystectomy: No Hx Genitourinary Surgery: No Hx Section: No Hx Orthopedic Surgery: No Anesthesia Reaction: No - PPD History Documented Results: Negative w/o proof (pt states he had a negative ppd about 3months ago but can't recall the date.) - Smoking Cessation Smoking history: Current every day smoker Have you smoked in the past 12 months: Yes Aproximately how many cigarettes per day: 10 Cigars Per Day: 0 Hx Chewing Tobacco Use: No Initiated information on smoking cessation: Yes 'Breaking Loose' booklet given: 06/12/18 - Substances abused Alcohol Substance route: Oral Frequency: Daily Amount used: 1 pint Age of first use: 17 Date of last use: 06/12/18 Cocaine Substance route: Smoking Frequency: Daily Amount used: 100 dollars Age of first use: 17 Date of last use: 06/11/18 Family Disease History - Family Disease History Family Disease History: Diabetes: Grandparent (ALCOHOL,) Admission Physical Exam S - Vital Signs Vital Signs: Vital Signs - 24 hr 06/12/18 06/12/18 15:20 15:41 Temperature 97.3 F L 97.3 F L Pulse Rate 51 L 51 L Respiratory 16 16 Rate Blood Pressure 157/85 157/85 - Physical General Appearance: Yes: Within Normal Limits, No Apparent Distress HEENTM: Yes: EOMI, Normal ENT Inspection, Normocephalic, SUE Respiratory: Yes: Chest Non-Tender, Lungs Clear, Normal Breath Sounds, No Respiratory Distress Neck: Yes: No masses,lesions,Nodules, Supple, Trachea in good position Breast: Yes: Within Normal Limits Cardiology: Yes: Regular Rhythm, Regular Rate, S1, S2 Abdominal: Yes: Normal Bowel Sounds, Non Tender, Soft Genitourinary: Yes: Within Normal Limits Back: Yes: Within Normal Limits Musculoskeletal: Yes: full range of Motion, Gait Steady Extremities: Yes: Normal Capillary Refill, Normal Range of Motion, Tremors Neurological: Yes: cubing machine tender II-XII NML intact, Fully Oriented, Alert, Motor Strength 5/5 Integumentary: Yes: Within Normal Limits Lymphatic: Yes: Within Normal Limits Cleared for Admission S - Detox or Rehab [facility] Level of Care: Medically Managed Detox Regimen/Protocol: Librium Claeared for Rehab Admission: No Breathalyzer - Breathalyzer Breathalyzer: 0 Urine Drug Screen - Test Device Lot number: [id number] Expiration date: 01/17/20 - Control Is test valid?: Yes - Results Drug screen NEGATIVE: No Urine drug screen results: BECKI-Cocaine Inpatient Rehab Admission - Rehab Decision to Admit Inpatient rehab admission?: No
[2018-06-12] MEDS ORDERED: chlordiazePOXIDE HCL 10 MG CAPSULE PO PRN (18:04)
[2018-06-12] MEDS ORDERED: MELATONIN 5 MG TABLETS PO PRN (18:14)
[2018-06-12] MEDS ORDERED: MAG HYDROX/AL HYDROX/SIMETH 30 ML UNIT-DOSE CUP PO PRN (18:14)
[2018-06-12] MEDS ORDERED: ACETAMINOPHEN 325 MG TABLET (FP) PO PRN (18:14)
[2018-06-12] MEDS ORDERED: MAGNESIUM CITRATE 300 ML BOTTLE PO PRN (18:14)
[2018-06-12] MEDS ORDERED: BISMUTH SUBSALICYLATE 524 MG/30 ML UD PO PRN (18:14)
[2018-06-12] MEDS ORDERED: METHOCARBAMOL 500 MG TABLET PO PRN (18:14)
[2018-06-12] MEDS ORDERED: hydrOXYzine PAMOATE 25 MG CAPSULE (FP) PO PRN (18:14)
[2018-06-12] MEDS ORDERED: MENTHOL/PHENOL 1 EACH UD MM PRN (18:14)
[2018-06-12] MEDS ORDERED: NICOTINE POLACRILEX 2 MG GUM BUC PRN (18:14)
[2018-06-12] MEDS ORDERED: ONDANSETRON *ODT* 4 MG TABLET SL PRN (18:14)
[2018-06-12] MEDS ORDERED: MAGNESIUM HYDROX 2400MG/30ML ORAL SUSPENSION 30 ML CUP PO PRN (18:14)
[2018-06-12] MEDS ORDERED: chlordiazePOXIDE HCL 25 MG CAPSULE PO ONE (18:45)
[2018-06-12] MEDS ORDERED: cloNIDine HCL 0.1 MG TABLET PO ONE (19:45)
--- NOTE | 2018-06-12 19:51 | PN ---
[facility] Progress Note Note: S:I was informed by RN that pt's bp is elevated. Pt denies any chest pain, headache, n/v, or sob. O:s1 s2 wnl, no JVD Vital Signs 06/12/18 06/12/18 06/12/18 15:20 15:41 19:37 Temperature 97.3 F L 97.3 F L 98.0 F Pulse Rate 51 L 51 L 47 L Respiratory 16 16 18 Rate Blood Pressure 157/85 157/85 161/89 vital signs noted. A: elevated bp P: clonidine 0.1mg po once.
[2018-06-12] MEDS: THIAMINE HCL 100 MG TABLET (FP) PO SCH (21:13)
[2018-06-12] MEDS: chlordiazePOXIDE HCL 25 MG CAPSULE PO SCH (22:08)
[2018-06-13] MEDS: chlordiazePOXIDE HCL 25 MG CAPSULE PO SCH ×2 (06:13→14:46)
[2018-06-13] MEDS: PRENATAL VITAMINS W/ FOLIC ACID TABLET (FP) PO SCH (10:14)
[2018-06-13] MEDS: NICOTINE 14 MG/24 HOURS TOPICAL PATCH TD SCH (10:15)
[2018-06-13 10:29] LABS: HEMATOCRIT 39.4 % (35.4-49); MCH 34.3 pg (25.7-33.7); MCHC 35.6 g/dl (32.0-35.9); MEAN CELL VOLUME 96.1 fl (80-96); MEAN PLT VOLUME 8.9 fl (7.5-11.1); PLATELET COUNT 269 K/MM3 (134-434); RDW 12.8 % (11.9-15.9)
[2018-06-13 11:03] LABS: ALBUMIN 3.6 g/dl (3.4-5.0); ALK PHOS 78 U/L (45-117); ANION GAP 5 MMOL/L (8-16); BILIRUBIN,TOTAL 0.4 mg/dL (0.2-1); BLOOD UREA NITROGEN 14 mg/dL (7-18); CALCIUM 9.1 mg/dL (8.5-10.1); CHLORIDE 102 mmol/L (98-107); CO2 30 mmol/L (21-32); CREATININE 1.1 mg/dL (0.55-1.3); GLUCOSE,RANDOM 73 mg/dL (74-106); POTASSIUM 4.2 mmol/L (3.5-5.1); SGOT/AST 32 U/L (15-37); SGPT/ALT 28 U/L (13-61); SODIUM 137 mmol/L (136-145); TOT PROT 7.2 g/dl (6.4-8.2)
--- NOTE | 2018-06-13 15:17 | CONSULT ---
[facility] Psychiatric Consult - Data Date of interview: 06/13/18 Admission source: [facility] Identifying data: Another admission to [facility] for this 52 y/o AA male self- referred for detoxification treatment (alcohol, cocaine). Examined at [address] [place] [address]. Patient is single, a father of three (variable number of dependent at each encounter), homeless, unemployed and supported on SSI benefits. Substance Abuse History: Confirmed by the patient in this interview. Details in current [facility] report : Smoking history: Current every day smoker. Have you smoked in the past 12 months: Yes. Aproximately how many cigarettes per day: 10. Cigars Per Day: 0. Hx Chewing Tobacco Use: No. Initiated information on smoking cessation: Yes. 'Breaking Loose' booklet given: 06/12/18. - Substances abused. Alcohol. Substance route: Oral. Frequency: Daily. Amount used: 1 pint. Age of first use: 17. Date of last use: 06/12/18. Cocaine. Substance route: Smoking. Frequency: Daily. Amount used: 100 dollars. Age of first use: 17. Date of last use: 06/11/18 Medical History: Hypertension. Psychiatric History: Patient reports that he started experiencing psychiatric disturbances in 1990. Diagnosed with Bipolar Disorder. Mr Elida endorses a history of multiple psychiatric hospitalizations ([facility], [facility], [facility], [facility], [facility]). Last hospitalized 20 years ago. Patient is chronically non-adherent to psychiatric OPD care. Had prior trials of risperdal, abilify, haldol and seroquel. Distant history of suicide attempts (more than 10 years ago) via self- mutilation and hanging (during incarceration). Physical/Sexual Abuse/Trauma History: Patient denies. Additional Comment: Urine drug screen results: BECKI-Cocaine. Noted. Mental Status Exam - Mental Status Exam Alert and Oriented to: Time, Place, Person Cognitive Function: Good Patient Appearance: Well Groomed (missing teeth) Mood: Hopeful, Euthymic Affect: Appropriate, Normal Range Patient Behavior: Appropriate, Cooperative Speech Pattern: Clear, Appropriate Voice Loudness: Normal Thought Process: Goal Oriented Thought Disorder: Not Present Hallucinations: Denies Suicidal Ideation: Denies Homicidal Ideation: Denies Insight/Judgement: Poor Sleep: Poorly, Difficulty falling asleep Appetite: Good Muscle strength/Tone: Normal Gait/Station: Normal Psychiatric Findings - Problem List (Collins 1, 2,3) (1) Alcohol dependence with uncomplicated withdrawal Current Visit: Yes Status: Acute (2) Nicotine dependence Current Visit: Yes Status: Chronic Qualifiers: Nicotine product type: cigarettes Substance use status: in withdrawal Qualified Code(s): F17.213 - Nicotine dependence, cigarettes, with withdrawal Comment: . (3) Cocaine dependence, uncomplicated Current Visit: Yes Status: Chronic (4) History of bipolar disorder Current Visit: Yes Status: Chronic (5) Insomnia Current Visit: Yes Status: Chronic Qualifiers: Insomnia type: unspecified Qualified Code(s): G47.00 - Insomnia, unspecified (6) Non-compliance Current Visit: Yes Status: Chronic - Initial Treatment Plan Initial Treatment Plan: Psychoeducation. Sleep hygiene. Support. AA meetings. Groups. Seroquel 100 mg po hs (patient's request). Side effects/benefits are discussed with patient. Mr Marrero agrees to this plan of care. Consent (verbal) granted to MD. Mensah.
--- NOTE | 2018-06-13 15:20 | EKG ---
Test Reason : Blood Pressure : / mmHG Vent. Rate : 045 BPM Atrial Rate : 045 BPM P-R Int : 150 ms QRS Dur : 088 ms QT Int : 498 ms P-R-T Axes : 051 000 033 degrees QTc Int : 430 ms SINUS BRADYCARDIA VOLTAGE CRITERIA FOR LEFT VENTRICULAR HYPERTROPHY ABNORMAL ECG WHEN COMPARED WITH ECG OF 07-MAY-2017 14:07, NO SIGNIFICANT CHANGE WAS FOUND Confirmed by SUNITA HAWK MD ([id number]) on 06/13/2018 3:20:01 PM Referred By: Confirmed By:SUNITA HAWK MD
--- NOTE | 2018-06-13 17:33 | PN ---
S CIWA - CIWA Score Nausea/Vomitin-No Nausea/No Vomiting Muscle Tremors: 4-Moderate,w/Arms Extend Anxiety: 2 Agitation: 0-Normal Activity Paroxysmal Sweats: 3 Orientation: 0-Oriented Tacttile Disturbances: 0-None Auditory Disturbances: 0-None Visual Disturbances: 2-Mild Sensitivity Headache: 3-Moderate CIWA-Ar Total Score: 14 [facility] Progress Note (SOAP) Subjective: Tremors, Sweating, H/A. Objective: PATIENT A & O X 3. IN NO ACUTE DISTRESS. 06/13/18 17:32 Vital Signs Temperature 97.4 F L 06/13/18 14:17 Pulse Rate 70 06/13/18 14:17 Respiratory Rate 18 06/13/18 14:17 Blood Pressure 124/79 06/13/18 14:17 O2 Sat by Pulse Oximetry (%) Laboratory Tests 06/13/18 06/13/18 06/13/18 05:30 05:30 05:30 WBC 4.0 RBC 4.10 Hgb 14.0 Hct 39.4 MCV 96.1 H MCH 34.3 H MCHC 35.6 RDW 12.8 Plt Count 269 D MPV 8.9 Sodium 137 Potassium 4.2 Chloride 102 Carbon Dioxide 30 Anion Gap 5 L BUN 14 Creatinine 1.1 Creat Clearance w eGFR 70.57 Random Glucose 73 L Calcium 9.1 Total Bilirubin 0.4 AST 32 ALT 28 Alkaline Phosphatase 78 Total Protein 7.2 Albumin 3.6 RPR Titer Nonreactive LABS NOTED. Assessment: 06/13/18 17:32 WITHDRAWAL SYMPTOMS. Plan: CONTINUE DETOX.
[2018-06-13] MEDS: chlordiazePOXIDE 5 MG CAPSULE PO SCH (22:02)
[2018-06-13] MEDS: QUEtiapine FUMARATE 100 MG TABLET (FP) PO SCH (22:02)
[2018-06-13] MEDS: THIAMINE HCL 100 MG TABLET (FP) PO SCH (22:02)
[2018-06-14] MEDS ORDERED: chlordiazePOXIDE HCL 10 MG CAPSULE PO PRN (05:00)
[2018-06-14] MEDS: chlordiazePOXIDE 5 MG CAPSULE PO SCH ×2 (06:03→15:28)
[2018-06-14] MEDS: PRENATAL VITAMINS W/ FOLIC ACID TABLET (FP) PO SCH (10:51)
[2018-06-14] MEDS: IBUPROFEN 400 MG TABLET (FP) PO PRN (10:51)
[2018-06-14] MEDS: NICOTINE 14 MG/24 HOURS TOPICAL PATCH TD SCH (10:53)
[2018-06-14] MEDS ORDERED: COLLOIDAL OATMEAL 1 BAR EACH TP PRN (16:05)
--- NOTE | 2018-06-14 16:39 | PN ---
S CIWA - CIWA Score Nausea/Vomitin-Mild Nausea/No Vomiting Muscle Tremors: 3 Anxiety: 2 Agitation: 2 Paroxysmal Sweats: 1-Minimal Palms Moist Orientation: 0-Oriented Tacttile Disturbances: 0-None Auditory Disturbances: 0-None Visual Disturbances: 0-None Headache: 0-None Present CIWA-Ar Total Score: 9 [facility] Progress Note (SOAP) Subjective: feeling better showered and tolerate food and fluid well Objective: 06/14/18 16:38 Vital Signs Temperature 100.4 F H 06/14/18 14:39 Pulse Rate 80 06/14/18 14:39 Respiratory Rate 18 06/14/18 14:39 Blood Pressure 103/63 06/14/18 14:39 O2 Sat by Pulse Oximetry (%) Laboratory Last Values WBC 4.0 K/mm3 (4.0-10.0) 06/13/18 05:30 RBC 4.10 M/mm3 (4.00-5.60) 06/13/18 05:30 Hgb 14.0 GM/dL (11.7-16.9) 06/13/18 05:30 Hct 39.4 % (35.4-49) 06/13/18 05:30 MCV 96.1 fl (80-96) H 06/13/18 05:30 MCH 34.3 pg (25.7-33.7) H 06/13/18 05:30 MCHC 35.6 g/dl (32.0-35.9) 06/13/18 05:30 RDW 12.8 % (11.9-15.9) 06/13/18 05:30 Plt Count 269 K/MM3 (134-434) D 06/13/18 05:30 MPV 8.9 fl (7.5-11.1) 06/13/18 05:30 Sodium 137 mmol/L (136-145) 06/13/18 05:30 Potassium 4.2 mmol/L (3.5-5.1) 06/13/18 05:30 Chloride 102 mmol/L (98-107) 06/13/18 05:30 Carbon Dioxide 30 mmol/L (21-32) 06/13/18 05:30 Anion Gap 5 MMOL/L (8-16) L 06/13/18 05:30 BUN 14 mg/dL (7-18) 06/13/18 05:30 Creatinine 1.1 mg/dL (0.55-1.3) 06/13/18 05:30 Creat Clearance w eGFR 70.57 (>60) 06/13/18 05:30 Random Glucose 73 mg/dL (74-106) L 06/13/18 05:30 Calcium 9.1 mg/dL (8.5-10.1) 06/13/18 05:30 Total Bilirubin 0.4 mg/dL (0.2-1) 06/13/18 05:30 AST 32 U/L (15-37) 06/13/18 05:30 ALT 28 U/L (13-61) 06/13/18 05:30 Alkaline Phosphatase 78 U/L (45-117) 06/13/18 05:30 Total Protein 7.2 g/dl (6.4-8.2) 06/13/18 05:30 Albumin 3.6 g/dl (3.4-5.0) 06/13/18 05:30 RPR Titer Nonreactive (NONREACTIVE) 06/13/18 05:30 lab noted Assessment: 06/14/18 16:38 withdrawal sx Plan: continue detox
[2018-06-14] MEDS: MINERAL OIL/PETROLAT/WATER TOPICAL CREAM 113 GM JAR TP SCH (19:46)
[2018-06-14] MEDS: THIAMINE HCL 100 MG TABLET (FP) PO SCH (22:47)
[2018-06-14] MEDS: QUEtiapine FUMARATE 100 MG TABLET (FP) PO SCH (22:47)
[2018-06-14] MEDS: chlordiazePOXIDE HCL 10 MG CAPSULE PO SCH (22:48)
[2018-06-15] MEDS: IBUPROFEN 400 MG TABLET (FP) PO PRN (04:57)
[2018-06-15] MEDS: chlordiazePOXIDE HCL 10 MG CAPSULE PO SCH ×3 (06:09→22:17)
[2018-06-15] MEDS: PRENATAL VITAMINS W/ FOLIC ACID TABLET (FP) PO SCH (10:12)
[2018-06-15] MEDS: NICOTINE 14 MG/24 HOURS TOPICAL PATCH TD SCH (10:13)
[2018-06-15] MEDS: MINERAL OIL/PETROLAT/WATER TOPICAL CREAM 113 GM JAR TP SCH (10:13)
--- NOTE | 2018-06-15 12:50 | PN ---
[facility] CIWA - CIWA Score Nausea/Vomitin-Mild Nausea/No Vomiting Muscle Tremors: 1-None Visible, but [place] Anxiety: 1-Mildly Anxious Agitation: 1-Slight > Activity Paroxysmal Sweats: No Perspiration Orientation: 0-Oriented Tacttile Disturbances: 0-None Auditory Disturbances: 0-None Visual Disturbances: 0-None Headache: 1-Very Mild CIWA-Ar Total Score: 5 S Progress Note (SOAP) Subjective: feeling better add dietary admission tolerate food and fluid well Objective: 06/15/18 12:53 Vital Signs Temperature 97.5 F L 06/15/18 09:09 Pulse Rate 60 06/15/18 09:09 Respiratory Rate 18 06/15/18 09:09 Blood Pressure 121/76 06/15/18 09:09 O2 Sat by Pulse Oximetry (%) Laboratory Last Values WBC 4.0 K/mm3 (4.0-10.0) 06/13/18 05:30 RBC 4.10 M/mm3 (4.00-5.60) 06/13/18 05:30 Hgb 14.0 GM/dL (11.7-16.9) 06/13/18 05:30 Hct 39.4 % (35.4-49) 06/13/18 05:30 MCV 96.1 fl (80-96) H 06/13/18 05:30 MCH 34.3 pg (25.7-33.7) H 06/13/18 05:30 MCHC 35.6 g/dl (32.0-35.9) 06/13/18 05:30 RDW 12.8 % (11.9-15.9) 06/13/18 05:30 Plt Count 269 K/MM3 (134-434) D 06/13/18 05:30 MPV 8.9 fl (7.5-11.1) 06/13/18 05:30 Sodium 137 mmol/L (136-145) 06/13/18 05:30 Potassium 4.2 mmol/L (3.5-5.1) 06/13/18 05:30 Chloride 102 mmol/L (98-107) 06/13/18 05:30 Carbon Dioxide 30 mmol/L (21-32) 06/13/18 05:30 Anion Gap 5 MMOL/L (8-16) L 06/13/18 05:30 BUN 14 mg/dL (7-18) 06/13/18 05:30 Creatinine 1.1 mg/dL (0.55-1.3) 06/13/18 05:30 Creat Clearance w eGFR 70.57 (>60) 06/13/18 05:30 Random Glucose 73 mg/dL (74-106) L 06/13/18 05:30 Calcium 9.1 mg/dL (8.5-10.1) 06/13/18 05:30 Total Bilirubin 0.4 mg/dL (0.2-1) 06/13/18 05:30 AST 32 U/L (15-37) 06/13/18 05:30 ALT 28 U/L (13-61) 06/13/18 05:30 Alkaline Phosphatase 78 U/L (45-117) 06/13/18 05:30 Total Protein 7.2 g/dl (6.4-8.2) 06/13/18 05:30 Albumin 3.6 g/dl (3.4-5.0) 06/13/18 05:30 RPR Titer Nonreactive (NONREACTIVE) 06/13/18 05:30 lab noted Assessment: 06/15/18 12:54 alcohol withdrawal sx Plan: continue detox
[2018-06-15] MEDS: ACETAMINOPHEN 325 MG TABLET (FP) PO PRN ×2 (14:10→22:17)
[2018-06-15] MEDS: QUEtiapine FUMARATE 100 MG TABLET (FP) PO SCH (22:16)
[2018-06-15] MEDS: THIAMINE HCL 100 MG TABLET (FP) PO SCH (22:17)
[2018-06-16 06:18] VITALS: BP 125/75; PULSE 59; TEMP 97
--- NOTE | 2018-06-16 15:10 | DS ---
[facility] Detox Discharge Summary Admission Date: 06/12/18 Discharge Date: 06/16/18 - History Present History: Alcohol Dependence Additional Comments: 52 years old male admitted on 06/12/18 for alcohol withdrawal stabilization completed detox regimen [facility] Pertinent Past History: bring in medication list and lab report to aftercare appointment - Physical Exam Results Vital Signs: Vital Signs Temperature 97 F L 06/16/18 06:18 Pulse Rate 59 L 06/16/18 06:18 Respiratory Rate 18 06/16/18 06:30 Blood Pressure 125/75 06/16/18 06:18 O2 Sat by Pulse Oximetry (%) Pertinent Admission Physical Exam Findings: alcohol withdrawal sx Laboratory Last Values WBC 4.0 K/mm3 (4.0-10.0) 06/13/18 05:30 RBC 4.10 M/mm3 (4.00-5.60) 06/13/18 05:30 Hgb 14.0 GM/dL (11.7-16.9) 06/13/18 05:30 Hct 39.4 % (35.4-49) 06/13/18 05:30 MCV 96.1 fl (80-96) H 06/13/18 05:30 MCH 34.3 pg (25.7-33.7) H 06/13/18 05:30 MCHC 35.6 g/dl (32.0-35.9) 06/13/18 05:30 RDW 12.8 % (11.9-15.9) 06/13/18 05:30 Plt Count 269 K/MM3 (134-434) D 06/13/18 05:30 MPV 8.9 fl (7.5-11.1) 06/13/18 05:30 Sodium 137 mmol/L (136-145) 06/13/18 05:30 Potassium 4.2 mmol/L (3.5-5.1) 06/13/18 05:30 Chloride 102 mmol/L (98-107) 06/13/18 05:30 Carbon Dioxide 30 mmol/L (21-32) 06/13/18 05:30 Anion Gap 5 MMOL/L (8-16) L 06/13/18 05:30 BUN 14 mg/dL (7-18) 06/13/18 05:30 Creatinine 1.1 mg/dL (0.55-1.3) 06/13/18 05:30 Creat Clearance w eGFR 70.57 (>60) 06/13/18 05:30 Random Glucose 73 mg/dL (74-106) L 06/13/18 05:30 Calcium 9.1 mg/dL (8.5-10.1) 06/13/18 05:30 Total Bilirubin 0.4 mg/dL (0.2-1) 06/13/18 05:30 AST 32 U/L (15-37) 06/13/18 05:30 ALT 28 U/L (13-61) 06/13/18 05:30 Alkaline Phosphatase 78 U/L (45-117) 06/13/18 05:30 Total Protein 7.2 g/dl (6.4-8.2) 06/13/18 05:30 Albumin 3.6 g/dl (3.4-5.0) 06/13/18 05:30 RPR Titer Nonreactive (NONREACTIVE) 06/13/18 05:30 lab noted - Treatment Hospital Course: Detox Protocol Followed, Detoxed Safely, Responded well, Discharged Condition Good, Rehab Referral Accepted Patient has Accepted a Re[facility] Referral [facility]: [facility] - Medication Discharge Medications: Ambulatory Orders Quetiapine Fumarate [Seroquel] 100 mg PO HS #30 tablet 06/12/18 Quetiapine Fumarate [Seroquel] 100 mg PO HS #30 tablet 06/16/18 - Diagnosis (1) Alcohol dependence with uncomplicated withdrawal Status: Acute (2) Substance induced mood disorder Status: Suspected (3) Hypertension Status: Chronic Qualifiers: Hypertension type: essential hypertension Qualified Code(s): I10 - Essential (primary) hypertension (4) Nicotine dependence Status: Acute Qualifiers: Nicotine product type: cigarettes Substance use status: in withdrawal Qualified Code(s): F17.213 - Nicotine dependence, cigarettes, with withdrawal - AMA Did Patient Leave Against Medical Advice: No
== END 2018-06-16 09:30 | disposition home or self-care (01) | DRG 774 ==
LOC: YASAS 12:44 → Y3N 18:27
PROVIDERS: ADMIT Surgery; ATTEND Surgery
PROC: HZ2ZZZZ Detoxification Services for Substance Abuse Treatment (ICD-10-PCS; principal; 2018-06-12)
DX: F10.230 Alcohol dependence with withdrawal, uncomplicated (principal); F14.20 Cocaine dependence, uncomplicated; F17.213 Nicotine dependence, cigarettes, with withdrawal; F31.9 Bipolar disorder, unspecified; F19.24 Other psychoactive substance dependence with psychoactive substance-induced mood disorder; G47.00 Insomnia, unspecified; I10 Essential (primary) hypertension; Z91.018 Allergy to other foods; Z91.19 Patient's noncompliance with other medical treatment and regimen
CPT/HCPCS: 36415; 80053; 85027; 86593; 93005; 93010; J0735

== ENCOUNTER 2018-07-31 08:18 | Inpatient (IN) | payer OTHER ==
[2018-07-31 09:44] VITALS: BMI 29.0
--- NOTE | 2018-07-31 10:24 | HP ---
CIWA Score Nausea/Vomitin Muscle Tremors: 2 Anxiety: 3 Agitation: 3 Paroxysmal Sweats: 1-Minimal Palms Moist Orientation: 0-Oriented Tacttile Disturbances: 1-Very Mild Itch/Numbness Auditory Disturbances: 1-Very Mild Visual Disturbances: 0-None Headache: 2-Mild CIWA-Ar Total Score: 15 - Admission Criteria OASAS Guidelines: Admission for Medically Managed Detox: Requires at least one of the followin. CIWA greater than 12 2. Seizures within the past 24 hours 3. Delirium tremens within the past 24 hours 4. Hallucinations within the past 24 hours 5. Acute intervention needed for co occurring medical disorder 6. Acute intervention needed for co occurring psychiatric disorder 7. Severe withdrawal that cannot be handled at a lower level of care (continued vomiting, continued diarrhea, abnormal vital signs) requiring intravenous medication and/or fluids 8. Admission ROS BHS - HPI Chief Complaint: i need help to stop drinking alcohol and cocaine Allergies/Adverse Reactions: Allergies Allergy/AdvReac Type Severity Reaction Status Date / Time pork derived (porcine) Allergy Mild Rash Verified 07/31/18 09:26 [Pork derived (porcine)] No Known Drug Allergies Allergy Unknown Verified 07/31/18 09:26 History of Present Illness: this 52 years old male with alcohol and cocaine dependence seeking detox, withdrawal symptom, multiple admissions in detox but keep relapsing last detox [facility] 06/12/18 to 06/16/18 history of hypertension nicotine dependence 1/2 pack,do not want nicotine replacement longest sobriety 1 year bipolar disorder plan for rehab after detox Exam Limitations: No Limitations - Ebola screening Have you traveled outside of the country in the last 21 days: No (N) Have you had contact with anyone from an Ebola affected area: No Do you have a fever: No - Review of Systems Constitutional: Loss of Appetite, Malaise, Night Sweats, Changes in sleep, Weakness EENT: reports: Tearing, Nose Congestion Respiratory: reports: No Symptoms reported Cardiac: reports: No Symptoms Reported GI: reports: Nausea, Poor Appetite, Vomiting : reports: No Symptoms Reported Integumentary: reports: Dryness Neuro: reports: Headache, Tremors Endocrine: reports: No Symptoms Reported Hematology: reports: No Symptoms Reported Psychiatric: reports: No Sypmtoms Reported, Judgement Intact, Mood/Affect Appropiate, Orientated x3, other (bipolar disorder) Other Systems: Reviewed and Negative Patient History - Patient Medical History Hx Anemia: No Hx Asthma: No Hx Chronic Obstructive Pulmonary Disease (COPD): No Hx Cancer: No Hx Cardiac Disorders: No Hx Congestive Heart Failure: No Hx Hypertension: Yes (non compliance) Hx Hypercholesterolemia: No Hx Pacemaker: No HX Cerebrovascular Accident: No Hx Seizures: No Hx Dementia: No Hx Diabetes: No Hx Gastrointestinal Disorders: No Hx Liver Disease: No Hx Genitourinary Disorders: No Hx Sexually Transmitted Disorders: No Hx Renal Disease (ESRD): No Hx Thyroid Disease: No Hx Human Immunodeficiency Virus (HIV): No (NEGATIVE HX last 2018) Hx Hepatitis C: No Hx Depression: Yes Hx Suicide Attempt: No Hx Bipolar Disorder: Yes Hx Schizophrenia: No Other Medical History: no suicidal,no homicidal - Patient Surgical History Past Surgical History: No Hx Neurologic Surgery: No Hx Cataract Extraction: No Hx Cardiac Surgery: No Hx Lung Surgery: No Hx Breast Surgery: No Hx Breast Biopsy: No Hx Abdominal Surgery: No Hx Appendectomy: No Hx Cholecystectomy: No Hx Genitourinary Surgery: No Hx Section: No Hx Orthopedic Surgery: No Anesthesia Reaction: No - PPD History Previous Implant?: Yes Documented Results: Negative w/proof Implanted On Prior R Admission?: Yes Date: 06/14/18 Results: 0 mm PPD to be Administered?: No - Smoking Cessation Smoking history: Current every day smoker Have you smoked in the past 12 months: Yes Aproximately how many cigarettes per day: 10 Cigars Per Day: 0 Hx Chewing Tobacco Use: No Initiated information on smoking cessation: Yes 'Breaking Loose' booklet given: 07/31/18 - Substance & Tx. History Hx Alcohol Use: Yes Hx Substance Use: Yes Substance Use Type: Alcohol, Cocaine Hx Substance Use Treatment: Yes ([facility] 06/12/18 to 06/16/18) - Substances abused Alcohol Substance route: Oral Frequency: Daily Amount used: 2pints of liquor tonio coelho/6 packs of 24 ozs of beer Age of first use: 17 Date of last use: 07/30/18 Cocaine Substance route: Inhalation Frequency: Daily Amount used: 100 dollars Age of first use: 17 Date of last use: 07/30/18 Family Disease History - Family Disease History Family History: Denies Family Disease History: Diabetes: Grandparent (ALCOHOL,) Admission Physical Exam BHS - Vital Signs Vital Signs: Vital Signs - 24 hr 07/31/18 07/31/18 09:30 10:01 Temperature 98.0 F Pulse Rate 56 L 56 L Respiratory 20 20 Rate Blood Pressure 128/69 128/69 - Physical General Appearance: Yes: Moderate Distress, Tremorous, Irritable, Sweating, Anxious HEENTM: Yes: Normocephalic, SUE, Pharynx Normal Respiratory: Yes: Lungs Clear, Normal Breath Sounds, No Respiratory Distress Neck: Yes: Within Normal Limits, Supple, Trachea in good position Breast: Yes: Within Normal Limits Cardiology: Yes: Bradycardia Abdominal: Yes: Within Normal Limits, Normal Bowel Sounds, Non Tender, Flat Genitourinary: Yes: Within Normal Limits Back: Yes: Muscle Spasm Musculoskeletal: Yes: Within Normal Limits, full range of Motion, Back pain, Muscle Pain Extremities: Yes: Within Normal Limits, Normal Range of Motion, Tremors Neurological: Yes: banana handler II-XII NML intact, Fully Oriented, Alert, Motor Strength 5/5 Integumentary: Yes: Dry Lymphatic: Yes: Within Normal Limits - Diagnostic (1) Alcohol dependence with uncomplicated withdrawal Current Visit: No Status: Acute (2) Nicotine dependence Current Visit: No Status: Acute Qualifiers: Nicotine product type: cigarettes Substance use status: in withdrawal Qualified Code(s): F17.213 - Nicotine dependence, cigarettes, with withdrawal Comment: . (3) Bipolar disorder Current Visit: No Status: Chronic Qualifiers: Active/Remission status: remission status unspecified Qualified Code(s): F31.9 - Bipolar disorder, unspecified Comment: . (4) Cocaine dependence, uncomplicated Current Visit: No Status: Chronic (5) Insomnia Current Visit: No Status: Chronic Qualifiers: Insomnia type: unspecified Qualified Code(s): G47.00 - Insomnia, unspecified (6) Dehydration Current Visit: Yes Status: Acute Cleared for Admission S - Detox or Rehab [facility] Level of Care: Medically Managed Detox Regimen/Protocol: Librium Breathalyzer - Breathalyzer Breathalyzer: 0 Urine Drug Screen - Test Device Lot number: [id number] Expiration date: 04/16/20 - Control Is test valid?: Yes - Results Drug screen NEGATIVE: No Urine drug screen results: [facility]-Cocaine Inpatient Rehab Admission - Rehab Decision to Admit Inpatient rehab admission?: No
[2018-07-31] MEDS ORDERED: chlordiazePOXIDE HCL 25 MG CAPSULE PO PRN (10:32)
[2018-07-31] MEDS ORDERED: BISMUTH SUBSALICYLATE 262 MG/15 ML BTL PO PRN (10:33)
[2018-07-31] MEDS ORDERED: ACETAMINOPHEN 325 MG TABLET (FP) PO PRN ×2 (10:33)
[2018-07-31] MEDS ORDERED: MAG HYDROX/AL HYDROX/SIMETH 30 ML UNIT-DOSE CUP PO PRN (10:33)
[2018-07-31] MEDS ORDERED: IBUPROFEN 400 MG TABLET (FP) PO PRN (10:33)
[2018-07-31] MEDS ORDERED: MAGNESIUM CITRATE 300 ML BOTTLE PO PRN (10:33)
[2018-07-31] MEDS ORDERED: MAGNESIUM HYDROX 2400MG/30ML ORAL SUSPENSION 30 ML CUP PO PRN (10:33)
[2018-07-31] MEDS ORDERED: MELATONIN 5 MG TABLETS PO PRN (10:33)
[2018-07-31] MEDS ORDERED: hydrOXYzine PAMOATE 25 MG CAPSULE (FP) PO PRN (10:33)
[2018-07-31] MEDS ORDERED: METHOCARBAMOL 500 MG TABLET PO PRN (10:33)
[2018-07-31] MEDS ORDERED: MENTHOL/PHENOL 1 EACH UD MM PRN (10:33)
[2018-07-31] MEDS: chlordiazePOXIDE HCL 25 MG CAPSULE PO SCH ×3 (11:23→22:24)
[2018-07-31] MEDS: VITAMINS A AND D TOPICAL OINTMENT 60 GM TUBE TP SCH ×3 (12:19→23:13)
[2018-07-31] MEDS: COLLOIDAL OATMEAL 1 BAR EACH TP PRN (12:20)
[2018-07-31 15:22] LABS: HEMATOCRIT 38.3 % (35.4-49); HEMOGLOBIN 13.8 GM/dL (11.7-16.9); MCH 33.5 pg (25.7-33.7); MEAN CELL VOLUME 93.1 fl (80-96); PLATELET COUNT 288 K/MM3 (134-434); RBC 4.11 M/mm3 (4.00-5.60); RDW 13.5 % (11.9-15.9); WHITE BLOOD COUNT 4.1 K/mm3 (4.0-10.0)
[2018-07-31 15:37] LABS: ALBUMIN 4.2 g/dl (3.4-5.0); BILIRUBIN,TOTAL 0.5 mg/dL (0.2-1); BLOOD UREA NITROGEN 11.2 mg/dL (7-18); CALCIUM 9.6 mg/dL (8.5-10.1); CREATININE 1.1 mg/dL (0.55-1.3); POTASSIUM 4.3 mmol/L (3.5-5.1); TOT PROT 8.1 g/dl (6.4-8.2)
--- NOTE | 2018-07-31 18:22 | CONSULT ---
[facility] Psychiatric Consult - Data Date of interview: 07/31/18 Admission source: [facility] Identifying data: Patient is a 52 year old single male, father of two, unemployed, domiciled, and is supported by [facility]. This is one of multiple admissions for patient. Patient admitted to for alcohol and cocaine dependence. Substance Abuse History: - Smoking Cessation. Smoking history: Current every day smoker. Have you smoked in the past 12 months: Yes. Aproximately how many cigarettes per day: 10. Cigars Per Day: 0. Hx Chewing Tobacco Use: No. Initiated information on smoking cessation: Yes. 'Breaking Loose' booklet given : 07/31/18. - Substance & Tx. History. Hx Alcohol Use: Yes. Hx Substance Use : Yes. Substance Use Type: Alcohol, Cocaine. Hx Substance Use Treatment: Yes ( [facility] 06/12/18 to 06/16/18). - Substances abused. Alcohol. Substance route: Oral. Frequency: Daily. Amount used: 2pints of liquor laquita,tonio/6 packs of 24 ozs of beer. Age of first use: 17. Date of last use: 07/30/18. * * Cocaine. Substance route: Inhalation. Frequency: Daily. Amount used: 100 dollars. Age of first use: 17. Date of last use: 07/30/18 Medical History: hypertension Psychiatric History: Patient reports h/o multiple psychiatric hospitalizations most recently two months ago at [facility] for depression and suicidal ideation. He reports being prescribed seroquel 150mg. Mr. Marrero reports past psychiatric hospitalizations at [facility], [facility], and [facility]. Self reports diagnosis of bipolar disorder. He reports noncompliance to outpatient psychiatric treatment. Reports only taking medications when admitted to a hospital facility. Reports past trials of risperdal, abilify, haldol and seroquel. Mr. Marrero reports h/o suicide attempts by self mutilation by cutting (more than 5 years ago). At present, Mr. Marrero reports stable mood but is experiencing difficulty sleeping. Physical/Sexual Abuse/Trauma History: denies. Mental Status Exam - Mental Status Exam Alert and Oriented to: Time, Place, Person Cognitive Function: Good Patient Appearance: Well Groomed Mood: Euthymic Affect: Appropriate Patient Behavior: Cooperative Speech Pattern: Appropriate Voice Loudness: Normal Thought Process: Goal Oriented Thought Disorder: Not Present Hallucinations: Denies Suicidal Ideation: Denies Homicidal Ideation: Denies Insight/Judgement: Poor Sleep: Poorly Appetite: Fair Muscle strength/Tone: Normal Gait/Station: Normal Psychiatric Findings - Problem List ([place] 1, 2,3) (1) Substance-induced sleep disorder Current Visit: Yes Status: Acute (2) Alcohol dependence with uncomplicated withdrawal Current Visit: Yes Status: Acute (3) Nicotine dependence Current Visit: Yes Status: Chronic Qualifiers: Nicotine product type: cigarettes Substance use status: in withdrawal Qualified Code(s): F17.213 - Nicotine dependence, cigarettes, with withdrawal Comment: . (4) Cocaine dependence, uncomplicated Current Visit: Yes Status: Chronic (5) History of bipolar disorder Current Visit: Yes Status: Chronic - Initial Treatment Plan Initial Treatment Plan: Psychoeducation provided. Detoxification in progress. Will order Seroquel 100mg HS. Benefits and side effects discussed. Verbal consent given.
[2018-07-31] MEDS: THIAMINE HCL 100 MG TABLET (FP) PO SCH (22:24)
[2018-07-31] MEDS: QUEtiapine FUMARATE 100 MG TABLET (FP) PO SCH (22:24)
[2018-08-01] MEDS: chlordiazePOXIDE HCL 25 MG CAPSULE PO SCH ×4 (05:36→22:25)
[2018-08-01] MEDS: VITAMINS A AND D TOPICAL OINTMENT 60 GM TUBE TP SCH ×4 (08:23→23:23)
[2018-08-01] MEDS: PRENATAL VITAMINS W/ FOLIC ACID TABLET (FP) PO SCH (11:18)
--- NOTE | 2018-08-01 12:07 | PN ---
S CIWA - CIWA Score Nausea/Vomitin-No Nausea/No Vomiting Muscle Tremors: 2 Anxiety: 2 Agitation: 2 Paroxysmal Sweats: 3 Orientation: 0-Oriented Tacttile Disturbances: 0-None Auditory Disturbances: 0-None Visual Disturbances: 0-None Headache: 2-Mild CIWA-Ar Total Score: 11 S Progress Note (SOAP) Subjective: c/o sweats, headache, anxiety, and shakes. Objective: 08/01/18 12:07 Vital Signs 08/01/18 08/01/18 08/01/18 06:18 06:30 09:36 Temperature 97.6 F 96.6 F L Pulse Rate 51 L 53 L Respiratory 18 18 18 Rate Blood Pressure 110/68 140/86 Lab Results WBC 4.1 K/mm3 (4.0-10.0) 07/31/18 10:55 RBC 4.11 M/mm3 (4.00-5.60) 07/31/18 10:55 Hgb 13.8 GM/dL (11.7-16.9) 07/31/18 10:55 Hct 38.3 % (35.4-49) 07/31/18 10:55 MCV 93.1 fl (80-96) 07/31/18 10:55 MCHC 36.0 g/dl (32.0-35.9) H 07/31/18 10:55 RDW 13.5 % (11.9-15.9) 07/31/18 10:55 Plt Count 288 K/MM3 (134-434) 07/31/18 10:55 Sodium 136 mmol/L (136-145) 07/31/18 10:55 Potassium 4.3 mmol/L (3.5-5.1) 07/31/18 10:55 Chloride 102 mmol/L (98-107) 07/31/18 10:55 Carbon Dioxide 32 mmol/L (21-32) 07/31/18 10:55 Anion Gap 3 MMOL/L (8-16) L 07/31/18 10:55 BUN 11.2 mg/dL (7-18) 07/31/18 10:55 Creatinine 1.1 mg/dL (0.55-1.3) 07/31/18 10:55 Random Glucose 86 mg/dL (74-106) 07/31/18 10:55 Calcium 9.6 mg/dL (8.5-10.1) 07/31/18 10:55 Labs noted. Assessment: 08/01/18 12:07 AOX3, in no acute distress Full ROM, ambulating in the unit. Withdrawal symptoms. Plan: continue detox.
[2018-08-01] MEDS: THIAMINE HCL 100 MG TABLET (FP) PO SCH (22:25)
[2018-08-01] MEDS: QUEtiapine FUMARATE 100 MG TABLET (FP) PO SCH (22:25)
[2018-08-02] MEDS: chlordiazePOXIDE HCL 25 MG CAPSULE PO SCH (05:08)
[2018-08-02] MEDS: VITAMINS A AND D TOPICAL OINTMENT 60 GM TUBE TP SCH ×3 (05:08→17:42)
[2018-08-02] MEDS: COLLOIDAL OATMEAL 1 BAR EACH TP PRN (10:50)
[2018-08-02] MEDS: PRENATAL VITAMINS W/ FOLIC ACID TABLET (FP) PO SCH (10:50)
[2018-08-02] MEDS: chlordiazePOXIDE HCL 10 MG CAPSULE PO SCH ×3 (10:51→23:05)
[2018-08-02] MEDS ORDERED: chlordiazePOXIDE HCL 10 MG CAPSULE PO PRN (11:00)
--- NOTE | 2018-08-02 12:34 | PN ---
S CIWA - CIWA Score Nausea/Vomitin-Mild Nausea/No Vomiting Muscle Tremors: 2 Anxiety: 2 Agitation: 2 Paroxysmal Sweats: 1-Minimal Palms Moist Orientation: 0-Oriented Tacttile Disturbances: 1-Very Mild Itch/Numbness Auditory Disturbances: 1-Very Mild Visual Disturbances: 0-None Headache: 1-Very Mild CIWA-Ar Total Score: 11 BHS Progress Note (SOAP) Subjective: CO SHAKINESS, POOR SLEEP, ANXIOUS Objective: 08/02/18 12:33 Laboratory Tests 07/31/18 07/31/18 07/31/18 10:55 10:55 10:55 WBC 4.1 RBC 4.11 Hgb 13.8 Hct 38.3 MCV 93.1 MCH 33.5 MCHC 36.0 H RDW 13.5 Plt Count 288 MPV 8.0 D Sodium 136 Potassium 4.3 Chloride 102 Carbon Dioxide 32 Anion Gap 3 L BUN 11.2 Creatinine 1.1 Est GFR (CKD-EPI)AfAm 89.61 Est GFR (CKD-EPI)NonAf 77.32 Random Glucose 86 Calcium 9.6 Total Bilirubin 0.5 AST 31 ALT 39 Alkaline Phosphatase 79 Total Protein 8.1 Albumin 4.2 RPR Titer Nonreactive Vital Signs - 24 hr 08/01/18 08/01/18 08/01/18 13:47 18:03 21:47 Temperature 96.5 F L 99.0 F 98.6 F Pulse Rate 53 L 54 L 59 L Respiratory 18 17 18 Rate Blood Pressure 128/78 111/68 130/85 08/02/18 08/02/18 08/02/18 00:30 03:30 06:30 Temperature Pulse Rate Respiratory 18 18 18 Rate Blood Pressure 08/02/18 08/02/18 06:42 09:33 Temperature 96.8 F L 97.1 F L Pulse Rate 51 L 48 L Respiratory 18 18 Rate Blood Pressure 108/66 132/89 ALERT AMBULATORY ORIENTED Assessment: ETOH DEP 08/02/18 12:34 IN WITHDRAWAL Plan: CONTINUE DETOX PROTOCOL
[2018-08-02 22:21] LABS: URINE APPEARANCE TURBID; URINE BILIRUBIN NEGATIVE (NEGATIVE); URINE COLOR YELLOW; URINE GLUCOSE (UA) NEGATIVE (NEGATIVE); URINE KETONE TRACE (NEGATIVE); URINE LEUK ESTERASE NEGATIVE (NEGATIVE); URINE NITRITE NEGATIVE (NEGATIVE); URINE PROTEIN NEGATIVE (NEGATIVE); URINE UROBILINOGEN 0.2 mg/dL (0.2-1.0)
[2018-08-02] MEDS: QUEtiapine FUMARATE 100 MG TABLET (FP) PO SCH (23:05)
[2018-08-02] MEDS: THIAMINE HCL 100 MG TABLET (FP) PO SCH (23:05)
[2018-08-03] MEDS: VITAMINS A AND D TOPICAL OINTMENT 60 GM TUBE TP SCH ×5 (00:25→23:12)
[2018-08-03] MEDS: chlordiazePOXIDE HCL 10 MG CAPSULE PO SCH ×3 (06:03→23:07)
[2018-08-03] MEDS: PRENATAL VITAMINS W/ FOLIC ACID TABLET (FP) PO SCH (10:12)
--- NOTE | 2018-08-03 16:17 | PN ---
[facility] CIWA - CIWA Score Nausea/Vomitin-No Nausea/No Vomiting Muscle Tremors: None Anxiety: 0-No Anxiety, at Ease Agitation: 2 Paroxysmal Sweats: No Perspiration Orientation: 0-Oriented Tacttile Disturbances: 0-None Auditory Disturbances: 0-None Visual Disturbances: 0-None Headache: 0-None Present CIWA-Ar Total Score: 2 BHS Progress Note (SOAP) Subjective: Patient denies current Withdrawal / Detox symptoms and reports that he feels well overall at this time. Objective: PATIENT A & O X 3, OBSERVED AMBULATING ON UNIT UNASSISTED. IN NO ACUTE DISTRESS. 08/03/18 16:17 Vital Signs Temperature 97.4 F L 08/03/18 13:22 Pulse Rate 81 08/03/18 13:22 Respiratory Rate 18 08/03/18 13:22 Blood Pressure 134/84 08/03/18 13:22 O2 Sat by Pulse Oximetry (%) Laboratory Tests 07/31/18 07/31/18 07/31/18 10:55 10:55 10:55 WBC 4.1 RBC 4.11 Hgb 13.8 Hct 38.3 MCV 93.1 MCH 33.5 MCHC 36.0 H RDW 13.5 Plt Count 288 MPV 8.0 D Sodium 136 Potassium 4.3 Chloride 102 Carbon Dioxide 32 Anion Gap 3 L BUN 11.2 Creatinine 1.1 Est GFR (CKD-EPI)AfAm 89.61 Est GFR (CKD-EPI)NonAf 77.32 Random Glucose 86 Calcium 9.6 Total Bilirubin 0.5 AST 31 ALT 39 Alkaline Phosphatase 79 Total Protein 8.1 Albumin 4.2 Urine Color Urine Appearance Urine pH Ur Specific [place] Urine Protein Urine Glucose (UA) Urine Ketones Urine Blood Urine Nitrite Urine Bilirubin Urine Urobilinogen Ur Leukocyte Esterase RPR Titer Nonreactive 08/02/18 16:00 WBC RBC Hgb Hct MCV MCH MCHC RDW Plt Count MPV Sodium Potassium Chloride Carbon Dioxide Anion Gap BUN Creatinine Est GFR (CKD-EPI)AfAm Est GFR (CKD-EPI)NonAf Random Glucose Calcium Total Bilirubin AST ALT Alkaline Phosphatase Total Protein Albumin Urine Color Yellow Urine Appearance Turbid Urine pH 6.0 Ur Specific [place] 1.026 Urine Protein Negative Urine Glucose (UA) Negative Urine Ketones Trace H Urine Blood Negative Urine Nitrite Negative Urine Bilirubin Negative Urine Urobilinogen 0.2 Ur Leukocyte Esterase Negative RPR Titer LABS NOTED. Assessment: 08/03/18 16:17 WITHDRAWAL SYMPTOMS. Plan: CONTINUE DETOX. PATIENT SCHEDULED FOR D/C TOMORROW AM.
[2018-08-03] MEDS: QUEtiapine FUMARATE 100 MG TABLET (FP) PO SCH (23:07)
[2018-08-03] MEDS: THIAMINE HCL 100 MG TABLET (FP) PO SCH (23:08)
[2018-08-04] MEDS: VITAMINS A AND D TOPICAL OINTMENT 60 GM TUBE TP SCH (05:35)
[2018-08-04 06:13] VITALS: BP 135/75; PULSE 4; TEMP 97.2
--- NOTE | 2018-08-04 15:35 | DS ---
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 THUS, PRE-DISCHARGE MEDICAL ASSESSMENT UNABLE TO BE DONE. PER DISCUSSION WITH PATIENT YESTERDAY, PATIENT NOTED THAT HE WOULD BE RETURNING HOME TO ATTEND TO PERSONAL MATTERS, THEN HE WOULD LOOK INTO OUTPATIENT SUBSTANCE USE SUPPORT GROUP PROGRAM ON HIS OWN. Pertinent Past History: HTN, Depression, Bipolar Disorder, Nicotine Dependence, Insomnia, Dehydration. - Physical Exam Results Vital Signs: Vital Signs Temperature 97.2 F L 08/04/18 06:13 Pulse Rate 4 L 08/04/18 06:13 Respiratory Rate 18 08/04/18 06:13 Blood Pressure 135/75 08/04/18 06:13 O2 Sat by Pulse Oximetry (%) Pertinent Admission Physical Exam Findings: WITHDRAWAL SYMPTOMS. Laboratory Tests 07/31/18 07/31/18 07/31/18 10:55 10:55 10:55 WBC 4.1 RBC 4.11 Hgb 13.8 Hct 38.3 MCV 93.1 MCH 33.5 MCHC 36.0 H RDW 13.5 Plt Count 288 MPV 8.0 D Sodium 136 Potassium 4.3 Chloride 102 Carbon Dioxide 32 Anion Gap 3 L BUN 11.2 Creatinine 1.1 Est GFR (CKD-EPI)AfAm 89.61 Est GFR (CKD-EPI)NonAf 77.32 Random Glucose 86 Calcium 9.6 Total Bilirubin 0.5 AST 31 ALT 39 Alkaline Phosphatase 79 Total Protein 8.1 Albumin 4.2 Urine Color Urine Appearance Urine pH Ur Specific [place] Urine Protein Urine Glucose (UA) Urine Ketones Urine Blood Urine Nitrite Urine Bilirubin Urine Urobilinogen Ur Leukocyte Esterase RPR Titer Nonreactive 08/02/18 16:00 WBC RBC Hgb Hct MCV MCH MCHC RDW Plt Count MPV Sodium Potassium Chloride Carbon Dioxide Anion Gap BUN Creatinine Est GFR (CKD-EPI)AfAm Est GFR (CKD-EPI)NonAf Random Glucose Calcium Total Bilirubin AST ALT Alkaline Phosphatase Total Protein Albumin Urine Color Yellow Urine Appearance Turbid Urine pH 6.0 Ur Specific [place] 1.026 Urine Protein Negative Urine Glucose (UA) Negative Urine Ketones Trace H Urine Blood Negative Urine Nitrite Negative Urine Bilirubin Negative Urine Urobilinogen 0.2 Ur Leukocyte Esterase Negative RPR Titer LABS NOTED. - Treatment Hospital Course: Detox Protocol Followed, Detoxed Safely, Responded well, Discharged Condition Good Patient has Accepted a Rehab Referral to: PT WILL PURSUE LOCAL 12-STEP/NA/AA OUTPATIENT SUPPORT PROGRAM ON HIS OWN. - Medication Discharge Medications: Ambulatory Orders Quetiapine Fumarate [Seroquel] 100 mg PO HS #30 tablet 06/12/18 Quetiapine Fumarate [Seroquel] 100 mg PO HS #30 tablet 06/16/18 - Diagnosis (1) Dehydration Status: Acute (2) Substance-induced sleep disorder Status: Acute (3) Cocaine dependence, uncomplicated Status: Chronic (4) History of bipolar disorder Status: Chronic (5) Insomnia Status: Chronic Qualifiers: Insomnia type: unspecified Qualified Code(s): G47.00 - Insomnia, unspecified (6) Nicotine dependence Status: Chronic Qualifiers: Nicotine product type: cigarettes Substance use status: in withdrawal Qualified Code(s): F17.213 - Nicotine dependence, cigarettes, with withdrawal - AMA Did Patient Leave Against Medical Advice: No
== END 2018-08-04 06:45 | disposition home or self-care (01) | DRG 774 ==
LOC: YASAS 08:18 → Y3N 10:33
PROVIDERS: ADMIT Surgery; ATTEND Surgery
PROC: HZ2ZZZZ Detoxification Services for Substance Abuse Treatment (ICD-10-PCS; principal; 2018-07-31)
DX: F10.230 Alcohol dependence with withdrawal, uncomplicated (principal); F14.20 Cocaine dependence, uncomplicated; F17.210 Nicotine dependence, cigarettes, uncomplicated; F19.282 Other psychoactive substance dependence with psychoactive substance-induced sleep disorder; F31.9 Bipolar disorder, unspecified; I10 Essential (primary) hypertension; E86.0 Dehydration; G47.00 Insomnia, unspecified
CPT/HCPCS: 36415; 80053; 81003; 85027; 86593

== ENCOUNTER 2018-09-21 13:44 | Inpatient (IN) | payer OTHER | END 2018-09-24 08:49 | disposition left against medical advice (07) | LOC: YASAS 13:44 → Y3N 17:23 ==

== ENCOUNTER 2018-12-19 12:41 | Inpatient (IN) | payer OTHER ==
[2018-12-19 14:59] VITALS: BMI 29.5
--- NOTE | 2018-12-19 15:54 | HP ---
"CIWA Score Nausea/Vomitin-No Nausea/No Vomiting (NKECHI: 0.013) Muscle Tremors: 6 (Tremors w/o arms extended) Anxiety: 1-Mildly Anxious Agitation: 2 Paroxysmal Sweats: 3 (Increased facial moisture) Orientation: 0-Oriented Tacttile Disturbances: 0-None Auditory Disturbances: 0-None Visual Disturbances: 0-None Headache: 0-None Present CIWA-Ar Total Score: 12 - Admission Criteria OASAS Guidelines: Admission for Medically Managed Detox: Requires at least one of the followin. CIWA greater than 12 2. Seizures within the past 24 hours 3. Delirium tremens within the past 24 hours 4. Hallucinations within the past 24 hours 5. Acute intervention needed for co occurring medical disorder 6. Acute intervention needed for co occurring psychiatric disorder 7. Severe withdrawal that cannot be handled at a lower level of care (continued vomiting, continued diarrhea, abnormal vital signs) requiring intravenous medication and/or fluids 8. Patient presents the following: Acute intervention needed for co-occurring med or psych disorder ([place]kechi: 0.013) Admission Criteria Met: Admission criteria met Admitting History and Physical - Smoking History Smoking history: Current every day smoker Have you smoked in the past 12 months: Yes Aproximately how many cigarettes per day: 10 - Alcohol/Substance Use Hx Alcohol Use: Yes Admission ROS S - HPI Chief Complaint: Here for detox. Allergies/Adverse Reactions: Allergies Allergy/AdvReac Type Severity Reaction Status Date / Time pork derived (porcine) Allergy Mild Rash Verified 12/19/18 14:26 [Pork derived (porcine)] History of Present Illness: 53 yo presents w/ alcohol withdrawal seeking detox. Last detox @ [facility]: 09/21-10/05: States relapsed as soon as left. Alcohol use began at age 17. States current use is pints liquor + beer daily. Cocaine use began at age 17. States current use $ 100 1 x month. Nicotine use began at age 17. States current is 1/2 PPD. Declines nicotine patch and gum. Denies seizures, blackouts, overdoses. PMHx: HTN (not on meds); Bradycardia. Non-compliant w/ seeing a PCP. EK06/12/18: Sinus Bradycardia w/ LVH. No significant changes from EKG on . MHHx: Bipolar. Depression in past. Denies thoughts of harming self or others. Non-compliant w/ MH Provider. States only prescribed Seroquel when hospitalized. Does not see a Psych in the community. SHx: Domiciled. Unemployed (SSI); Denies legal issues. Patient Name: Nic Marrero Date: 1965 Address: [address] [place] [address] Sex: Male Rx Written Rx Dispensed Drug Quantity Days Supply Prescriber Name 08/25/2018 08/25/2018 chlordiazepoxide 10 mg capsule 27 3 Kerline Sarmiento Patient Name: Nic Marrero Date: 1965 Address: [address] [place] [address] Sex: Male There are no results for the search terms that you entered. Rx Written Rx Dispensed Drug Quantity Days Supply Prescriber Name 03/17/2018 03/17/2018 chlordiazepoxide 10 mg capsule 36 3 Jeffy Wiseman MD Search Terms: Nic Marrero, 1965 Search Date: 12/19/2018 03:58:47 PM States Searched: [place], [place], [place], [place], [place], [place], [place], [place] The Drug Utilization Report below displays the controlled substance prescriptions, if any, that were dispensed in the indicated state(s). The information displayed on this report is compiled from requests submitted to other states' PMPs, and accurately reflects the information as returned by them. Blank hassan indicate data not provided by other state. This report was requested by: Tatianna Sarmiento | Reference #: [id number] Exam Limitations: No Limitations - Ebola screening Have you traveled outside of the country in the last 21 days: No (N) Have you had contact with anyone from an Ebola affected area: No Have you been sick,other than usual withdrawal symptoms: No Do you have a fever: No - Review of Systems Constitutional: Diaphoresis, Changes in sleep (Difficulty staying asleep.) EENT: reports: No Symptoms Reported Respiratory: reports: No Symptoms reported Cardiac: reports: Irregular Heart Rate (Slow heart rate) GI: reports: No Symptoms Reported : reports: No Symptoms Reported Musculoskeletal: reports: No Symptoms Reported Integumentary: reports: No Symptoms Reported Neuro: reports: No Symptoms reported Endocrine: reports: No Symptoms Reported Hematology: reports: No Symptoms Reported Psychiatric: reports: Mood/Affect Appropiate, Orientated x3 Patient History - Patient Medical History Hx Anemia: No Hx Asthma: No Hx Chronic Obstructive Pulmonary Disease (COPD): No Hx Cancer: No Hx Cardiac Disorders: No Hx Congestive Heart Failure: No Hx Hypertension: Yes (non compliance) Hx Hypercholesterolemia: No Hx Pacemaker: No HX Cerebrovascular Accident: No Hx Seizures: No Hx Dementia: No Hx Diabetes: No Hx Gastrointestinal Disorders: No Hx Liver Disease: No Hx Genitourinary Disorders: No Hx Sexually Transmitted Disorders: No Hx Renal Disease (ESRD): No Hx Thyroid Disease: No Hx Human Immunodeficiency Virus (HIV): No (NEGATIVE HX last 2018) Hx Hepatitis C: No Hx Depression: Yes Hx Suicide Attempt: No Hx Bipolar Disorder: Yes Hx Schizophrenia: No - Patient Surgical History Past Surgical History: No Hx Neurologic Surgery: No Hx Cataract Extraction: No Hx Cardiac Surgery: No Hx Lung Surgery: No Hx Breast Surgery: No Hx Breast Biopsy: No Hx Abdominal Surgery: No Hx Appendectomy: No Hx Cholecystectomy: No Hx Genitourinary Surgery: No Hx Section: No Hx Orthopedic Surgery: No Anesthesia Reaction: No - PPD History Previous Implant?: Yes Documented Results: Negative w/proof Implanted On Prior R Admission?: Yes Date: 06/14/18 Results: 0 mm PPD to be Administered?: No - Smoking Cessation Smoking history: Current every day smoker Have you smoked in the past 12 months: Yes Aproximately how many cigarettes per day: 10 Cigars Per Day: 0 Hx Chewing Tobacco Use: No Initiated information on smoking cessation: Yes 'Breaking Loose' booklet given: 12/19/18 - Substances abused Alcohol Substance route: Oral Frequency: Daily Amount used: 2 pints of vodka and (5) 40 oz beer Age of first use: 17 Date of last use: 12/19/18 Cocaine Substance route: Inhalation Frequency: 3-6 times per week Amount used: $100 Age of first use: 17 Date of last use: 12/17/18 Admission Physical Exam BHS - Vital Signs Vital Signs: Vital Signs - 24 hr 12/19/18 14:25 Temperature 97.9 F Pulse Rate 57 L Respiratory 18 Rate Blood Pressure 121/80 - Physical General Appearance: Yes: Nourished, Tremorous (Tremors w/o arms extended), Sweating (Increased facial moisture), Anxious HEENTM: Yes: Normocephalic, Normal Voice, SUE, Pharynx Normal Respiratory: Yes: Lungs Clear (Pulse Ox = 99 %), Normal Breath Sounds, No Respiratory Distress Neck: Yes: No masses,lesions,Nodules, Supple Breast: Yes: Breast Exam Deferred Cardiology: Yes: Regular Rhythm, S1, S2, Bradycardia Abdominal: Yes: Increased Bowel Sounds, Other (Mid-epigastric tenderness upon palpation. No guarding, No rebound.) Genitourinary: Yes: Within Normal Limits Back: Yes: Normal Inspection Musculoskeletal: Yes: full range of Motion, Gait Steady Extremities: Yes: Normal Capillary Refill, Tremors (Tremors w/o arms extended) Neurological: Yes: Fully Oriented, Alert, Motor Strength 5/5 Integumentary: Yes: Normal Color, Dry (very dry skin, except for facial moisture ), Warm, Diaphoresis (Increased facial moisture) Lymphatic: Yes: Within Normal Limits - Diagnostic (1) Abdominal pain Current Visit: No Status: Acute Qualifiers: Abdominal location: generalized Qualified Code(s): R10.84 - Generalized abdominal pain (2) Alcohol dependence with uncomplicated withdrawal Current Visit: No Status: Acute (3) Nicotine dependence Current Visit: No Status: Acute Qualifiers: Nicotine product type: cigarettes Substance use status: in withdrawal Qualified Code(s): F17.213 - Nicotine dependence, cigarettes, with withdrawal Comment: . (4) Bradycardia Current Visit: No Status: Chronic (5) Cocaine dependence, uncomplicated Current Visit: No Status: Chronic (6) Dry skin Current Visit: Yes Status: Acute (7) Hypertension Current Visit: No Status: Chronic Qualifiers: Hypertension type: essential hypertension Qualified Code(s): I10 - Essential (primary) hypertension Comment: . Breathalyzer - Breathalyzer Breathalyzer: 0.013 Urine Drug Screen - Test Device Lot number: [id number] Expiration date: 08/16/20 - Control Is test valid?: Yes - Results Drug screen NEGATIVE: No Urine drug screen results: [facility]-Cocaine Inpatient Rehab Admission - Rehab Decision to Admit Inpatient rehab admission?: No"
[2018-12-19] MEDS ORDERED: chlordiazePOXIDE HCL 10 MG CAPSULE PO PRN (17:17)
[2018-12-19] MEDS ORDERED: MELATONIN 5 MG TABLETS PO PRN (17:17)
[2018-12-19] MEDS ORDERED: MAGNESIUM HYDROX 2400MG/30ML ORAL SUSPENSION 30 ML CUP PO PRN (17:17)
[2018-12-19] MEDS ORDERED: ACETAMINOPHEN 325 MG TABLET (FP) PO PRN ×2 (17:17)
[2018-12-19] MEDS ORDERED: MENTHOL/PHENOL 1 EACH UD MM PRN (17:17)
[2018-12-19] MEDS ORDERED: IBUPROFEN 400 MG TABLET (FP) PO PRN (17:17)
[2018-12-19] MEDS ORDERED: BISMUTH SUBSALICYLATE 524 MG/30 ML UD PO PRN (17:17)
[2018-12-19] MEDS ORDERED: MAG HYDROX/AL HYDROX/SIMETH 30 ML UNIT-DOSE CUP PO PRN (17:17)
[2018-12-19] MEDS ORDERED: MAGNESIUM CITRATE 300 ML BOTTLE PO PRN (17:17)
[2018-12-19] MEDS ORDERED: COLLOIDAL OATMEAL 1 BAR EACH TP PRN (17:20)
[2018-12-19] MEDS: THIAMINE HCL 100 MG TABLET (FP) PO SCH (22:09)
[2018-12-19] MEDS: chlordiazePOXIDE HCL 25 MG CAPSULE PO SCH (22:09)
[2018-12-19] MEDS: PANTOPRAZOLE 20 MG TABLET (FP) PO SCH (22:09)
[2018-12-20] MEDS: chlordiazePOXIDE HCL 25 MG CAPSULE PO SCH ×3 (05:42→22:40)
[2018-12-20 09:27] LABS: HEMATOCRIT 38.4 % (35.4-49); HEMOGLOBIN 14.2 GM/dL (11.7-16.9); MCH 35.2 pg (25.7-33.7); MCHC 36.9 g/dl (32.0-35.9); MEAN CELL VOLUME 95.2 fl (80-96); MEAN PLT VOLUME 8.9 fl (7.5-11.1); PLATELET COUNT 211 K/MM3 (134-434); RBC 4.03 M/mm3 (4.00-5.60); RDW 12.7 % (11.9-15.9); WHITE BLOOD COUNT 3.8 K/mm3 (4.0-10.0)
[2018-12-20 09:54] LABS: ALBUMIN 3.7 g/dl (3.4-5.0); BILIRUBIN,TOTAL 1.2 mg/dL (0.2-1); BLOOD UREA NITROGEN 16.1 mg/dL (7-18); CALCIUM 8.6 mg/dL (8.5-10.1); CREATININE 1.2 mg/dL (0.55-1.3)
[2018-12-20] MEDS: amLODIPine BESYLATE 5 MG TABLET (FP) PO SCH (10:26)
[2018-12-20] MEDS: PANTOPRAZOLE 20 MG TABLET (FP) PO SCH ×2 (10:26→22:40)
[2018-12-20] MEDS: PRENATAL VITAMINS W/ FOLIC ACID TABLET (FP) PO SCH (10:26)
--- NOTE | 2018-12-20 11:16 | PN ---
[facility] CIWA - CIWA Score Nausea/Vomitin-Mild Nausea/No Vomiting Muscle Tremors: 4-Moderate,w/Arms Extend Anxiety: 4-Mod. Anxious/Guarded Agitation: 3 Paroxysmal Sweats: 2 Orientation: 0-Oriented Tacttile Disturbances: 0-None Auditory Disturbances: 0-None Visual Disturbances: 0-None Headache: 0-None Present CIWA-Ar Total Score: 14 S Progress Note (SOAP) Subjective: 53 years old male admitted on 12/19/18 for alcohol withdrawal sx management treated with librium detox regimen patient tolerated well ate breakfast ambulating on hallway social with peers and staff steady gait speech clearly Objective: 12/20/18 11:16 Vital Signs Temperature 96.0 F L 12/20/18 09:35 Pulse Rate 50 L 12/20/18 09:35 Respiratory Rate 18 12/20/18 09:35 Blood Pressure 119/73 12/20/18 09:35 O2 Sat by Pulse Oximetry (%) Laboratory Last Values WBC 3.8 K/mm3 (4.0-10.0) L 12/20/18 07:50 RBC 4.03 M/mm3 (4.00-5.60) 12/20/18 07:50 Hgb 14.2 GM/dL (11.7-16.9) 12/20/18 07:50 Hct 38.4 % (35.4-49) 12/20/18 07:50 MCV 95.2 fl (80-96) 12/20/18 07:50 MCH 35.2 pg (25.7-33.7) H 12/20/18 07:50 MCHC 36.9 g/dl (32.0-35.9) H 12/20/18 07:50 RDW 12.7 % (11.9-15.9) 12/20/18 07:50 Plt Count 211 K/MM3 (134-434) D 12/20/18 07:50 MPV 8.9 fl (7.5-11.1) 12/20/18 07:50 Sodium 138 mmol/L (136-145) 12/20/18 07:50 Potassium 4.0 mmol/L (3.5-5.1) 12/20/18 07:50 Chloride 102 mmol/L (98-107) 12/20/18 07:50 Carbon Dioxide 32 mmol/L (21-32) 12/20/18 07:50 Anion Gap 4 MMOL/L (8-16) L 12/20/18 07:50 BUN 16.1 mg/dL (7-18) 12/20/18 07:50 Creatinine 1.2 mg/dL (0.55-1.3) 12/20/18 07:50 Est GFR (CKD-EPI)AfAm 80.10 12/20/18 07:50 Est GFR (CKD-EPI)NonAf 69.11 12/20/18 07:50 Random Glucose 78 mg/dL (74-106) 12/20/18 07:50 Calcium 8.6 mg/dL (8.5-10.1) 12/20/18 07:50 Total Bilirubin 1.2 mg/dL (0.2-1) H 12/20/18 07:50 AST 44 U/L (15-37) H 12/20/18 07:50 ALT 45 U/L (13-61) 12/20/18 07:50 Alkaline Phosphatase 70 U/L (45-117) 12/20/18 07:50 Total Protein 7.0 g/dl (6.4-8.2) 12/20/18 07:50 Albumin 3.7 g/dl (3.4-5.0) 12/20/18 07:50 lab noted Assessment: 12/20/18 11:16 alcohol withdrawal sx Plan: continue librium detox regimen
--- NOTE | 2018-12-20 11:48 | CONSULT ---
[facility] Psychiatric Consult - Data Date of interview: 12/20/18 Admission source: Self-referred Identifying data: Mr Marrero is a 53 years old single Black male, father of 2 children, unemployed receiving SSI, domiciled seeking detox treatment for alcohol and cocaine Substance Abuse History: Reports history of alcohol and cocaine use. Refer to addiction counselor's summary for fourther information Medical History: Significant for hypertension. Smokes 10 cigarettes daily Psychiatric History: Patient is known for multiple previous admissions to this facility. Historical narrative remains consistent for the most part. He reports that his first psychiatric contact was in 1990 when he was admitted to [facility] for command auditory hallucinations and suicidal ideations to cut himself. He was diagnosed with Bipolar Disorder and started on psychotropic medications. Reports multiple subsequent psychiatric hospitalizations at various facilities including [facility], [facility], [facility], [facility], [facility], [facility] in [place], [place] and most recently a few days ago at [facility]. He said that he was discharged on Seroquel 200 mg/hs. He acknowledges noncompliance to outpatient psychiatric treatment. Reports only taking medications when admitted to a hospital facility. Reports past trials of Risperdal, Abilify, Haldol and Seroquel. Reports previous suicidal attempts by self mutilation by cutting and hanging while incarcerated. At present, denies experiencing psychotic, manic or depressive symptoms, S/H ideations. However, reports feeling anxious and sleeping poorly. Physical/Sexual Abuse/Trauma History: denies history of physical or sexual abuse as well as DV relationship. No service. Additional Comment: Reports history of multiple previous arrests including 5 felony convictions. Denies being on parole/probation at present Mental Status Exam - Mental Status Exam Alert and Oriented to: Time, Place, Person Cognitive Function: Fair Patient Appearance: Disheveled Mood: Anxious Affect: Appropriate Patient Behavior: Cooperative Speech Pattern: Clear Voice Loudness: Normal Thought Process: Intact, Goal Oriented Hallucinations: Denies Suicidal Ideation: Denies Homicidal Ideation: Denies Insight/Judgement: Poor Sleep: Poorly Appetite: Good Muscle strength/Tone: Normal Gait/Station: Normal Psychiatric Findings - Problem List ([place] 1, 2,3) (1) Bipolar I, most recent episode mixed, severe with psychotic behavior Current Visit: No Status: Chronic (2) Schizoaffective disorder Current Visit: Yes Status: Ruled-out (3) Substance-induced anxiety disorder Current Visit: Yes Status: Acute (4) Substance-induced sleep disorder Current Visit: Yes Status: Acute (5) Alcohol dependence with uncomplicated withdrawal Current Visit: No Status: Acute (6) Cocaine dependence, uncomplicated Current Visit: No Status: Acute (7) Nicotine dependence Current Visit: No Status: Chronic Qualifiers: Nicotine product type: cigarettes Substance use status: in withdrawal Qualified Code(s): F17.213 - Nicotine dependence, cigarettes, with withdrawal Comment: . (8) HTN (hypertension) Current Visit: Yes Status: Chronic - Initial Treatment Plan Initial Treatment Plan: 1) Continue Seroquel 200 mg po HS. 2) Continue inpatient detoxification
[2018-12-20] MEDS: THIAMINE HCL 100 MG TABLET (FP) PO SCH (22:40)
[2018-12-20] MEDS: QUEtiapine FUMARATE 200 MG TABLET PO SCH (22:40)
[2018-12-21] MEDS: chlordiazePOXIDE 5 MG CAPSULE PO SCH ×3 (07:08→22:29)
[2018-12-21] MEDS: PANTOPRAZOLE 20 MG TABLET (FP) PO SCH ×2 (10:31→22:29)
[2018-12-21] MEDS: PRENATAL VITAMINS W/ FOLIC ACID TABLET (FP) PO SCH (10:31)
[2018-12-21] MEDS: amLODIPine BESYLATE 5 MG TABLET (FP) PO SCH (10:31)
--- NOTE | 2018-12-21 12:53 | PN ---
[facility] CIWA - CIWA Score Nausea/Vomitin-Mild Nausea/No Vomiting Muscle Tremors: 2 Anxiety: 3 Agitation: 2 Paroxysmal Sweats: 2 Orientation: 0-Oriented Tacttile Disturbances: 0-None Auditory Disturbances: 0-None Visual Disturbances: 0-None Headache: 0-None Present CIWA-Ar Total Score: 10 S Progress Note (SOAP) Subjective: 53 years old male admitted on 12/19/18 for alcohol withdrawal sx management treated with librium detox regimen patient tolerated well ate breakfast resting on bed comfortably Objective: 12/21/18 12:53 Vital Signs Temperature 96.1 F L 12/21/18 09:15 Pulse Rate 53 L 12/21/18 09:15 Respiratory Rate 18 12/21/18 09:15 Blood Pressure 95/59 L 12/21/18 09:15 O2 Sat by Pulse Oximetry (%) Laboratory Last Values WBC 3.8 K/mm3 (4.0-10.0) L 12/20/18 07:50 RBC 4.03 M/mm3 (4.00-5.60) 12/20/18 07:50 Hgb 14.2 GM/dL (11.7-16.9) 12/20/18 07:50 Hct 38.4 % (35.4-49) 12/20/18 07:50 MCV 95.2 fl (80-96) 12/20/18 07:50 MCH 35.2 pg (25.7-33.7) H 12/20/18 07:50 MCHC 36.9 g/dl (32.0-35.9) H 12/20/18 07:50 RDW 12.7 % (11.9-15.9) 12/20/18 07:50 Plt Count 211 K/MM3 (134-434) D 12/20/18 07:50 MPV 8.9 fl (7.5-11.1) 12/20/18 07:50 Sodium 138 mmol/L (136-145) 12/20/18 07:50 Potassium 4.0 mmol/L (3.5-5.1) 12/20/18 07:50 Chloride 102 mmol/L (98-107) 12/20/18 07:50 Carbon Dioxide 32 mmol/L (21-32) 12/20/18 07:50 Anion Gap 4 MMOL/L (8-16) L 12/20/18 07:50 BUN 16.1 mg/dL (7-18) 12/20/18 07:50 Creatinine 1.2 mg/dL (0.55-1.3) 12/20/18 07:50 Est GFR (CKD-EPI)AfAm 80.10 12/20/18 07:50 Est GFR (CKD-EPI)NonAf 69.11 12/20/18 07:50 Random Glucose 78 mg/dL (74-106) 12/20/18 07:50 Calcium 8.6 mg/dL (8.5-10.1) 12/20/18 07:50 Total Bilirubin 1.2 mg/dL (0.2-1) H 12/20/18 07:50 AST 44 U/L (15-37) H 12/20/18 07:50 ALT 45 U/L (13-61) 12/20/18 07:50 Alkaline Phosphatase 70 U/L (45-117) 12/20/18 07:50 Total Protein 7.0 g/dl (6.4-8.2) 12/20/18 07:50 Albumin 3.7 g/dl (3.4-5.0) 12/20/18 07:50 lab noted Assessment: 12/21/18 12:53 alcohol withdrawal sx Plan: continue librium detox regimen
[2018-12-21] MEDS: THIAMINE HCL 100 MG TABLET (FP) PO SCH (22:29)
[2018-12-21] MEDS: QUEtiapine FUMARATE 200 MG TABLET PO SCH (22:29)
[2018-12-22] MEDS ORDERED: chlordiazePOXIDE HCL 10 MG CAPSULE PO PRN
[2018-12-22] MEDS: chlordiazePOXIDE HCL 10 MG CAPSULE PO SCH ×3 (05:30→22:06)
[2018-12-22] MEDS: PRENATAL VITAMINS W/ FOLIC ACID TABLET (FP) PO SCH (10:07)
[2018-12-22] MEDS: amLODIPine BESYLATE 5 MG TABLET (FP) PO SCH (10:07)
[2018-12-22] MEDS: PANTOPRAZOLE 20 MG TABLET (FP) PO SCH ×2 (10:07→22:05)
--- NOTE | 2018-12-22 10:53 | PN ---
[facility] CIWA - CIWA Score Nausea/Vomitin-No Nausea/No Vomiting Muscle Tremors: 2 Anxiety: 2 Agitation: 0-Normal Activity Paroxysmal Sweats: 1-Minimal Palms Moist Orientation: 0-Oriented Tacttile Disturbances: 0-None Auditory Disturbances: 0-None Visual Disturbances: 0-None Headache: 0-None Present CIWA-Ar Total Score: 5 S Progress Note (SOAP) Subjective: 53 years old male admitted on for alcohol withdrawal sx management treated with librium detox regimen patient tolerated well ate breakfast less tremor mild anxiety Objective: 12/22/18 10:51 Vital Signs Temperature 98.3 F 12/22/18 09:22 Pulse Rate 58 L 12/22/18 09:22 Respiratory Rate 20 12/22/18 09:22 Blood Pressure 112/67 12/22/18 09:22 O2 Sat by Pulse Oximetry (%) Laboratory Last Values WBC 3.8 K/mm3 (4.0-10.0) L 12/20/18 07:50 RBC 4.03 M/mm3 (4.00-5.60) 12/20/18 07:50 Hgb 14.2 GM/dL (11.7-16.9) 12/20/18 07:50 Hct 38.4 % (35.4-49) 12/20/18 07:50 MCV 95.2 fl (80-96) 12/20/18 07:50 MCH 35.2 pg (25.7-33.7) H 12/20/18 07:50 MCHC 36.9 g/dl (32.0-35.9) H 12/20/18 07:50 RDW 12.7 % (11.9-15.9) 12/20/18 07:50 Plt Count 211 K/MM3 (134-434) D 12/20/18 07:50 MPV 8.9 fl (7.5-11.1) 12/20/18 07:50 Sodium 138 mmol/L (136-145) 12/20/18 07:50 Potassium 4.0 mmol/L (3.5-5.1) 12/20/18 07:50 Chloride 102 mmol/L (98-107) 12/20/18 07:50 Carbon Dioxide 32 mmol/L (21-32) 12/20/18 07:50 Anion Gap 4 MMOL/L (8-16) L 12/20/18 07:50 BUN 16.1 mg/dL (7-18) 12/20/18 07:50 Creatinine 1.2 mg/dL (0.55-1.3) 12/20/18 07:50 Est GFR (CKD-EPI)AfAm 80.10 12/20/18 07:50 Est GFR (CKD-EPI)NonAf 69.11 12/20/18 07:50 Random Glucose 78 mg/dL (74-106) 12/20/18 07:50 Calcium 8.6 mg/dL (8.5-10.1) 12/20/18 07:50 Total Bilirubin 1.2 mg/dL (0.2-1) H 12/20/18 07:50 AST 44 U/L (15-37) H 12/20/18 07:50 ALT 45 U/L (13-61) 12/20/18 07:50 Alkaline Phosphatase 70 U/L (45-117) 12/20/18 07:50 Total Protein 7.0 g/dl (6.4-8.2) 12/20/18 07:50 Albumin 3.7 g/dl (3.4-5.0) 12/20/18 07:50 lab noted Assessment: 12/22/18 10:51 alcohol withdrawal sx Plan: continue librium detox regimen
[2018-12-22] MEDS: QUEtiapine FUMARATE 200 MG TABLET PO SCH (22:05)
[2018-12-22] MEDS: THIAMINE HCL 100 MG TABLET (FP) PO SCH (22:05)
[2018-12-23] MEDS ORDERED: chlordiazePOXIDE HCL 10 MG CAPSULE PO ONE (05:00)
[2018-12-23 06:07] VITALS: BP 121/74; PULSE 46; TEMP 97
[2018-12-23] MEDS: amLODIPine BESYLATE 5 MG TABLET (FP) PO SCH (12:28)
[2018-12-23] MEDS: PANTOPRAZOLE 20 MG TABLET (FP) PO SCH (12:29)
[2018-12-23] MEDS: PRENATAL VITAMINS W/ FOLIC ACID TABLET (FP) PO SCH (12:29)
--- NOTE | 2018-12-23 13:13 | DS ---
[facility] Detox Discharge Summary Admission Date: 12/19/18 Discharge Date: 12/23/18 - History Present History: Alcohol Dependence Additional Comments: 53 years old male admitted on 12/19/18 for alcohol withdrawal sx management treated with librium detox regimen patient is alert oriented x 3 respiratory clear lung bilaterally on auscultation skin warm dry - Physical Exam Results Vital Signs: Vital Signs Temperature 97 F L 12/23/18 06:06 Pulse Rate 46 L 12/23/18 06:06 Respiratory Rate 18 12/23/18 06:06 Blood Pressure 121/74 12/23/18 06:06 O2 Sat by Pulse Oximetry (%) Pertinent Admission Physical Exam Findings: alcohol withdrawal ws Laboratory Last Values WBC 3.8 K/mm3 (4.0-10.0) L 12/20/18 07:50 RBC 4.03 M/mm3 (4.00-5.60) 12/20/18 07:50 Hgb 14.2 GM/dL (11.7-16.9) 12/20/18 07:50 Hct 38.4 % (35.4-49) 12/20/18 07:50 MCV 95.2 fl (80-96) 12/20/18 07:50 MCH 35.2 pg (25.7-33.7) H 12/20/18 07:50 MCHC 36.9 g/dl (32.0-35.9) H 12/20/18 07:50 RDW 12.7 % (11.9-15.9) 12/20/18 07:50 Plt Count 211 K/MM3 (134-434) D 12/20/18 07:50 MPV 8.9 fl (7.5-11.1) 12/20/18 07:50 Sodium 138 mmol/L (136-145) 12/20/18 07:50 Potassium 4.0 mmol/L (3.5-5.1) 12/20/18 07:50 Chloride 102 mmol/L (98-107) 12/20/18 07:50 Carbon Dioxide 32 mmol/L (21-32) 12/20/18 07:50 Anion Gap 4 MMOL/L (8-16) L 12/20/18 07:50 BUN 16.1 mg/dL (7-18) 12/20/18 07:50 Creatinine 1.2 mg/dL (0.55-1.3) 12/20/18 07:50 Est GFR (CKD-EPI)AfAm 80.10 12/20/18 07:50 Est GFR (CKD-EPI)NonAf 69.11 12/20/18 07:50 Random Glucose 78 mg/dL (74-106) 12/20/18 07:50 Calcium 8.6 mg/dL (8.5-10.1) 12/20/18 07:50 Total Bilirubin 1.2 mg/dL (0.2-1) H 12/20/18 07:50 AST 44 U/L (15-37) H 12/20/18 07:50 ALT 45 U/L (13-61) 12/20/18 07:50 Alkaline Phosphatase 70 U/L (45-117) 12/20/18 07:50 Total Protein 7.0 g/dl (6.4-8.2) 12/20/18 07:50 Albumin 3.7 g/dl (3.4-5.0) 12/20/18 07:50 lab noted - Treatment Hospital Course: Detox Protocol Followed, Detoxed Safely, Responded well, Discharged Condition Good, Rehab Referral Accepted Patient has Accepted a Rehab Referral to: [facility] - Medication Discharge Medications: Ambulatory Orders Amlodipine Besylate 5 mg PO DAILY 12/19/18 Quetiapine Fumarate [Seroquel -] 200 mg PO HS 12/19/18 - Diagnosis (1) Alcohol dependence with uncomplicated withdrawal Status: Acute (2) HTN (hypertension) Status: Chronic Qualifiers: Hypertension type: essential hypertension Qualified Code(s): I10 - Essential (primary) hypertension (3) Nicotine dependence Status: Acute Qualifiers: Nicotine product type: cigarettes Substance use status: in withdrawal Qualified Code(s): F17.213 - Nicotine dependence, cigarettes, with withdrawal (4) Substance induced mood disorder Status: Suspected - AMA Did Patient Leave Against Medical Advice: No CIWA Score - CIWA Score Nausea/Vomitin-No Nausea/No Vomiting Muscle Tremors: 1-None Visible, but [place] Anxiety: 1-Mildly Anxious Agitation: 0-Normal Activity Paroxysmal Sweats: No Perspiration Orientation: 0-Oriented Tacttile Disturbances: 0-None Auditory Disturbances: 0-None Visual Disturbances: 0-None Headache: 0-None Present CIWA-Ar Total Score: 2
== END 2018-12-23 11:32 | disposition other institution (70) | DRG 774 ==
LOC: YASAS 12:41 → Y3N 17:33
PROVIDERS: ADMIT Allergy & Immunology; ATTEND Allergy & Immunology
PROC: HZ2ZZZZ Detoxification Services for Substance Abuse Treatment (ICD-10-PCS; principal; 2018-12-19)
DX: F10.230 Alcohol dependence with withdrawal, uncomplicated (principal); F14.20 Cocaine dependence, uncomplicated; F17.213 Nicotine dependence, cigarettes, with withdrawal; F19.24 Other psychoactive substance dependence with psychoactive substance-induced mood disorder; F19.280 Other psychoactive substance dependence with psychoactive substance-induced anxiety disorder; F19.282 Other psychoactive substance dependence with psychoactive substance-induced sleep disorder; F25.9 Schizoaffective disorder, unspecified; F31.30 Bipolar disorder, current episode depressed, mild or moderate severity, unspecified; I10 Essential (primary) hypertension; L85.3 Xerosis cutis; R00.1 Bradycardia, unspecified; R10.84 Generalized abdominal pain; Z91.018 Allergy to other foods; Z91.14 Patient's other noncompliance with medication regimen
CPT/HCPCS: 36415; 80053; 85027

== ENCOUNTER 2019-02-28 11:58 | Inpatient (IN) | payer OTHER ==
[2019-02-28 12:33] VITALS: BMI 27.7
--- NOTE | 2019-02-28 13:55 | HP ---
CIWA Score Nausea/Vomitin Muscle Tremors: 2 Anxiety: 2 Agitation: 2 Paroxysmal Sweats: 2 Orientation: 0-Oriented Tacttile Disturbances: 1-Very Mild Itch/Numbness Auditory Disturbances: 1-Very Mild Visual Disturbances: 1-Very Mild Sensitivity Headache: 2-Mild CIWA-Ar Total Score: 15 - Admission Criteria OASAS Guidelines: Admission for Medically Managed Detox: Requires at least one of the followin. CIWA greater than 12 2. Seizures within the past 24 hours 3. Delirium tremens within the past 24 hours 4. Hallucinations within the past 24 hours 5. Acute intervention needed for co occurring medical disorder 6. Acute intervention needed for co occurring psychiatric disorder 7. Severe withdrawal that cannot be handled at a lower level of care (continued vomiting, continued diarrhea, abnormal vital signs) requiring intravenous medication and/or fluids 8. Patient presents the following: CIWA greater than 12 Admission Criteria Met: Admission criteria met Admitting History and Physical - Smoking History Smoking history: Current every day smoker Have you smoked in the past 12 months: Yes Aproximately how many cigarettes per day: 10 - Alcohol/Substance Use Hx Alcohol Use: Yes Admission ROS [facility] - [facility] Chief Complaint: " I need detox from alcohol" Allergies/Adverse Reactions: Allergies Allergy/AdvReac Type Severity Reaction Status Date / Time pork derived (porcine) Allergy Mild Rash Verified 02/28/19 12:28 [Pork derived (porcine)] No Known Drug Allergies Allergy Verified 02/01/19 10:08 History of Present Illness: Patient is a 53 year old man who presents seeking alcohol detox. Last detox @ [facility] was from 12/19 to 12/23/18. He denies seizures or blackouts related to alcohol intoxication. Patient was sent from [facility] where he was seen this morning after patient called 911 for pain associated with urination, he was diagnosed with UTI and given a dose of levaquin 500mg with instructions to take 6 more doses. Exam Limitations: No Limitations - Ebola screening Have you traveled outside of the country in the last 21 days: No (N) Have you had contact with anyone from an Ebola affected area: No Have you been sick,other than usual withdrawal symptoms: No Do you have a fever: No - Review of Systems Constitutional: Loss of Appetite EENT: reports: No Symptoms Reported Respiratory: reports: No Symptoms reported Cardiac: reports: Lightheadedness GI: reports: Nausea, Poor Appetite, Poor Fluid Intake, Vomiting, Abdominal cramping : reports: Dysuria Musculoskeletal: reports: Back Pain, Joint Pain, Muscle Pain Integumentary: reports: Sweating Neuro: reports: Headache, Numbness, Tremors Endocrine: reports: No Symptoms Reported Hematology: reports: No Symptoms Reported Psychiatric: reports: Orientated x3 Other Systems: Reviewed and Negative Patient History - Patient Medical History Hx Anemia: No Hx Asthma: No Hx Chronic Obstructive Pulmonary Disease (COPD): No Hx Cancer: No Hx Cardiac Disorders: No Hx Congestive Heart Failure: No Hx Hypertension: Yes (non compliance) Hx Hypercholesterolemia: No Hx Pacemaker: No HX Cerebrovascular Accident: No Hx Seizures: No Hx Dementia: No Hx Diabetes: No Hx Gastrointestinal Disorders: No Hx Liver Disease: No Hx Genitourinary Disorders: No Hx Sexually Transmitted Disorders: No Hx Renal Disease (ESRD): No Hx Thyroid Disease: No Hx Human Immunodeficiency Virus (HIV): No (NEGATIVE HX last 2018) Hx Hepatitis C: No Hx Depression: Yes Hx Suicide Attempt: No Hx Bipolar Disorder: Yes Hx Schizophrenia: No - Patient Surgical History Past Surgical History: No Hx Neurologic Surgery: No Hx Cataract Extraction: No Hx Cardiac Surgery: No Hx Lung Surgery: No Hx Breast Surgery: No Hx Breast Biopsy: No Hx Abdominal Surgery: No Hx Appendectomy: No Hx Cholecystectomy: No Hx Genitourinary Surgery: No Hx Section: No Hx Orthopedic Surgery: No Anesthesia Reaction: No - PPD History Previous Implant?: Yes Documented Results: Negative w/proof Implanted On Prior [facility] Admission?: Yes Date: 06/14/18 Results: 0 mm PPD to be Administered?: No - Smoking Cessation Smoking history: Current every day smoker Have you smoked in the past 12 months: Yes Aproximately how many cigarettes per day: 10 Cigars Per Day: 0 Hx Chewing Tobacco Use: No Initiated information on smoking cessation: Yes 'Breaking Loose' booklet given: 02/28/19 - Substances abused Alcohol Substance route: Oral Frequency: Daily Amount used: 2 pints of vodka and (15) 40 oz beer Age of first use: 17 Date of last use: 02/28/19 Cocaine Substance route: Inhalation Frequency: 3-6 times per week Amount used: $50 Age of first use: 17 Date of last use: 02/26/19 Admission Physical Exam BHS - Vital Signs Vital Signs: Vital Signs - 24 hr 02/28/19 12:30 Pulse Rate 58 L Respiratory 18 Rate Blood Pressure 134/90 - Physical General Appearance: Yes: No Apparent Distress HEENTM: Yes: Hearing grossly Normal, Normocephalic, Normal Voice, Other (poor dentition) Respiratory: Yes: Chest Non-Tender, Lungs Clear, Normal Breath Sounds, No Respiratory Distress, No Accessory Muscle Use Neck: Yes: No masses,lesions,Nodules, Supple Breast: Yes: Breast Exam Deferred Cardiology: Yes: Regular Rhythm, Regular Rate Abdominal: Yes: Normal Bowel Sounds, Non Tender, Soft Genitourinary: Yes: Burning, Frequency, [place] Musculoskeletal: Yes: full range of Motion, Back pain, Muscle Pain Extremities: Yes: Swelling (in the right foot), Other (callous to both feet) 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 (5) Bipolar I disorder, most recent episode depressed Current Visit: Yes Status: Chronic (6) HTN (hypertension) Current Visit: Yes Status: Chronic Qualifiers: Hypertension type: essential hypertension Qualified Code(s): I10 - Essential (primary) hypertension Cleared for Admission [facility] - Detox or Rehab [facility] Level of Care: Medically Managed Detox Regimen/Protocol: Librium Claeared for Rehab Admission: No Breathalyzer - Breathalyzer Breathalyzer: 0 Urine Drug Screen - Test Device Lot number: [id number] Expiration date: 09/16/20 - Control Is test valid?: Yes - Results Drug screen NEGATIVE: No Urine drug screen results: [facility] Inpatient Rehab Admission - Rehab Decision to Admit Inpatient rehab admission?: No
[2019-02-28] MEDS ORDERED: hydrOXYzine PAMOATE 25 MG CAPSULE (FP) PO PRN (14:04)
[2019-02-28] MEDS ORDERED: ACETAMINOPHEN 325 MG TABLET (FP) PO PRN ×2 (14:04)
[2019-02-28] MEDS ORDERED: QUEtiapine FUMARATE 100 MG TABLET (FP) PO PRN (14:04)
[2019-02-28] MEDS ORDERED: MAGNESIUM HYDROX 2400MG/30ML ORAL SUSPENSION 30 ML CUP PO PRN (14:04)
[2019-02-28] MEDS ORDERED: METHOCARBAMOL 500 MG TABLET PO PRN (14:04)
[2019-02-28] MEDS ORDERED: NICOTINE POLACRILEX 2 MG GUM BUC PRN (14:04)
[2019-02-28] MEDS ORDERED: MENTHOL/PHENOL 1 EACH UD MM PRN (14:04)
[2019-02-28] MEDS ORDERED: BISMUTH SUBSALICYLATE 524 MG/30 ML UD PO PRN (14:04)
[2019-02-28] MEDS ORDERED: chlordiazePOXIDE HCL 10 MG CAPSULE PO PRN (14:04)
[2019-02-28] MEDS ORDERED: MAGNESIUM CITRATE 300 ML BOTTLE PO PRN (14:04)
[2019-02-28] MEDS ORDERED: chlordiazePOXIDE HCL 25 MG CAPSULE PO ONE (14:04)
[2019-02-28] MEDS ORDERED: MAG HYDROX/AL HYDROX/SIMETH 30 ML UNIT-DOSE CUP PO PRN (14:04)
[2019-02-28] MEDS: NICOTINE 14 MG/24 HOURS TOPICAL PATCH TD SCH (14:57)
[2019-02-28] MEDS: chlordiazePOXIDE HCL 25 MG CAPSULE PO SCH (21:25)
[2019-02-28] MEDS: MELATONIN 5 MG TABLETS PO PRN (21:26)
[2019-02-28] MEDS: THIAMINE HCL 100 MG TABLET (FP) PO SCH (21:26)
[2019-02-28] MEDS: IBUPROFEN 400 MG TABLET (FP) PO PRN (21:27)
[2019-03-01] MEDS: chlordiazePOXIDE HCL 25 MG CAPSULE PO SCH ×3 (07:42→21:55)
[2019-03-01 09:50] LABS: HEMATOCRIT 39.4 % (35.4-49); HEMOGLOBIN 13.7 GM/dL (11.7-16.9); MCH 33.6 pg (25.7-33.7); MCHC 34.8 g/dl (32.0-35.9); MEAN CELL VOLUME 96.7 fl (80-96); MEAN PLT VOLUME 8.9 fl (7.5-11.1); PLATELET COUNT 150 K/MM3 (134-434); RBC 4.08 M/mm3 (4.00-5.60); RDW 13.2 % (11.9-15.9); WHITE BLOOD COUNT 2.9 K/mm3 (4.0-10.0)
[2019-03-01 10:12] LABS: ALBUMIN 3.5 g/dl (3.4-5.0); BILIRUBIN,TOTAL 0.9 mg/dL (0.2-1); BLOOD UREA NITROGEN 14.5 mg/dL (7-18); CALCIUM 8.6 mg/dL (8.5-10.1); CREATININE 1.4 mg/dL (0.55-1.3); POTASSIUM 3.8 mmol/L (3.5-5.1); TOT PROT 6.9 g/dl (6.4-8.2)
[2019-03-01] MEDS: IBUPROFEN 400 MG TABLET (FP) PO PRN (11:19)
[2019-03-01] MEDS: amLODIPine BESYLATE 10 MG TABLET (FP) PO SCH (11:19)
[2019-03-01] MEDS: PRENATAL VITAMINS W/ FOLIC ACID TABLET (FP) PO SCH (11:19)
[2019-03-01] MEDS: NICOTINE 14 MG/24 HOURS TOPICAL PATCH TD SCH (11:19)
[2019-03-01] MEDS ORDERED: FUROSEMIDE 40 MG TABLET (FP) PO ONE (12:46)
[2019-03-01] MEDS ORDERED: FUROSEMIDE 20 MG TABLET (FP) PO ONE (12:46)
--- NOTE | 2019-03-01 12:48 | PN ---
S CIWA - CIWA Score Nausea/Vomitin-No Nausea/No Vomiting Muscle Tremors: 3 Anxiety: 3 Agitation: 3 Paroxysmal Sweats: 3 Orientation: 0-Oriented Tacttile Disturbances: 0-None Auditory Disturbances: 0-None Visual Disturbances: 0-None Headache: 0-None Present CIWA-Ar Total Score: 12 BHS Progress Note (SOAP) Subjective: sweats shakes interrupted sleep blister to right heel d/t poor shoe wear Objective: 03/01/19 12:48 Vital Signs Temperature 98.1 F 03/01/19 11:31 Pulse Rate 52 L 03/01/19 11:31 Respiratory Rate 17 03/01/19 11:31 Blood Pressure 138/70 03/01/19 11:31 O2 Sat by Pulse Oximetry (%) Laboratory Tests 03/01/19 03/01/19 03/01/19 08:00 08:00 08:00 WBC 2.9 L RBC 4.08 Hgb 13.7 Hct 39.4 MCV 96.7 H MCH 33.6 MCHC 34.8 RDW 13.2 Plt Count 150 D MPV 8.9 Sodium 141 Potassium 3.8 Chloride 106 Carbon Dioxide 32 Anion Gap 4 L BUN 14.5 Creatinine 1.4 H Est GFR (CKD-EPI)AfAm 66.48 Est GFR (CKD-EPI)NonAf 57.36 Random Glucose 109 H Calcium 8.6 Total Bilirubin 0.9 AST 26 ALT 20 Alkaline Phosphatase 62 Total Protein 6.9 Albumin 3.5 RPR Titer Nonreactive labs noted aaox3 lying in bed no acute distress Assessment: 03/01/19 12:48 withdrawals blister to heel noted, no s/s of skin infection. encouraged to keep foot moist with ointment ordered, do not burst the blister. pt in agreement. Plan: continue detox tinactin cream ordered apply vitamin A&D oint to blister but do not pop it lasix 20mg x one encouraged keep legs elevated while in bed
--- NOTE | 2019-03-01 14:09 | CONSULT ---
[facility] Psychiatric Consult - Data Date of interview: 03/01/19 Admission source: Self-referred Identifying data: Mr Marrero is a 53 years old single Black male, father of 2 children, unemployed receiving SSI, domiciled seeking detox treatment for alcohol and cocaine Substance Abuse History: Reports history of alcohol and cocaine use. Refer to addiction counselor's summary for fourther information Medical History: Significant for hypertension. Smokes 10 cigarettes daily Psychiatric History: Patient is known for multiple previous admissions to this facility. His most recent admission was from 12/19/18 to 12/23/18. Historical narrative remains consistent for the most part. He reports that his first psychiatric contact was in 1990 when he was admitted to [facility] for command auditory hallucinations and suicidal ideations to cut himself. He was diagnosed with Bipolar Disorder and started on psychotropic medications. Reports multiple subsequent psychiatric hospitalizations at various facilities including [facility], [facility], [facility], [facility], [facility], [facility] in [place], [place] and most recently a few days ago at [facility]. He said that he was discharged on Seroquel 200 mg/hs. He acknowledges noncompliance to outpatient psychiatric treatment. During his most recent admission to this facility, he saw principal technical writer on 12/20/18 and he was continued on Seroquel 200 mg/hs. Told principal technical writer that he used his month supply after discharge till he ran out. Reports past trials of Risperdal, Abilify, Haldol and Seroquel. Reports previous suicidal attempts by self mutilation by cutting and hanging while incarcerated. At present, denies experiencing psychotic, manic or depressive symptoms, S/H ideations. However, reports sleeping poorly. Requests to be ordered Seroquel 100 mg/hs Physical/Sexual Abuse/Trauma History: denies history of physical or sexual abuse as well as DV relationship. No service. Additional Comment: Reports history of multiple previous arrests including 5 felony convictions. Denies being on parole/probation at present Mental Status Exam - Mental Status Exam Alert and Oriented to: Time, Place, Person Cognitive Function: Fair Patient Appearance: Disheveled Mood: Hopeful, Euthymic Patient Behavior: Cooperative Speech Pattern: Clear Voice Loudness: Normal Thought Process: Intact, Goal Oriented Thought Disorder: Not Present Hallucinations: Denies Suicidal Ideation: Denies Homicidal Ideation: Denies Insight/Judgement: Poor Sleep: Poorly Appetite: Good Muscle strength/Tone: Normal Gait/Station: Normal Psychiatric Findings - Problem List ([place] 1, 2,3) (1) Schizoaffective disorder Current Visit: No Status: Ruled-out (2) Bipolar I disorder, most recent episode depressed Current Visit: Yes Status: Ruled-out (3) Substance-induced sleep disorder Current Visit: Yes Status: Acute (4) Alcohol dependence with uncomplicated withdrawal Current Visit: Yes Status: Acute (5) Cocaine dependence, uncomplicated Current Visit: Yes Status: Acute (6) Nicotine dependence Current Visit: Yes Status: Chronic Qualifiers: Nicotine product type: cigarettes Substance use status: uncomplicated Qualified Code(s): F17.210 - Nicotine dependence, cigarettes, uncomplicated Comment: . (7) HTN (hypertension) Current Visit: Yes Status: Chronic Qualifiers: Hypertension type: essential hypertension Qualified Code(s): I10 - Essential (primary) hypertension - Initial Treatment Plan Initial Treatment Plan: 1) Start Seroquel 100 mg po HS. 2) Continue inpatient detoxification
[2019-03-01] MEDS: VITAMINS A AND D TOPICAL OINTMENT 60 GM TUBE TP SCH (18:23)
[2019-03-01] MEDS: THIAMINE HCL 100 MG TABLET (FP) PO SCH (21:55)
[2019-03-01] MEDS: QUEtiapine FUMARATE 100 MG TABLET (FP) PO SCH (21:55)
[2019-03-01] MEDS: TOLNAFTATE 1% CREAM 15 GM TUBE TP SCH (21:55)
[2019-03-02] MEDS: VITAMINS A AND D TOPICAL OINTMENT 60 GM TUBE TP SCH ×4 (00:23→20:39)
[2019-03-02] MEDS: chlordiazePOXIDE 5 MG CAPSULE PO SCH ×3 (06:41→22:14)
[2019-03-02] MEDS: NICOTINE 14 MG/24 HOURS TOPICAL PATCH TD SCH (10:32)
[2019-03-02] MEDS: PRENATAL VITAMINS W/ FOLIC ACID TABLET (FP) PO SCH (10:32)
[2019-03-02] MEDS: amLODIPine BESYLATE 10 MG TABLET (FP) PO SCH (10:32)
[2019-03-02] MEDS: TOLNAFTATE 1% CREAM 15 GM TUBE TP SCH ×2 (10:32→22:14)
--- NOTE | 2019-03-02 12:16 | PN ---
S CIWA - CIWA Score Nausea/Vomitin-No Nausea/No Vomiting Muscle Tremors: 3 Anxiety: 2 Agitation: 2 Paroxysmal Sweats: 2 Orientation: 0-Oriented Tacttile Disturbances: 0-None Auditory Disturbances: 0-None Visual Disturbances: 0-None Headache: 0-None Present CIWA-Ar Total Score: 9 BHS Progress Note (SOAP) Subjective: sweats body aches interrupted sleep agitation my feet getting better; less swelling Objective: 03/02/19 12:15 Vital Signs Temperature 98.2 F 03/02/19 05:00 Pulse Rate 60 03/02/19 05:00 Respiratory Rate 18 03/02/19 05:00 Blood Pressure 124/74 03/02/19 05:00 O2 Sat by Pulse Oximetry (%) Laboratory Tests 03/01/19 03/01/19 03/01/19 08:00 08:00 08:00 WBC 2.9 L RBC 4.08 Hgb 13.7 Hct 39.4 MCV 96.7 H MCH 33.6 MCHC 34.8 RDW 13.2 Plt Count 150 D MPV 8.9 Sodium 141 Potassium 3.8 Chloride 106 Carbon Dioxide 32 Anion Gap 4 L BUN 14.5 Creatinine 1.4 H Est GFR (CKD-EPI)AfAm 66.48 Est GFR (CKD-EPI)NonAf 57.36 Random Glucose 109 H Calcium 8.6 Total Bilirubin 0.9 AST 26 ALT 20 Alkaline Phosphatase 62 Total Protein 6.9 Albumin 3.5 RPR Titer Nonreactive aaox3 lying in bed no acute distress Assessment: 03/02/19 12:15 withdrawals Plan: continue detox increase fluids
[2019-03-02] MEDS: QUEtiapine FUMARATE 100 MG TABLET (FP) PO SCH (22:14)
[2019-03-02] MEDS: MELATONIN 5 MG TABLETS PO PRN (22:15)
[2019-03-02] MEDS: THIAMINE HCL 100 MG TABLET (FP) PO SCH (22:16)
[2019-03-03] MEDS ORDERED: chlordiazePOXIDE HCL 10 MG CAPSULE PO PRN
[2019-03-03] MEDS: VITAMINS A AND D TOPICAL OINTMENT 60 GM TUBE TP SCH ×3 (01:16→13:20)
[2019-03-03] MEDS: chlordiazePOXIDE HCL 10 MG CAPSULE PO SCH ×2 (07:59→13:18)
[2019-03-03] MEDS: NICOTINE 14 MG/24 HOURS TOPICAL PATCH TD SCH (10:35)
[2019-03-03] MEDS: TOLNAFTATE 1% CREAM 15 GM TUBE TP SCH (10:36)
[2019-03-03] MEDS: PRENATAL VITAMINS W/ FOLIC ACID TABLET (FP) PO SCH (10:36)
[2019-03-03] MEDS: amLODIPine BESYLATE 10 MG TABLET (FP) PO SCH (10:36)
--- NOTE | 2019-03-03 11:35 | PN ---
S CIWA - CIWA Score Nausea/Vomitin-No Nausea/No Vomiting Muscle Tremors: 2 Anxiety: 1-Mildly Anxious Agitation: 1-Slight > Activity Paroxysmal Sweats: No Perspiration Orientation: 0-Oriented Tacttile Disturbances: 0-None Auditory Disturbances: 0-None Visual Disturbances: 0-None Headache: 0-None Present CIWA-Ar Total Score: 4 BHS Progress Note (SOAP) Subjective: feeling better little anxiety Objective: 03/03/19 11:35 Vital Signs Temperature 97.9 F 03/03/19 06:00 Pulse Rate 60 03/03/19 06:00 Respiratory Rate 20 03/03/19 06:00 Blood Pressure 111/57 L 03/03/19 06:00 O2 Sat by Pulse Oximetry (%) aaox3 ambulating no acute distress Assessment: 03/03/19 11:35 mild withdrawals Plan: continue detox d/c in am
[2019-03-03 12:21] VITALS: BP 115/73; PULSE 55; TEMP 97.7
[2019-03-04] MEDS ORDERED: chlordiazePOXIDE HCL 10 MG CAPSULE PO ONE (05:00)
== END 2019-03-03 16:43 | disposition left against medical advice (07) | DRG 770 ==
LOC: YASAS 11:58 → Y6N 14:37
PROVIDERS: ADMIT Allergy & Immunology; ATTEND Allergy & Immunology
PROC: HZ2ZZZZ Detoxification Services for Substance Abuse Treatment (ICD-10-PCS; principal; 2019-02-28)
DX: F10.230 Alcohol dependence with withdrawal, uncomplicated (principal); F14.20 Cocaine dependence, uncomplicated; F17.210 Nicotine dependence, cigarettes, uncomplicated; F31.30 Bipolar disorder, current episode depressed, mild or moderate severity, unspecified; F19.282 Other psychoactive substance dependence with psychoactive substance-induced sleep disorder; N39.0 Urinary tract infection, site not specified; I10 Essential (primary) hypertension; Z91.018 Allergy to other foods
CPT/HCPCS: 36415; 80053; 85027; 86593

== ENCOUNTER 2020-10-19 15:11 | Inpatient (IN) | payer OTHER ==
[2020-10-19 17:38] VITALS: BMI 29.8
[2020-10-19] MEDS ORDERED: ACETAMINOPHEN 325 MG TABLET (FP) PO PRN ×2 (17:45)
[2020-10-19] MEDS ORDERED: NICOTINE 10 MG CARTRIDGE (INHALER) IH PRN (17:45)
[2020-10-19] MEDS ORDERED: MAG HYDROX/AL HYDROX/SIMETH 30 ML UNIT-DOSE CUP PO PRN (17:45)
[2020-10-19] MEDS ORDERED: IBUPROFEN 400 MG TABLET (FP) PO PRN (17:45)
[2020-10-19] MEDS ORDERED: BISMUTH SUBSALICYLATE 524 MG/30 ML PO PRN (17:45)
[2020-10-19] MEDS ORDERED: MAGNESIUM HYDROX 2400MG/30ML ORAL SUSPENSION 30 ML CUP PO PRN (17:45)
[2020-10-19] MEDS ORDERED: MAGNESIUM CITRATE 300 ML BOTTLE PO PRN (17:45)
[2020-10-19] MEDS ORDERED: ONDANSETRON *ODT* 4 MG TABLET SL PRN (17:45)
[2020-10-19] MEDS ORDERED: METHOCARBAMOL 500 MG TABLET PO PRN (17:45)
[2020-10-19] MEDS ORDERED: MENTHOL/PHENOL 1 EACH UD MM PRN (17:45)
[2020-10-19] MEDS ORDERED: diazePAM 5 MG TABLET PO PRN (17:45)
[2020-10-19] MEDS: THIAMINE HCL 100 MG TABLET (FP) PO SCH (23:16)
[2020-10-19] MEDS: MELATONIN 5 MG TABLETS PO SCH (23:16)
[2020-10-19] MEDS: hydrOXYzine PAMOATE 25 MG CAPSULE (FP) PO PRN (23:16)
[2020-10-19] MEDS: diazePAM 5 MG TABLET PO SCH (23:17)
[2020-10-20] MEDS: diazePAM 5 MG TABLET PO SCH ×4 (06:26→22:40)
[2020-10-20 10:22] LABS: CALCIUM 8.8 mg/dL (8.5-10.1)
[2020-10-20 10:23] LABS: ALBUMIN 3.4 g/dl (3.4-5.0); BLOOD UREA NITROGEN 12.2 mg/dL (7-18)
[2020-10-20 10:26] LABS: BILIRUBIN,TOTAL 0.4 mg/dL (0.2-1); CREATININE 1.1 mg/dL (0.55-1.3)
[2020-10-20 10:27] LABS: HEMATOCRIT 40.2 % (35.4-49); HEMOGLOBIN 14.4 GM/dL (11.7-16.9); MCH 34.1 pg (25.7-33.7); MCHC 35.9 g/dl (32.0-35.9); PLATELET COUNT 250 10^3/uL (134-434); RBC 4.23 M/mm3 (4.00-5.60); RDW 12.9 % (11.9-15.9); WHITE BLOOD COUNT 4.3 K/mm3 (4.0-10.0)
[2020-10-20 10:28] LABS: TOT PROT 6.9 g/dl (6.4-8.2)
[2020-10-20] MEDS: PRENATAL VITAMINS W/ FOLIC ACID TABLET (FP) PO SCH (10:36)
[2020-10-20] MEDS: amLODIPine BESYLATE 5 MG TABLET (FP) PO SCH (10:36)
[2020-10-20] MEDS: TOLNAFTATE 1% CREAM 15 GM TUBE TP SCH ×2 (10:37→22:41)
[2020-10-20] MEDS: VITAMINS A AND D TOPICAL OINTMENT 60 GM TUBE TP SCH ×2 (17:28→23:49)
[2020-10-20] MEDS: MELATONIN 5 MG TABLETS PO SCH (22:40)
[2020-10-20] MEDS: THIAMINE HCL 100 MG TABLET (FP) PO SCH (22:40)
[2020-10-21] MEDS: diazePAM 5 MG TABLET PO SCH ×2 (06:07→13:40)
[2020-10-21] MEDS: VITAMINS A AND D TOPICAL OINTMENT 60 GM TUBE TP SCH ×2 (06:08→12:41)
[2020-10-21] MEDS: PRENATAL VITAMINS W/ FOLIC ACID TABLET (FP) PO SCH (10:53)
[2020-10-21] MEDS: TOLNAFTATE 1% CREAM 15 GM TUBE TP SCH (10:53)
[2020-10-21] MEDS: amLODIPine BESYLATE 5 MG TABLET (FP) PO SCH (10:53)
[2020-10-21] MEDS ORDERED: cloNIDine HCL 0.1 MG TABLET PO PRN (17:58)
[2020-10-22] MEDS: MELATONIN 5 MG TABLETS PO SCH ×2 (00:16→23:35)
[2020-10-22] MEDS: VITAMINS A AND D TOPICAL OINTMENT 60 GM TUBE TP SCH ×6 (00:16→23:35)
[2020-10-22] MEDS: TOLNAFTATE 1% CREAM 15 GM TUBE TP SCH ×3 (00:17→23:35)
[2020-10-22] MEDS: THIAMINE HCL 100 MG TABLET (FP) PO SCH ×2 (00:17→23:35)
[2020-10-22] MEDS: diazePAM 5 MG TABLET PO SCH ×3 (00:17→18:16)
[2020-10-22] MEDS: hydrOXYzine PAMOATE 25 MG CAPSULE (FP) PO PRN (01:21)
[2020-10-22] MEDS: amLODIPine BESYLATE 10 MG TABLET (FP) PO SCH (11:31)
[2020-10-22] MEDS: PRENATAL VITAMINS W/ FOLIC ACID TABLET (FP) PO SCH (11:31)
[2020-10-22] MEDS ORDERED: AMMONIUM LACTATE 12% LOTION 225 GM BOTTLE TP PRN (20:06)
[2020-10-22] MEDS ORDERED: COLLOIDAL OATMEAL 1 BAR EACH TP PRN (20:06)
[2020-10-23] MEDS ORDERED: diazePAM 5 MG TABLET PO ONE (06:00)
[2020-10-23] MEDS: VITAMINS A AND D TOPICAL OINTMENT 60 GM TUBE TP SCH ×3 (06:06→17:48)
[2020-10-23] MEDS: amLODIPine BESYLATE 10 MG TABLET (FP) PO SCH (12:00)
[2020-10-23] MEDS: TOLNAFTATE 1% CREAM 15 GM TUBE TP SCH ×2 (12:00→23:05)
[2020-10-23] MEDS: PRENATAL VITAMINS W/ FOLIC ACID TABLET (FP) PO SCH (12:00)
[2020-10-23 13:02] VITALS: BP 143/86; PULSE 65; TEMP 97.1
[2020-10-23] MEDS: THIAMINE HCL 100 MG TABLET (FP) PO SCH (23:05)
[2020-10-23] MEDS: MELATONIN 5 MG TABLETS PO SCH (23:05)
[2020-10-24] MEDS: VITAMINS A AND D TOPICAL OINTMENT 60 GM TUBE TP SCH ×2 (01:08→06:57)
== END 2020-10-24 06:55 | disposition home or self-care (01) | DRG 774 ==
LOC: YASAS 15:11 → Y3N 21:53
PROVIDERS: ADMIT Allergy & Immunology; ATTEND Allergy & Immunology
PROC: HZ2ZZZZ Detoxification Services for Substance Abuse Treatment (ICD-10-PCS; principal; 2020-10-19)
DX: F10.230 Alcohol dependence with withdrawal, uncomplicated (principal); F14.20 Cocaine dependence, uncomplicated; F17.210 Nicotine dependence, cigarettes, uncomplicated; F19.280 Other psychoactive substance dependence with psychoactive substance-induced anxiety disorder; F19.282 Other psychoactive substance dependence with psychoactive substance-induced sleep disorder; F19.24 Other psychoactive substance dependence with psychoactive substance-induced mood disorder; F31.9 Bipolar disorder, unspecified; G47.00 Insomnia, unspecified; I10 Essential (primary) hypertension; L85.3 Xerosis cutis; R45.89 Other symptoms and signs involving emotional state
CPT/HCPCS: 36415; 80053; 85027; 86780; 93005; 93010; C9803; J0735; U0003; U0005

== ENCOUNTER 2020-12-19 13:28 | Inpatient (IN) | payer OTHER ==
[2020-12-19] MEDS ORDERED: ACETAMINOPHEN 325 MG TABLET (FP) PO PRN ×2 (13:47)
[2020-12-19] MEDS ORDERED: MAGNESIUM HYDROX 2400MG/30ML ORAL SUSPENSION 30 ML CUP PO PRN (13:47)
[2020-12-19] MEDS ORDERED: METHOCARBAMOL 500 MG TABLET PO PRN (13:47)
[2020-12-19] MEDS ORDERED: NICOTINE 10 MG CARTRIDGE (INHALER) IH PRN (13:47)
[2020-12-19] MEDS ORDERED: BISMUTH SUBSALICYLATE 262 MG/15 ML BTL PO PRN (13:47)
[2020-12-19] MEDS ORDERED: IBUPROFEN 400 MG TABLET (FP) PO PRN (13:47)
[2020-12-19] MEDS ORDERED: MENTHOL/PHENOL 1 EACH UD MM PRN (13:47)
[2020-12-19] MEDS ORDERED: MAG HYDROX/AL HYDROX/SIMETH 30 ML UNIT-DOSE CUP PO PRN (13:47)
[2020-12-19] MEDS ORDERED: ONDANSETRON *ODT* 4 MG TABLET SL PRN (13:47)
[2020-12-19] MEDS ORDERED: MAGNESIUM CITRATE 300 ML BOTTLE PO PRN (13:47)
[2020-12-19 13:58] VITALS: BMI 30.1
[2020-12-19 15:53] LABS: HEMATOCRIT 42.8 % (35.4-49); MCH 33.1 pg (25.7-33.7); MCHC 35.1 g/dl (32.0-35.9); MEAN CELL VOLUME 94.2 fl (80-96); MEAN PLT VOLUME 8.2 fl (7.5-11.1); PLATELET COUNT 272 10^3/uL (134-434); RBC 4.54 M/mm3 (4.00-5.60); RDW 12.9 % (11.9-15.9); WHITE BLOOD COUNT 4.7 K/mm3 (4.0-10.0)
[2020-12-19 15:54] LABS: CALCIUM 9.2 mg/dL (8.5-10.1)
[2020-12-19 15:55] LABS: ALBUMIN 3.5 g/dl (3.4-5.0); BLOOD UREA NITROGEN 13.7 mg/dL (7-18)
[2020-12-19 15:58] LABS: CREATININE 1.4 mg/dL (0.55-1.3)
[2020-12-19 15:59] LABS: BILIRUBIN,TOTAL 0.6 mg/dL (0.2-1)
[2020-12-19 16:00] LABS: TOT PROT 7.2 g/dl (6.4-8.2)
[2020-12-19] MEDS: NICOTINE 14 MG/24 HOURS TOPICAL PATCH TD SCH (16:07)
[2020-12-19] MEDS: hydrOXYzine PAMOATE 25 MG CAPSULE (FP) PO SCH ×3 (16:07→22:28)
[2020-12-19] MEDS: PRENATAL VITAMINS W/ FOLIC ACID TABLET (FP) PO SCH (16:07)
[2020-12-19] MEDS: THIAMINE HCL 100 MG TABLET (FP) PO SCH (22:28)
[2020-12-19] MEDS: MELATONIN 5 MG TABLETS PO SCH (22:28)
[2020-12-20] MEDS: hydrOXYzine PAMOATE 25 MG CAPSULE (FP) PO SCH ×5 (05:48→22:22)
[2020-12-20] MEDS: NICOTINE 14 MG/24 HOURS TOPICAL PATCH TD SCH (10:27)
[2020-12-20] MEDS: PRENATAL VITAMINS W/ FOLIC ACID TABLET (FP) PO SCH (10:27)
[2020-12-20] MEDS ORDERED: amLODIPine BESYLATE 10 MG TABLET (FP) PO SCH (16:00)
[2020-12-20] MEDS: MELATONIN 5 MG TABLETS PO SCH (22:22)
[2020-12-20] MEDS: THIAMINE HCL 100 MG TABLET (FP) PO SCH (22:22)
[2020-12-21] MEDS: hydrOXYzine PAMOATE 25 MG CAPSULE (FP) PO SCH (05:52)
[2020-12-21 06:16] VITALS: BP 145/79; PULSE 57; TEMP 97.8
== END 2020-12-21 09:03 | disposition home or self-care (01) | DRG 774 ==
LOC: YASAS 13:28 → Y6N 15:04 → UNDOADMIN 15:04 → Y6N 12-20 15:43 → UNDODISIN 12-21 09:03
PROVIDERS: ADMIT Allergy & Immunology; ATTEND Allergy & Immunology
PROC: HZ2ZZZZ Detoxification Services for Substance Abuse Treatment (ICD-10-PCS; principal; 2020-12-19)
DX: F10.230 Alcohol dependence with withdrawal, uncomplicated (principal); F14.20 Cocaine dependence, uncomplicated; F17.210 Nicotine dependence, cigarettes, uncomplicated; I10 Essential (primary) hypertension; Z86.59 Personal history of other mental and behavioral disorders
CPT/HCPCS: 36415; 80053; 85027; 86780; C9803; U0003; U0005

== ENCOUNTER 2021-02-02 14:46 | Inpatient (IN) | payer OTHER ==
[2021-02-02] MEDS ORDERED: MAGNESIUM HYDROX 2400MG/30ML ORAL SUSPENSION 30 ML CUP PO PRN (16:17)
[2021-02-02] MEDS ORDERED: ONDANSETRON *ODT* 4 MG TABLET SL PRN (16:17)
[2021-02-02] MEDS ORDERED: MAGNESIUM CITRATE 300 ML BOTTLE PO PRN (16:17)
[2021-02-02] MEDS ORDERED: IBUPROFEN 400 MG TABLET (FP) PO PRN (16:17)
[2021-02-02] MEDS ORDERED: MENTHOL/PHENOL 1 EACH UD MM PRN (16:17)
[2021-02-02] MEDS ORDERED: METHOCARBAMOL 500 MG TABLET PO PRN (16:17)
[2021-02-02] MEDS ORDERED: BISMUTH SUBSALICYLATE 524 MG/30 ML PO PRN (16:17)
[2021-02-02] MEDS ORDERED: MAG HYDROX/AL HYDROX/SIMETH 30 ML UNIT-DOSE CUP PO PRN (16:17)
[2021-02-02] MEDS ORDERED: NICOTINE 10 MG CARTRIDGE (INHALER) IH PRN (16:17)
[2021-02-02] MEDS ORDERED: ACETAMINOPHEN 325 MG TABLET (FP) PO PRN ×2 (16:17)
[2021-02-02 16:29] VITALS: BMI 30.5
[2021-02-02] MEDS: hydrOXYzine PAMOATE 25 MG CAPSULE (FP) PO SCH ×2 (18:06→22:14)
[2021-02-02] MEDS ORDERED: MELATONIN 5 MG TABLETS PO SCH (22:00)
[2021-02-02] MEDS: THIAMINE HCL 100 MG TABLET (FP) PO SCH (22:14)
[2021-02-03] MEDS: hydrOXYzine PAMOATE 25 MG CAPSULE (FP) PO SCH ×6 (06:48→23:53)
[2021-02-03] MEDS: PRENATAL VITAMINS W/ FOLIC ACID TABLET (FP) PO SCH (10:54)
[2021-02-03 11:16] LABS: HEMATOCRIT 40.2 % (35.4-49); HEMOGLOBIN 14.3 GM/dL (11.7-16.9); MCHC 35.6 g/dl (32.0-35.9); MEAN CELL VOLUME 95.6 fl (80-96); MEAN PLT VOLUME 8.9 fl (7.5-11.1); PLATELET COUNT 195 10^3/uL (134-434); RBC 4.21 M/mm3 (4.00-5.60); RDW 13.4 % (11.9-15.9); WHITE BLOOD COUNT 3.2 K/mm3 (4.0-10.0)
[2021-02-03 11:24] LABS: CREATININE 1.1 mg/dL (0.55-1.3)
[2021-02-03 11:26] LABS: BILIRUBIN,TOTAL 0.6 mg/dL (0.2-1); TOT PROT 6.3 g/dl (6.4-8.2)
[2021-02-03 11:27] LABS: CALCIUM 8.4 mg/dL (8.5-10.1)
[2021-02-03 11:28] LABS: ALBUMIN 2.9 g/dl (3.4-5.0); BLOOD UREA NITROGEN 14.3 mg/dL (7-18)
[2021-02-03] MEDS: QUEtiapine FUMARATE 50 MG TABLET PO SCH ×2 (23:06→23:51)
[2021-02-03] MEDS: THIAMINE HCL 100 MG TABLET (FP) PO SCH (23:06)
[2021-02-04] MEDS: hydrOXYzine PAMOATE 25 MG CAPSULE (FP) PO SCH ×5 (07:15→22:02)
[2021-02-04] MEDS: PRENATAL VITAMINS W/ FOLIC ACID TABLET (FP) PO SCH (11:04)
[2021-02-04] MEDS ORDERED: amLODIPine BESYLATE 5 MG TABLET (FP) PO ONE (13:00)
[2021-02-04] MEDS: QUEtiapine FUMARATE 50 MG TABLET PO SCH (22:03)
[2021-02-04] MEDS: THIAMINE HCL 100 MG TABLET (FP) PO SCH (22:03)
[2021-02-05] MEDS: hydrOXYzine PAMOATE 25 MG CAPSULE (FP) PO SCH ×4 (06:13→17:53)
[2021-02-05] MEDS: PRENATAL VITAMINS W/ FOLIC ACID TABLET (FP) PO SCH (11:20)
[2021-02-05 13:07] VITALS: BP 120/69; PULSE 44; TEMP 97.3
== END 2021-02-05 20:02 | disposition other institution (70) | DRG 774 ==
LOC: YASAS 14:46 → Y3N 16:49
PROVIDERS: ADMIT Allergy & Immunology; ATTEND Allergy & Immunology
PROC: HZ2ZZZZ Detoxification Services for Substance Abuse Treatment (ICD-10-PCS; principal; 2021-02-02)
DX: F10.230 Alcohol dependence with withdrawal, uncomplicated (principal); F14.10 Cocaine abuse, uncomplicated; F17.210 Nicotine dependence, cigarettes, uncomplicated; F19.24 Other psychoactive substance dependence with psychoactive substance-induced mood disorder; F19.282 Other psychoactive substance dependence with psychoactive substance-induced sleep disorder; F31.9 Bipolar disorder, unspecified; I10 Essential (primary) hypertension; G47.00 Insomnia, unspecified; E46 Unspecified protein-calorie malnutrition; Z68.30 Body mass index [BMI] 30.0-30.9, adult; Z91.51 Personal history of suicidal behavior; Z56.0 Unemployment, unspecified
CPT/HCPCS: 36415; 80053; 85027; 86780; 87811; C9803; U0003; U0005

== ENCOUNTER 2021-02-05 20:02 | Inpatient (IN) | payer OTHER ==
[2021-02-05] MEDS ORDERED: P-EPHED 60MG/TRIPROLIDI 2.5MG TABLET PO PRN (22:04)
[2021-02-05] MEDS ORDERED: IBUPROFEN 400 MG TABLET (FP) PO PRN (22:04)
[2021-02-05] MEDS ORDERED: LOPERAMIDE HCL 2 MG CAPSULE PO PRN (22:04)
[2021-02-05] MEDS ORDERED: ACETAMINOPHEN 325 MG TABLET (FP) PO PRN (22:04)
[2021-02-05] MEDS ORDERED: MAGNESIUM CITRATE 300 ML BOTTLE PO PRN (22:04)
[2021-02-05] MEDS ORDERED: MENTHOL/PHENOL 1 EACH UD MM PRN (22:04)
[2021-02-05] MEDS ORDERED: MAGNESIUM HYDROX 2400MG/30ML ORAL SUSPENSION 30 ML CUP PO PRN (22:04)
[2021-02-05] MEDS ORDERED: guaiFENesin 200 MG/10 ML 10 ML UNIT-DOSE CUPS PO PRN (22:04)
[2021-02-05] MEDS ORDERED: MAG HYDROX/AL HYDROX/SIMETH 30 ML UNIT-DOSE CUP PO PRN (22:04)
[2021-02-05] MEDS: MELATONIN 5 MG TABLETS PO SCH (22:22)
[2021-02-06] MEDS: PRENATAL VITAMINS W/ FOLIC ACID TABLET (FP) PO SCH (09:48)
[2021-02-06] MEDS: amLODIPine BESYLATE 5 MG TABLET (FP) PO SCH (09:48)
[2021-02-06] MEDS ORDERED: FLU VACC QS2021-22(6MOS UP)/PF 60 MCG/0.5 ML SYRINGE IM ONE (13:00)
[2021-02-06 14:17] LABS: HIV INTERPRETATION NEGATIVE (NEGATIVE)
[2021-02-06] MEDS: THIAMINE HCL 100 MG TABLET (FP) PO SCH (21:54)
[2021-02-06] MEDS: MELATONIN 5 MG TABLETS PO SCH (21:54)
[2021-02-07] MEDS: PRENATAL VITAMINS W/ FOLIC ACID TABLET (FP) PO SCH (09:44)
[2021-02-07] MEDS: amLODIPine BESYLATE 5 MG TABLET (FP) PO SCH (09:44)
[2021-02-07] MEDS: THIAMINE HCL 100 MG TABLET (FP) PO SCH (21:43)
[2021-02-07] MEDS: MELATONIN 5 MG TABLETS PO SCH (21:43)
[2021-02-07] MEDS ORDERED: PT OWN MED DRAWER 7, Y5N ONE (22:19)
[2021-02-08] MEDS: amLODIPine BESYLATE 5 MG TABLET (FP) PO SCH (09:37)
[2021-02-08] MEDS: PRENATAL VITAMINS W/ FOLIC ACID TABLET (FP) PO SCH (09:37)
[2021-02-08] MEDS: THIAMINE HCL 100 MG TABLET (FP) PO SCH (21:23)
[2021-02-08] MEDS: MELATONIN 5 MG TABLETS PO SCH (21:23)
[2021-02-08] MEDS: QUEtiapine FUMARATE 100 MG TABLET (FP) PO SCH (21:23)
[2021-02-09] MEDS: amLODIPine BESYLATE 5 MG TABLET (FP) PO SCH (11:05)
[2021-02-09] MEDS: PRENATAL VITAMINS W/ FOLIC ACID TABLET (FP) PO SCH (11:05)
[2021-02-09] MEDS ORDERED: PT OWN MED DRAWER 7, Y5N ONE (11:13)
[2021-02-09] MEDS: QUEtiapine FUMARATE 100 MG TABLET (FP) PO SCH (21:20)
[2021-02-09] MEDS: THIAMINE HCL 100 MG TABLET (FP) PO SCH (21:20)
[2021-02-10] MEDS: PRENATAL VITAMINS W/ FOLIC ACID TABLET (FP) PO SCH (10:19)
[2021-02-10] MEDS: amLODIPine BESYLATE 5 MG TABLET (FP) PO SCH (10:20)
[2021-02-10] MEDS: THIAMINE HCL 100 MG TABLET (FP) PO SCH (21:13)
[2021-02-10] MEDS: QUEtiapine FUMARATE 100 MG TABLET (FP) PO SCH (21:13)
[2021-02-11] MEDS: PRENATAL VITAMINS W/ FOLIC ACID TABLET (FP) PO SCH (11:08)
[2021-02-11] MEDS: amLODIPine BESYLATE 5 MG TABLET (FP) PO SCH (11:08)
[2021-02-11] MEDS: QUEtiapine FUMARATE 100 MG TABLET (FP) PO SCH (21:17)
[2021-02-11] MEDS: THIAMINE HCL 100 MG TABLET (FP) PO SCH (21:17)
[2021-02-12] MEDS: amLODIPine BESYLATE 5 MG TABLET (FP) PO SCH (10:20)
[2021-02-12] MEDS: PRENATAL VITAMINS W/ FOLIC ACID TABLET (FP) PO SCH (12:20)
[2021-02-12] MEDS: THIAMINE HCL 100 MG TABLET (FP) PO SCH (21:36)
[2021-02-12] MEDS: QUEtiapine FUMARATE 100 MG TABLET (FP) PO SCH (21:36)
[2021-02-13] MEDS: amLODIPine BESYLATE 5 MG TABLET (FP) PO SCH (09:39)
[2021-02-13] MEDS: PRENATAL VITAMINS W/ FOLIC ACID TABLET (FP) PO SCH (09:40)
[2021-02-13] MEDS: QUEtiapine FUMARATE 100 MG TABLET (FP) PO SCH (21:41)
[2021-02-13] MEDS: THIAMINE HCL 100 MG TABLET (FP) PO SCH (21:41)
[2021-02-14] MEDS: PRENATAL VITAMINS W/ FOLIC ACID TABLET (FP) PO SCH (10:47)
[2021-02-14] MEDS: amLODIPine BESYLATE 5 MG TABLET (FP) PO SCH (10:47)
[2021-02-14] MEDS: THIAMINE HCL 100 MG TABLET (FP) PO SCH (21:02)
[2021-02-14] MEDS: QUEtiapine FUMARATE 100 MG TABLET (FP) PO SCH (21:02)
[2021-02-15 06:39] VITALS: TEMP 97.1
[2021-02-15 08:27] VITALS: BP 157/95; PULSE 58
[2021-02-15] MEDS: PRENATAL VITAMINS W/ FOLIC ACID TABLET (FP) PO SCH (09:15)
[2021-02-15] MEDS: amLODIPine BESYLATE 5 MG TABLET (FP) PO SCH (09:15)
[2021-02-15] MEDS ORDERED: PT OWN MED DRAWER 7, Y5N ONE (09:46)
== END 2021-02-15 09:53 | disposition home or self-care (01) | DRG 772 ==
LOC: YASAS 20:02 → Y3E 20:04
PROVIDERS: ADMIT Allergy & Immunology; ATTEND Allergy & Immunology
PROC: HZ42ZZZ Group Counseling for Substance Abuse Treatment, Cognitive-Behavioral (ICD-10-PCS; principal; 2021-02-05)
DX: F10.20 Alcohol dependence, uncomplicated (principal); F14.20 Cocaine dependence, uncomplicated; F17.210 Nicotine dependence, cigarettes, uncomplicated; F19.282 Other psychoactive substance dependence with psychoactive substance-induced sleep disorder; F19.24 Other psychoactive substance dependence with psychoactive substance-induced mood disorder; F31.9 Bipolar disorder, unspecified; I10 Essential (primary) hypertension; G47.00 Insomnia, unspecified; Z56.0 Unemployment, unspecified; Z91.018 Allergy to other foods
CPT/HCPCS: 36415; 87389; 90686; G0008

== ENCOUNTER 2021-05-09 10:04 | Inpatient (IN) | payer OTHER ==
[2021-05-09] MEDS ORDERED: IBUPROFEN 400 MG TABLET (FP) PO PRN (10:31)
[2021-05-09] MEDS ORDERED: MENTHOL/PHENOL 1 EACH UD MM PRN (10:31)
[2021-05-09] MEDS ORDERED: BISMUTH SUBSALICYLATE 262 MG/15 ML BTL PO PRN (10:31)
[2021-05-09] MEDS ORDERED: MAGNESIUM CITRATE 300 ML BOTTLE PO PRN (10:31)
[2021-05-09] MEDS ORDERED: chlordiazePOXIDE HCL 25 MG CAPSULE PO PRN (10:31)
[2021-05-09] MEDS ORDERED: MAG HYDROX/AL HYDROX/SIMETH 30 ML UNIT-DOSE CUP PO PRN (10:31)
[2021-05-09] MEDS ORDERED: MAGNESIUM HYDROX 2400MG/30ML ORAL SUSPENSION 30 ML CUP PO PRN (10:31)
[2021-05-09] MEDS ORDERED: ONDANSETRON *ODT* 4 MG TABLET SL PRN (10:31)
[2021-05-09] MEDS ORDERED: LOPERAMIDE HCL 2 MG CAPSULE PO PRN (10:31)
[2021-05-09] MEDS ORDERED: ACETAMINOPHEN 325 MG TABLET (FP) PO PRN ×2 (10:31)
[2021-05-09] MEDS ORDERED: NICOTINE 10 MG CARTRIDGE (INHALER) IH PRN (10:31)
[2021-05-09] MEDS ORDERED: METHOCARBAMOL 500 MG TABLET PO PRN (10:31)
[2021-05-09 11:08] VITALS: BMI 26.6
[2021-05-09] MEDS: PRENATAL VITAMINS W/ FOLIC ACID TABLET (FP) PO SCH (12:08)
[2021-05-09] MEDS: NICOTINE 14 MG/24 HOURS TOPICAL PATCH TD SCH (12:11)
[2021-05-09] MEDS: hydrOXYzine PAMOATE 25 MG CAPSULE (FP) PO SCH ×3 (12:59→23:40)
[2021-05-09] MEDS: chlordiazePOXIDE HCL 25 MG CAPSULE PO SCH (17:57)
[2021-05-09 18:07] LABS: HEMATOCRIT 38.5 % (35.4-49); HEMOGLOBIN 13.5 GM/dL (11.7-16.9); MCH 33.5 pg (25.7-33.7); MEAN CELL VOLUME 95.8 fl (80-96); MEAN PLT VOLUME 8.5 fl (7.5-11.1); PLATELET COUNT 202 10^3/uL (134-434); RBC 4.02 M/mm3 (4.00-5.60); RDW 13.1 % (11.9-15.9); WHITE BLOOD COUNT 3.2 K/mm3 (4.0-10.0)
[2021-05-09 18:11] LABS: ALBUMIN 3.3 g/dl (3.4-5.0); BLOOD UREA NITROGEN 11.6 mg/dL (7-18); CALCIUM 8.5 mg/dL (8.5-10.1)
[2021-05-09 18:14] LABS: CREATININE 1.2 mg/dL (0.55-1.3)
[2021-05-09 18:16] LABS: BILIRUBIN,TOTAL 0.6 mg/dL (0.2-1); TOT PROT 6.3 g/dl (6.4-8.2)
[2021-05-09] MEDS ORDERED: MELATONIN 5 MG TABLETS PO SCH (22:00)
[2021-05-09] MEDS: THIAMINE HCL 100 MG TABLET (FP) PO SCH (23:40)
[2021-05-09] MEDS: QUEtiapine FUMARATE 50 MG TABLET PO SCH (23:40)
[2021-05-10] MEDS: chlordiazePOXIDE HCL 25 MG CAPSULE PO SCH ×5 (01:01→23:48)
[2021-05-10] MEDS: hydrOXYzine PAMOATE 25 MG CAPSULE (FP) PO SCH ×5 (06:40→23:48)
[2021-05-10] MEDS: PRENATAL VITAMINS W/ FOLIC ACID TABLET (FP) PO SCH (10:13)
[2021-05-10] MEDS: HYDROCORTISONE 0.5% TOPICAL CREAM 30 GM TUBE TP SCH ×2 (10:13→23:48)
[2021-05-10] MEDS: amLODIPine BESYLATE 5 MG TABLET (FP) PO SCH (10:14)
[2021-05-10] MEDS: NICOTINE 14 MG/24 HOURS TOPICAL PATCH TD SCH (10:14)
[2021-05-10] MEDS: QUEtiapine FUMARATE 50 MG TABLET PO SCH (23:48)
[2021-05-10] MEDS: THIAMINE HCL 100 MG TABLET (FP) PO SCH (23:48)
[2021-05-11] MEDS: HYDROCORTISONE 0.5% TOPICAL CREAM 30 GM TUBE TP SCH ×4 (00:04→23:36)
[2021-05-11] MEDS: chlordiazePOXIDE HCL 25 MG CAPSULE PO SCH ×4 (06:13→23:01)
[2021-05-11] MEDS: hydrOXYzine PAMOATE 25 MG CAPSULE (FP) PO SCH ×5 (06:14→23:01)
[2021-05-11] MEDS ORDERED: SUVOREXANT 10 MG TABLET PO PRN ×2 (09:15→22:00)
[2021-05-11 10:07] LABS: SARS-CoV-2 NAA Not Detected (Not Detected)
[2021-05-11] MEDS: PRENATAL VITAMINS W/ FOLIC ACID TABLET (FP) PO SCH (10:46)
[2021-05-11] MEDS: amLODIPine BESYLATE 5 MG TABLET (FP) PO SCH (10:46)
[2021-05-11] MEDS: NICOTINE 14 MG/24 HOURS TOPICAL PATCH TD SCH (10:49)
[2021-05-11] MEDS: THIAMINE HCL 100 MG TABLET (FP) PO SCH (23:01)
[2021-05-12] MEDS ORDERED: chlordiazePOXIDE HCL 10 MG CAPSULE PO PRN
[2021-05-12] MEDS: hydrOXYzine PAMOATE 25 MG CAPSULE (FP) PO SCH ×5 (05:22→23:24)
[2021-05-12] MEDS: chlordiazePOXIDE HCL 10 MG CAPSULE PO SCH ×4 (05:22→23:24)
[2021-05-12 10:28] VITALS: BP 154/84; PULSE 63; TEMP 97.3
[2021-05-12] MEDS: PRENATAL VITAMINS W/ FOLIC ACID TABLET (FP) PO SCH (10:31)
[2021-05-12] MEDS: amLODIPine BESYLATE 5 MG TABLET (FP) PO SCH (10:33)
[2021-05-12] MEDS: HYDROCORTISONE 0.5% TOPICAL CREAM 30 GM TUBE TP SCH ×2 (10:34→23:24)
[2021-05-12] MEDS: NICOTINE 14 MG/24 HOURS TOPICAL PATCH TD SCH (10:34)
[2021-05-12] MEDS: THIAMINE HCL 100 MG TABLET (FP) PO SCH (23:24)
[2021-05-13] MEDS ORDERED: chlordiazePOXIDE HCL 10 MG CAPSULE PO SCH (05:00)
[2021-05-13] MEDS: hydrOXYzine PAMOATE 25 MG CAPSULE (FP) PO SCH (07:03)
[2021-05-14] MEDS ORDERED: chlordiazePOXIDE HCL 10 MG CAPSULE PO ONE (05:00)
== END 2021-05-13 06:13 | disposition left against medical advice (07) | DRG 770 ==
LOC: YASAS 10:04 → Y3N 10:44
PROVIDERS: ADMIT Allergy & Immunology; ATTEND Allergy & Immunology
PROC: HZ2ZZZZ Detoxification Services for Substance Abuse Treatment (ICD-10-PCS; principal; 2021-05-09)
DX: F10.230 Alcohol dependence with withdrawal, uncomplicated (principal); F14.20 Cocaine dependence, uncomplicated; F17.210 Nicotine dependence, cigarettes, uncomplicated; F31.9 Bipolar disorder, unspecified; F19.282 Other psychoactive substance dependence with psychoactive substance-induced sleep disorder; F19.24 Other psychoactive substance dependence with psychoactive substance-induced mood disorder; G47.00 Insomnia, unspecified; I10 Essential (primary) hypertension; E46 Unspecified protein-calorie malnutrition; Z68.26 Body mass index [BMI] 26.0-26.9, adult; R00.1 Bradycardia, unspecified
CPT/HCPCS: 36415; 80053; 85027; 86780; 87811; 93005; 93010; C9803-CS; U0003; U0005

== ENCOUNTER 2021-07-23 11:40 | Inpatient (IN) | payer OTHER ==
[2021-07-23 12:05] VITALS: BMI 26.2
[2021-07-23] MEDS ORDERED: METHOCARBAMOL 500 MG TABLET PO PRN (15:01)
[2021-07-23] MEDS ORDERED: LOPERAMIDE HCL 2 MG CAPSULE PO PRN (15:01)
[2021-07-23] MEDS ORDERED: MAG HYDROX/AL HYDROX/SIMETH 30 ML UNIT-DOSE CUP PO PRN (15:01)
[2021-07-23] MEDS ORDERED: IBUPROFEN 400 MG TABLET (FP) PO PRN (15:01)
[2021-07-23] MEDS ORDERED: DICYCLOMINE HCL 10 MG CAPSULE PO PRN (15:01)
[2021-07-23] MEDS ORDERED: ONDANSETRON *ODT* 4 MG TABLET SL PRN (15:01)
[2021-07-23] MEDS ORDERED: MAGNESIUM HYDROX 2400MG/30ML ORAL SUSPENSION 30 ML CUP PO PRN (15:01)
[2021-07-23] MEDS ORDERED: MAGNESIUM CITRATE 300 ML BOTTLE PO PRN (15:01)
[2021-07-23] MEDS ORDERED: ACETAMINOPHEN 325 MG TABLET (FP) PO PRN ×2 (15:01)
[2021-07-23] MEDS ORDERED: IBUPROFEN 600 MG TABLET (FP) PO PRN (15:01)
[2021-07-23] MEDS ORDERED: BISMUTH SUBSALICYLATE 262 MG/15 ML BTL PO PRN (15:01)
[2021-07-23] MEDS ORDERED: BENZOCAINE/MENTHOL (CHLORASEPTIC ) LOZENGE MM PRN (15:01)
[2021-07-23] MEDS ORDERED: NICOTINE 10 MG CARTRIDGE (INHALER) IH PRN (15:01)
[2021-07-23] MEDS: hydrOXYzine PAMOATE 25 MG CAPSULE (FP) PO SCH ×2 (17:14→22:15)
[2021-07-23] MEDS: amLODIPine BESYLATE 5 MG TABLET (FP) PO SCH (22:15)
[2021-07-23] MEDS: THIAMINE HCL 100 MG TABLET (FP) PO SCH (22:15)
[2021-07-23] MEDS: MELATONIN 5 MG TABLETS PO SCH (22:15)
[2021-07-24] MEDS: hydrOXYzine PAMOATE 25 MG CAPSULE (FP) PO SCH ×5 (06:57→22:18)
[2021-07-24] MEDS ORDERED: chlordiazePOXIDE HCL 25 MG CAPSULE PO PRN (09:41)
[2021-07-24] MEDS: PRENATAL VITAMINS W/ FOLIC ACID TABLET (FP) PO SCH (10:09)
[2021-07-24] MEDS: chlordiazePOXIDE HCL 25 MG CAPSULE PO SCH ×3 (10:10→22:18)
[2021-07-24] MEDS: amLODIPine BESYLATE 5 MG TABLET (FP) PO SCH (10:10)
[2021-07-24 14:14] LABS: HEMATOCRIT 36.5 % (35.4-49); HEMOGLOBIN 12.7 GM/dL (11.7-16.9); MCH 33.4 pg (25.7-33.7); MCHC 34.8 g/dl (32.0-35.9); MEAN PLT VOLUME 8.2 fl (7.5-11.1); PLATELET COUNT 232 10^3/uL (134-434); RDW 13.1 % (11.9-15.9); WHITE BLOOD COUNT 4.2 K/mm3 (4.0-10.0)
[2021-07-24 14:21] LABS: ALBUMIN 3.2 g/dl (3.4-5.0); BLOOD UREA NITROGEN 12.1 mg/dL (7-18)
[2021-07-24 14:24] LABS: CREATININE 1.2 mg/dL (0.55-1.3)
[2021-07-24 14:26] LABS: BILIRUBIN,TOTAL 0.4 mg/dL (0.2-1)
[2021-07-24] MEDS ORDERED: COLLOIDAL OATMEAL 1 BAR EACH TP PRN (15:39)
[2021-07-24] MEDS: THIAMINE HCL 100 MG TABLET (FP) PO SCH (22:18)
[2021-07-24] MEDS: MELATONIN 5 MG TABLETS PO SCH (22:18)
[2021-07-24] MEDS: QUEtiapine FUMARATE 100 MG TABLET (FP) PO SCH (22:18)
[2021-07-25] MEDS: hydrOXYzine PAMOATE 25 MG CAPSULE (FP) PO SCH ×5 (08:12→22:10)
[2021-07-25] MEDS: chlordiazePOXIDE HCL 25 MG CAPSULE PO SCH ×4 (08:12→22:10)
[2021-07-25] MEDS: amLODIPine BESYLATE 5 MG TABLET (FP) PO SCH (10:15)
[2021-07-25] MEDS: PRENATAL VITAMINS W/ FOLIC ACID TABLET (FP) PO SCH (10:15)
[2021-07-25] MEDS: THIAMINE HCL 100 MG TABLET (FP) PO SCH (22:10)
[2021-07-25] MEDS: QUEtiapine FUMARATE 100 MG TABLET (FP) PO SCH (22:10)
[2021-07-25] MEDS: MELATONIN 5 MG TABLETS PO SCH (22:10)
[2021-07-26] MEDS: hydrOXYzine PAMOATE 25 MG CAPSULE (FP) PO SCH ×5 (05:19→22:06)
[2021-07-26] MEDS: chlordiazePOXIDE HCL 25 MG CAPSULE PO SCH ×4 (05:20→22:05)
[2021-07-26] MEDS: amLODIPine BESYLATE 5 MG TABLET (FP) PO SCH (10:13)
[2021-07-26] MEDS: PRENATAL VITAMINS W/ FOLIC ACID TABLET (FP) PO SCH (10:13)
[2021-07-26] MEDS: QUEtiapine FUMARATE 100 MG TABLET (FP) PO SCH (22:06)
[2021-07-26] MEDS: THIAMINE HCL 100 MG TABLET (FP) PO SCH (22:06)
[2021-07-26] MEDS: MELATONIN 5 MG TABLETS PO SCH (22:06)
[2021-07-27] MEDS ORDERED: chlordiazePOXIDE HCL 10 MG CAPSULE PO PRN
[2021-07-27] MEDS: hydrOXYzine PAMOATE 25 MG CAPSULE (FP) PO SCH ×5 (05:22→22:21)
[2021-07-27] MEDS: chlordiazePOXIDE HCL 10 MG CAPSULE PO SCH ×4 (05:22→22:21)
[2021-07-27] MEDS: amLODIPine BESYLATE 5 MG TABLET (FP) PO SCH (10:19)
[2021-07-27] MEDS: PRENATAL VITAMINS W/ FOLIC ACID TABLET (FP) PO SCH (10:19)
[2021-07-27] MEDS: QUEtiapine FUMARATE 100 MG TABLET (FP) PO SCH (22:21)
[2021-07-27] MEDS: THIAMINE HCL 100 MG TABLET (FP) PO SCH (22:21)
[2021-07-27] MEDS: MELATONIN 5 MG TABLETS PO SCH (22:21)
[2021-07-28] MEDS: chlordiazePOXIDE HCL 10 MG CAPSULE PO SCH ×2 (05:16→18:55)
[2021-07-28] MEDS: hydrOXYzine PAMOATE 25 MG CAPSULE (FP) PO SCH ×5 (05:16→23:16)
[2021-07-28] MEDS: amLODIPine BESYLATE 5 MG TABLET (FP) PO SCH (11:36)
[2021-07-28] MEDS: PRENATAL VITAMINS W/ FOLIC ACID TABLET (FP) PO SCH (11:36)
[2021-07-28] MEDS: QUEtiapine FUMARATE 100 MG TABLET (FP) PO SCH (23:16)
[2021-07-28] MEDS: THIAMINE HCL 100 MG TABLET (FP) PO SCH (23:16)
[2021-07-28] MEDS: MELATONIN 5 MG TABLETS PO SCH (23:16)
[2021-07-29] MEDS ORDERED: chlordiazePOXIDE HCL 10 MG CAPSULE PO ONE (05:00)
[2021-07-29] MEDS: hydrOXYzine PAMOATE 25 MG CAPSULE (FP) PO SCH ×2 (05:38→10:16)
[2021-07-29 06:08] VITALS: PULSE 52
[2021-07-29 09:04] VITALS: BP 153/99; TEMP 97.5
[2021-07-29] MEDS: amLODIPine BESYLATE 5 MG TABLET (FP) PO SCH (10:16)
[2021-07-29] MEDS: PRENATAL VITAMINS W/ FOLIC ACID TABLET (FP) PO SCH (10:16)
== END 2021-07-29 12:20 | disposition other institution (70) | DRG 774 ==
LOC: YASAS 11:40 → Y3N 15:25
PROVIDERS: ADMIT Allergy & Immunology; ATTEND Surgery
PROC: HZ2ZZZZ Detoxification Services for Substance Abuse Treatment (ICD-10-PCS; principal; 2021-07-23)
DX: F10.230 Alcohol dependence with withdrawal, uncomplicated (principal); F14.20 Cocaine dependence, uncomplicated; F17.213 Nicotine dependence, cigarettes, with withdrawal; F31.9 Bipolar disorder, unspecified; F19.24 Other psychoactive substance dependence with psychoactive substance-induced mood disorder; I10 Essential (primary) hypertension; Z56.0 Unemployment, unspecified; Z91.014 Allergy to mammalian meats
CPT/HCPCS: 36415; 80053; 85027; 86780; 87811; C9803-CS; U0003; U0005

== ENCOUNTER 2021-07-29 11:38 | Inpatient (IN) | payer OTHER ==
[2021-07-29] MEDS ORDERED: MAG HYDROX/AL HYDROX/SIMETH 30 ML UNIT-DOSE CUP PO PRN (12:59)
[2021-07-29] MEDS ORDERED: IBUPROFEN 400 MG TABLET (FP) PO PRN (12:59)
[2021-07-29] MEDS ORDERED: ACETAMINOPHEN 325 MG TABLET (FP) PO PRN (12:59)
[2021-07-29] MEDS ORDERED: guaiFENesin 200 MG/10 ML 10 ML UNIT-DOSE CUPS PO PRN (12:59)
[2021-07-29] MEDS ORDERED: MAGNESIUM HYDROX 2400MG/30ML ORAL SUSPENSION 30 ML CUP PO PRN (12:59)
[2021-07-29] MEDS ORDERED: P-EPHED 60MG/TRIPROLIDI 2.5MG TABLET PO PRN (12:59)
[2021-07-29] MEDS ORDERED: BENZOCAINE/MENTHOL (CHLORASEPTIC ) LOZENGE MM PRN (12:59)
[2021-07-29] MEDS ORDERED: MAGNESIUM CITRATE 300 ML BOTTLE PO PRN (12:59)
[2021-07-29] MEDS ORDERED: LOPERAMIDE HCL 2 MG CAPSULE PO PRN (12:59)
[2021-07-29] MEDS ORDERED: NICOTINE 10 MG CARTRIDGE (INHALER) IH PRN (12:59)
[2021-07-29] MEDS: NICOTINE 7 MG/24 HOURS TOPICAL PATCH TD SCH (13:29)
[2021-07-29] MEDS: PRENATAL VITAMINS W/ FOLIC ACID TABLET (FP) PO SCH (13:29)
[2021-07-29] MEDS: hydrOXYzine PAMOATE 25 MG CAPSULE (FP) PO SCH ×3 (13:29→21:27)
[2021-07-29] MEDS: MELATONIN 5 MG TABLETS PO SCH (21:26)
[2021-07-29] MEDS: THIAMINE HCL 100 MG TABLET (FP) PO SCH (21:26)
[2021-07-30] MEDS: hydrOXYzine PAMOATE 25 MG CAPSULE (FP) PO SCH ×5 (06:17→21:36)
[2021-07-30] MEDS ORDERED: QUEtiapine FUMARATE 100 MG TABLET (FP) PO SCH (10:00)
[2021-07-30] MEDS: PRENATAL VITAMINS W/ FOLIC ACID TABLET (FP) PO SCH (10:01)
[2021-07-30] MEDS: amLODIPine BESYLATE 5 MG TABLET (FP) PO SCH (10:01)
[2021-07-30] MEDS: NICOTINE 7 MG/24 HOURS TOPICAL PATCH TD SCH (10:01)
[2021-07-30] MEDS: THIAMINE HCL 100 MG TABLET (FP) PO SCH (21:36)
[2021-07-30] MEDS: MELATONIN 5 MG TABLETS PO SCH (21:36)
[2021-07-31 06:42] VITALS: TEMP 97.2
[2021-07-31] MEDS: hydrOXYzine PAMOATE 25 MG CAPSULE (FP) PO SCH ×2 (06:42→09:27)
[2021-07-31 08:58] VITALS: BP 117/71; PULSE 52
[2021-07-31] MEDS: NICOTINE 7 MG/24 HOURS TOPICAL PATCH TD SCH (09:20)
[2021-07-31] MEDS: PRENATAL VITAMINS W/ FOLIC ACID TABLET (FP) PO SCH (09:20)
[2021-07-31] MEDS: amLODIPine BESYLATE 5 MG TABLET (FP) PO SCH (09:20)
[2021-07-31] MEDS ORDERED: QUEtiapine FUMARATE 100 MG TABLET (FP) PO SCH (22:00)
== END 2021-07-31 09:25 | disposition left against medical advice (07) | DRG 770 ==
LOC: YASAS 11:38 → Y3E 11:40
PROVIDERS: ADMIT Allergy & Immunology; ATTEND Psychiatry & Neurology Pain Medicine
PROC: HZ42ZZZ Group Counseling for Substance Abuse Treatment, Cognitive-Behavioral (ICD-10-PCS; principal; 2021-07-29)
DX: F10.20 Alcohol dependence, uncomplicated (principal); F14.20 Cocaine dependence, uncomplicated; F17.210 Nicotine dependence, cigarettes, uncomplicated; F31.9 Bipolar disorder, unspecified; G47.00 Insomnia, unspecified; I10 Essential (primary) hypertension; Z86.59 Personal history of other mental and behavioral disorders

== ENCOUNTER 2022-01-18 11:42 | Inpatient (IN) | payer OTHER ==
[2022-01-18 13:01] VITALS: RESP 18; BMI 27.7
[2022-01-18] MEDS ORDERED: NICOTINE 10 MG CARTRIDGE (INHALER) IH PRN (16:38)
[2022-01-18] MEDS ORDERED: MAG HYDROX/AL HYDROX/SIMETH 30 ML UNIT-DOSE CUP PO PRN (16:38)
[2022-01-18] MEDS ORDERED: DICYCLOMINE HCL 10 MG CAPSULE PO PRN (16:38)
[2022-01-18] MEDS ORDERED: BENZOCAINE/MENTHOL (CHLORASEPTIC ) LOZENGE MM PRN (16:38)
[2022-01-18] MEDS ORDERED: P-EPHED 60MG/TRIPROLIDI 2.5MG TABLET PO PRN (16:38)
[2022-01-18] MEDS ORDERED: ONDANSETRON *ODT* 4 MG TABLET SL PRN (16:38)
[2022-01-18] MEDS ORDERED: ACETAMINOPHEN 325 MG TABLET (FP) PO PRN ×2 (16:38)
[2022-01-18] MEDS ORDERED: IBUPROFEN 600 MG TABLET (FP) PO PRN (16:38)
[2022-01-18] MEDS ORDERED: LOPERAMIDE HCL 2 MG CAPSULE PO PRN (16:38)
[2022-01-18] MEDS ORDERED: hydrOXYzine PAMOATE 25 MG CAPSULE (FP) PO PRN (16:38)
[2022-01-18] MEDS ORDERED: BISMUTH SUBSALICYLATE 524 MG/30 ML PO PRN (16:38)
[2022-01-18] MEDS ORDERED: MAGNESIUM HYDROX 2400MG/30ML ORAL SUSPENSION 30 ML CUP PO PRN (16:38)
[2022-01-18] MEDS ORDERED: guaiFENesin 200 MG/10 ML 10 ML UNIT-DOSE CUPS PO PRN (16:38)
[2022-01-18] MEDS ORDERED: METHOCARBAMOL 500 MG TABLET PO PRN (16:38)
[2022-01-18] MEDS ORDERED: IBUPROFEN 400 MG TABLET (FP) PO PRN (16:38)
[2022-01-18] MEDS ORDERED: POLYETHYLENE GLYCOL (HEALTHYLAX) 3350 17 GM PACKET PO PRN (16:38)
[2022-01-18] MEDS ORDERED: THIAMINE HCL 100 MG TABLET (FP) PO SCH (22:00)
[2022-01-18] MEDS ORDERED: MELATONIN 5 MG TABLETS PO SCH (22:00)
[2022-01-19 06:24] VITALS: BP 161/104; PULSE 50; TEMP 96.2
[2022-01-19] MEDS ORDERED: PRENATAL VITAMINS W/ FOLIC ACID TABLET (FP) PO SCH (10:00)
[2022-01-19] MEDS ORDERED: LORazepam 1 MG TABLET PO PRN (10:44)
[2022-01-19] MEDS ORDERED: LORazepam 2 MG TABLET PO SCH (11:00)
[2022-01-19 12:51] LABS: HEMATOCRIT 39.3 % (35.4-49); HEMOGLOBIN 13.5 GM/dL (11.7-16.9); MCH 33.3 pg (25.7-33.7); MCHC 34.3 g/dl (32.0-35.9); MEAN CELL VOLUME 97.2 fl (80-96); MEAN PLT VOLUME 8.5 fl (7.5-11.1); PLATELET COUNT 215 10^3/uL (134-434); RBC 4.04 M/mm3 (4.00-5.60); WHITE BLOOD COUNT 2.9 K/mm3 (4.0-10.0)
[2022-01-19 12:57] LABS: ALBUMIN 3.1 g/dl (3.4-5.0); BLOOD UREA NITROGEN 12.2 mg/dL (7-18); CALCIUM 8.4 mg/dL (8.5-10.1)
[2022-01-19 13:02] LABS: BILIRUBIN,TOTAL 0.5 mg/dL (0.2-1); CREATININE 1.1 mg/dL (0.55-1.3); TOT PROT 5.6 g/dl (6.4-8.2)
[2022-01-20] MEDS ORDERED: LORazepam 1 MG TABLET PO SCH (05:00)
[2022-01-21] MEDS ORDERED: LORazepam 0.5 MG TABLET PO PRN
[2022-01-21] MEDS ORDERED: LORazepam 0.5 MG TABLET PO SCH (05:00)
[2022-01-22] MEDS ORDERED: LORazepam 0.5 MG TABLET PO ONE (05:00)
== END 2022-01-19 10:52 | disposition left against medical advice (07) | DRG 770 ==
LOC: YASAS 11:42 → Y3N 15:56
PROVIDERS: ADMIT Allergy & Immunology; ATTEND Surgery
PROC: HZ2ZZZZ Detoxification Services for Substance Abuse Treatment (ICD-10-PCS; principal; 2022-01-18)
DX: F10.230 Alcohol dependence with withdrawal, uncomplicated (principal); F14.20 Cocaine dependence, uncomplicated; F31.9 Bipolar disorder, unspecified; I10 Essential (primary) hypertension; Z87.891 Personal history of nicotine dependence
CPT/HCPCS: 36415; 80053; 85027; 86780; C9803-CS; U0003; U0005

== ENCOUNTER 2022-03-12 17:12 | Inpatient (IN) | payer OTHER ==
[2022-03-12 17:43] VITALS: BMI 28.0
[2022-03-12] MEDS ORDERED: BENZOCAINE/MENTHOL (CHLORASEPTIC ) LOZENGE MM PRN (19:49)
[2022-03-12] MEDS ORDERED: IBUPROFEN 600 MG TABLET (FP) PO PRN (19:49)
[2022-03-12] MEDS ORDERED: IBUPROFEN 400 MG TABLET (FP) PO PRN (19:49)
[2022-03-12] MEDS ORDERED: NALOXONE HCL (KLOXXADO) 8 MG SPRAY NS PRN (19:49)
[2022-03-12] MEDS ORDERED: hydrOXYzine PAMOATE 25 MG CAPSULE (FP) PO PRN (19:49)
[2022-03-12] MEDS ORDERED: MAGNESIUM HYDROX 2400MG/30ML ORAL SUSPENSION 30 ML CUP PO PRN (19:49)
[2022-03-12] MEDS ORDERED: POLYETHYLENE GLYCOL (HEALTHYLAX) 3350 17 GM PACKET PO PRN (19:49)
[2022-03-12] MEDS ORDERED: ONDANSETRON *ODT* 4 MG TABLET SL PRN (19:49)
[2022-03-12] MEDS ORDERED: ACETAMINOPHEN 325 MG TABLET (FP) PO PRN ×2 (19:49)
[2022-03-12] MEDS ORDERED: DICYCLOMINE HCL 10 MG CAPSULE PO PRN (19:49)
[2022-03-12] MEDS ORDERED: BISMUTH SUBSALICYLATE 524 MG/30 ML PO PRN (19:49)
[2022-03-12] MEDS ORDERED: NICOTINE 10 MG CARTRIDGE (INHALER) IH PRN (19:49)
[2022-03-12] MEDS ORDERED: MAG HYDROX/AL HYDROX/SIMETH 30 ML UNIT-DOSE CUP PO PRN (19:49)
[2022-03-12] MEDS ORDERED: LOPERAMIDE HCL 2 MG CAPSULE PO PRN (19:49)
[2022-03-12] MEDS: THIAMINE HCL 100 MG TABLET (FP) PO SCH (22:39)
[2022-03-12] MEDS: MELATONIN 5 MG TABLETS PO SCH (22:39)
[2022-03-12] MEDS: METHOCARBAMOL 500 MG TABLET PO PRN (22:39)
[2022-03-13] MEDS ORDERED: chlordiazePOXIDE HCL 25 MG CAPSULE PO PRN (09:17)
[2022-03-13] MEDS ORDERED: amLODIPine BESYLATE 5 MG TABLET (FP) PO SCH (10:00)
[2022-03-13] MEDS ORDERED: NICOTINE 14 MG/24 HOURS TOPICAL PATCH TD SCH (10:00)
[2022-03-13] MEDS ORDERED: PRENATAL VITAMINS W/ FOLIC ACID TABLET (FP) PO SCH (10:00)
[2022-03-13] MEDS: chlordiazePOXIDE HCL 25 MG CAPSULE PO SCH ×3 (10:05→22:32)
[2022-03-13 11:02] LABS: HEMATOCRIT 41.5 % (35.4-49); HEMOGLOBIN 14.4 GM/dL (11.7-16.9); MCH 33.5 pg (25.7-33.7); MCHC 34.6 g/dl (32.0-35.9); MEAN CELL VOLUME 96.9 fl (80-96); PLATELET COUNT 196 10^3/uL (134-434); RBC 4.28 M/mm3 (4.00-5.60); RDW 12.9 % (11.9-15.9)
[2022-03-13 11:26] LABS: ALBUMIN 3.7 g/dl (3.4-5.0); BLOOD UREA NITROGEN 11.1 mg/dL (7-18)
[2022-03-13 11:27] LABS: CALCIUM 9.1 mg/dL (8.5-10.1); CREATININE 1.1 mg/dL (0.55-1.3)
[2022-03-13 11:28] LABS: BILIRUBIN,TOTAL 0.5 mg/dL (0.2-1); TOT PROT 6.9 g/dl (6.4-8.2)
[2022-03-13] MEDS ORDERED: AMMONIUM LACTATE 12% LOTION 225 GM BOTTLE TP PRN (13:17)
[2022-03-13] MEDS ORDERED: COLLOIDAL OATMEAL 1 BAR EACH TP PRN (13:17)
[2022-03-13] MEDS ORDERED: QUEtiapine FUMARATE 100 MG TABLET (FP) PO SCH (22:00)
[2022-03-13] MEDS: METHOCARBAMOL 500 MG TABLET PO PRN (22:31)
[2022-03-13] MEDS: MELATONIN 5 MG TABLETS PO SCH (22:31)
[2022-03-13] MEDS: THIAMINE HCL 100 MG TABLET (FP) PO SCH (22:32)
[2022-03-14] MEDS: chlordiazePOXIDE HCL 25 MG CAPSULE PO SCH (05:50)
[2022-03-14 05:58] VITALS: BP 158/83; PULSE 53; RESP 16; TEMP 96.8
[2022-03-15] MEDS ORDERED: chlordiazePOXIDE HCL 25 MG CAPSULE PO SCH (05:00)
[2022-03-16] MEDS ORDERED: chlordiazePOXIDE HCL 10 MG CAPSULE PO PRN
[2022-03-16] MEDS ORDERED: chlordiazePOXIDE HCL 10 MG CAPSULE PO SCH (05:00)
[2022-03-17] MEDS ORDERED: chlordiazePOXIDE HCL 10 MG CAPSULE PO SCH (05:00)
[2022-03-18] MEDS ORDERED: chlordiazePOXIDE HCL 10 MG CAPSULE PO ONE (05:00)
== END 2022-03-14 09:39 | disposition left against medical advice (07) | DRG 770 ==
LOC: YASAS 17:12 → Y3N 22:00
PROVIDERS: ADMIT Allergy & Immunology; ATTEND Family Medicine
PROC: HZ2ZZZZ Detoxification Services for Substance Abuse Treatment (ICD-10-PCS; principal; 2022-03-12)
DX: F10.230 Alcohol dependence with withdrawal, uncomplicated (principal); F17.210 Nicotine dependence, cigarettes, uncomplicated; F31.9 Bipolar disorder, unspecified; F19.24 Other psychoactive substance dependence with psychoactive substance-induced mood disorder; G47.00 Insomnia, unspecified; I10 Essential (primary) hypertension
CPT/HCPCS: 36415; 80053; 85027; 86780; 87811; C9803-CS; U0003; U0005

== ENCOUNTER 2022-07-20 11:13 | Inpatient (IN) | payer OTHER ==
[2022-07-20 12:00] VITALS: BMI 28.0
[2022-07-20] MEDS ORDERED: IBUPROFEN 600 MG TABLET (FP) PO PRN (17:04)
[2022-07-20] MEDS ORDERED: NICOTINE 10 MG CARTRIDGE (INHALER) IH PRN (17:04)
[2022-07-20] MEDS ORDERED: LOPERAMIDE HCL 2 MG CAPSULE PO PRN (17:04)
[2022-07-20] MEDS ORDERED: DICYCLOMINE HCL 10 MG CAPSULE PO PRN (17:04)
[2022-07-20] MEDS ORDERED: BENZOCAINE/MENTHOL (CHLORASEPTIC ) LOZENGE MM PRN (17:04)
[2022-07-20] MEDS ORDERED: NALOXONE HCL (KLOXXADO) 8 MG SPRAY NS PRN (17:04)
[2022-07-20] MEDS ORDERED: METHOCARBAMOL 500 MG TABLET PO PRN (17:04)
[2022-07-20] MEDS ORDERED: hydrOXYzine PAMOATE 25 MG CAPSULE (FP) PO PRN (17:04)
[2022-07-20] MEDS ORDERED: BENZONATATE 200 MG CAPSULE PO PRN (17:04)
[2022-07-20] MEDS ORDERED: NALOXONE HCL 0.4 MG/ML VIAL IM PRN (17:04)
[2022-07-20] MEDS ORDERED: IBUPROFEN 400 MG TABLET (FP) PO PRN (17:04)
[2022-07-20] MEDS ORDERED: BISMUTH SUBSALICYLATE 524 MG/30 ML PO PRN (17:04)
[2022-07-20] MEDS ORDERED: ONDANSETRON *ODT* 4 MG TABLET SL PRN (17:04)
[2022-07-20] MEDS ORDERED: POLYETHYLENE GLYCOL (HEALTHYLAX) 3350 17 GM PACKET PO PRN (17:04)
[2022-07-20] MEDS ORDERED: guaiFENesin 600 MG TABLET.ER (FP) PO PRN (17:04)
[2022-07-20] MEDS ORDERED: chlordiazePOXIDE HCL 25 MG CAPSULE PO PRN (17:04)
[2022-07-20] MEDS ORDERED: MAG HYDROX/AL HYDROX/SIMETH 30 ML UNIT-DOSE CUP PO PRN (17:04)
[2022-07-20] MEDS ORDERED: MAGNESIUM HYDROX 2400MG/30ML ORAL SUSPENSION 30 ML CUP PO PRN (17:04)
[2022-07-20] MEDS ORDERED: ACETAMINOPHEN 325 MG TABLET (FP) PO PRN (17:04)
[2022-07-20] MEDS: MELATONIN 5 MG TABLETS PO SCH (22:14)
[2022-07-20] MEDS: THIAMINE HCL 100 MG TABLET (FP) PO SCH (22:14)
[2022-07-20] MEDS: chlordiazePOXIDE HCL 25 MG CAPSULE PO SCH (22:14)
[2022-07-21] MEDS: chlordiazePOXIDE HCL 25 MG CAPSULE PO SCH ×4 (05:43→22:47)
[2022-07-21] MEDS: amLODIPine BESYLATE 5 MG TABLET (FP) PO SCH (10:36)
[2022-07-21] MEDS: PRENATAL VITAMINS W/ FOLIC ACID TABLET (FP) PO SCH (10:36)
[2022-07-21 11:05] LABS: ALBUMIN 3.1 g/dl (3.4-5.0); BLOOD UREA NITROGEN 15.7 mg/dL (7-18)
[2022-07-21 11:06] LABS: CALCIUM 8.2 mg/dL (8.5-10.1); HEMOGLOBIN 13.2 GM/dL (11.7-16.9); MCH 33.5 pg (25.7-33.7); MCHC 35.5 g/dl (32.0-35.9); MEAN CELL VOLUME 94.4 fl (80-96); MEAN PLT VOLUME 8.9 fl (7.5-11.1); PLATELET COUNT 176 10^3/uL (134-434); RBC 3.92 M/mm3 (4.00-5.60); RDW 13.1 % (11.9-15.9); WHITE BLOOD COUNT 3.2 K/mm3 (4.0-10.0)
[2022-07-21 11:09] LABS: TOT PROT 5.9 g/dl (6.4-8.2)
[2022-07-21 11:10] LABS: BILIRUBIN,TOTAL 0.6 mg/dL (0.2-1)
[2022-07-21] MEDS ORDERED: COLLOIDAL OATMEAL 1 BAR EACH TP PRN (11:50)
[2022-07-21] MEDS ORDERED: QUEtiapine FUMARATE 100 MG TABLET (FP) PO SCH (22:00)
[2022-07-21] MEDS: MELATONIN 5 MG TABLETS PO SCH (22:45)
[2022-07-21] MEDS: QUEtiapine FUMARATE 50 MG TABLET PO SCH (22:46)
[2022-07-21] MEDS: THIAMINE HCL 100 MG TABLET (FP) PO SCH (22:47)
[2022-07-22] MEDS: chlordiazePOXIDE HCL 25 MG CAPSULE PO SCH ×4 (05:21→22:07)
[2022-07-22] MEDS: PRENATAL VITAMINS W/ FOLIC ACID TABLET (FP) PO SCH (10:31)
[2022-07-22] MEDS: amLODIPine BESYLATE 5 MG TABLET (FP) PO SCH (10:31)
[2022-07-22] MEDS: QUEtiapine FUMARATE 50 MG TABLET PO SCH (22:06)
[2022-07-22] MEDS: MELATONIN 5 MG TABLETS PO SCH (22:06)
[2022-07-22] MEDS: THIAMINE HCL 100 MG TABLET (FP) PO SCH (22:07)
[2022-07-23] MEDS ORDERED: chlordiazePOXIDE HCL 10 MG CAPSULE PO PRN
[2022-07-23] MEDS: chlordiazePOXIDE HCL 10 MG CAPSULE PO SCH ×4 (05:54→22:31)
[2022-07-23] MEDS: PRENATAL VITAMINS W/ FOLIC ACID TABLET (FP) PO SCH (10:25)
[2022-07-23] MEDS: amLODIPine BESYLATE 5 MG TABLET (FP) PO SCH (10:26)
[2022-07-23] MEDS: MELATONIN 5 MG TABLETS PO SCH (22:31)
[2022-07-23] MEDS: QUEtiapine FUMARATE 50 MG TABLET PO SCH (22:31)
[2022-07-23] MEDS: THIAMINE HCL 100 MG TABLET (FP) PO SCH (22:31)
[2022-07-24] MEDS ORDERED: chlordiazePOXIDE HCL 10 MG CAPSULE PO SCH (05:00)
[2022-07-24 07:39] VITALS: RESP 18
[2022-07-24 09:02] VITALS: BP 154/79; PULSE 53; TEMP 97.8
[2022-07-24] MEDS: PRENATAL VITAMINS W/ FOLIC ACID TABLET (FP) PO SCH (10:02)
[2022-07-24] MEDS: amLODIPine BESYLATE 5 MG TABLET (FP) PO SCH (10:02)
[2022-07-25] MEDS ORDERED: chlordiazePOXIDE HCL 10 MG CAPSULE PO ONE (05:00)
== END 2022-07-24 10:05 | disposition other institution (70) | DRG 774 ==
LOC: YASAS 11:13 → Y3N 17:29
PROVIDERS: ADMIT Allergy & Immunology; ATTEND Surgery
PROC: HZ2ZZZZ Detoxification Services for Substance Abuse Treatment (ICD-10-PCS; principal; 2022-07-20)
DX: F10.230 Alcohol dependence with withdrawal, uncomplicated (principal); F14.20 Cocaine dependence, uncomplicated; F17.210 Nicotine dependence, cigarettes, uncomplicated; F31.9 Bipolar disorder, unspecified; F19.282 Other psychoactive substance dependence with psychoactive substance-induced sleep disorder; F19.24 Other psychoactive substance dependence with psychoactive substance-induced mood disorder; I10 Essential (primary) hypertension; Z86.59 Personal history of other mental and behavioral disorders
CPT/HCPCS: 36415; 80053; 85027; 86780; 87635

== ENCOUNTER 2022-11-19 20:18 | Inpatient (IN) | payer OTHER ==
[2022-11-19 21:27] VITALS: BMI 32.1
[2022-11-19] MEDS ORDERED: COLLOIDAL OATMEAL 1 BAR EACH TP PRN (21:55)
[2022-11-19] MEDS ORDERED: MELATONIN 5 MG TABLETS PO SCH (22:00)
[2022-11-19] MEDS ORDERED: hydrOXYzine PAMOATE 25 MG CAPSULE (FP) PO PRN (22:04)
[2022-11-19] MEDS ORDERED: MAGNESIUM HYDROX 2400MG/30ML ORAL SUSPENSION 30 ML CUP PO PRN (22:04)
[2022-11-19] MEDS ORDERED: LOPERAMIDE HCL 2 MG CAPSULE PO PRN (22:04)
[2022-11-19] MEDS ORDERED: BENZOCAINE/MENTHOL (CHLORASEPTIC ) LOZENGE MM PRN (22:04)
[2022-11-19] MEDS ORDERED: P-EPHED 60MG/TRIPROLIDI 2.5MG TABLET PO PRN (22:04)
[2022-11-19] MEDS ORDERED: POLYETHYLENE GLYCOL (HEALTHYLAX) 3350 17 GM PACKET PO PRN (22:04)
[2022-11-19] MEDS ORDERED: MAG HYDROX/AL HYDROX/SIMETH 30 ML UNIT-DOSE CUP PO PRN (22:04)
[2022-11-19] MEDS ORDERED: ACETAMINOPHEN 325 MG TABLET (FP) PO PRN (22:04)
[2022-11-19] MEDS ORDERED: IBUPROFEN 600 MG TABLET (FP) PO PRN (22:04)
[2022-11-19] MEDS ORDERED: IBUPROFEN 400 MG TABLET (FP) PO PRN (22:04)
[2022-11-19] MEDS ORDERED: BENZONATATE 200 MG CAPSULE PO PRN (22:04)
[2022-11-19] MEDS ORDERED: guaiFENesin 600 MG TABLET.ER (FP) PO PRN (22:04)
[2022-11-20 10:07] LABS: HEMATOCRIT 39.4 % (35.4-49); HEMOGLOBIN 13.7 GM/dL (11.7-16.9); MCH 32.8 pg (25.7-33.7); MCHC 34.6 g/dl (32.0-35.9); MEAN CELL VOLUME 94.5 fl (80-96); MEAN PLT VOLUME 8.4 fl (7.5-11.1); PLATELET COUNT 238 10^3/uL (134-434); RBC 4.17 M/mm3 (4.00-5.60); RDW 12.9 % (11.9-15.9); WHITE BLOOD COUNT 3.4 K/mm3 (4.0-10.0)
[2022-11-20 10:17] LABS: POTASSIUM 3.8 mmol/L (3.5-5.1)
[2022-11-20 10:35] LABS: CALCIUM 8.7 mg/dL (8.5-10.1)
[2022-11-20 10:37] LABS: ALBUMIN 3.3 g/dl (3.4-5.0); BLOOD UREA NITROGEN 19.1 mg/dL (7-18)
[2022-11-20 10:41] LABS: BILIRUBIN,TOTAL 0.4 mg/dL (0.2-1); TOT PROT 6.7 g/dl (6.4-8.2)
[2022-11-20] MEDS: PRENATAL VITAMINS W/ FOLIC ACID TABLET (FP) PO SCH (10:45)
[2022-11-20 10:58] LABS: SYPHILIS W/ RPR CONF NON-REACTIVE (NONREACTIVE)
[2022-11-20] MEDS: DIVALPROEX SODIUM 500 MG TABLET E.C. PO SCH ×2 (11:40→21:15)
[2022-11-20] MEDS ORDERED: FLU VACCINE (FLULAVAL) PF 60 MCG/0.5 ML SYRINGE 2023-2024 IM ONE (12:00)
[2022-11-20] MEDS ORDERED: PNEUMOC 20-VAL CONJ-DIP CRM/PF 0.5 ML SYRINGE IM ONE (12:00)
[2022-11-20] MEDS: OLANZapine 5 MG TABLET PO SCH (21:15)
[2022-11-20] MEDS: THIAMINE HCL 100 MG TABLET (FP) PO SCH (21:15)
[2022-11-20] MEDS: diphenhydrAMINE HCL 25 MG CAPSULE (FP) PO SCH (21:15)
[2022-11-21] MEDS: PRENATAL VITAMINS W/ FOLIC ACID TABLET (FP) PO SCH (09:39)
[2022-11-21] MEDS: DIVALPROEX SODIUM 500 MG TABLET E.C. PO SCH ×2 (09:39→21:24)
[2022-11-21 10:47] LABS: EPI CELLS 20 /uL (0-25.1); HYALINE CASTS 1 /uL (0-3.1); URINE APPEARANCE CLEAR; URINE BACTERIA 326 /uL (0-1359); URINE BILIRUBIN NEGATIVE (NEGATIVE); URINE COLOR YELLOW; URINE GLUCOSE (UA) NEGATIVE (NEGATIVE); URINE KETONE NEGATIVE (NEGATIVE); URINE LEUK ESTERASE TRACE (NEGATIVE); URINE NITRITE NEGATIVE (NEGATIVE); URINE PROTEIN NEGATIVE (NEGATIVE); URINE RBC 16 /uL (0-23.9); URINE UROBILINOGEN 0.2 mg/dL (0.2-1.0); URINE WBC 24 /uL (0-25.8)
[2022-11-21] MEDS: OLANZapine 5 MG TABLET PO SCH (21:24)
[2022-11-21] MEDS: diphenhydrAMINE HCL 25 MG CAPSULE (FP) PO SCH (21:24)
[2022-11-21] MEDS: THIAMINE HCL 100 MG TABLET (FP) PO SCH (21:24)
[2022-11-22] MEDS: DIVALPROEX SODIUM 500 MG TABLET E.C. PO SCH ×2 (10:18→21:11)
[2022-11-22] MEDS: PRENATAL VITAMINS W/ FOLIC ACID TABLET (FP) PO SCH (10:18)
[2022-11-22] MEDS: THIAMINE HCL 100 MG TABLET (FP) PO SCH (21:10)
[2022-11-22] MEDS: OLANZapine 5 MG TABLET PO SCH (21:11)
[2022-11-22] MEDS: diphenhydrAMINE HCL 25 MG CAPSULE (FP) PO SCH (21:11)
[2022-11-23] MEDS: DIVALPROEX SODIUM 500 MG TABLET E.C. PO SCH ×2 (09:59→21:38)
[2022-11-23] MEDS: PRENATAL VITAMINS W/ FOLIC ACID TABLET (FP) PO SCH (09:59)
[2022-11-23] MEDS: amLODIPine BESYLATE 5 MG TABLET (FP) PO SCH (12:51)
[2022-11-23] MEDS: THIAMINE HCL 100 MG TABLET (FP) PO SCH (21:38)
[2022-11-23] MEDS: diphenhydrAMINE HCL 25 MG CAPSULE (FP) PO SCH (21:38)
[2022-11-23] MEDS: OLANZapine 5 MG TABLET PO SCH (21:38)
[2022-11-24] MEDS: PRENATAL VITAMINS W/ FOLIC ACID TABLET (FP) PO SCH (09:55)
[2022-11-24] MEDS: DIVALPROEX SODIUM 500 MG TABLET E.C. PO SCH ×2 (09:55→21:21)
[2022-11-24] MEDS: amLODIPine BESYLATE 5 MG TABLET (FP) PO SCH (09:55)
[2022-11-24] MEDS: OLANZapine 5 MG TABLET PO SCH (21:21)
[2022-11-24] MEDS: THIAMINE HCL 100 MG TABLET (FP) PO SCH (21:21)
[2022-11-24] MEDS: diphenhydrAMINE HCL 25 MG CAPSULE (FP) PO SCH (21:21)
[2022-11-25] MEDS: amLODIPine BESYLATE 5 MG TABLET (FP) PO SCH (09:18)
[2022-11-25] MEDS: PRENATAL VITAMINS W/ FOLIC ACID TABLET (FP) PO SCH (09:18)
[2022-11-25] MEDS: DIVALPROEX SODIUM 500 MG TABLET E.C. PO SCH ×2 (09:18→21:11)
[2022-11-25] MEDS: THIAMINE HCL 100 MG TABLET (FP) PO SCH (21:10)
[2022-11-25] MEDS: OLANZapine 5 MG TABLET PO SCH (21:10)
[2022-11-25] MEDS: diphenhydrAMINE HCL 25 MG CAPSULE (FP) PO SCH (21:11)
[2022-11-26] MEDS: DIVALPROEX SODIUM 500 MG TABLET E.C. PO SCH ×2 (10:01→21:22)
[2022-11-26] MEDS: amLODIPine BESYLATE 5 MG TABLET (FP) PO SCH (10:01)
[2022-11-26] MEDS: PRENATAL VITAMINS W/ FOLIC ACID TABLET (FP) PO SCH (10:01)
[2022-11-26] MEDS: THIAMINE HCL 100 MG TABLET (FP) PO SCH (21:19)
[2022-11-26] MEDS: diphenhydrAMINE HCL 25 MG CAPSULE (FP) PO SCH (21:19)
[2022-11-26] MEDS: OLANZapine 5 MG TABLET PO SCH (21:19)
[2022-11-27] MEDS: DIVALPROEX SODIUM 500 MG TABLET E.C. PO SCH ×2 (09:32→21:14)
[2022-11-27] MEDS: amLODIPine BESYLATE 5 MG TABLET (FP) PO SCH (09:32)
[2022-11-27] MEDS: PRENATAL VITAMINS W/ FOLIC ACID TABLET (FP) PO SCH (09:33)
[2022-11-27] MEDS: OLANZapine 5 MG TABLET PO SCH (21:14)
[2022-11-27] MEDS: THIAMINE HCL 100 MG TABLET (FP) PO SCH (21:14)
[2022-11-27] MEDS: diphenhydrAMINE HCL 25 MG CAPSULE (FP) PO SCH (21:14)
[2022-11-28] MEDS: DIVALPROEX SODIUM 500 MG TABLET E.C. PO SCH ×2 (10:06→21:24)
[2022-11-28] MEDS: PRENATAL VITAMINS W/ FOLIC ACID TABLET (FP) PO SCH (10:07)
[2022-11-28] MEDS: amLODIPine BESYLATE 5 MG TABLET (FP) PO SCH (10:07)
[2022-11-28] MEDS: THIAMINE HCL 100 MG TABLET (FP) PO SCH (21:23)
[2022-11-28] MEDS: diphenhydrAMINE HCL 25 MG CAPSULE (FP) PO SCH (21:23)
[2022-11-28] MEDS: OLANZapine 5 MG TABLET PO SCH (21:23)
[2022-11-29] MEDS: PRENATAL VITAMINS W/ FOLIC ACID TABLET (FP) PO SCH (10:04)
[2022-11-29] MEDS: amLODIPine BESYLATE 5 MG TABLET (FP) PO SCH (10:04)
[2022-11-29] MEDS: DIVALPROEX SODIUM 500 MG TABLET E.C. PO SCH ×2 (10:05→21:14)
[2022-11-29] MEDS: diphenhydrAMINE HCL 25 MG CAPSULE (FP) PO SCH (21:14)
[2022-11-29] MEDS: THIAMINE HCL 100 MG TABLET (FP) PO SCH (21:14)
[2022-11-29] MEDS: OLANZapine 5 MG TABLET PO SCH (21:14)
[2022-11-30 07:20] VITALS: TEMP 97.3
[2022-11-30] MEDS: amLODIPine BESYLATE 5 MG TABLET (FP) PO SCH (09:23)
[2022-11-30] MEDS: DIVALPROEX SODIUM 500 MG TABLET E.C. PO SCH (09:23)
[2022-11-30 09:24] VITALS: BP 141/94; PULSE 56; RESP 16
[2022-11-30] MEDS: PRENATAL VITAMINS W/ FOLIC ACID TABLET (FP) PO SCH (09:24)
== END 2022-11-30 11:03 | disposition home or self-care (01) | DRG 772 ==
LOC: YASAS 20:18 → Y3E 11-20 01:07
PROVIDERS: ADMIT Allergy & Immunology; ATTEND Allergy & Immunology
PROC: HZ42ZZZ Group Counseling for Substance Abuse Treatment, Cognitive-Behavioral (ICD-10-PCS; principal; 2022-11-20)
DX: F10.20 Alcohol dependence, uncomplicated (principal); F14.20 Cocaine dependence, uncomplicated; F17.210 Nicotine dependence, cigarettes, uncomplicated; F31.9 Bipolar disorder, unspecified; F19.282 Other psychoactive substance dependence with psychoactive substance-induced sleep disorder; I10 Essential (primary) hypertension
CPT/HCPCS: 36415; 80053; 80164; 81003; 85027; 86780; 86803; 87635

== ENCOUNTER 2023-02-19 12:21 | Inpatient (IN) | payer OTHER ==
[2023-02-19 13:27] VITALS: BMI 28.3
[2023-02-19] MEDS ORDERED: guaiFENesin 600 MG TABLET.ER (FP) PO PRN (16:26)
[2023-02-19] MEDS ORDERED: NALOXONE HCL (KLOXXADO) 8 MG SPRAY NS PRN (16:26)
[2023-02-19] MEDS ORDERED: BENZOCAINE/MENTHOL (CHLORASEPTIC ) LOZENGE MM PRN (16:26)
[2023-02-19] MEDS ORDERED: MAGNESIUM HYDROX 2400MG/30ML ORAL SUSPENSION 30 ML CUP PO PRN (16:26)
[2023-02-19] MEDS ORDERED: METHOCARBAMOL 500 MG TABLET PO PRN (16:26)
[2023-02-19] MEDS ORDERED: hydrOXYzine PAMOATE 25 MG CAPSULE (FP) PO PRN (16:26)
[2023-02-19] MEDS ORDERED: LOPERAMIDE HCL 2 MG CAPSULE PO PRN (16:26)
[2023-02-19] MEDS ORDERED: NICOTINE POLACRILEX 2 MG GUM BUC PRN (16:26)
[2023-02-19] MEDS ORDERED: ACETAMINOPHEN 325 MG TABLET (FP) PO PRN (16:26)
[2023-02-19] MEDS ORDERED: NALOXONE HCL 0.4 MG/ML VIAL IM PRN (16:26)
[2023-02-19] MEDS ORDERED: BENZONATATE 200 MG CAPSULE PO PRN (16:26)
[2023-02-19] MEDS ORDERED: ONDANSETRON *ODT* 4 MG TABLET SL PRN (16:26)
[2023-02-19] MEDS ORDERED: BISMUTH SUBSALICYLATE 524 MG/30 ML PO PRN (16:26)
[2023-02-19] MEDS ORDERED: POLYETHYLENE GLYCOL (HEALTHYLAX) 3350 17 GM PACKET PO PRN (16:26)
[2023-02-19] MEDS ORDERED: MAG HYDROX/AL HYDROX/SIMETH 30 ML UNIT-DOSE CUP PO PRN (16:26)
[2023-02-19] MEDS ORDERED: DICYCLOMINE HCL 10 MG CAPSULE PO PRN (16:26)
[2023-02-19] MEDS ORDERED: IBUPROFEN 600 MG TABLET (FP) PO PRN (16:26)
[2023-02-19] MEDS: MELATONIN 5 MG TABLETS PO SCH (22:40)
[2023-02-19] MEDS: THIAMINE HCL 100 MG TABLET (FP) PO SCH (22:40)
[2023-02-20 08:21] LABS: HEMATOCRIT 40.4 % (35.4-49); HEMOGLOBIN 13.6 GM/dL (11.7-16.9); MCH 32.6 pg (25.7-33.7); MCHC 33.7 g/dl (32.0-35.9); MEAN CELL VOLUME 96.9 fl (80-96); MEAN PLT VOLUME 8.3 fl (7.5-11.1); PLATELET COUNT 249 10^3/uL (134-434); RBC 4.17 M/mm3 (4.00-5.60); RDW 13.2 % (11.9-15.9); WHITE BLOOD COUNT 3.6 K/mm3 (4.0-10.0)
[2023-02-20 08:29] LABS: CHLORIDE 103 mmol/L (98-107); SODIUM 138 mmol/L (136-145)
[2023-02-20 08:36] LABS: BLOOD UREA NITROGEN 15.4 mg/dL (7-18); CALCIUM 8.7 mg/dL (8.5-10.1)
[2023-02-20 08:37] LABS: ALBUMIN 3.2 g/dl (3.4-5.0); ANION GAP 9 mmol/L (4-13); CO2 26 mmol/L (21-32); GLUCOSE,RANDOM 95 mg/dL (74-106)
[2023-02-20 08:39] LABS: CREATININE 1.2 mg/dL (0.55-1.3); SGPT/ALT 27 U/L (13-61)
[2023-02-20 08:40] LABS: SGOT/AST 21 U/L (15-37)
[2023-02-20 08:41] LABS: BILIRUBIN,TOTAL 0.2 mg/dL (0.2-1); TOT PROT 6.3 g/dl (6.4-8.2)
[2023-02-20 08:42] LABS: ALK PHOS 70 U/L (45-117)
[2023-02-20] MEDS ORDERED: chlordiazePOXIDE HCL 25 MG CAPSULE PO PRN (09:47)
[2023-02-20] MEDS: PRENATAL VITAMINS W/ FOLIC ACID TABLET (FP) PO SCH (10:25)
[2023-02-20] MEDS: chlordiazePOXIDE HCL 25 MG CAPSULE PO SCH (10:25)
[2023-02-20] MEDS: NICOTINE 14 MG/24 HOURS TOPICAL PATCH TD SCH (10:25)
[2023-02-20] MEDS: amLODIPine BESYLATE 5 MG TABLET (FP) PO SCH (10:25)
[2023-02-20] MEDS ORDERED: BENZTROPINE MESYLATE 1 MG TABLET PO SCH (22:00)
[2023-02-20] MEDS: OLANZapine 5 MG TABLET PO SCH (22:30)
[2023-02-21] MEDS: IBUPROFEN 400 MG TABLET (FP) PO PRN (04:51)
[2023-02-22] MEDS: chlordiazePOXIDE HCL 25 MG CAPSULE PO SCH (05:48)
[2023-02-23] MEDS ORDERED: chlordiazePOXIDE HCL 10 MG CAPSULE PO PRN
[2023-02-23] MEDS ORDERED: chlordiazePOXIDE HCL 10 MG CAPSULE PO SCH (05:00)
[2023-02-23] MEDS ORDERED: SUVOREXANT 10 MG TABLET PO PRN (21:40)
[2023-02-24] MEDS ORDERED: chlordiazePOXIDE HCL 10 MG CAPSULE PO SCH (05:00)
[2023-02-25] MEDS ORDERED: chlordiazePOXIDE HCL 10 MG CAPSULE PO ONE (05:00)
[2023-02-25 09:07] VITALS: BP 145/89; PULSE 45; RESP 19; TEMP 97.7
== END 2023-02-25 09:23 | disposition other institution (70) | DRG 774 ==
LOC: YASAS 12:21 → Y3N 16:56
PROVIDERS: ADMIT Allergy & Immunology; ATTEND Surgery
PROC: HZ2ZZZZ Detoxification Services for Substance Abuse Treatment (ICD-10-PCS; principal; 2023-02-19)
DX: F10.230 Alcohol dependence with withdrawal, uncomplicated (principal); F14.20 Cocaine dependence, uncomplicated; F17.210 Nicotine dependence, cigarettes, uncomplicated; F31.9 Bipolar disorder, unspecified; F19.24 Other psychoactive substance dependence with psychoactive substance-induced mood disorder; G47.00 Insomnia, unspecified; I10 Essential (primary) hypertension; Z91.148 Patient's other noncompliance with medication regimen for other reason; Z59.00 Homelessness unspecified
CPT/HCPCS: 36415; 80053; 80307; 85027; 86780; 87635

== ENCOUNTER 2023-03-21 14:55 | Inpatient (IN) | payer OTHER ==
[2023-03-21 15:56] VITALS: BMI 31.7
[2023-03-21] MEDS ORDERED: IBUPROFEN 400 MG TABLET (FP) PO PRN (18:23)
[2023-03-21] MEDS ORDERED: BENZONATATE 200 MG CAPSULE PO PRN (18:23)
[2023-03-21] MEDS ORDERED: ACETAMINOPHEN 325 MG TABLET (FP) PO PRN (18:23)
[2023-03-21] MEDS ORDERED: NALOXONE HCL 0.4 MG/ML VIAL IM PRN (18:23)
[2023-03-21] MEDS ORDERED: BENZOCAINE/MENTHOL (CHLORASEPTIC ) LOZENGE MM PRN (18:23)
[2023-03-21] MEDS ORDERED: MAG HYDROX/AL HYDROX/SIMETH 30 ML UNIT-DOSE CUP PO PRN (18:23)
[2023-03-21] MEDS ORDERED: guaiFENesin 600 MG TABLET.ER (FP) PO PRN (18:23)
[2023-03-21] MEDS ORDERED: LOPERAMIDE HCL 2 MG CAPSULE PO PRN (18:23)
[2023-03-21] MEDS ORDERED: POLYETHYLENE GLYCOL (HEALTHYLAX) 3350 17 GM PACKET PO PRN (18:23)
[2023-03-21] MEDS ORDERED: IBUPROFEN 600 MG TABLET (FP) PO PRN (18:23)
[2023-03-21] MEDS ORDERED: MAGNESIUM HYDROX 2400MG/30ML ORAL SUSPENSION 30 ML CUP PO PRN (18:23)
[2023-03-21] MEDS ORDERED: BISMUTH SUBSALICYLATE 524 MG/30 ML PO PRN (18:23)
[2023-03-21] MEDS ORDERED: NALOXONE HCL (KLOXXADO) 8 MG SPRAY NS PRN (18:23)
[2023-03-21] MEDS ORDERED: ONDANSETRON *ODT* 4 MG TABLET SL PRN (18:23)
[2023-03-21] MEDS ORDERED: DICYCLOMINE HCL 10 MG CAPSULE PO PRN (18:23)
[2023-03-21] MEDS ORDERED: NICOTINE POLACRILEX 2 MG GUM BUC PRN (18:23)
[2023-03-21] MEDS: METHOCARBAMOL 500 MG TABLET PO PRN (19:59)
[2023-03-21] MEDS: hydrOXYzine PAMOATE 25 MG CAPSULE (FP) PO PRN (19:59)
[2023-03-21] MEDS: THIAMINE HCL 100 MG TABLET (FP) PO SCH (23:25)
[2023-03-21] MEDS: MELATONIN 5 MG TABLETS PO SCH (23:25)
[2023-03-22] MEDS: PRENATAL VITAMINS W/ FOLIC ACID TABLET (FP) PO SCH (10:16)
[2023-03-22] MEDS: BACITRACIN 0.9 GM PACKET TP SCH (10:16)
[2023-03-22] MEDS: NICOTINE 14 MG/24 HOURS TOPICAL PATCH TD SCH (10:17)
[2023-03-22] MEDS: amLODIPine BESYLATE 5 MG TABLET (FP) PO SCH (11:08)
[2023-03-22] MEDS ORDERED: chlordiazePOXIDE HCL 25 MG CAPSULE PO PRN (11:51)
[2023-03-22 14:34] LABS: CHLORIDE 103 mmol/L (98-107); HEMATOCRIT 44.4 % (35.4-49); HEMOGLOBIN 15.4 GM/dL (11.7-16.9); MCH 32.5 pg (25.7-33.7); MCHC 34.6 g/dl (32.0-35.9); MEAN CELL VOLUME 93.8 fl (80-96); MEAN PLT VOLUME 8.9 fl (7.5-11.1); PLATELET COUNT 191 10^3/uL (134-434); POTASSIUM 3.8 mmol/L (3.5-5.1); RBC 4.74 M/mm3 (4.00-5.60); SODIUM 138 mmol/L (136-145)
[2023-03-22 15:00] LABS: ALBUMIN 3.6 g/dl (3.4-5.0)
[2023-03-22 15:01] LABS: BLOOD UREA NITROGEN 15.5 mg/dL (7-18); CALCIUM 9.1 mg/dL (8.5-10.1); GLUCOSE,RANDOM 79 mg/dL (74-106)
[2023-03-22 15:03] LABS: ANION GAP 4 mmol/L (4-13); CO2 31 mmol/L (21-32)
[2023-03-22 15:06] LABS: BILIRUBIN,TOTAL 0.7 mg/dL (0.2-1); SGOT/AST 24 U/L (15-37); SGPT/ALT 18 U/L (13-61); TOT PROT 7.1 g/dl (6.4-8.2)
[2023-03-22 15:07] LABS: ALK PHOS 77 U/L (45-117)
[2023-03-22] MEDS: chlordiazePOXIDE HCL 25 MG CAPSULE PO SCH (17:29)
[2023-03-22] MEDS: QUEtiapine FUMARATE 100 MG TABLET (FP) PO SCH (22:34)
[2023-03-23] MEDS ORDERED: chlordiazePOXIDE HCL 10 MG CAPSULE PO PRN
[2023-03-23] MEDS: chlordiazePOXIDE HCL 10 MG CAPSULE PO SCH (05:26)
[2023-03-24] MEDS: chlordiazePOXIDE HCL 10 MG CAPSULE PO SCH (05:24)
[2023-03-25] MEDS: chlordiazePOXIDE HCL 10 MG CAPSULE PO ONE (05:19)
[2023-03-25 06:29] VITALS: RESP 16
[2023-03-25 09:11] VITALS: BP 140/82; PULSE 49; TEMP 97.3
== END 2023-03-25 09:09 | disposition home or self-care (01) | DRG 774 ==
LOC: YASAS 14:55 → Y6N 18:37
PROVIDERS: ADMIT Allergy & Immunology; ATTEND Allergy & Immunology
PROC: HZ2ZZZZ Detoxification Services for Substance Abuse Treatment (ICD-10-PCS; principal; 2023-03-21)
DX: F10.230 Alcohol dependence with withdrawal, uncomplicated (principal); F14.20 Cocaine dependence, uncomplicated; F17.210 Nicotine dependence, cigarettes, uncomplicated; F19.282 Other psychoactive substance dependence with psychoactive substance-induced sleep disorder; F19.24 Other psychoactive substance dependence with psychoactive substance-induced mood disorder; F31.9 Bipolar disorder, unspecified; I10 Essential (primary) hypertension; Z56.0 Unemployment, unspecified; Z59.00 Homelessness unspecified
CPT/HCPCS: 36415; 80053; 80307; 85027; 86780; 87635; 93005; 93010

== ENCOUNTER 2023-06-19 14:15 | Inpatient (IN) | payer OTHER ==
[2023-06-19 14:38] VITALS: BMI 32.8
[2023-06-19] MEDS ORDERED: DICYCLOMINE HCL 10 MG CAPSULE PO PRN (15:06)
[2023-06-19] MEDS ORDERED: guaiFENesin 600 MG TABLET.ER (FP) PO PRN (15:06)
[2023-06-19] MEDS ORDERED: ACETAMINOPHEN 325 MG TABLET (FP) PO PRN (15:06)
[2023-06-19] MEDS ORDERED: LOPERAMIDE HCL 2 MG CAPSULE PO PRN (15:06)
[2023-06-19] MEDS ORDERED: IBUPROFEN 600 MG TABLET (FP) PO PRN (15:06)
[2023-06-19] MEDS ORDERED: chlordiazePOXIDE HCL 25 MG CAPSULE PO PRN (15:06)
[2023-06-19] MEDS ORDERED: IBUPROFEN 400 MG TABLET (FP) PO PRN (15:06)
[2023-06-19] MEDS ORDERED: BISMUTH SUBSALICYLATE 524 MG/30 ML PO PRN (15:06)
[2023-06-19] MEDS ORDERED: MAG HYDROX/AL HYDROX/SIMETH 30 ML UNIT-DOSE CUP PO PRN (15:06)
[2023-06-19] MEDS ORDERED: NALOXONE HCL (KLOXXADO) 8 MG SPRAY NS PRN (15:06)
[2023-06-19] MEDS ORDERED: BENZONATATE 200 MG CAPSULE PO PRN (15:06)
[2023-06-19] MEDS ORDERED: BENZOCAINE/MENTHOL (CHLORASEPTIC ) LOZENGE MM PRN (15:06)
[2023-06-19] MEDS ORDERED: hydrOXYzine PAMOATE 25 MG CAPSULE (FP) PO PRN (15:06)
[2023-06-19] MEDS ORDERED: MAGNESIUM HYDROX 2400MG/30ML ORAL SUSPENSION 30 ML CUP PO PRN (15:06)
[2023-06-19] MEDS ORDERED: ONDANSETRON *ODT* 4 MG TABLET SL PRN (15:06)
[2023-06-19] MEDS ORDERED: POLYETHYLENE GLYCOL (HEALTHYLAX) 3350 17 GM PACKET PO PRN (15:06)
[2023-06-19] MEDS ORDERED: NALOXONE HCL 0.4 MG/ML VIAL IM PRN (15:06)
[2023-06-19] MEDS ORDERED: QUEtiapine FUMARATE 50 MG TABLET PO ONE (16:56)
[2023-06-19] MEDS ORDERED: chlordiazePOXIDE HCL 25 MG CAPSULE ONE (17:23)
[2023-06-19] MEDS: chlordiazePOXIDE HCL 25 MG CAPSULE PO SCH (17:27)
[2023-06-19] MEDS: NICOTINE 21 MG/24 HOURS TOPICAL PATCH TD SCH (20:04)
[2023-06-19] MEDS: PRENATAL VITAMINS W/ FOLIC ACID TABLET (FP) PO SCH (20:06)
[2023-06-19] MEDS: QUEtiapine FUMARATE 50 MG TABLET PO ONE (20:07)
[2023-06-19] MEDS: METHOCARBAMOL 500 MG TABLET PO PRN (22:28)
[2023-06-19] MEDS: THIAMINE 100 MG TABLET PO SCH (22:28)
[2023-06-19] MEDS: MELATONIN 5 MG TABLETS PO SCH (22:28)
[2023-06-20] MEDS: amLODIPine BESYLATE 5 MG TABLET (FP) PO SCH (10:27)
[2023-06-20 14:30] LABS: HEMATOCRIT 42.5 % (35.4-49); MCH 33.5 pg (25.7-33.7); MCHC 35.3 g/dl (32.0-35.9); MEAN CELL VOLUME 94.8 fl (80-96); MEAN PLT VOLUME 9.4 fl (7.5-11.1); PLATELET COUNT 155 10^3/uL (134-434); RBC 4.48 M/mm3 (4.00-5.60); RDW 13.9 % (11.9-15.9); WHITE BLOOD COUNT 3.3 K/mm3 (4.0-10.0)
[2023-06-20 14:36] LABS: CHLORIDE 104 mmol/L (98-107); POTASSIUM 3.6 mmol/L (3.5-5.1); SODIUM 140 mmol/L (136-145)
[2023-06-20 14:47] LABS: ANION GAP 6 mmol/L (4-13); BLOOD UREA NITROGEN 19.3 mg/dL (7-18); CALCIUM 8.7 mg/dL (8.5-10.1); CO2 30 mmol/L (21-32); GLUCOSE,RANDOM 92 mg/dL (74-106); TOT PROT 6.5 g/dl (6.4-8.2)
[2023-06-20 14:48] LABS: ALBUMIN 3.1 g/dl (3.4-5.0)
[2023-06-20 14:50] LABS: CREATININE 1.1 mg/dL (0.55-1.3); SGPT/ALT 22 U/L (13-61)
[2023-06-20 14:51] LABS: SGOT/AST 36 U/L (15-37)
[2023-06-20 14:52] LABS: BILIRUBIN,TOTAL 0.6 mg/dL (0.2-1)
[2023-06-20 14:53] LABS: ALK PHOS 63 U/L (45-117)
[2023-06-20] MEDS: LACTULOSE 20 GM/30 ML UDC (FOR ORAL USE ONLY) PO SCH (22:42)
[2023-06-20] MEDS: QUEtiapine FUMARATE 100 MG TABLET (FP) PO SCH (22:44)
[2023-06-21] MEDS: chlordiazePOXIDE HCL 25 MG CAPSULE PO SCH (05:25)
[2023-06-22] MEDS ORDERED: chlordiazePOXIDE HCL 10 MG CAPSULE PO PRN
[2023-06-22] MEDS: chlordiazePOXIDE HCL 10 MG CAPSULE PO SCH (05:55)
[2023-06-22] MEDS: amLODIPine BESYLATE 5 MG TABLET (FP) PO ONE (15:51)
[2023-06-23] MEDS: chlordiazePOXIDE HCL 10 MG CAPSULE PO SCH (06:31)
[2023-06-23] MEDS: amLODIPine BESYLATE 10 MG TABLET (FP) PO SCH (10:29)
[2023-06-24] MEDS: chlordiazePOXIDE HCL 10 MG CAPSULE PO ONE (05:32)
[2023-06-24 09:09] VITALS: PULSE 60; RESP 17; TEMP 97.9
[2023-06-24 09:10] VITALS: BP 173/111
[2023-06-24] MEDS: LOSARTAN POTASSIUM 50 MG TABLET PO SCH (09:14)
== END 2023-06-24 09:31 | disposition home or self-care (01) | DRG 774 ==
LOC: YASAS 14:15 → Y3N 15:45
PROVIDERS: ADMIT Allergy & Immunology; ATTEND Surgery
PROC: HZ2ZZZZ Detoxification Services for Substance Abuse Treatment (ICD-10-PCS; principal; 2023-06-19)
DX: F10.230 Alcohol dependence with withdrawal, uncomplicated (principal); F14.10 Cocaine abuse, uncomplicated; F17.210 Nicotine dependence, cigarettes, uncomplicated; F31.9 Bipolar disorder, unspecified; F19.24 Other psychoactive substance dependence with psychoactive substance-induced mood disorder; G47.00 Insomnia, unspecified; I10 Essential (primary) hypertension
CPT/HCPCS: 36415; 80053; 80305; 80307; 82140; 85027; 86780; 93005; 93010

== ENCOUNTER 2023-10-23 17:39 | Inpatient (IN) | payer OTHER ==
[2023-10-23 18:13] VITALS: BMI 29.5
[2023-10-23] MEDS ORDERED: BENZOCAINE/MENTHOL (CHLORASEPTIC ) LOZENGE MM PRN (19:54)
[2023-10-23] MEDS ORDERED: MAG HYDROX/AL HYDROX/SIMETH 30 ML UNIT-DOSE CUP PO PRN (19:54)
[2023-10-23] MEDS ORDERED: NICOTINE POLACRILEX 4 MG GUM BUC PRN (19:54)
[2023-10-23] MEDS ORDERED: guaiFENesin 600 MG TABLET.ER (FP) PO PRN (19:54)
[2023-10-23] MEDS ORDERED: ACETAMINOPHEN 325 MG TABLET (FP) PO PRN (19:54)
[2023-10-23] MEDS ORDERED: BISMUTH SUBSALICYLATE 524 MG/30 ML PO PRN (19:54)
[2023-10-23] MEDS ORDERED: NALOXONE (NARCAN) HCL 4 MG/0.1 ML SPRAY NS PRN (19:54)
[2023-10-23] MEDS ORDERED: IBUPROFEN 400 MG TABLET (FP) PO PRN (19:54)
[2023-10-23] MEDS ORDERED: NALOXONE HCL 0.4 MG/ML VIAL IM PRN (19:54)
[2023-10-23] MEDS ORDERED: BENZONATATE 200 MG CAPSULE PO PRN (19:54)
[2023-10-23] MEDS ORDERED: POLYETHYLENE GLYCOL (HEALTHYLAX) 3350 17 GM PACKET PO PRN (19:54)
[2023-10-23] MEDS ORDERED: ONDANSETRON *ODT* 4 MG TABLET SL PRN (19:54)
[2023-10-23] MEDS ORDERED: DICYCLOMINE HCL 10 MG CAPSULE PO PRN (19:54)
[2023-10-23] MEDS ORDERED: IBUPROFEN 600 MG TABLET (FP) PO PRN (19:54)
[2023-10-23] MEDS ORDERED: hydrOXYzine PAMOATE 25 MG CAPSULE (FP) PO PRN (19:54)
[2023-10-23] MEDS ORDERED: MAGNESIUM HYDROX 2400MG/30ML ORAL SUSPENSION 30 ML CUP PO PRN (19:54)
[2023-10-23] MEDS ORDERED: LOPERAMIDE HCL 2 MG CAPSULE PO PRN (19:54)
[2023-10-23] MEDS: THIAMINE 100 MG TABLET PO SCH (21:20)
[2023-10-23] MEDS: MELATONIN 5 MG TABLETS PO SCH (21:21)
[2023-10-24] MEDS: amLODIPine BESYLATE 5 MG TABLET (FP) PO SCH (09:17)
[2023-10-24] MEDS: NICOTINE 14 MG/24 HOURS TOPICAL PATCH TD SCH (09:17)
[2023-10-24] MEDS: PRENATAL VITAMINS W/ FOLIC ACID TABLET (FP) PO SCH (09:17)
[2023-10-24] MEDS ORDERED: chlordiazePOXIDE HCL 25 MG CAPSULE PO PRN (10:09)
[2023-10-24] MEDS: chlordiazePOXIDE HCL 25 MG CAPSULE PO SCH (11:37)
[2023-10-24 12:11] LABS: HEMATOCRIT 40.7 % (35.4-49); MCH 33.7 pg (25.7-33.7); MCHC 34.5 g/dl (32.0-35.9); MEAN CELL VOLUME 97.6 fl (80-96); MEAN PLT VOLUME 8.9 fl (7.5-11.1); PLATELET COUNT 210 10^3/uL (134-434); RBC 4.17 M/mm3 (4.00-5.60); RDW 13.1 % (11.9-15.9); WHITE BLOOD COUNT 3.8 K/mm3 (4.0-10.0)
[2023-10-24 12:18] LABS: CHLORIDE 105 mmol/L (98-107); POTASSIUM 3.9 mmol/L (3.5-5.1); SODIUM 140 mmol/L (136-145)
[2023-10-24 12:22] LABS: ALBUMIN 3.1 g/dl (3.4-5.0); ANION GAP 8 mmol/L (4-13); BLOOD UREA NITROGEN 20.5 mg/dL (7-18); CALCIUM 8.5 mg/dL (8.5-10.1); CO2 28 mmol/L (21-32); GLUCOSE,RANDOM 92 mg/dL (74-106)
[2023-10-24 12:25] LABS: CREATININE 1.1 mg/dL (0.55-1.3); SGOT/AST 29 U/L (15-37); SGPT/ALT 24 U/L (13-61)
[2023-10-24 12:27] LABS: BILIRUBIN,TOTAL 0.5 mg/dL (0.2-1)
[2023-10-24 12:28] LABS: ALK PHOS 68 U/L (45-117)
[2023-10-24] MEDS ORDERED: QUEtiapine FUMARATE 200 MG TABLET PO SCH (22:00)
[2023-10-24] MEDS: QUEtiapine FUMARATE 100 MG TABLET (FP) PO SCH (22:28)
[2023-10-24] MEDS: DIVALPROEX SODIUM 500 MG TABLET E.C. PO SCH (22:28)
[2023-10-26] MEDS: chlordiazePOXIDE HCL 25 MG CAPSULE PO SCH (05:30)
[2023-10-26 09:05] VITALS: BP 126/62; PULSE 67; RESP 20; TEMP 98
[2023-10-27] MEDS ORDERED: chlordiazePOXIDE HCL 10 MG CAPSULE PO PRN
[2023-10-27] MEDS ORDERED: chlordiazePOXIDE HCL 10 MG CAPSULE PO SCH (05:00)
[2023-10-28] MEDS ORDERED: chlordiazePOXIDE HCL 10 MG CAPSULE PO SCH (05:00)
[2023-10-29] MEDS ORDERED: chlordiazePOXIDE HCL 10 MG CAPSULE PO ONE (05:00)
== END 2023-10-26 09:54 | disposition left against medical advice (07) | DRG 770 ==
LOC: YASAS 17:39 → Y3N 20:02
PROVIDERS: ADMIT Allergy & Immunology; ATTEND Surgery
PROC: HZ2ZZZZ Detoxification Services for Substance Abuse Treatment (ICD-10-PCS; principal; 2023-10-23)
DX: F10.230 Alcohol dependence with withdrawal, uncomplicated (principal); F14.10 Cocaine abuse, uncomplicated; F17.210 Nicotine dependence, cigarettes, uncomplicated; F31.9 Bipolar disorder, unspecified; F19.24 Other psychoactive substance dependence with psychoactive substance-induced mood disorder; F41.9 Anxiety disorder, unspecified; G47.00 Insomnia, unspecified; I10 Essential (primary) hypertension; Z59.00 Homelessness unspecified
CPT/HCPCS: 36415; 80053; 80164; 80305; 80307; 85027; 86780; 93005; 93010

== ENCOUNTER 2023-12-26 13:58 | Inpatient (IN) | payer OTHER ==
[2023-12-26 14:50] VITALS: BMI 32.3
[2023-12-26] MEDS ORDERED: METHOCARBAMOL 500 MG TABLET PO PRN (17:04)
[2023-12-26] MEDS ORDERED: DICYCLOMINE HCL 10 MG CAPSULE PO PRN (17:04)
[2023-12-26] MEDS ORDERED: hydrOXYzine PAMOATE 25 MG CAPSULE (FP) PO PRN (17:04)
[2023-12-26] MEDS ORDERED: IBUPROFEN 600 MG TABLET (FP) PO PRN (17:04)
[2023-12-26] MEDS ORDERED: IBUPROFEN 400 MG TABLET (FP) PO PRN (17:04)
[2023-12-26] MEDS ORDERED: NICOTINE POLACRILEX 2 MG GUM BUC PRN (17:04)
[2023-12-26] MEDS ORDERED: BISMUTH SUBSALICYLATE 524 MG/30 ML PO PRN (17:04)
[2023-12-26] MEDS ORDERED: BENZOCAINE/MENTHOL (CHLORASEPTIC ) LOZENGE MM PRN (17:04)
[2023-12-26] MEDS ORDERED: BENZONATATE 200 MG CAPSULE PO PRN (17:04)
[2023-12-26] MEDS ORDERED: POLYETHYLENE GLYCOL (HEALTHYLAX) 3350 17 GM PACKET PO PRN (17:04)
[2023-12-26] MEDS ORDERED: MAGNESIUM HYDROX 2400MG/30ML ORAL SUSPENSION 30 ML CUP PO PRN (17:04)
[2023-12-26] MEDS ORDERED: ONDANSETRON *ODT* 4 MG TABLET SL PRN (17:04)
[2023-12-26] MEDS ORDERED: MAG HYDROX/AL HYDROX/SIMETH 30 ML UNIT-DOSE CUP PO PRN (17:04)
[2023-12-26] MEDS ORDERED: guaiFENesin 600 MG TABLET.ER (FP) PO PRN (17:04)
[2023-12-26] MEDS ORDERED: LOPERAMIDE HCL 2 MG CAPSULE PO PRN (17:04)
[2023-12-26] MEDS ORDERED: NALOXONE (NARCAN) HCL 4 MG/0.1 ML SPRAY NS PRN (17:04)
[2023-12-26] MEDS ORDERED: ACETAMINOPHEN 325 MG TABLET (FP) PO PRN (17:04)
[2023-12-26] MEDS: MELATONIN 5 MG TABLETS PO SCH (22:47)
[2023-12-26] MEDS: THIAMINE 100 MG TABLET PO SCH (22:48)
[2023-12-27] MEDS: NICOTINE 14 MG/24 HOURS TOPICAL PATCH TD SCH (09:20)
[2023-12-27] MEDS: PRENATAL VITAMINS W/ FOLIC ACID TABLET (FP) PO SCH (09:21)
[2023-12-27 10:48] LABS: CHLORIDE 106 mmol/L (98-107); SODIUM 140 mmol/L (136-145)
[2023-12-27 10:56] LABS: CALCIUM 8.8 mg/dL (8.5-10.1)
[2023-12-27 10:57] LABS: ALBUMIN 3.2 g/dl (3.4-5.0); ANION GAP 5 mmol/L (4-13); BILIRUBIN,TOTAL 0.3 mg/dL (0.2-1); BLOOD UREA NITROGEN 15.5 mg/dL (7-18); CO2 29 mmol/L (21-32); GLUCOSE,RANDOM 88 mg/dL (74-106); SGPT/ALT 13 U/L (13-61)
[2023-12-27 10:58] LABS: ALK PHOS 64 U/L (45-117); HEMATOCRIT 38.2 % (35.4-49); HEMOGLOBIN 13.4 GM/dL (11.7-16.9); MCH 33.1 pg (25.7-33.7); MCHC 35.2 g/dl (32.0-35.9); MEAN PLT VOLUME 8.7 fl (7.5-11.1); PLATELET COUNT 189 10^3/uL (134-434); RBC 4.06 M/mm3 (4.00-5.60); RDW 12.9 % (11.9-15.9); SGOT/AST 16 U/L (15-37); WHITE BLOOD COUNT 3.5 K/mm3 (4.0-10.0)
[2023-12-27 10:59] LABS: TOT PROT 6.1 g/dl (6.4-8.2)
[2023-12-27] MEDS: QUEtiapine FUMARATE 100 MG TABLET (FP) PO SCH (22:16)
[2023-12-28] MEDS: amLODIPine BESYLATE 5 MG TABLET (FP) PO SCH (10:08)
[2023-12-29 07:14] VITALS: RESP 16
[2023-12-29 08:53] VITALS: BP 133/89; PULSE 52; TEMP 97.7
[2023-12-29] MEDS: NALOXONE (NYS OPIOID OVERDOSE PROGRAM) 4 MG/0.1 ML SPRAY NS PRN (11:00)
== END 2023-12-29 11:13 | disposition home or self-care (01) | DRG 774 ==
LOC: YASAS 13:58 → Y6N 17:34
PROVIDERS: ADMIT Allergy & Immunology; ATTEND Surgery
PROC: HZ2ZZZZ Detoxification Services for Substance Abuse Treatment (ICD-10-PCS; principal; 2023-12-26)
DX: F10.20 Alcohol dependence, uncomplicated (principal); F14.20 Cocaine dependence, uncomplicated; F12.20 Cannabis dependence, uncomplicated; F17.210 Nicotine dependence, cigarettes, uncomplicated; F19.282 Other psychoactive substance dependence with psychoactive substance-induced sleep disorder; F19.24 Other psychoactive substance dependence with psychoactive substance-induced mood disorder; F41.9 Anxiety disorder, unspecified; I10 Essential (primary) hypertension; Z59.00 Homelessness unspecified
CPT/HCPCS: 36415; 80053; 80305; 80307; 85027; 86780; 93005; 93010

== ENCOUNTER 2024-02-02 12:50 | Inpatient (IN) | payer OTHER ==
[2024-02-02 13:46] VITALS: BMI 31.0
[2024-02-02] MEDS ORDERED: NALOXONE (NARCAN) HCL 4 MG/0.1 ML SPRAY NS PRN (14:05)
[2024-02-02] MEDS ORDERED: POLYETHYLENE GLYCOL (HEALTHYLAX) 3350 17 GM PACKET PO PRN (14:05)
[2024-02-02] MEDS ORDERED: ACETAMINOPHEN 325 MG TABLET (FP) PO PRN (14:05)
[2024-02-02] MEDS ORDERED: chlordiazePOXIDE HCL 25 MG CAPSULE PO PRN (14:05)
[2024-02-02] MEDS ORDERED: BISMUTH SUBSALICYLATE 524 MG/30 ML PO PRN (14:05)
[2024-02-02] MEDS ORDERED: IBUPROFEN 600 MG TABLET (FP) PO PRN (14:05)
[2024-02-02] MEDS ORDERED: LOPERAMIDE HCL 2 MG CAPSULE PO PRN (14:05)
[2024-02-02] MEDS ORDERED: MAGNESIUM HYDROX 2400MG/30ML ORAL SUSPENSION 30 ML CUP PO PRN (14:05)
[2024-02-02] MEDS ORDERED: NICOTINE POLACRILEX 2 MG GUM BUC PRN (14:05)
[2024-02-02] MEDS ORDERED: guaiFENesin 600 MG TABLET.ER (FP) PO PRN (14:05)
[2024-02-02] MEDS ORDERED: ONDANSETRON *ODT* 4 MG TABLET SL PRN (14:05)
[2024-02-02] MEDS ORDERED: MAG HYDROX/AL HYDROX/SIMETH 30 ML UNIT-DOSE CUP PO PRN (14:05)
[2024-02-02] MEDS ORDERED: BENZOCAINE/MENTHOL (CHLORASEPTIC ) LOZENGE MM PRN (14:05)
[2024-02-02] MEDS ORDERED: BENZONATATE 200 MG CAPSULE PO PRN (14:05)
[2024-02-02] MEDS ORDERED: IBUPROFEN 400 MG TABLET (FP) PO PRN (14:05)
[2024-02-02] MEDS ORDERED: DICYCLOMINE HCL 10 MG CAPSULE PO PRN (14:05)
[2024-02-02] MEDS: BACITRACIN ZINC 15 GM TUBE TOPICAL OINTMENT TP ONE (15:20)
[2024-02-02] MEDS: hydrOXYzine PAMOATE 25 MG CAPSULE (FP) PO PRN (17:32)
[2024-02-02] MEDS: chlordiazePOXIDE HCL 25 MG CAPSULE PO SCH (17:32)
[2024-02-02] MEDS: METHOCARBAMOL 500 MG TABLET PO PRN (17:32)
[2024-02-02] MEDS: THIAMINE 100 MG TABLET PO SCH (22:28)
[2024-02-02] MEDS: MELATONIN 5 MG TABLETS PO SCH (22:28)
[2024-02-03] MEDS: amLODIPine BESYLATE 5 MG TABLET (FP) PO SCH (10:29)
[2024-02-03] MEDS: PRENATAL VITAMINS W/ FOLIC ACID TABLET (FP) PO SCH (10:29)
[2024-02-03] MEDS: QUEtiapine FUMARATE 100 MG TABLET (FP) PO SCH (23:03)
[2024-02-04] MEDS: chlordiazePOXIDE HCL 25 MG CAPSULE PO SCH (05:58)
[2024-02-05] MEDS ORDERED: chlordiazePOXIDE HCL 10 MG CAPSULE PO PRN
[2024-02-05] MEDS: chlordiazePOXIDE HCL 10 MG CAPSULE PO SCH (05:55)
[2024-02-05] MEDS ORDERED: amLODIPine BESYLATE 5 MG TABLET (FP) PO SCH (14:17)
[2024-02-05 17:30] VITALS: BP 133/85; PULSE 54; RESP 18; TEMP 98.2
[2024-02-06] MEDS: chlordiazePOXIDE HCL 10 MG CAPSULE PO SCH (05:58)
[2024-02-06] MEDS: NALOXONE (NYS OPIOID OVERDOSE PROGRAM) 4 MG/0.1 ML SPRAY NS SCH (09:48)
[2024-02-06] MEDS: amLODIPine BESYLATE 10 MG TABLET (FP) PO SCH (09:50)
[2024-02-07] MEDS ORDERED: chlordiazePOXIDE HCL 10 MG CAPSULE PO ONE (05:00)
== END 2024-02-06 09:45 | disposition home or self-care (01) | DRG 774 ==
LOC: YASAS 12:50 → Y6N 15:25
PROVIDERS: ADMIT Allergy & Immunology; ATTEND Surgery
PROC: HZ2ZZZZ Detoxification Services for Substance Abuse Treatment (ICD-10-PCS; principal; 2024-02-02)
DX: F10.230 Alcohol dependence with withdrawal, uncomplicated (principal); F14.20 Cocaine dependence, uncomplicated; F17.210 Nicotine dependence, cigarettes, uncomplicated; F25.9 Schizoaffective disorder, unspecified; F31.9 Bipolar disorder, unspecified; F19.282 Other psychoactive substance dependence with psychoactive substance-induced sleep disorder; I10 Essential (primary) hypertension
CPT/HCPCS: 36415; 80307; 93005; 93010